=== PATIENT | female | born 1970 | race Caucasian/White ===

== ENCOUNTER 2019-08-30 09:57 | Inpatient (IN) ==
[2019-08-30 10:38] LABS: Bilirubin,Urine Negative (Negative); Blood,Urine Large (Negative); Clarity,Urine Cloudy (Clear); Color,Urine Red (Yellow); Glucose,Urine (UA) >=1000 mg/dL (Normal); Ketones,Urine Negative (Negative); Leukocyte Esterase,Urine Small (Negative); Nitrite,Urine Negative (Negative); Protein,Urine >=1000 mg/dL (Neg-Trace); Specific Gravity,Urine 1.028 (1.010-1.025); Urobilinogen,Urine Normal (Normal)
[2019-08-30 10:39] LABS: Bacteria,Urine Many per hpf (None-Few); Hyaline Casts,Urine Few per lpf (None-Few); RBC,Urine TNTC per hpf (0-3); Squamous Epithelial Cell,Urine Many per lpf (None-Few); WBC,Urine 15-30 per hpf (0-3)
[2019-08-30 11:03] LABS: Hematocrit 32.6 % (35.3-44.9); Hemoglobin 11.4 g/dL (11.5-15.4); Mean Corpuscular Hemoglobin 31.1 pg (28.0-33.3); Mean Corpuscular Volume 88.8 fL (83.0-100.0); Mean Platelet Volume 9.7 fL (9.4-12.4); Platelet Count 229 K/mcL (140-400); Red Blood Count 3.67 M/mcL (3.82-4.97); Red Cell Distribution Width 11.9 % (11.5-14.5); White Blood Count 7.8 K/mcL (4.3-11.1)
[2019-08-30 11:11] LABS: INR 0.8; Prothrombin Time 9.2 Seconds (9.4-12.1)
[2019-08-30 11:23] LABS: BUN/Creatinine Ratio 14 (6-26); Blood Urea Nitrogen 21 mg/dL (6-20); Calcium 8.1 mg/dL (8.6-10.3); Carbon Dioxide 20 mEq/L (23-29); Chloride 106 mEq/L (98-107); Glucose 253 mg/dL (70-105); Osmolality,Calculated 286 (280-300); Potassium 3.9 mEq/L (3.5-5.1); Sodium 132 mEq/L (136-145); eGFR For African Americans 45 (> 60); eGFR For Non-African Americans 38 (> 60)
[2019-08-30 11:25] LABS: Troponin I < 0.03 ng/mL (< 0.04)
[2019-08-30] MEDS ORDERED: cefTRIAXone 1,000 MG in 0.9 % Sodium Chloride Mini Bag 100 ML IVPB ONE (12:09)
[2019-08-30] MEDS ORDERED: Acetaminophen 325 MG TABLET PO PRN (12:51)
[2019-08-30] MEDS ORDERED: Ringers Solution, Lactated 1,000 ML IVC ONE (12:54)
[2019-08-30] MEDS ORDERED: Nicotine 2 MG GUM BC PRN (13:02)
[2019-08-30] MEDS ORDERED: Dextrose Gel 15 GM/37.5 ML TUBE PO PRN ×2 (13:04)
[2019-08-30] MEDS ORDERED: *HR* Dextrose 50 % in Water (Syg) 50 ML SYRINGE IVP PRN (13:04)
[2019-08-30] MEDS ORDERED: D5% in Water 1,000 ML IVC PRN (13:04)
[2019-08-30] MEDS ORDERED: Aspirin 81 MG TAB.CHEW PO STA (15:39)
[2019-08-30 15:40] LABS: Alanine Aminotransferase 18 Units/L (7-52); Albumin/Globulin Ratio 0.7 (1.1-2.2); Alkaline Phosphatase 87 Units/L (34-104); Aspartate Amino Transferase 18 Units/L (13-39); Bilirubin,Indirect 0.1 mg/dL (0.0-1.2); Bilirubin,Total 0.1 mg/dL (0.3-1.0); Globulin 2.7 g/dL (2.4-3.5); Total Protein 4.7 g/dL (6.4-8.9)
[2019-08-30] MEDS ORDERED: *HR* LORazepam 2 MG/ML VIAL IVP PRN (17:16)
[2019-08-30] MEDS: *HR* Heparin 5,000 UNIT/ML VIAL SQ SCH ×2 (17:46→22:12)
[2019-08-30] MEDS: Insulin LISPRO 300 UNITS/3 ML VIAL SQ SCH ×2 (17:46→22:14)
[2019-08-30] MEDS: Ringers Solution, Lactated 1,000 ML IVC SCH (17:47)
[2019-08-30] MEDS: Nicotine 21 MG PATCH.TD24 TD SCH (17:47)
[2019-08-30] MEDS ORDERED: Perflutren Lipid Microsphere 1.3 ML in 0.9 % Sodium Chloride 8.7 ML IVP ONE (17:52)
[2019-08-30] MEDS ORDERED: levETIRAcetam 1,000 MG in 0.9 % Sodium Chloride 100 ML IVPB ONE (18:00)
[2019-08-30] MEDS ORDERED: traMADol 50 MG TABLET PO ONE (20:29)
[2019-08-31 01:12] LABS: Hematocrit 25.5 % (35.3-44.9); Mean Corpuscular HGB Conc 34.9 g/dL (31.6-35.5); Mean Corpuscular Hemoglobin 30.6 pg (28.0-33.3); Mean Corpuscular Volume 87.6 fL (83.0-100.0); Mean Platelet Volume 10.4 fL (9.4-12.4); Platelet Count 227 K/mcL (140-400); Red Blood Count 2.91 M/mcL (3.82-4.97); White Blood Count 6.5 K/mcL (4.3-11.1)
[2019-08-31 01:13] LABS: Hemoglobin 8.9 g/dL (11.5-15.4)
[2019-08-31 01:29] LABS: Calcium 7.4 mg/dL (8.6-10.3); Magnesium 1.6 mg/dL (1.6-2.6); Potassium 3.4 mEq/L (3.5-5.1)
[2019-08-31 03:16] LABS: Estimated Average Glucose 226 mg/dl
[2019-08-31] MEDS: levETIRAcetam 250 MG TABLET PO SCH ×2 (06:20→16:48)
[2019-08-31] MEDS: *HR* Heparin 5,000 UNIT/ML VIAL SQ SCH ×3 (06:20→21:10)
[2019-08-31] MEDS ORDERED: Ringers Solution, Lactated 1,000 ML ONE (08:05)
[2019-08-31] MEDS: cefTRIAXone 1,000 MG in Water for inj. (sterile) 10 ML IVP SCH (08:14)
[2019-08-31] MEDS: Nicotine 21 MG PATCH.TD24 TD SCH (08:14)
[2019-08-31] MEDS: Insulin LISPRO 300 UNITS/3 ML VIAL SQ SCH ×4 (08:15→21:08)
[2019-08-31] MEDS: Ondansetron 4 MG/2 ML VIAL IVP PRN (08:15)
[2019-08-31] MEDS: Ringers Solution, Lactated 1,000 ML IVC SCH (08:16)
[2019-08-31] MEDS ORDERED: *HR* HYDROcodone/Acet 5/325 mg TABLET PO ONE (13:37)
[2019-08-31] MEDS: 0.9 % Sodium Chloride 1,000 ML IVC SCH (14:24)
[2019-09-01] MEDS: 0.9 % Sodium Chloride 1,000 ML IVC SCH (01:08)
[2019-09-01 01:27] LABS: Hematocrit 27.5 % (35.3-44.9); Hemoglobin 9.7 g/dL (11.5-15.4); Mean Corpuscular HGB Conc 35.3 g/dL (31.6-35.5); Mean Corpuscular Hemoglobin 31.1 pg (28.0-33.3); Mean Corpuscular Volume 88.1 fL (83.0-100.0); Mean Platelet Volume 10.2 fL (9.4-12.4); Platelet Count 222 K/mcL (140-400); Red Blood Count 3.12 M/mcL (3.82-4.97); Red Cell Distribution Width 12.1 % (11.5-14.5); White Blood Count 5.4 K/mcL (4.3-11.1)
[2019-09-01 01:47] LABS: Calcium 7.4 mg/dL (8.6-10.3); Magnesium 1.6 mg/dL (1.6-2.6); Phosphorous 4.3 mg/dL (2.7-4.5); Potassium 3.5 mEq/L (3.5-5.1)
[2019-09-01] MEDS: Ondansetron 4 MG/2 ML VIAL IVP PRN ×2 (05:01→20:27)
[2019-09-01] MEDS: *HR* Heparin 5,000 UNIT/ML VIAL SQ SCH ×3 (05:02→20:30)
[2019-09-01] MEDS: levETIRAcetam 250 MG TABLET PO SCH ×2 (05:03→17:13)
[2019-09-01] MEDS: Insulin LISPRO 300 UNITS/3 ML VIAL SQ SCH ×4 (09:32→21:06)
[2019-09-01] MEDS: cefTRIAXone 1,000 MG in Water for inj. (sterile) 10 ML IVP SCH (09:33)
[2019-09-01] MEDS: amLODIPine 5 MG TABLET PO SCH (09:34)
[2019-09-01] MEDS: Cholecalciferol (D-3) 1,000 UNIT (25MCG) TABLET PO SCH (09:34)
[2019-09-01] MEDS: Nicotine 21 MG PATCH.TD24 TD SCH (09:34)
[2019-09-01] MEDS ORDERED: *HR* Rivaroxaban 15 MG TABLET PO SCH (15:00)
[2019-09-01] MEDS: *HR* Enoxaparin 100 MG/ML SYRINGE SQ SCH (17:13)
[2019-09-01] MEDS ORDERED: traMADol 50 MG TABLET PO ONE (23:59)
[2019-09-02 06:17] LABS: Hematocrit 29.5 % (35.3-44.9); Hemoglobin 10.4 g/dL (11.5-15.4); Mean Corpuscular HGB Conc 35.3 g/dL (31.6-35.5); Mean Corpuscular Volume 88.1 fL (83.0-100.0); Mean Platelet Volume 9.8 fL (9.4-12.4); Platelet Count 199 K/mcL (140-400); Red Blood Count 3.35 M/mcL (3.82-4.97); Red Cell Distribution Width 12.3 % (11.5-14.5); White Blood Count 3.7 K/mcL (4.3-11.1)
[2019-09-02] MEDS: *HR* Enoxaparin 100 MG/ML SYRINGE SQ SCH ×2 (06:24→18:43)
[2019-09-02] MEDS: levETIRAcetam 250 MG TABLET PO SCH (06:25)
[2019-09-02 06:35] LABS: Calcium 7.5 mg/dL (8.6-10.3); Potassium 3.5 mEq/L (3.5-5.1)
[2019-09-02] MEDS: Ondansetron 4 MG/2 ML VIAL IVP PRN (07:32)
[2019-09-02] MEDS ORDERED: 0.9 % Sodium Chloride 1,000 ML IVC SCH ×2 (08:00→12:15)
[2019-09-02] MEDS: amLODIPine 5 MG TABLET PO SCH (09:27)
[2019-09-02] MEDS: Cholecalciferol (D-3) 1,000 UNIT (25MCG) TABLET PO SCH (09:27)
[2019-09-02] MEDS: Insulin LISPRO 300 UNITS/3 ML VIAL SQ SCH ×3 (09:28→17:25)
[2019-09-02] MEDS: Nicotine 21 MG PATCH.TD24 TD SCH (09:28)
[2019-09-02] MEDS: *HR* Promethazine 25 MG/ML VIAL IVP PRN ×2 (13:04→19:15)
[2019-09-02] MEDS ORDERED: *HR* HYDROmorphone (PF) 1 MG/ML SYRINGE IVP PRN (13:06)
[2019-09-02] MEDS ORDERED: Milk and Molasses Enema 200 ML RC ONE ×2 (14:09→16:15)
[2019-09-02 14:13] LABS: Albumin/Globulin Ratio 0.8 (1.1-2.2); Bilirubin,Indirect 0.1 mg/dL (0.0-1.0); Bilirubin,Total 0.1 mg/dL (0.3-1.0); Globulin 2.6 g/dL (2.4-3.5); Total Protein 4.6 g/dL (6.4-8.9)
[2019-09-02] MEDS ORDERED: Insulin LISPRO 300 UNITS/3 ML VIAL SQ SCH (18:00)
[2019-09-02] MEDS: Albumin 25% 25gram/100mL 25 GM/100 ML IV.SOLN IVPB SCH (18:36)
[2019-09-02 21:49] LABS: Bilirubin,Urine Negative (Negative); Blood,Urine Small (Negative); Clarity,Urine Cloudy (Clear); Color,Urine Yellow (Yellow); Glucose,Urine (UA) 250 mg/dL (Normal); Ketones,Urine Negative (Negative); Leukocyte Esterase,Urine Negative (Negative); Nitrite,Urine Negative (Negative); PH,Urine 7.5 pH Units (5.0-8.0); Protein,Urine >=1000 mg/dL (Neg-Trace); Specific Gravity,Urine 1.022 (1.010-1.025); Urobilinogen,Urine Normal (Normal)
[2019-09-02 21:54] LABS: Bacteria,Urine None Seen per hpf (None-Few); Hyaline Casts,Urine Few per lpf (None-Few); Squamous Epithelial Cell,Urine Many per lpf (None-Few)
[2019-09-02 21:55] LABS: RBC,Urine 0-3 per hpf (0-3)
[2019-09-03] MEDS: Insulin LISPRO 300 UNITS/3 ML VIAL SQ SCH ×4 (00:22→18:07)
[2019-09-03] MEDS: Albumin 25% 25gram/100mL 25 GM/100 ML IV.SOLN IVPB SCH ×2 (00:28→09:21)
[2019-09-03] MEDS ORDERED: 0.9 % Sodium Chloride 1,000 ML IVC SCH ×2 (03:15→13:15)
[2019-09-03 04:58] LABS: Basophils % 0.2 %; Hematocrit 23.3 % (35.3-44.9); Immature Granulocytes % 0.2 % (0-4); Lymphocytes # 0.9 K/mcL (0.6-4.6); Lymphocytes % 23.2 %; Mean Corpuscular HGB Conc 33.5 g/dL (31.6-35.5); Mean Corpuscular Hemoglobin 30.6 pg (28.0-33.3); Mean Corpuscular Volume 91.4 fL (83.0-100.0); Mean Platelet Volume 10.3 fL (9.4-12.4); Monocytes # 0.4 K/mcL (0.0-1.3); Monocytes % 9.9 %; Neutrophils # 2.7 K/mcL (1.6-8.9); Platelet Count 171 K/mcL (140-400); Red Blood Count 2.55 M/mcL (3.82-4.97); Red Cell Distribution Width 12.3 % (11.5-14.5); Segmented Neutrophils % 66.5 %; White Blood Count 4.1 K/mcL (4.3-11.1)
[2019-09-03 05:01] LABS: Hemoglobin 7.8 g/dL (11.5-15.4)
[2019-09-03 05:17] LABS: Alanine Aminotransferase 14 Units/L (7-52); Albumin 2.2 g/dL (3.5-5.7); Albumin/Globulin Ratio 1.3 (1.1-2.2); Alkaline Phosphatase 50 Units/L (34-104); Aspartate Amino Transferase 17 Units/L (13-39); BUN/Creatinine Ratio 13 (6-26); Bilirubin,Total 0.1 mg/dL (0.3-1.0); Blood Urea Nitrogen 15 mg/dL (6-20); Calcium 7.3 mg/dL (8.6-10.3); Carbon Dioxide 20 mEq/L (23-29); Chloride 112 mEq/L (98-107); Globulin 1.7 g/dL (2.4-3.5); Glucose 107 mg/dL (70-105); Osmolality,Calculated 285 (280-300); Potassium 3.2 mEq/L (3.5-5.1); Sodium 137 mEq/L (136-145); Total Protein 3.9 g/dL (6.4-8.9); Triglycerides 189 mg/dL (< 150); eGFR For African Americans > 60 (> 60); eGFR For Non-African Americans 51 (> 60)
[2019-09-03] MEDS: *HR* Enoxaparin 100 MG/ML SYRINGE SQ SCH (05:25)
[2019-09-03] MEDS ORDERED: Potassium Chloride 40 MEQ, Lidocaine 1% 2 ML in 0.9 % Sodium Chloride 500 ML IVPB ONE ×2 (07:28→11:00)
[2019-09-03] MEDS: Cholecalciferol (D-3) 1,000 UNIT (25MCG) TABLET PO SCH (09:01)
[2019-09-03] MEDS: Nicotine 21 MG PATCH.TD24 TD SCH (09:01)
[2019-09-03] MEDS: amLODIPine 5 MG TABLET PO SCH (09:01)
[2019-09-03] MEDS ORDERED: Ondansetron 4 MG/2 ML VIAL IVP PRN (13:05)
[2019-09-03] MEDS: *HR* Rivaroxaban 15 MG TABLET PO SCH (18:17)
[2019-09-03] MEDS ORDERED: Gadolinium Contrast Agent (WT Based) IV PRN (18:29)
[2019-09-03] MEDS ORDERED: Acetaminophen 325 MG TABLET PO SCH (21:00)
[2019-09-04] MEDS: Insulin LISPRO 300 UNITS/3 ML VIAL SQ SCH ×2 (03:25→11:34)
[2019-09-04 03:53] LABS: Hematocrit 22.8 % (35.3-44.9); Hemoglobin 7.8 g/dL (11.5-15.4); Mean Corpuscular HGB Conc 34.2 g/dL (31.6-35.5); Mean Corpuscular Hemoglobin 30.8 pg (28.0-33.3); Mean Corpuscular Volume 90.1 fL (83.0-100.0); Mean Platelet Volume 9.7 fL (9.4-12.4); Platelet Count 152 K/mcL (140-400); Red Blood Count 2.53 M/mcL (3.82-4.97); Red Cell Distribution Width 12.7 % (11.5-14.5); White Blood Count 2.5 K/mcL (4.3-11.1)
[2019-09-04 04:13] LABS: Potassium 3.4 mEq/L (3.5-5.1)
[2019-09-04] MEDS ORDERED: Potassium Chloride Elixir 20 MEQ/15 ML UDC PO SCH (08:15)
[2019-09-04] MEDS ORDERED: levETIRAcetam 250 MG TABLET PO SCH (09:00)
[2019-09-04] MEDS: *HR* Rivaroxaban 15 MG TABLET PO SCH (10:53)
[2019-09-04] MEDS: Cholecalciferol (D-3) 1,000 UNIT (25MCG) TABLET PO SCH (10:53)
[2019-09-04] MEDS: Nicotine 21 MG PATCH.TD24 TD SCH (10:54)
[2019-09-04] MEDS: amLODIPine 5 MG TABLET PO SCH (10:57)
[2019-09-04 12:19] VITALS: BP 156/92
== END 2019-09-04 13:53 | disposition home or self-care (01) | DRG 47 ==
LOC: EMEROOARM 09:57 → 3BNU 09:57 → SUATTDRO 13:24 → 3BNU 14:03 → 3ANU 09-02 15:21
PROVIDERS: ADMIT Internal Medicine; ATTEND Internal Medicine

== ENCOUNTER 2020-06-07 02:28 | Inpatient (IN) ==
[2020-06-07 03:45] LABS: Basophils % 0.3 %; Eosinophils # 0.1 K/mcL (0.0-0.6); Eosinophils % 1.7 %; Hemoglobin 7.2 g/dL (11.5-15.4); Immature Granulocytes % 0.4 % (0-4); Immature Platelets 0.9 % (1.1-6.1); Lymphocytes # 1.2 K/mcL (0.6-4.6); Lymphocytes % 15.9 %; Mean Corpuscular HGB Conc 32.7 g/dL (31.6-35.5); Mean Corpuscular Hemoglobin 29.5 pg (28.0-33.3); Mean Corpuscular Volume 90.2 fL (83.0-100.0); Monocytes # 0.5 K/mcL (0.0-1.3); Monocytes % 6.7 %; Neutrophils # 5.7 K/mcL (1.6-8.9); Red Blood Count 2.44 M/mcL (3.82-4.97); Red Cell Distribution Width 14.6 % (11.5-14.5); White Blood Count 7.6 K/mcL (4.3-11.1)
[2020-06-07] MEDS ORDERED: *HR* LORazepam 2 MG/ML VIAL IVP ONE (03:50)
[2020-06-07 03:52] LABS: Platelet Count 99 K/mcL (140-400)
[2020-06-07 04:01] LABS: Albumin 2.1 g/dL (3.5-5.7); Bilirubin,Total 0.2 mg/dL (0.3-1.0); Calcium 6.9 mg/dL (8.6-10.3); Globulin 2.2 g/dL (2.4-3.5); Potassium 4.4 mEq/L (3.5-5.1); Total Protein 4.3 g/dL (6.4-8.9); Troponin I 0.03 ng/mL (< 0.04)
[2020-06-07] MEDS ORDERED: 0.9 % Sodium Chloride 1,000 ML ONE (05:15)
[2020-06-07] MEDS ORDERED: Naloxone 0.4 MG/ML INJ IVP PRN (07:19)
[2020-06-07] MEDS ORDERED: Dextrose Gel 15 GM/37.5 ML TUBE PO PRN ×2 (07:24)
[2020-06-07] MEDS ORDERED: D5% in Water 1,000 ML IVC PRN (07:24)
[2020-06-07] MEDS ORDERED: *HR* Dextrose 50 % in Water (Vial) 50 ML VIAL IVP PRN (07:24)
[2020-06-07] MEDS ORDERED: 0.9 % Sodium Chloride 250 ML IVC SCH (07:30)
[2020-06-07] MEDS: amLODIPine 5 MG TABLET PO SCH ×2 (07:40→11:53)
[2020-06-07] MEDS: Metoprolol XL (24 HR) Succ 50 MG TAB.ER.24H PO SCH ×2 (07:41→11:53)
[2020-06-07] MEDS: Insulin LISPRO 300 UNITS/3 ML VIAL SQ SCH ×3 (07:41→17:13)
[2020-06-07] MEDS: Apixaban 5 MG TABLET PO SCH ×2 (07:49→20:16)
[2020-06-07] MEDS: Aspirin Enteric Coated 81 MG Tablet PO SCH (07:49)
[2020-06-07] MEDS: Topiramate 25 MG TABLET PO SCH ×2 (07:49→20:15)
[2020-06-07] MEDS: Insulin DETEMIR 100 UNIT/ML X5UNITS SQ SCH ×2 (07:49→20:18)
[2020-06-07] MEDS: levETIRAcetam 250 MG TABLET PO SCH ×2 (07:49→20:16)
[2020-06-07 07:51] LABS: INR 0.9; Prothrombin Time 9.8 Seconds (9.4-12.1)
[2020-06-07 07:54] LABS: Activated Partial Thrombo Time 32.4 Seconds (26.0-36.0)
[2020-06-07] MEDS: *HR* HYDROcodone/Acet 5/325 mg TABLET PO PRN (17:13)
[2020-06-07] MEDS: ALPRAZolam 0.25 MG TABLET PO PRN (17:14)
[2020-06-08 00:59] LABS: Basophils % 0.4 %; Eosinophils # 0.1 K/mcL (0.0-0.6); Eosinophils % 2.4 %; Hemoglobin 6.2 g/dL (11.5-15.4); Immature Granulocytes % 0.4 % (0-4); Lymphocytes # 1.6 K/mcL (0.6-4.6); Lymphocytes % 31.3 %; Mean Corpuscular HGB Conc 32.6 g/dL (31.6-35.5); Mean Corpuscular Hemoglobin 29.5 pg (28.0-33.3); Mean Corpuscular Volume 90.5 fL (83.0-100.0); Mean Platelet Volume 9.7 fL (9.4-12.4); Monocytes # 0.4 K/mcL (0.0-1.3); Monocytes % 8.2 %; Neutrophils # 2.9 K/mcL (1.6-8.9); Platelet Count 100 K/mcL (140-400); Red Cell Distribution Width 14.9 % (11.5-14.5); Segmented Neutrophils % 57.3 %
[2020-06-08 01:14] LABS: Magnesium 1.5 mg/dL (1.6-2.6); Phosphorous 5.6 mg/dL (2.7-4.5); Potassium 4.4 mEq/L (3.5-5.1)
[2020-06-08] MEDS: ALPRAZolam 0.25 MG TABLET PO PRN ×2 (01:17→15:43)
[2020-06-08] MEDS ORDERED: 0.9 % Sodium Chloride 250 ML IVC PRN (07:42)
[2020-06-08] MEDS ORDERED: *HR* Heparin 10,000 UNIT/10 ML VIAL IV PRN (07:42)
[2020-06-08] MEDS ORDERED: 0.9 % Sodium Chloride 1,000 ML PRIME SCH (07:45)
[2020-06-08] MEDS: Insulin LISPRO 300 UNITS/3 ML VIAL SQ SCH ×3 (08:00→15:42)
[2020-06-08] MEDS: levETIRAcetam 250 MG TABLET PO SCH ×2 (08:05→20:12)
[2020-06-08] MEDS: Apixaban 5 MG TABLET PO SCH ×2 (08:05→20:12)
[2020-06-08] MEDS: Metoprolol XL (24 HR) Succ 50 MG TAB.ER.24H PO SCH (08:05)
[2020-06-08] MEDS: Topiramate 25 MG TABLET PO SCH ×2 (08:05→20:12)
[2020-06-08] MEDS: Aspirin Enteric Coated 81 MG Tablet PO SCH (08:05)
[2020-06-08] MEDS: amLODIPine 5 MG TABLET PO SCH (08:06)
[2020-06-08] MEDS: Insulin DETEMIR 100 UNIT/ML X5UNITS SQ SCH ×2 (08:07→20:21)
[2020-06-08] MEDS: *HR* HYDROcodone/Acet 5/325 mg TABLET PO PRN (15:43)
[2020-06-08] MEDS: Iron Sucrose Complex 200 MG in 0.9 % Sodium Chloride 100 ML IVPB SCH (15:43)
[2020-06-08] MEDS: carvediloL 25 MG TABLET PO SCH (15:43)
[2020-06-08] MEDS: Calcium Acetate 667 MG CAPSULE PO SCH (15:43)
[2020-06-09] MEDS: ALPRAZolam 0.25 MG TABLET PO PRN ×2 (00:36→21:24)
[2020-06-09] MEDS: *HR* HYDROcodone/Acet 5/325 mg TABLET PO PRN ×2 (04:28→21:24)
[2020-06-09 04:51] LABS: Hematocrit 22.2 % (35.3-44.9); Hemoglobin 7.3 g/dL (11.5-15.4); Mean Corpuscular HGB Conc 32.9 g/dL (31.6-35.5); Mean Corpuscular Hemoglobin 30.2 pg (28.0-33.3); Mean Corpuscular Volume 91.7 fL (83.0-100.0); Mean Platelet Volume 9.7 fL (9.4-12.4); Platelet Count 119 K/mcL (140-400); Red Blood Count 2.42 M/mcL (3.82-4.97); Red Cell Distribution Width 14.5 % (11.5-14.5)
[2020-06-09 05:09] LABS: Calcium 6.7 mg/dL (8.6-10.3); Potassium 4.5 mEq/L (3.5-5.1)
[2020-06-09] MEDS: Insulin LISPRO 300 UNITS/3 ML VIAL SQ SCH ×3 (07:23→17:06)
[2020-06-09] MEDS ORDERED: *HR* Heparin 10,000 UNIT/10 ML VIAL IV PRN (07:51)
[2020-06-09] MEDS ORDERED: 0.9 % Sodium Chloride 250 ML IVC PRN (07:51)
[2020-06-09] MEDS ORDERED: 0.9 % Sodium Chloride 1,000 ML PRIME SCH (08:00)
[2020-06-09] MEDS: Aspirin Enteric Coated 81 MG Tablet PO SCH (08:17)
[2020-06-09] MEDS: Apixaban 5 MG TABLET PO SCH ×2 (08:17→20:45)
[2020-06-09] MEDS: carvediloL 25 MG TABLET PO SCH ×2 (08:17→17:05)
[2020-06-09] MEDS: Calcium Acetate 667 MG CAPSULE PO SCH ×3 (08:17→17:06)
[2020-06-09] MEDS: Topiramate 25 MG TABLET PO SCH ×2 (08:18→20:45)
[2020-06-09] MEDS: levETIRAcetam 250 MG TABLET PO SCH ×2 (08:18→20:45)
[2020-06-09] MEDS: Iron Sucrose Complex 200 MG in 0.9 % Sodium Chloride 100 ML IVPB SCH (08:19)
[2020-06-09] MEDS: amLODIPine 5 MG TABLET PO SCH (08:19)
[2020-06-09] MEDS: Insulin DETEMIR 100 UNIT/ML X5UNITS SQ SCH ×2 (08:32→20:57)
[2020-06-10 03:30] LABS: Hematocrit 22.1 % (35.3-44.9); Hemoglobin 7.5 g/dL (11.5-15.4); Mean Corpuscular HGB Conc 33.9 g/dL (31.6-35.5); Mean Corpuscular Hemoglobin 30.6 pg (28.0-33.3); Mean Corpuscular Volume 90.2 fL (83.0-100.0); Mean Platelet Volume 9.5 fL (9.4-12.4); Platelet Count 109 K/mcL (140-400); Red Blood Count 2.45 M/mcL (3.82-4.97); Red Cell Distribution Width 14.4 % (11.5-14.5); White Blood Count 5.4 K/mcL (4.3-11.1)
[2020-06-10] MEDS: Apixaban 5 MG TABLET PO SCH ×2 (07:58→20:36)
[2020-06-10] MEDS: Calcium Acetate 667 MG CAPSULE PO SCH ×3 (07:58→17:08)
[2020-06-10] MEDS: Aspirin Enteric Coated 81 MG Tablet PO SCH (07:58)
[2020-06-10] MEDS: Topiramate 25 MG TABLET PO SCH ×2 (07:58→20:36)
[2020-06-10] MEDS: levETIRAcetam 250 MG TABLET PO SCH ×2 (07:59→20:35)
[2020-06-10] MEDS: Insulin LISPRO 300 UNITS/3 ML VIAL SQ SCH ×3 (08:00→16:58)
[2020-06-10] MEDS: amLODIPine 5 MG TABLET PO SCH (08:08)
[2020-06-10] MEDS: Iron Sucrose Complex 200 MG in 0.9 % Sodium Chloride 100 ML IVPB SCH (09:30)
[2020-06-10] MEDS: Insulin DETEMIR 100 UNIT/ML X5UNITS SQ SCH ×2 (09:31→20:45)
[2020-06-10] MEDS: carvediloL 25 MG TABLET PO SCH ×2 (09:31→17:07)
[2020-06-10] MEDS: *HR* HYDROcodone/Acet 5/325 mg TABLET PO PRN ×2 (13:20→20:36)
[2020-06-10 15:49] LABS: VBG HCO3 28 mEq/L (21-27); VBG PCO2 45 mmHg (41-51); VBG PO2 144 mmHg (25-50)
[2020-06-10] MEDS: ALPRAZolam 0.25 MG TABLET PO PRN (18:44)
[2020-06-10] MEDS: Ipratropium/Albuterol Neb 3 ML IH PRN (21:06)
[2020-06-11 04:29] LABS: Hematocrit 21.1 % (35.3-44.9); Hemoglobin 6.8 g/dL (11.5-15.4); Mean Corpuscular HGB Conc 32.2 g/dL (31.6-35.5); Mean Platelet Volume 9.6 fL (9.4-12.4); Platelet Count 119 K/mcL (140-400); Red Blood Count 2.27 M/mcL (3.82-4.97); White Blood Count 5.1 K/mcL (4.3-11.1)
[2020-06-11 04:51] LABS: Calcium 7.5 mg/dL (8.6-10.3); Magnesium 1.5 mg/dL (1.6-2.6); Potassium 4.8 mEq/L (3.5-5.1)
[2020-06-11] MEDS ORDERED: *HR* Heparin 10,000 UNIT/10 ML VIAL IV PRN (07:39)
[2020-06-11] MEDS ORDERED: 0.9 % Sodium Chloride 250 ML IVC PRN (07:39)
[2020-06-11] MEDS ORDERED: Cyanocobalamin (B-12) 1,000 MCG/ML VIAL SQ ONE (07:51)
[2020-06-11] MEDS ORDERED: 0.9 % Sodium Chloride 250 ML IVC SCH (08:00)
[2020-06-11] MEDS: Apixaban 5 MG TABLET PO SCH ×2 (08:27→20:26)
[2020-06-11] MEDS: Aspirin Enteric Coated 81 MG Tablet PO SCH (08:27)
[2020-06-11] MEDS: Insulin DETEMIR 100 UNIT/ML X5UNITS SQ SCH ×2 (08:28→20:32)
[2020-06-11] MEDS: amLODIPine 5 MG TABLET PO SCH (08:28)
[2020-06-11] MEDS: Topiramate 25 MG TABLET PO SCH ×2 (08:28→20:26)
[2020-06-11] MEDS: carvediloL 25 MG TABLET PO SCH ×2 (08:28→17:25)
[2020-06-11] MEDS: Calcium Acetate 667 MG CAPSULE PO SCH ×3 (08:28→17:25)
[2020-06-11] MEDS: *HR* HYDROcodone/Acet 5/325 mg TABLET PO PRN ×2 (08:28→20:44)
[2020-06-11] MEDS: Insulin LISPRO 300 UNITS/3 ML VIAL SQ SCH ×3 (08:29→16:46)
[2020-06-11] MEDS: levETIRAcetam 250 MG TABLET PO SCH ×2 (08:29→20:26)
[2020-06-11] MEDS: Ipratropium/Albuterol Neb 3 ML IH PRN ×2 (12:12→18:50)
[2020-06-11] MEDS: ALPRAZolam 0.25 MG TABLET PO PRN (20:26)
[2020-06-11 23:12] LABS: Hematocrit 24.2 % (35.3-44.9); Hemoglobin 8.1 g/dL (11.5-15.4)
[2020-06-12] MEDS: *HR* HYDROcodone/Acet 5/325 mg TABLET PO PRN ×2 (01:49→17:34)
[2020-06-12 03:56] LABS: Hematocrit 23.8 % (35.3-44.9); Hemoglobin 7.8 g/dL (11.5-15.4); Mean Corpuscular HGB Conc 32.8 g/dL (31.6-35.5); Mean Corpuscular Hemoglobin 29.5 pg (28.0-33.3); Mean Corpuscular Volume 90.2 fL (83.0-100.0); Platelet Count 125 K/mcL (140-400); Red Blood Count 2.64 M/mcL (3.82-4.97); Red Cell Distribution Width 14.8 % (11.5-14.5); White Blood Count 5.3 K/mcL (4.3-11.1)
[2020-06-12 04:23] LABS: Calcium 7.5 mg/dL (8.6-10.3); Magnesium 1.7 mg/dL (1.6-2.6); Phosphorous 2.9 mg/dL (2.7-4.5); Potassium 4.1 mEq/L (3.5-5.1)
[2020-06-12] MEDS: Ipratropium/Albuterol Neb 3 ML IH PRN ×2 (06:51→20:13)
[2020-06-12 07:01] LABS: Hematocrit 24.8 % (35.3-44.9); Hemoglobin 8.2 g/dL (11.5-15.4)
[2020-06-12] MEDS: Topiramate 25 MG TABLET PO SCH ×2 (08:57→20:10)
[2020-06-12] MEDS: Apixaban 5 MG TABLET PO SCH ×2 (08:57→20:10)
[2020-06-12] MEDS: amLODIPine 5 MG TABLET PO SCH (08:57)
[2020-06-12] MEDS: Aspirin Enteric Coated 81 MG Tablet PO SCH (08:57)
[2020-06-12] MEDS: Calcium Acetate 667 MG CAPSULE PO SCH ×3 (08:57→17:31)
[2020-06-12] MEDS: Insulin DETEMIR 100 UNIT/ML X5UNITS SQ SCH ×2 (08:58→20:44)
[2020-06-12] MEDS: carvediloL 25 MG TABLET PO SCH ×2 (08:58→17:31)
[2020-06-12] MEDS: levETIRAcetam 250 MG TABLET PO SCH ×2 (08:58→20:11)
[2020-06-12] MEDS: Insulin LISPRO 300 UNITS/3 ML VIAL SQ SCH ×3 (08:58→16:25)
[2020-06-12 12:46] LABS: Hemoglobin 8.9 g/dL (11.5-15.4)
[2020-06-12 17:21] LABS: Hematocrit 25.6 % (35.3-44.9); Hemoglobin 8.2 g/dL (11.5-15.4)
[2020-06-12 20:28] LABS: Hemoglobin 7.9 g/dL (11.5-15.4)
[2020-06-12] MEDS: ALPRAZolam 0.25 MG TABLET PO PRN (20:44)
[2020-06-13 04:35] LABS: Hematocrit 23.7 % (35.3-44.9); Hemoglobin 7.8 g/dL (11.5-15.4); Mean Corpuscular HGB Conc 32.9 g/dL (31.6-35.5); Mean Corpuscular Hemoglobin 30.6 pg (28.0-33.3); Mean Corpuscular Volume 92.9 fL (83.0-100.0); Mean Platelet Volume 9.9 fL (9.4-12.4); Platelet Count 144 K/mcL (140-400); Red Blood Count 2.55 M/mcL (3.82-4.97); Red Cell Distribution Width 15.2 % (11.5-14.5); White Blood Count 5.2 K/mcL (4.3-11.1)
[2020-06-13 04:59] LABS: Calcium 7.7 mg/dL (8.6-10.3); Potassium 4.8 mEq/L (3.5-5.1)
[2020-06-13 05:00] LABS: Magnesium 1.8 mg/dL (1.6-2.6)
[2020-06-13] MEDS ORDERED: 0.9 % Sodium Chloride 250 ML IVC PRN (07:05)
[2020-06-13] MEDS: Insulin LISPRO 300 UNITS/3 ML VIAL SQ SCH ×3 (08:23→17:11)
[2020-06-13] MEDS: Topiramate 25 MG TABLET PO SCH ×2 (08:29→19:35)
[2020-06-13] MEDS: levETIRAcetam 250 MG TABLET PO SCH ×2 (08:29→19:36)
[2020-06-13] MEDS: Insulin DETEMIR 100 UNIT/ML X5UNITS SQ SCH ×2 (08:29→21:47)
[2020-06-13] MEDS: Apixaban 5 MG TABLET PO SCH ×2 (08:29→19:35)
[2020-06-13] MEDS: Calcium Acetate 667 MG CAPSULE PO SCH ×3 (08:29→17:11)
[2020-06-13] MEDS: Aspirin Enteric Coated 81 MG Tablet PO SCH (08:29)
[2020-06-13] MEDS: carvediloL 25 MG TABLET PO SCH ×2 (09:00→17:11)
[2020-06-13] MEDS: amLODIPine 5 MG TABLET PO SCH (09:00)
[2020-06-13] MEDS: *HR* HYDROcodone/Acet 5/325 mg TABLET PO PRN (11:46)
[2020-06-13] MEDS ORDERED: *HR* Metoprolol 5 MG/5 ML VIAL IVP ONE (22:01)
[2020-06-13] MEDS: ALPRAZolam 0.25 MG TABLET PO PRN (23:08)
[2020-06-14] MEDS: Ondansetron 4 MG/2 ML VIAL IVP PRN ×2 (00:14→21:02)
[2020-06-14 04:42] LABS: Hematocrit 25.7 % (35.3-44.9); Hemoglobin 8.3 g/dL (11.5-15.4); Mean Corpuscular HGB Conc 32.3 g/dL (31.6-35.5); Mean Corpuscular Hemoglobin 30.1 pg (28.0-33.3); Mean Corpuscular Volume 93.1 fL (83.0-100.0); Mean Platelet Volume 9.9 fL (9.4-12.4); Platelet Count 172 K/mcL (140-400); Red Blood Count 2.76 M/mcL (3.82-4.97); White Blood Count 7.1 K/mcL (4.3-11.1)
[2020-06-14 05:03] LABS: Calcium 7.6 mg/dL (8.6-10.3); Potassium 4.3 mEq/L (3.5-5.1)
[2020-06-14] MEDS: Insulin LISPRO 300 UNITS/3 ML VIAL SQ SCH ×3 (08:06→16:34)
[2020-06-14] MEDS: Aspirin Enteric Coated 81 MG Tablet PO SCH (08:12)
[2020-06-14] MEDS: Apixaban 5 MG TABLET PO SCH ×2 (08:12→21:03)
[2020-06-14] MEDS: Topiramate 25 MG TABLET PO SCH ×2 (08:13→21:03)
[2020-06-14] MEDS: carvediloL 25 MG TABLET PO SCH ×2 (08:13→16:57)
[2020-06-14] MEDS: Calcium Acetate 667 MG CAPSULE PO SCH ×3 (08:13→16:57)
[2020-06-14] MEDS: Insulin DETEMIR 100 UNIT/ML X5UNITS SQ SCH ×2 (08:13→21:03)
[2020-06-14] MEDS: levETIRAcetam 250 MG TABLET PO SCH ×2 (08:21→19:34)
[2020-06-14] MEDS: amLODIPine 5 MG TABLET PO SCH (08:21)
[2020-06-14] MEDS: Ipratropium/Albuterol Neb 3 ML IH PRN (18:48)
[2020-06-14] MEDS: ALPRAZolam 0.25 MG TABLET PO PRN (21:03)
[2020-06-14] MEDS ORDERED: *HR* Metoprolol 5 MG/5 ML VIAL IVP ONE (21:58)
[2020-06-14 22:36] LABS: ABG Base Excess 2 mEq/L (-2 to 3); ABG HCO3 27 mEq/L (21-27); ABG Oxygen Saturation 96 % (95-98); ABG PCO2 43 mmHg (35-45); ABG PH 7.41 pH Units (7.32-7.45); ABG PO2 79 mmHg (85-104); ABG TCO2 29 mEq/L (20-26)
[2020-06-15] MEDS: *HR* HYDROcodone/Acet 5/325 mg TABLET PO PRN ×2 (04:15→15:22)
[2020-06-15 04:41] LABS: Basophils % 0.4 %; Eosinophils # 0.1 K/mcL (0.0-0.6); Eosinophils % 1.8 %; Hematocrit 22.8 % (35.3-44.9); Hemoglobin 7.1 g/dL (11.5-15.4); Immature Granulocytes % 0.2 % (0-4); Lymphocytes # 1.6 K/mcL (0.6-4.6); Lymphocytes % 29.1 %; Mean Corpuscular HGB Conc 31.1 g/dL (31.6-35.5); Mean Corpuscular Hemoglobin 29.2 pg (28.0-33.3); Mean Corpuscular Volume 93.8 fL (83.0-100.0); Mean Platelet Volume 10.6 fL (9.4-12.4); Monocytes # 0.7 K/mcL (0.0-1.3); Monocytes % 11.7 %; Neutrophils # 3.2 K/mcL (1.6-8.9); Platelet Count 138 K/mcL (140-400); Red Blood Count 2.43 M/mcL (3.82-4.97); Segmented Neutrophils % 56.8 %; White Blood Count 5.6 K/mcL (4.3-11.1)
[2020-06-15 04:59] LABS: Calcium 7.8 mg/dL (8.6-10.3); Potassium 4.9 mEq/L (3.5-5.1)
[2020-06-15] MEDS: Insulin LISPRO 300 UNITS/3 ML VIAL SQ SCH ×2 (07:59→12:12)
[2020-06-15] MEDS: Calcium Acetate 667 MG CAPSULE PO SCH ×3 (08:16→17:32)
[2020-06-15] MEDS: Topiramate 25 MG TABLET PO SCH (08:16)
[2020-06-15] MEDS: Apixaban 5 MG TABLET PO SCH (08:16)
[2020-06-15] MEDS: carvediloL 25 MG TABLET PO SCH ×2 (08:16→17:32)
[2020-06-15] MEDS: amLODIPine 5 MG TABLET PO SCH (08:16)
[2020-06-15] MEDS: Aspirin Enteric Coated 81 MG Tablet PO SCH (08:16)
[2020-06-15] MEDS: levETIRAcetam 250 MG TABLET PO SCH (08:17)
[2020-06-15] MEDS: Insulin DETEMIR 100 UNIT/ML X5UNITS SQ SCH (08:28)
[2020-06-15] MEDS ORDERED: NIFEdipine XL (24 HR) 30 MG TAB.ER.24 PO SCH (09:00)
[2020-06-15 16:07] VITALS: BP 180/92
== END 2020-06-15 18:27 | disposition home health service (06) | DRG 425 ==
LOC: EMEROOARM 02:28 → 2NNU 02:28 → SUATTDRO 05:14 → 2NNU 05:58 → SUATTDRO 06-09 14:26 → 2ANU 06-09 20:41
PROVIDERS: ADMIT Family Medicine; ATTEND Pharmacist

== ENCOUNTER 2020-07-12 17:52 | Inpatient (IN) ==
[2020-07-12] MEDS ORDERED: Naloxone 0.4 MG/ML INJ IVP PRN (21:42)
[2020-07-12] MEDS ORDERED: *HR* LORazepam 2 MG/ML VIAL IVP ONE (22:25)
[2020-07-12] MEDS ORDERED: Furosemide 40 MG/4 ML VIAL IVP ONE (22:25)
[2020-07-12] MEDS: Ipratropium/Albuterol Neb 3 ML IH PRN (22:46)
[2020-07-12 23:16] LABS: Hemoglobin 9.5 g/dL (11.5-15.4); Immature Granulocytes % 0.1 % (0-4)
[2020-07-12 23:18] LABS: Basophils % 0.3 %; Eosinophils # 0.2 K/mcL (0.0-0.6); Eosinophils % 2.2 %; Hematocrit 30.3 % (35.3-44.9); Immature Platelets 2.4 % (1.1-6.1); Lymphocytes # 1.8 K/mcL (0.6-4.6); Mean Corpuscular HGB Conc 31.4 g/dL (31.6-35.5); Mean Corpuscular Hemoglobin 29.2 pg (28.0-33.3); Mean Corpuscular Volume 93.2 fL (83.0-100.0); Mean Platelet Volume 10.5 fL (9.4-12.4); Monocytes # 0.5 K/mcL (0.0-1.3); Monocytes % 8.1 %; Neutrophils # 4.2 K/mcL (1.6-8.9); Platelet Count 104 K/mcL (140-400); Red Blood Count 3.25 M/mcL (3.82-4.97); Red Cell Distribution Width 14.2 % (11.5-14.5); Segmented Neutrophils % 62.3 %; White Blood Count 6.7 K/mcL (4.3-11.1)
[2020-07-12 23:22] LABS: INR 1.1
[2020-07-12 23:25] LABS: Activated Partial Thrombo Time 38.6 Seconds (26.0-36.0)
[2020-07-12 23:33] LABS: Platelet Estimate Decreased (Normal)
[2020-07-12 23:36] LABS: Albumin/Globulin Ratio 1.4 (1.1-2.2); Bilirubin,Total 0.2 mg/dL (0.3-1.0); Calcium 8.3 mg/dL (8.6-10.3); Globulin 2.1 g/dL (2.4-3.5); Magnesium 1.8 mg/dL (1.6-2.6); Potassium 5.4 mEq/L (3.5-5.1); Total Protein 5.1 g/dL (6.4-8.9)
[2020-07-13] MEDS ORDERED: Perflutren Lipid Microsphere 1.3 ML in 0.9 % Sodium Chloride 8.7 ML IVP PRN (03:15)
[2020-07-13 07:11] LABS: Mean Corpuscular Hemoglobin 29.6 pg (28.0-33.3)
[2020-07-13 07:12] LABS: Hematocrit 26.2 % (35.3-44.9); Hemoglobin 8.4 g/dL (11.5-15.4); Immature Platelets 2.4 % (1.1-6.1); Mean Corpuscular HGB Conc 32.1 g/dL (31.6-35.5); Mean Corpuscular Volume 92.3 fL (83.0-100.0); Mean Platelet Volume 10.3 fL (9.4-12.4); Red Blood Count 2.84 M/mcL (3.82-4.97); Red Cell Distribution Width 14.1 % (11.5-14.5); White Blood Count 5.8 K/mcL (4.3-11.1)
[2020-07-13 07:42] LABS: Albumin 2.5 g/dL (3.5-5.7); Albumin/Globulin Ratio 1.1 (1.1-2.2); Bilirubin,Total 0.2 mg/dL (0.3-1.0); Calcium 8.4 mg/dL (8.6-10.3); Chol/HDL Ratio 5.7 (0-4.9); Globulin 2.3 g/dL (2.4-3.5); Potassium 5.3 mEq/L (3.5-5.1); Total Protein 4.8 g/dL (6.4-8.9); Troponin I 0.06 ng/mL (< 0.04)
[2020-07-13] MEDS: Ipratropium/Albuterol Neb 3 ML IH PRN ×2 (07:48→22:19)
[2020-07-13] MEDS ORDERED: 0.9 % Sodium Chloride 250 ML IVC PRN (08:08)
[2020-07-13] MEDS ORDERED: *HR* Heparin 10,000 UNIT/10 ML VIAL IV PRN ×2 (08:08)
[2020-07-13] MEDS ORDERED: 0.9 % Sodium Chloride 1,000 ML PRIME SCH (08:15)
[2020-07-13] MEDS: carvediloL 25 MG TABLET PO SCH ×2 (09:33→18:11)
[2020-07-13] MEDS: Apixaban 5 MG TABLET PO SCH ×2 (09:34→20:07)
[2020-07-13] MEDS: Aspirin Enteric Coated 81 MG Tablet PO SCH (09:34)
[2020-07-13] MEDS ORDERED: *HR* Dextrose 50 % in Water (Vial) 50 ML VIAL IVP PRN (17:11)
[2020-07-13] MEDS ORDERED: Dextrose Gel 15 GM/37.5 ML TUBE PO PRN ×2 (17:11)
[2020-07-13] MEDS ORDERED: D5% in Water 1,000 ML IVC PRN (17:11)
[2020-07-13] MEDS: Calcium Acetate 667 MG CAPSULE PO SCH (18:11)
[2020-07-13] MEDS: NIFEdipine XL (24 HR) 30 MG TAB.ER.24 PO SCH (18:11)
[2020-07-13] MEDS: levETIRAcetam 250 MG TABLET PO SCH (18:14)
[2020-07-13] MEDS: Topiramate 25 MG TABLET PO SCH (20:07)
[2020-07-13 20:44] LABS: Bacteria,Urine Few per hpf (None-Few); Bilirubin,Urine Negative (Negative); Blood,Urine Small (Negative); Clarity,Urine Clear (Clear); Color,Urine Light-Yellow (Yellow); Glucose,Urine (UA) 100 mg/dL (Normal); Ketones,Urine Negative (Negative); Leukocyte Esterase,Urine Negative (Negative); Mucus,Urine Few per lpf (None-Few); Nitrite,Urine Negative (Negative); Protein,Urine >=600 mg/dL (Neg-Trace); Specific Gravity,Urine 1.016 (1.010-1.025); Squamous Epithelial Cell,Urine Few per hpf (None-Few); Urobilinogen,Urine Normal (Normal)
[2020-07-13] MEDS ORDERED: Insulin LISPRO 300 UNITS/3 ML VIAL SQ SCH (21:00)
[2020-07-13] MEDS: Ondansetron 4 MG/2 ML VIAL IVP PRN (22:01)
[2020-07-13 22:27] LABS: Creatinine,Urine 34 mg/dL; Microalbumin,Urine > 1350 mg/L; Protein/Creatinine Ratio,Urine 35.56 mg/mg (0.00-0.20); Sodium, Urine 87.5 mEq/L
[2020-07-14] MEDS: levETIRAcetam 250 MG TABLET PO SCH ×2 (05:21→16:32)
[2020-07-14 05:43] LABS: Hematocrit 24.4 % (35.3-44.9); Hemoglobin 7.8 g/dL (11.5-15.4); Mean Corpuscular Hemoglobin 29.4 pg (28.0-33.3); Mean Corpuscular Volume 92.1 fL (83.0-100.0); Mean Platelet Volume 10.8 fL (9.4-12.4); Platelet Count 102 K/mcL (140-400); Red Blood Count 2.65 M/mcL (3.82-4.97); Red Cell Distribution Width 13.9 % (11.5-14.5)
[2020-07-14 06:00] LABS: Calcium 7.9 mg/dL (8.6-10.3); Potassium 4.8 mEq/L (3.5-5.1)
[2020-07-14 06:24] LABS: Magnesium 1.7 mg/dL (1.6-2.6)
[2020-07-14 06:27] LABS: Folate 3.1 ng/mL (3.0-16.0)
[2020-07-14 08:04] LABS: Estimated Average Glucose 108 mg/dl
[2020-07-14] MEDS: Ipratropium/Albuterol Neb 3 ML IH PRN ×2 (08:34→20:41)
[2020-07-14] MEDS: Insulin LISPRO 300 UNITS/3 ML VIAL SQ SCH ×2 (11:00→11:30)
[2020-07-14] MEDS: Aspirin Enteric Coated 81 MG Tablet PO SCH (11:01)
[2020-07-14] MEDS: Apixaban 5 MG TABLET PO SCH ×2 (11:01→20:19)
[2020-07-14] MEDS: carvediloL 25 MG TABLET PO SCH ×2 (11:01→16:30)
[2020-07-14] MEDS: NIFEdipine XL (24 HR) 30 MG TAB.ER.24 PO SCH (11:01)
[2020-07-14] MEDS: Topiramate 25 MG TABLET PO SCH ×2 (11:01→20:19)
[2020-07-14] MEDS: Calcium Acetate 667 MG CAPSULE PO SCH ×3 (11:05→16:30)
[2020-07-15] MEDS ORDERED: hydrOXYzine pamoate 25 MG CAPSULE PO ONE (01:19)
[2020-07-15 03:19] LABS: Hematocrit 25.7 % (35.3-44.9); Hemoglobin 8.3 g/dL (11.5-15.4); Mean Corpuscular HGB Conc 32.3 g/dL (31.6-35.5); Mean Corpuscular Hemoglobin 29.2 pg (28.0-33.3); Mean Corpuscular Volume 90.5 fL (83.0-100.0); Mean Platelet Volume 10.7 fL (9.4-12.4); Platelet Count 119 K/mcL (140-400); Red Blood Count 2.84 M/mcL (3.82-4.97)
[2020-07-15] MEDS: Ondansetron 4 MG/2 ML VIAL IVP PRN (03:20)
[2020-07-15 03:36] LABS: Calcium 8.1 mg/dL (8.6-10.3); Potassium 5.3 mEq/L (3.5-5.1)
[2020-07-15] MEDS ORDERED: *HR* LORazepam 0.5 MG TABLET PO PRN (04:21)
[2020-07-15] MEDS: levETIRAcetam 250 MG TABLET PO SCH (06:14)
[2020-07-15] MEDS ORDERED: 0.9 % Sodium Chloride 250 ML IVC PRN (08:59)
[2020-07-15] MEDS ORDERED: *HR* Heparin 10,000 UNIT/10 ML VIAL IV PRN ×2 (08:59)
[2020-07-15] MEDS: carvediloL 25 MG TABLET PO SCH ×2 (09:19→15:44)
[2020-07-15] MEDS: NIFEdipine XL (24 HR) 30 MG TAB.ER.24 PO SCH ×2 (09:19→15:44)
[2020-07-15] MEDS: Aspirin Enteric Coated 81 MG Tablet PO SCH (09:21)
[2020-07-15] MEDS: Topiramate 25 MG TABLET PO SCH (09:22)
[2020-07-15] MEDS: Apixaban 5 MG TABLET PO SCH (09:22)
[2020-07-15] MEDS: Calcium Acetate 667 MG CAPSULE PO SCH ×2 (09:22→15:44)
[2020-07-15 17:30] VITALS: BP 173/97
== END 2020-07-15 17:42 | disposition home health service (06) | DRG 425 ==
LOC: 2ANU → SUATTDRO 21:10
PROVIDERS: ADMIT Family Medicine; ATTEND Pharmacist

== ENCOUNTER 2020-07-20 01:53 | Inpatient (IN) ==
[2020-07-20] MEDS ORDERED: Naloxone 0.4 MG/ML INJ IVP PRN (04:43)
[2020-07-20 06:15] LABS: Basophils % 0.4 %; Eosinophils # 0.1 K/mcL (0.0-0.6); Eosinophils % 1.4 %; Hematocrit 26.3 % (35.3-44.9); Hemoglobin 8.4 g/dL (11.5-15.4); Immature Granulocytes % 0.2 % (0-4); Lymphocytes # 0.8 K/mcL (0.6-4.6); Lymphocytes % 16.6 %; Mean Corpuscular HGB Conc 31.9 g/dL (31.6-35.5); Mean Corpuscular Hemoglobin 29.4 pg (28.0-33.3); Mean Platelet Volume 9.2 fL (9.4-12.4); Monocytes # 0.4 K/mcL (0.0-1.3); Monocytes % 8.8 %; Neutrophils # 3.5 K/mcL (1.6-8.9); Platelet Count 102 K/mcL (140-400); Red Blood Count 2.86 M/mcL (3.82-4.97); Segmented Neutrophils % 72.6 %; White Blood Count 4.9 K/mcL (4.3-11.1)
[2020-07-20 06:47] LABS: Albumin 2.8 g/dL (3.5-5.7); Albumin/Globulin Ratio 1.3 (1.1-2.2); Bilirubin,Total 0.2 mg/dL (0.3-1.0); Calcium 8.4 mg/dL (8.6-10.3); Globulin 2.2 g/dL (2.4-3.5); Magnesium 1.8 mg/dL (1.6-2.6); Phosphorous 5.6 mg/dL (2.7-4.5); Potassium 5.3 mEq/L (3.5-5.1)
[2020-07-20 06:51] LABS: Troponin I 0.04 ng/mL (< 0.04)
[2020-07-20] MEDS ORDERED: Dextrose Gel 15 GM/37.5 ML TUBE PO PRN ×2 (07:01)
[2020-07-20] MEDS ORDERED: D5% in Water 1,000 ML IVC PRN (07:01)
[2020-07-20] MEDS ORDERED: *HR* Dextrose 50 % in Water (Vial) 50 ML VIAL IVP PRN (07:01)
[2020-07-20] MEDS ORDERED: Ipratropium/Albuterol Neb 3 ML IH PRN (07:09)
[2020-07-20] MEDS ORDERED: polyethylene glycoL 3350 17 GM POWD.PACK PO PRN (07:09)
[2020-07-20] MEDS: Insulin LISPRO 300 UNITS/3 ML VIAL SQ SCH ×3 (07:55→16:49)
[2020-07-20] MEDS: Apixaban 5 MG TABLET PO SCH ×2 (08:01→20:38)
[2020-07-20] MEDS: calcitrioL 0.25 MCG CAPSULE PO SCH (08:01)
[2020-07-20] MEDS: Aspirin Enteric Coated 81 MG Tablet PO SCH (08:02)
[2020-07-20] MEDS: levETIRAcetam 250 MG TABLET PO SCH ×2 (08:02→20:30)
[2020-07-20] MEDS: carvediloL 25 MG TABLET PO SCH ×2 (08:02→16:50)
[2020-07-20] MEDS ORDERED: 0.9 % Sodium Chloride 1,000 ML ONE (08:06)
[2020-07-20] MEDS ORDERED: *HR* Heparin 10,000 UNIT/10 ML VIAL IV PRN (09:16)
[2020-07-20] MEDS ORDERED: 0.9 % Sodium Chloride 250 ML IVC PRN (09:16)
[2020-07-20] MEDS ORDERED: 0.9 % Sodium Chloride 1,000 ML PRIME SCH (09:30)
[2020-07-20] MEDS ORDERED: Acetaminophen 325 MG TABLET PO PRN (14:11)
[2020-07-20] MEDS: NIFEdipine XL (24 HR) 30 MG TAB.ER.24 PO SCH (15:38)
[2020-07-20] MEDS ORDERED: Insulin LISPRO 300 UNITS/3 ML VIAL SQ SCH (21:00)
[2020-07-21 05:33] LABS: Hematocrit 22.8 % (35.3-44.9); Hemoglobin 7.4 g/dL (11.5-15.4); Mean Corpuscular HGB Conc 32.5 g/dL (31.6-35.5); Mean Corpuscular Hemoglobin 29.4 pg (28.0-33.3); Mean Corpuscular Volume 90.5 fL (83.0-100.0); Mean Platelet Volume 9.8 fL (9.4-12.4); Platelet Count 108 K/mcL (140-400); Red Blood Count 2.52 M/mcL (3.82-4.97); Red Cell Distribution Width 14.2 % (11.5-14.5); White Blood Count 4.4 K/mcL (4.3-11.1)
[2020-07-21 05:59] LABS: Magnesium 1.8 mg/dL (1.6-2.6); Phosphorous 4.6 mg/dL (2.7-4.5)
[2020-07-21 06:01] LABS: Potassium 4.7 mEq/L (3.5-5.1)
[2020-07-21] MEDS ORDERED: *HR* Promethazine 25 MG/ML VIAL IVP ONE (06:08)
[2020-07-21] MEDS: Insulin LISPRO 300 UNITS/3 ML VIAL SQ SCH ×3 (07:51→16:37)
[2020-07-21] MEDS ORDERED: 0.9 % Sodium Chloride 250 ML IVC PRN (07:56)
[2020-07-21] MEDS ORDERED: *HR* Heparin 10,000 UNIT/10 ML VIAL IV PRN (07:56)
[2020-07-21] MEDS: calcitrioL 0.25 MCG CAPSULE PO SCH (08:14)
[2020-07-21] MEDS: Aspirin Enteric Coated 81 MG Tablet PO SCH (08:14)
[2020-07-21] MEDS: Apixaban 5 MG TABLET PO SCH (08:14)
[2020-07-21] MEDS: levETIRAcetam 250 MG TABLET PO SCH ×2 (08:15→16:38)
[2020-07-21] MEDS: NIFEdipine XL (24 HR) 30 MG TAB.ER.24 PO SCH (08:16)
[2020-07-21] MEDS: carvediloL 25 MG TABLET PO SCH ×2 (08:16→16:43)
[2020-07-21 16:06] VITALS: BP 166/98
== END 2020-07-21 18:39 | disposition home health service (06) | DRG 194 ==
LOC: 2ANU → SUATTDRO 04:30
PROVIDERS: ADMIT Family Medicine; ATTEND Internal Medicine

== ENCOUNTER 2020-07-28 11:01 | Observation (INO) ==
[2020-07-28] MEDS ORDERED: Naloxone 0.4 MG/ML INJ IVP PRN (17:00)
[2020-07-28] MEDS: Acetaminophen 325 MG TABLET PO PRN (17:31)
[2020-07-28 17:44] LABS: Basophils % 0.4 %; Hemoglobin 7.8 g/dL (11.5-15.4)
[2020-07-28 17:46] LABS: Eosinophils # 0.1 K/mcL (0.0-0.6); Eosinophils % 1.1 %; Hematocrit 24.7 % (35.3-44.9); Immature Granulocytes % 0.4 % (0-4); Immature Platelets 1.7 % (1.1-6.1); Lymphocytes # 1.4 K/mcL (0.6-4.6); Lymphocytes % 25.7 %; Mean Corpuscular HGB Conc 31.6 g/dL (31.6-35.5); Mean Corpuscular Hemoglobin 29.4 pg (28.0-33.3); Mean Corpuscular Volume 93.2 fL (83.0-100.0); Mean Platelet Volume 10.2 fL (9.4-12.4); Monocytes # 0.3 K/mcL (0.0-1.3); Monocytes % 5.9 %; Neutrophils # 3.7 K/mcL (1.6-8.9); Platelet Count 112 K/mcL (140-400); Red Blood Count 2.65 M/mcL (3.82-4.97); Segmented Neutrophils % 66.5 %; White Blood Count 5.6 K/mcL (4.3-11.1)
[2020-07-28 18:06] LABS: Calcium 7.7 mg/dL (8.6-10.3); Potassium 4.6 mEq/L (3.5-5.1)
[2020-07-28] MEDS ORDERED: *HR* Dextrose 50 % in Water (Vial) 50 ML VIAL IVP PRN (18:48)
[2020-07-28] MEDS ORDERED: Dextrose Gel 15 GM/37.5 ML TUBE PO PRN ×2 (18:48)
[2020-07-28] MEDS ORDERED: D5% in Water 1,000 ML IVC PRN (18:48)
[2020-07-28] MEDS: Topiramate 25 MG TABLET PO SCH (21:41)
[2020-07-28] MEDS: Ipratropium/Albuterol Neb 3 ML IH PRN (22:52)
[2020-07-28] MEDS ORDERED: *HR* LORazepam 0.5 MG TABLET PO ONE (22:57)
[2020-07-28] MEDS: Insulin LISPRO 300 UNITS/3 ML VIAL SQ SCH (23:29)
[2020-07-29 00:49] LABS: Basophils % 0.4 %; Eosinophils # 0.1 K/mcL (0.0-0.6); Eosinophils % 1.3 %; Hemoglobin 7.6 g/dL (11.5-15.4); Immature Granulocytes % 0.3 % (0-4); Lymphocytes # 1.9 K/mcL (0.6-4.6); Lymphocytes % 27.6 %; Mean Corpuscular HGB Conc 31.7 g/dL (31.6-35.5); Mean Corpuscular Hemoglobin 29.2 pg (28.0-33.3); Mean Corpuscular Volume 92.3 fL (83.0-100.0); Mean Platelet Volume 10.3 fL (9.4-12.4); Monocytes # 0.4 K/mcL (0.0-1.3); Monocytes % 6.6 %; Neutrophils # 4.3 K/mcL (1.6-8.9); Platelet Count 126 K/mcL (140-400); Red Cell Distribution Width 13.9 % (11.5-14.5); Segmented Neutrophils % 63.8 %; White Blood Count 6.7 K/mcL (4.3-11.1)
[2020-07-29 01:04] LABS: Chol/HDL Ratio 3.4 (0-4.9)
[2020-07-29 01:05] LABS: Calcium 7.7 mg/dL (8.6-10.3); Magnesium 1.7 mg/dL (1.6-2.6); Phosphorous 6.9 mg/dL (2.7-4.5); Potassium 4.7 mEq/L (3.5-5.1)
[2020-07-29 01:06] LABS: Troponin I 0.03 ng/mL (< 0.04)
[2020-07-29] MEDS: Insulin LISPRO 300 UNITS/3 ML VIAL SQ SCH ×4 (05:59→23:34)
[2020-07-29] MEDS ORDERED: *HR* Heparin 5,000 UNIT/ML VIAL SQ SCH (06:00)
[2020-07-29] MEDS ORDERED: Regadenoson 0.4 MG/5 ML SYRINGE IVP ONE (07:10)
[2020-07-29] MEDS ORDERED: 0.9 % Sodium Chloride 250 ML IVC PRN (07:24)
[2020-07-29] MEDS ORDERED: 0.9 % Sodium Chloride 1,000 ML PRIME SCH (07:30)
[2020-07-29] MEDS: NIFEdipine 10 MG CAPSULE PO SCH (09:02)
[2020-07-29] MEDS: carvediloL 25 MG TABLET PO SCH ×2 (09:02→17:02)
[2020-07-29] MEDS: Nicotine 21 MG PATCH.TD24 TD SCH (09:02)
[2020-07-29] MEDS: calcitrioL 0.25 MCG CAPSULE PO SCH (09:03)
[2020-07-29] MEDS: Topiramate 25 MG TABLET PO SCH ×2 (09:03→21:00)
[2020-07-29] MEDS: Acetaminophen 325 MG TABLET PO PRN ×2 (09:03→15:39)
[2020-07-29] MEDS ORDERED: *HR* Heparin 10,000 UNIT/10 ML VIAL IV PRN (12:20)
[2020-07-29] MEDS ORDERED: Ondansetron ODT 4 MG TAB.RAPDIS PO PRN (12:55)
[2020-07-29] MEDS ORDERED: polyethylene glycoL 3350 17 GM POWD.PACK PO PRN (12:55)
[2020-07-29] MEDS ORDERED: Albuterol 2.5 MG/3 ML NEBULIZER IH PRN (12:55)
[2020-07-29] MEDS ORDERED: 0.9 % Sodium Chloride 250 ML ONE (13:54)
[2020-07-29] MEDS: Apixaban 5 MG TABLET PO SCH ×2 (14:03→21:00)
[2020-07-29] MEDS: levETIRAcetam 250 MG TABLET PO SCH ×2 (14:43→21:00)
[2020-07-29] MEDS ORDERED: SEVELAMER HCL 1600 MG PO SCH (17:00)
[2020-07-29] MEDS ORDERED: Furosemide 40 MG TABLET PO ONE (17:00)
[2020-07-29] MEDS ORDERED: Topiramate 25 MG TABLET PO SCH (21:00)
[2020-07-30 03:41] LABS: Basophils % 0.1 %; Eosinophils # 0.1 K/mcL (0.0-0.6); Eosinophils % 1.3 %; Hematocrit 25.2 % (35.3-44.9); Hemoglobin 8.3 g/dL (11.5-15.4); Immature Granulocytes % 0.4 % (0-4); Lymphocytes # 1.6 K/mcL (0.6-4.6); Lymphocytes % 22.8 %; Mean Corpuscular HGB Conc 32.9 g/dL (31.6-35.5); Mean Corpuscular Hemoglobin 28.7 pg (28.0-33.3); Mean Corpuscular Volume 87.2 fL (83.0-100.0); Mean Platelet Volume 10.5 fL (9.4-12.4); Monocytes # 0.6 K/mcL (0.0-1.3); Neutrophils # 4.8 K/mcL (1.6-8.9); Platelet Count 124 K/mcL (140-400); Red Blood Count 2.89 M/mcL (3.82-4.97); Red Cell Distribution Width 14.7 % (11.5-14.5); Segmented Neutrophils % 67.4 %; White Blood Count 7.2 K/mcL (4.3-11.1)
[2020-07-30] MEDS ORDERED: *HR* OxyCODONE Immed Rel 5 MG TABLET PO ONE (04:00)
[2020-07-30 04:08] LABS: Calcium 7.9 mg/dL (8.6-10.3); Potassium 4.1 mEq/L (3.5-5.1)
[2020-07-30] MEDS: Acetaminophen 325 MG TABLET PO PRN (04:52)
[2020-07-30] MEDS: Ipratropium/Albuterol Neb 3 ML IH PRN (05:05)
[2020-07-30] MEDS: Insulin LISPRO 300 UNITS/3 ML VIAL SQ SCH ×2 (05:56→12:06)
[2020-07-30] MEDS ORDERED: 0.9 % Sodium Chloride 250 ML IVC PRN (07:08)
[2020-07-30] MEDS ORDERED: *HR* GlipiZIDE XL (24 HR) 10 MG TABLET PO SCH (09:00)
[2020-07-30] MEDS ORDERED: CALCITRIOL 0.5 MCG PO SCH (09:00)
[2020-07-30] MEDS ORDERED: Aspirin Enteric Coated 81 MG Tablet PO SCH (09:00)
[2020-07-30] MEDS: NIFEdipine 10 MG CAPSULE PO SCH (10:04)
[2020-07-30] MEDS: Topiramate 25 MG TABLET PO SCH (10:04)
[2020-07-30] MEDS: calcitrioL 0.25 MCG CAPSULE PO SCH (10:04)
[2020-07-30] MEDS: Apixaban 5 MG TABLET PO SCH (10:05)
[2020-07-30] MEDS: carvediloL 25 MG TABLET PO SCH (10:06)
[2020-07-30] MEDS: levETIRAcetam 250 MG TABLET PO SCH (10:07)
[2020-07-30] MEDS: Nicotine 21 MG PATCH.TD24 TD SCH (10:07)
[2020-07-30] MEDS ORDERED: *HR* Heparin 10,000 UNIT/10 ML VIAL ONE (10:33)
[2020-07-30 11:04] VITALS: BP 170/97
== END 2020-07-30 13:47 | disposition home or self-care (01) ==
LOC: 2ANU
PROVIDERS: ADMIT Student in an Organized Health Care Education/Training Program; ATTEND Student in an Organized Health Care Education/Training Program

== ENCOUNTER 2020-08-05 02:45 | Observation (INO) ==
[2020-08-05] MEDS ORDERED: Acetaminophen 325 MG TABLET PO PRN (13:03)
[2020-08-05] MEDS ORDERED: Naloxone 0.4 MG/ML INJ IVP PRN ×2 (13:03→22:33)
[2020-08-05] MEDS ORDERED: Ondansetron 4 MG/2 ML VIAL IVP PRN (13:03)
[2020-08-05] MEDS ORDERED: *HR* Dextrose 50 % in Water (Vial) 50 ML VIAL IVP PRN (13:08)
[2020-08-05] MEDS ORDERED: D5% in Water 1,000 ML IVC PRN (13:08)
[2020-08-05] MEDS ORDERED: Dextrose Gel 15 GM/37.5 ML TUBE PO PRN ×2 (13:08)
[2020-08-05 15:06] LABS: Basophils % 0.2 %; Eosinophils # 0.1 K/mcL (0.0-0.6); Hematocrit 22.7 % (35.3-44.9); Hemoglobin 7.4 g/dL (11.5-15.4); Immature Granulocytes % 0.3 % (0-4); Lymphocytes # 1.1 K/mcL (0.6-4.6); Lymphocytes % 18.5 %; Mean Corpuscular HGB Conc 32.6 g/dL (31.6-35.5); Mean Platelet Volume 10.4 fL (9.4-12.4); Monocytes # 0.5 K/mcL (0.0-1.3); Monocytes % 7.6 %; Neutrophils # 4.5 K/mcL (1.6-8.9); Platelet Count 105 K/mcL (140-400); Red Blood Count 2.55 M/mcL (3.82-4.97); Red Cell Distribution Width 14.6 % (11.5-14.5); Segmented Neutrophils % 72.4 %; White Blood Count 6.2 K/mcL (4.3-11.1)
[2020-08-05 15:16] LABS: Prothrombin Time 10.9 Seconds (9.4-12.1)
[2020-08-05 15:23] LABS: Calcium 8.3 mg/dL (8.6-10.3); Phosphorous 7.7 mg/dL (2.7-4.5); Potassium 4.7 mEq/L (3.5-5.1)
[2020-08-05] MEDS ORDERED: *HR* Heparin 10,000 UNIT/10 ML VIAL IV PRN (16:12)
[2020-08-05] MEDS ORDERED: 0.9 % Sodium Chloride 250 ML IVC PRN (16:12)
[2020-08-05] MEDS ORDERED: 0.9 % Sodium Chloride 1,000 ML PRIME SCH (16:15)
[2020-08-05] MEDS ORDERED: 0.9 % Sodium Chloride 1,000 ML ONE (16:18)
[2020-08-05] MEDS: Insulin LISPRO 300 UNITS/3 ML VIAL SQ SCH (16:52)
[2020-08-05 17:36] LABS: Hepatitis B Surface Antibody < 3.10 mIU/mL
[2020-08-05 17:47] LABS: Hepatitis B Surface Antigen Nonreactive (Nonreactive)
[2020-08-05] MEDS ORDERED: Insulin LISPRO 300 UNITS/3 ML VIAL SQ SCH (21:00)
[2020-08-05] MEDS: levETIRAcetam 250 MG TABLET PO SCH (21:25)
[2020-08-05] MEDS: Apixaban 5 MG TABLET PO SCH (21:30)
[2020-08-05] MEDS: Topiramate 25 MG TABLET PO SCH (21:30)
[2020-08-05] MEDS: carvediloL 25 MG TABLET PO SCH (21:30)
[2020-08-06 01:40] LABS: Adenovirus F 40/41 PCR Not detected (Not detect); Astrovirus PCR Not detected (Not detect); C.difficile Toxin A/B Gene PCR Not detected (Not detect); Campylobacter by PCR Not detected (Not detect); Cryptosporidium by PCR Not detected (Not detect); Cyclospora cayetanensis PCR Not detected (Not detect); E. coli O157 by PCR Not detected (Not detect); Entamoeba histolytica PCR Not detected (Not detect); Enteroaggregative E.coli(EAEC) Not detected (Not detect); Enteropathogenic E.coli(EPEC) Not detected (Not detect); Enterotoxigenic E.coli (ETEC) Not detected (Not detect); Giardia lamblia PCR Not detected (Not detect); Norovirus GI/GII PCR Not detected (Not detect); Plesiomonas shigelloides PCR Not detected (Not detect); Rotavirus A PCR Not detected (Not detect); Salmonella PCR Not detected (Not detect); Sapovirus PCR Not detected (Not detect); Shig/EnteroinvasiveE coli EIEC Not detected (Not detect); Shigalike tox-prod E coli STEC Not detected (Not detect); Vibrio PCR Not detected (Not detect); Vibrio cholerae PCR Not detected (Not detect); Yersinia enterocolitica PCR Not detected (Not detect)
[2020-08-06 04:21] LABS: Hematocrit 22.7 % (35.3-44.9); Hemoglobin 7.3 g/dL (11.5-15.4); Mean Corpuscular HGB Conc 32.2 g/dL (31.6-35.5); Mean Corpuscular Hemoglobin 29.1 pg (28.0-33.3); Mean Corpuscular Volume 90.4 fL (83.0-100.0); Mean Platelet Volume 10.3 fL (9.4-12.4); Platelet Count 106 K/mcL (140-400); Red Blood Count 2.51 M/mcL (3.82-4.97); Red Cell Distribution Width 14.8 % (11.5-14.5); White Blood Count 6.2 K/mcL (4.3-11.1)
[2020-08-06 04:36] LABS: Magnesium 1.9 mg/dL (1.6-2.6); Phosphorous 4.7 mg/dL (2.7-4.5); Potassium 4.4 mEq/L (3.5-5.1)
[2020-08-06] MEDS: Insulin LISPRO 300 UNITS/3 ML VIAL SQ SCH ×2 (08:20→12:35)
[2020-08-06] MEDS ORDERED: NIFEdipine XL (24 HR) 30 MG TAB.ER.24 PO SCH (09:00)
[2020-08-06] MEDS: carvediloL 25 MG TABLET PO SCH (10:00)
[2020-08-06] MEDS: Topiramate 25 MG TABLET PO SCH (10:00)
[2020-08-06] MEDS: levETIRAcetam 250 MG TABLET PO SCH (10:00)
[2020-08-06] MEDS: Apixaban 5 MG TABLET PO SCH (10:00)
[2020-08-06 11:32] VITALS: BP 130/70
== END 2020-08-06 14:21 | disposition home or self-care (01) ==
LOC: 2ANU → SUATTDRO 12:08
PROVIDERS: ADMIT Pharmacist; ATTEND Pharmacist

== ENCOUNTER 2020-09-07 20:42 | Inpatient (IN) ==
[2020-09-08] MEDS ORDERED: Ondansetron 4 MG/2 ML VIAL IVP PRN (07:13)
[2020-09-08] MEDS ORDERED: Naloxone 0.4 MG/ML INJ IVP PRN (07:13)
[2020-09-08 08:12] LABS: Basophils % 0.3 %
[2020-09-08 08:14] LABS: Eosinophils # 0.1 K/mcL (0.0-0.6); Eosinophils % 1.2 %; Hematocrit 17.7 % (35.3-44.9); Immature Granulocytes % 0.5 % (0-4); Immature Platelets 2.1 % (1.1-6.1); Lymphocytes # 1.5 K/mcL (0.6-4.6); Lymphocytes % 23.6 %; Mean Corpuscular HGB Conc 32.8 g/dL (31.6-35.5); Mean Corpuscular Hemoglobin 28.7 pg (28.0-33.3); Mean Corpuscular Volume 87.6 fL (83.0-100.0); Mean Platelet Volume 10.5 fL (9.4-12.4); Monocytes % 8.4 %; Neutrophils # 4.3 K/mcL (1.6-8.9); Platelet Count 117 K/mcL (140-400); Red Blood Count 2.02 M/mcL (3.82-4.97); Red Cell Distribution Width 15.7 % (11.5-14.5); White Blood Count 6.5 K/mcL (4.3-11.1)
[2020-09-08 08:15] LABS: INR 1.1; Monocytes # 0.6 K/mcL (0.0-1.3); Prothrombin Time 12.2 Seconds (9.4-12.1)
[2020-09-08 08:19] LABS: Hemoglobin 5.8 g/dL (11.5-15.4)
[2020-09-08 08:30] LABS: Calcium 7.9 mg/dL (8.6-10.3); Potassium 4.7 mEq/L (3.5-5.1)
[2020-09-08] MEDS ORDERED: 0.9 % Sodium Chloride 250 ML IVC PRN (10:54)
[2020-09-08] MEDS ORDERED: 0.9 % Sodium Chloride 1,000 ML PRIME SCH (11:00)
[2020-09-08] MEDS ORDERED: 0.9 % Sodium Chloride 250 ML ONE (11:18)
[2020-09-08] MEDS ORDERED: polyethylene glycoL 3350 17 GM POWD.PACK PO PRN (15:01)
[2020-09-08] MEDS ORDERED: Albuterol 2.5 MG/3 ML NEBULIZER IH PRN (15:01)
[2020-09-08 16:23] LABS: Hepatitis B Surface Antibody < 3.10 mIU/mL
[2020-09-08 16:33] LABS: Hepatitis B Surface Antigen Nonreactive (Nonreactive)
[2020-09-08] MEDS ORDERED: *HR* Heparin 10,000 UNIT/10 ML VIAL ONE (16:39)
[2020-09-08] MEDS: amLODIPine 5 MG TABLET PO SCH (19:41)
[2020-09-08] MEDS: Topiramate 25 MG TABLET PO SCH (19:41)
[2020-09-08 20:26] LABS: Hematocrit 24.4 % (35.3-44.9); Hemoglobin 8.4 g/dL (11.5-15.4)
[2020-09-09 05:40] LABS: Hematocrit 23.5 % (35.3-44.9); Hemoglobin 7.7 g/dL (11.5-15.4); Mean Corpuscular HGB Conc 32.8 g/dL (31.6-35.5); Mean Corpuscular Hemoglobin 28.8 pg (28.0-33.3); Mean Platelet Volume 10.2 fL (9.4-12.4); Platelet Count 112 K/mcL (140-400); Red Blood Count 2.67 M/mcL (3.82-4.97); White Blood Count 4.8 K/mcL (4.3-11.1)
[2020-09-09 05:57] LABS: Calcium 7.5 mg/dL (8.6-10.3); Potassium 4.4 mEq/L (3.5-5.1)
[2020-09-09 05:59] LABS: % Iron Saturation 27 % (15-50); Iron 72 mcg/dL (50-170); Transferrin 194 mg/dL (203-362)
[2020-09-09 06:17] LABS: Ferritin 255 ng/mL (10-120)
[2020-09-09] MEDS ORDERED: 0.9 % Sodium Chloride 250 ML IVC PRN (07:17)
[2020-09-09] MEDS ORDERED: *HR* Heparin 10,000 UNIT/10 ML VIAL IV PRN (07:42)
[2020-09-09] MEDS ORDERED: Iron Sucrose Complex 400 MG in 0.9 % Sodium Chloride 250 ML IVPB ONE (08:03)
[2020-09-09] MEDS: amLODIPine 5 MG TABLET PO SCH (08:10)
[2020-09-09] MEDS: Bumetanide 1 MG TABLET PO SCH (08:11)
[2020-09-09] MEDS: calcitrioL 0.25 MCG CAPSULE PO SCH (08:12)
[2020-09-09] MEDS: Topiramate 25 MG TABLET PO SCH ×2 (08:12→21:05)
[2020-09-09] MEDS: Aspirin Enteric Coated 81 MG Tablet PO SCH (08:12)
[2020-09-09] MEDS ORDERED: amLODIPine 5 MG TABLET PO SCH (09:00)
[2020-09-09 12:27] LABS: Hematocrit 22.2 % (35.3-44.9); Hemoglobin 7.5 g/dL (11.5-15.4)
[2020-09-09] MEDS ORDERED: Darbepoetin 100 MCG/0.5 ML SYRINGE SQ SCH (14:15)
[2020-09-09 17:50] LABS: Hemoglobin 8.2 g/dL (11.5-15.4)
[2020-09-09 17:58] LABS: INR 0.9; Prothrombin Time 10.8 Seconds (9.4-12.1)
[2020-09-09] MEDS: Heparin 25,000UNIT/250ML 1/2NS 25,000 UNIT/250 ML IV.SOLN IVC SCH (18:27)
[2020-09-10] MEDS: Acetaminophen 325 MG TABLET PO PRN ×2 (00:54→16:38)
[2020-09-10 01:27] LABS: Basophils % 0.2 %; Eosinophils # 0.1 K/mcL (0.0-0.6); Eosinophils % 1.5 %; Hematocrit 24.7 % (35.3-44.9); Hemoglobin 8.2 g/dL (11.5-15.4); Immature Granulocytes % 0.5 % (0-4); Lymphocytes # 1.6 K/mcL (0.6-4.6); Lymphocytes % 27.7 %; Mean Corpuscular HGB Conc 33.2 g/dL (31.6-35.5); Mean Corpuscular Volume 87.3 fL (83.0-100.0); Mean Platelet Volume 10.5 fL (9.4-12.4); Monocytes # 0.6 K/mcL (0.0-1.3); Monocytes % 9.3 %; Neutrophils # 3.6 K/mcL (1.6-8.9); Platelet Count 143 K/mcL (140-400); Red Blood Count 2.83 M/mcL (3.82-4.97); Red Cell Distribution Width 14.6 % (11.5-14.5); Segmented Neutrophils % 60.8 %; White Blood Count 5.9 K/mcL (4.3-11.1)
[2020-09-10 01:47] LABS: Calcium 7.6 mg/dL (8.6-10.3); Potassium 3.8 mEq/L (3.5-5.1)
[2020-09-10] MEDS ORDERED: *HR* Heparin 5,000 UNIT/ML VIAL IVP PRN ×2 (03:46)
[2020-09-10] MEDS: amLODIPine 5 MG TABLET PO SCH (08:31)
[2020-09-10] MEDS: calcitrioL 0.25 MCG CAPSULE PO SCH (08:31)
[2020-09-10] MEDS: Aspirin Enteric Coated 81 MG Tablet PO SCH (08:32)
[2020-09-10] MEDS: Topiramate 25 MG TABLET PO SCH ×2 (08:32→20:03)
[2020-09-10] MEDS: Bumetanide 1 MG TABLET PO SCH (08:32)
[2020-09-10] MEDS ORDERED: Apixaban 5 MG TABLET PO SCH (09:00)
[2020-09-10] MEDS: Heparin 25,000UNIT/250ML 1/2NS 25,000 UNIT/250 ML IV.SOLN IVC SCH (19:27)
[2020-09-11 04:46] LABS: Hematocrit 22.1 % (35.3-44.9); Hemoglobin 7.4 g/dL (11.5-15.4); Mean Corpuscular HGB Conc 33.5 g/dL (31.6-35.5); Mean Corpuscular Volume 89.5 fL (83.0-100.0); Mean Platelet Volume 11.2 fL (9.4-12.4); Platelet Count 118 K/mcL (140-400); Red Blood Count 2.47 M/mcL (3.82-4.97); Red Cell Distribution Width 14.9 % (11.5-14.5); White Blood Count 4.5 K/mcL (4.3-11.1)
[2020-09-11 05:11] LABS: Calcium 7.9 mg/dL (8.6-10.3); Potassium 4.8 mEq/L (3.5-5.1)
[2020-09-11] MEDS: Ondansetron ODT 4 MG TAB.RAPDIS PO PRN (05:18)
[2020-09-11] MEDS ORDERED: 0.9 % Sodium Chloride 250 ML IVC PRN (06:35)
[2020-09-11] MEDS: Aspirin Enteric Coated 81 MG Tablet PO SCH (12:14)
[2020-09-11] MEDS: calcitrioL 0.25 MCG CAPSULE PO SCH (12:14)
[2020-09-11] MEDS: Topiramate 25 MG TABLET PO SCH ×2 (12:14→19:40)
[2020-09-11] MEDS: amLODIPine 5 MG TABLET PO SCH (12:14)
[2020-09-11] MEDS: Bumetanide 1 MG TABLET PO SCH (12:33)
[2020-09-11 14:57] LABS: Hematocrit 21.9 % (35.3-44.9); Hemoglobin 7.2 g/dL (11.5-15.4)
[2020-09-11] MEDS: Heparin 25,000UNIT/250ML 1/2NS 25,000 UNIT/250 ML IV.SOLN IVC SCH (19:15)
[2020-09-12] MEDS: Acetaminophen 325 MG TABLET PO PRN ×2 (04:26→22:51)
[2020-09-12] MEDS: Ondansetron ODT 4 MG TAB.RAPDIS PO PRN (04:26)
[2020-09-12] MEDS: Aspirin Enteric Coated 81 MG Tablet PO SCH (08:50)
[2020-09-12] MEDS: Apixaban 5 MG TABLET PO SCH ×2 (08:50→19:22)
[2020-09-12] MEDS: Topiramate 25 MG TABLET PO SCH ×2 (08:50→19:22)
[2020-09-12] MEDS: calcitrioL 0.25 MCG CAPSULE PO SCH (08:50)
[2020-09-12] MEDS: Bumetanide 1 MG TABLET PO SCH (08:51)
[2020-09-12] MEDS: amLODIPine 5 MG TABLET PO SCH (08:51)
[2020-09-12 08:53] LABS: Hematocrit 22.8 % (35.3-44.9); Hemoglobin 7.4 g/dL (11.5-15.4)
[2020-09-12] MEDS: Darbepoetin 100 MCG/0.5 ML SYRINGE SQ SCH ×2 (15:13→15:50)
[2020-09-13] MEDS: calcitrioL 0.25 MCG CAPSULE PO SCH (08:27)
[2020-09-13] MEDS: Aspirin Enteric Coated 81 MG Tablet PO SCH (08:27)
[2020-09-13] MEDS: amLODIPine 5 MG TABLET PO SCH (08:27)
[2020-09-13] MEDS: Apixaban 5 MG TABLET PO SCH (08:27)
[2020-09-13] MEDS: Topiramate 25 MG TABLET PO SCH (08:27)
[2020-09-13] MEDS: Bumetanide 1 MG TABLET PO SCH (08:27)
[2020-09-13] MEDS: Acetaminophen 325 MG TABLET PO PRN (11:22)
[2020-09-13 15:39] VITALS: BP 155/75
== END 2020-09-13 17:01 | disposition home or self-care (01) | DRG 517 ==
LOC: 2NNU → SUATTDRO 09-08 06:45 → 2ANU 09-10 18:16
PROVIDERS: ADMIT Internal Medicine; ATTEND Internal Medicine

== ENCOUNTER 2020-09-25 18:08 | Inpatient (IN) ==
[2020-09-25] MEDS ORDERED: Naloxone 0.4 MG/ML INJ IVP PRN (20:51)
[2020-09-25] MEDS ORDERED: Dextrose Gel 15 GM/37.5 ML TUBE PO PRN ×2 (20:53)
[2020-09-25] MEDS ORDERED: D5% in Water 1,000 ML IVC PRN (20:53)
[2020-09-25] MEDS ORDERED: *HR* Dextrose 50 % in Water (Vial) 50 ML VIAL IVP PRN (20:53)
[2020-09-25 22:37] LABS: Eosinophils % 2.2 %; Immature Granulocytes % 0.2 % (0-4); Red Cell Distribution Width 15.9 % (11.5-14.5)
[2020-09-25 22:38] LABS: Basophils % 0.2 %; Eosinophils # 0.1 K/mcL (0.0-0.6); Hematocrit 22.4 % (35.3-44.9); Hemoglobin 7.4 g/dL (11.5-15.4); Immature Platelets 0.7 % (1.1-6.1); Lymphocytes # 1.1 K/mcL (0.6-4.6); Lymphocytes % 27.4 %; Mean Corpuscular Volume 90.7 fL (83.0-100.0); Mean Platelet Volume 9.4 fL (9.4-12.4); Monocytes # 0.4 K/mcL (0.0-1.3); Monocytes % 9.7 %; Neutrophils # 2.5 K/mcL (1.6-8.9); Red Blood Count 2.47 M/mcL (3.82-4.97); Segmented Neutrophils % 60.3 %; White Blood Count 4.1 K/mcL (4.3-11.1)
[2020-09-25] MEDS: Insulin LISPRO 300 UNITS/3 ML VIAL SQ SCH (22:38)
[2020-09-25 22:54] LABS: BUN/Creatinine Ratio 10 (6-26); Blood Urea Nitrogen 91 mg/dL (6-20); Calcium 8.4 mg/dL (8.6-10.3); Carbon Dioxide 14 mEq/L (23-29); Chloride 109 mEq/L (98-107); Glucose 117 mg/dL (70-105); Osmolality,Calculated 309 (280-300); Sodium 135 mEq/L (136-145); eGFR For African Americans 6 (> 60); eGFR For Non-African Americans 5 (> 60)
[2020-09-25 22:55] LABS: Troponin I < 0.03 ng/mL (< 0.04)
[2020-09-25 23:01] LABS: Platelet Count 91 K/mcL (140-400)
[2020-09-25 23:02] LABS: Hypochromasia Present (Not Present); Platelet Estimate Decreased (Normal)
[2020-09-26] MEDS ORDERED: Calcium Gluconate 1gm/50mL 1 GM/50 ML BAG IVPB ONE (02:13)
[2020-09-26] MEDS ORDERED: Insulin Human Regular 10 UNIT in 0.9 % Sodium Chloride 10 ML IV ONE (02:15)
[2020-09-26] MEDS ORDERED: *HR* Dextrose 50 % in Water (Vial) 50 ML VIAL IVP ONE (02:15)
[2020-09-26] MEDS ORDERED: 0.9 % Sodium Chloride 1,000 ML PRIME SCH (07:00)
[2020-09-26] MEDS ORDERED: 0.9 % Sodium Chloride 250 ML IVC PRN (07:00)
[2020-09-26 07:06] LABS: Basophils % 0.4 %; Hemoglobin 6.9 g/dL (11.5-15.4); Mean Corpuscular Volume 92.3 fL (83.0-100.0)
[2020-09-26 07:07] LABS: Eosinophils # 0.1 K/mcL (0.0-0.6); Eosinophils % 2.3 %; Hematocrit 21.5 % (35.3-44.9); Immature Granulocytes % 0.6 % (0-4); Lymphocytes # 0.8 K/mcL (0.6-4.6); Lymphocytes % 17.3 %; Mean Corpuscular HGB Conc 32.1 g/dL (31.6-35.5); Mean Corpuscular Hemoglobin 29.6 pg (28.0-33.3); Mean Platelet Volume 9.7 fL (9.4-12.4); Monocytes # 0.5 K/mcL (0.0-1.3); Monocytes % 10.2 %; Neutrophils # 3.3 K/mcL (1.6-8.9); Red Blood Count 2.33 M/mcL (3.82-4.97); Segmented Neutrophils % 69.2 %; White Blood Count 4.8 K/mcL (4.3-11.1)
[2020-09-26 07:08] LABS: Platelet Count 78 K/mcL (140-400)
[2020-09-26 07:28] LABS: Alanine Aminotransferase 8 Units/L (7-52); Albumin 2.8 g/dL (3.5-5.7); Albumin/Globulin Ratio 1.4 (1.1-2.2); Alkaline Phosphatase 36 Units/L (34-104); Aspartate Amino Transferase 8 Units/L (13-39); BUN/Creatinine Ratio 9 (6-26); Bilirubin,Total 0.2 mg/dL (0.3-1.0); Blood Urea Nitrogen 89 mg/dL (6-20); Calcium 8.2 mg/dL (8.6-10.3); Carbon Dioxide 14 mEq/L (23-29); Chloride 110 mEq/L (98-107); Glucose 101 mg/dL (70-105); Osmolality,Calculated 309 (280-300); Phosphorous 9.1 mg/dL (2.7-4.5); Sodium 136 mEq/L (136-145); Total Protein 4.8 g/dL (6.4-8.9); eGFR For African Americans 5 (> 60); eGFR For Non-African Americans 4 (> 60)
[2020-09-26 07:29] LABS: Troponin I < 0.03 ng/mL (< 0.04)
[2020-09-26] MEDS: Insulin LISPRO 300 UNITS/3 ML VIAL SQ SCH ×4 (07:56→20:54)
[2020-09-26] MEDS ORDERED: 0.9 % Sodium Chloride 250 ML IVC SCH (08:00)
[2020-09-26] MEDS: Aspirin Enteric Coated 81 MG Tablet PO SCH (08:04)
[2020-09-26] MEDS ORDERED: *HR* Heparin 10,000 UNIT/10 ML VIAL IV PRN (10:57)
[2020-09-26] MEDS ORDERED: amLODIPine 5 MG TABLET PO SCH (13:30)
[2020-09-26] MEDS: NIFEdipine XL (24 HR) 60 MG TAB.ER.24 PO SCH (17:09)
[2020-09-26] MEDS: Topiramate 25 MG CAP.SPRINK PO SCH (20:52)
[2020-09-26 21:02] LABS: Hematocrit 23.2 % (35.3-44.9); Hemoglobin 8.1 g/dL (11.5-15.4)
[2020-09-26 21:27] LABS: Calcium 7.6 mg/dL (8.6-10.3); Potassium 4.5 mEq/L (3.5-5.1)
[2020-09-26] MEDS: Albuterol 2.5 MG/3 ML NEBULIZER IH PRN (22:19)
[2020-09-27] MEDS: Albuterol 2.5 MG/3 ML NEBULIZER IH PRN ×2 (06:38→16:03)
[2020-09-27] MEDS: Insulin LISPRO 300 UNITS/3 ML VIAL SQ SCH ×4 (07:30→21:22)
[2020-09-27] MEDS ORDERED: Acetaminophen 325 MG TABLET PO PRN (09:02)
[2020-09-27] MEDS: Aspirin Enteric Coated 81 MG Tablet PO SCH (09:58)
[2020-09-27] MEDS: NIFEdipine XL (24 HR) 60 MG TAB.ER.24 PO SCH (09:59)
[2020-09-27] MEDS: Topiramate 25 MG CAP.SPRINK PO SCH ×2 (10:00→21:35)
[2020-09-27 11:54] LABS: Basophils % 0.2 %; Immature Granulocytes % 0.2 % (0-4); Mean Corpuscular HGB Conc 33.3 g/dL (31.6-35.5); Mean Corpuscular Hemoglobin 29.6 pg (28.0-33.3)
[2020-09-27 11:55] LABS: Eosinophils # 0.1 K/mcL (0.0-0.6); Eosinophils % 1.6 %; Hematocrit 24.6 % (35.3-44.9); Hemoglobin 8.2 g/dL (11.5-15.4); Immature Platelets 1.9 % (1.1-6.1); Lymphocytes % 23.2 %; Mean Corpuscular Volume 88.8 fL (83.0-100.0); Mean Platelet Volume 9.4 fL (9.4-12.4); Monocytes # 0.4 K/mcL (0.0-1.3); Neutrophils # 2.8 K/mcL (1.6-8.9); Platelet Count 94 K/mcL (140-400); Red Blood Count 2.77 M/mcL (3.82-4.97); Red Cell Distribution Width 15.6 % (11.5-14.5); Segmented Neutrophils % 65.8 %; White Blood Count 4.3 K/mcL (4.3-11.1)
[2020-09-27 12:15] LABS: Calcium 7.8 mg/dL (8.6-10.3); Magnesium 1.8 mg/dL (1.6-2.6); Phosphorous 6.6 mg/dL (2.7-4.5); Potassium 4.7 mEq/L (3.5-5.1)
[2020-09-27] MEDS: NIFEdipine XL (24 HR) 30 MG TAB.ER.24 PO SCH (13:00)
[2020-09-27] MEDS: Apixaban 5 MG TABLET PO SCH (21:35)
[2020-09-28] MEDS ORDERED: *HR* Heparin 10,000 UNIT/10 ML VIAL IV PRN (06:53)
[2020-09-28] MEDS ORDERED: 0.9 % Sodium Chloride 250 ML IVC PRN (06:53)
[2020-09-28] MEDS ORDERED: 0.9 % Sodium Chloride 250 ML IVC SCH (07:30)
[2020-09-28 07:53] LABS: Hematocrit 21.9 % (35.3-44.9); Hemoglobin 7.1 g/dL (11.5-15.4)
[2020-09-28 08:12] LABS: Calcium 7.7 mg/dL (8.6-10.3); Magnesium 1.7 mg/dL (1.6-2.6); Phosphorous 6.9 mg/dL (2.7-4.5); Potassium 5.3 mEq/L (3.5-5.1)
[2020-09-28] MEDS: Insulin LISPRO 300 UNITS/3 ML VIAL SQ SCH ×4 (08:23→20:18)
[2020-09-28] MEDS: Aspirin Enteric Coated 81 MG Tablet PO SCH (09:47)
[2020-09-28] MEDS: Topiramate 25 MG CAP.SPRINK PO SCH ×2 (09:47→20:08)
[2020-09-28] MEDS: Apixaban 5 MG TABLET PO SCH ×2 (09:47→20:18)
[2020-09-28] MEDS: NIFEdipine XL (24 HR) 30 MG TAB.ER.24 PO SCH (09:55)
[2020-09-28] MEDS ORDERED: 0.9 % Sodium Chloride 250 ML ONE (14:20)
[2020-09-28 17:53] LABS: Hematocrit 27.5 % (35.3-44.9); Hemoglobin 9.3 g/dL (11.5-15.4)
[2020-09-28 23:30] VITALS: BP 180/96
== END 2020-09-28 23:55 | disposition home or self-care (01) | DRG 194 ==
LOC: 2ANU → SUATTDRO 19:52 → 2ANU 20:06
PROVIDERS: ADMIT Internal Medicine; ATTEND Internal Medicine

== ENCOUNTER 2020-10-07 02:27 | Inpatient (IN) ==
[2020-10-07] MEDS ORDERED: Naloxone 0.4 MG/ML INJ IVP PRN (04:33)
[2020-10-07] MEDS: Acetaminophen 325 MG TABLET PO PRN ×2 (05:13→17:08)
[2020-10-07] MEDS ORDERED: Dextrose Gel 15 GM/37.5 ML TUBE PO PRN ×2 (05:47)
[2020-10-07] MEDS ORDERED: D5% in Water 1,000 ML IVC PRN (05:47)
[2020-10-07] MEDS ORDERED: *HR* Dextrose 50 % in Water (Vial) 50 ML VIAL IVP PRN (05:47)
[2020-10-07] MEDS ORDERED: Vancomycin 1,500 MG/265 ML IV.SOLN IVPB ONE (07:00)
[2020-10-07] MEDS: Ondansetron ODT 4 MG TAB.RAPDIS SL PRN (07:34)
[2020-10-07] MEDS: Piperacillin/Tazobactam 3.375 GM in 0.9 % Sodium Chloride Mini Bag 100 ML IVPB SCH ×2 (07:34→20:44)
[2020-10-07] MEDS ORDERED: 0.9 % Sodium Chloride 250 ML IVC PRN (07:50)
[2020-10-07] MEDS ORDERED: *HR* Heparin 10,000 UNIT/10 ML VIAL IV PRN (07:50)
[2020-10-07] MEDS ORDERED: 0.9 % Sodium Chloride 1,000 ML PRIME SCH (08:00)
[2020-10-07 09:19] LABS: Basophils % 0.2 %; Mean Platelet Volume 10.5 fL (9.4-12.4)
[2020-10-07 09:21] LABS: Hematocrit 22.9 % (35.3-44.9); Hemoglobin 7.5 g/dL (11.5-15.4); Immature Granulocytes % 0.6 % (0-4); Immature Platelets 1.5 % (1.1-6.1); Lymphocytes # 0.5 K/mcL (0.6-4.6); Lymphocytes % 9.8 %; Mean Corpuscular HGB Conc 32.8 g/dL (31.6-35.5); Mean Corpuscular Hemoglobin 29.4 pg (28.0-33.3); Mean Corpuscular Volume 89.8 fL (83.0-100.0); Monocytes # 0.3 K/mcL (0.0-1.3); Monocytes % 4.7 %; Neutrophils # 4.5 K/mcL (1.6-8.9); Red Blood Count 2.55 M/mcL (3.82-4.97); Red Cell Distribution Width 14.9 % (11.5-14.5); Segmented Neutrophils % 84.7 %; White Blood Count 5.3 K/mcL (4.3-11.1)
[2020-10-07 09:27] LABS: Platelet Count 88 K/mcL (140-400)
[2020-10-07 09:29] LABS: INR 1.4; Prothrombin Time 15.7 Seconds (9.4-12.1)
[2020-10-07] MEDS: Insulin LISPRO 300 UNITS/3 ML VIAL SQ SCH ×4 (09:34→21:07)
[2020-10-07 09:36] LABS: BUN/Creatinine Ratio 11 (6-26); Blood Urea Nitrogen 94 mg/dL (6-20); Calcium 8.1 mg/dL (8.6-10.3); Carbon Dioxide 15 mEq/L (23-29); Chloride 104 mEq/L (98-107); Glucose 163 mg/dL (70-105); Magnesium 1.6 mg/dL (1.6-2.6); Osmolality,Calculated 303 (280-300); Phosphorous 6.7 mg/dL (2.7-4.5); Potassium 5.5 mEq/L (3.5-5.1); Sodium 130 mEq/L (136-145); eGFR For African Americans 6 (> 60); eGFR For Non-African Americans 5 (> 60)
[2020-10-07] MEDS ORDERED: *HR* HYDROcodone/Acet 5/325 mg TABLET PO ONE (10:15)
[2020-10-07 11:18] LABS: Procalcitonin 0.51 ng/mL (0.00-0.15)
[2020-10-07 12:12] LABS: Iron < 10 mcg/dL (50-170); Transferrin 135 mg/dL (203-362)
[2020-10-07 12:44] LABS: Folate 15.8 ng/mL (3.0-16.0); Vitamin B12 560 pg/mL (250-1100)
[2020-10-07] MEDS ORDERED: polyethylene glycoL 3350 17 GM POWD.PACK PO PRN (12:55)
[2020-10-07 13:23] LABS: Hepatitis B Surface Antibody < 3.10 mIU/mL
[2020-10-07 13:34] LABS: Hepatitis B Surface Antigen Nonreactive (Nonreactive)
[2020-10-07] MEDS: Topiramate 25 MG TABLET PO SCH ×2 (14:12→23:55)
[2020-10-07] MEDS: carvediloL 25 MG TABLET PO SCH (17:05)
[2020-10-07] MEDS: Apixaban 5 MG TABLET PO SCH (20:44)
[2020-10-07] MEDS ORDERED: Benzonatate 100 MG CAPSULE PO PRN (23:44)
[2020-10-08] MEDS: Acetaminophen 325 MG TABLET PO PRN ×2 (01:51→08:16)
[2020-10-08] MEDS: Ondansetron ODT 4 MG TAB.RAPDIS SL PRN ×3 (01:55→20:01)
[2020-10-08 02:56] LABS: Basophils % 0.2 %; Immature Granulocytes % 0.2 % (0-4); Mean Platelet Volume 10.5 fL (9.4-12.4); Monocytes # 0.2 K/mcL (0.0-1.3); Monocytes % 4.9 %; White Blood Count 4.3 K/mcL (4.3-11.1)
[2020-10-08 02:57] LABS: Eosinophils % 0.2 %; Hemoglobin 8.2 g/dL (11.5-15.4); Immature Platelets 1.8 % (1.1-6.1); Lymphocytes # 0.5 K/mcL (0.6-4.6); Lymphocytes % 10.7 %; Mean Corpuscular HGB Conc 32.8 g/dL (31.6-35.5); Mean Corpuscular Hemoglobin 29.5 pg (28.0-33.3); Mean Corpuscular Volume 89.9 fL (83.0-100.0); Neutrophils # 3.6 K/mcL (1.6-8.9); Nucleated Red Blood Cells 0.5 /100 WBC (0); Red Blood Count 2.78 M/mcL (3.82-4.97); Red Cell Distribution Width 14.9 % (11.5-14.5); Segmented Neutrophils % 83.8 %
[2020-10-08 02:58] LABS: Platelet Count 93 K/mcL (140-400)
[2020-10-08 03:13] LABS: Calcium 7.9 mg/dL (8.6-10.3); Potassium 4.6 mEq/L (3.5-5.1)
[2020-10-08] MEDS: NIFEdipine XL (24 HR) 30 MG TAB.ER.24 PO SCH ×2 (08:15→08:22)
[2020-10-08] MEDS: carvediloL 25 MG TABLET PO SCH ×2 (08:16→16:38)
[2020-10-08] MEDS: Apixaban 5 MG TABLET PO SCH (08:17)
[2020-10-08] MEDS: Insulin LISPRO 300 UNITS/3 ML VIAL SQ SCH ×4 (08:17→21:09)
[2020-10-08] MEDS: Piperacillin/Tazobactam 3.375 GM in 0.9 % Sodium Chloride Mini Bag 100 ML IVPB SCH ×2 (08:17→21:06)
[2020-10-08] MEDS: Topiramate 25 MG TABLET PO SCH ×2 (12:02→21:05)
[2020-10-08 20:35] LABS: Hematocrit 22.7 % (35.3-44.9); Hemoglobin 7.6 g/dL (11.5-15.4)
[2020-10-08] MEDS: Albuterol 2.5 MG/3 ML NEBULIZER IH PRN (20:55)
[2020-10-08] MEDS: Pantoprazole 40 MG VIAL IVP SCH (21:19)
[2020-10-09 01:02] LABS: Hematocrit 22.3 % (35.3-44.9); Hemoglobin 7.4 g/dL (11.5-15.4)
[2020-10-09 01:11] LABS: Calcium 7.5 mg/dL (8.6-10.3); Potassium 4.8 mEq/L (3.5-5.1)
[2020-10-09] MEDS: Albuterol 2.5 MG/3 ML NEBULIZER IH PRN ×2 (04:31→20:06)
[2020-10-09] MEDS: Ondansetron ODT 4 MG TAB.RAPDIS SL PRN ×2 (05:09→22:24)
[2020-10-09] MEDS: Pantoprazole 40 MG VIAL IVP SCH ×2 (05:10→16:25)
[2020-10-09] MEDS: Insulin LISPRO 300 UNITS/3 ML VIAL SQ SCH ×4 (07:12→20:14)
[2020-10-09] MEDS: Piperacillin/Tazobactam 3.375 GM in 0.9 % Sodium Chloride Mini Bag 100 ML IVPB SCH (07:17)
[2020-10-09] MEDS ORDERED: *HR* Heparin 10,000 UNIT/10 ML VIAL IV PRN ×2 (08:22)
[2020-10-09] MEDS ORDERED: 0.9 % Sodium Chloride 250 ML IVC PRN (08:22)
[2020-10-09] MEDS ORDERED: *HR* FentaNYL (PF) 100 MCG/2 ML VIAL ONE (11:07)
[2020-10-09] MEDS ORDERED: *HR* Midazolam HCl 5 MG/5 ML VIAL IVP ONE (11:07)
[2020-10-09] MEDS: NIFEdipine XL (24 HR) 30 MG TAB.ER.24 PO SCH (11:29)
[2020-10-09] MEDS: Topiramate 25 MG TABLET PO SCH ×2 (11:33→20:44)
[2020-10-09] MEDS: carvediloL 25 MG TABLET PO SCH ×2 (11:33→16:25)
[2020-10-09] MEDS: Acetaminophen 325 MG TABLET PO PRN (16:21)
[2020-10-09] MEDS ORDERED: Pantoprazole 40 MG VIAL IVP SCH (20:09)
[2020-10-09] MEDS ORDERED: carvediloL 25 MG TABLET PO ONE (21:00)
[2020-10-10] MEDS: Pantoprazole 40 MG VIAL IVP SCH ×2 (06:04→15:58)
[2020-10-10] MEDS ORDERED: levoFLOXacin 750 MG TABLET PO SCH (07:00)
[2020-10-10] MEDS ORDERED: levoFLOXacin 750 MG TABLET PO ONE (07:00)
[2020-10-10] MEDS ORDERED: 0.9 % Sodium Chloride 250 ML IVC PRN (08:36)
[2020-10-10] MEDS ORDERED: *HR* Heparin 10,000 UNIT/10 ML VIAL IV PRN (08:36)
[2020-10-10] MEDS: Insulin LISPRO 300 UNITS/3 ML VIAL SQ SCH ×4 (09:03→19:27)
[2020-10-10 10:51] LABS: Hemoglobin 8.1 g/dL (11.5-15.4)
[2020-10-10 10:53] LABS: Hematocrit 23.5 % (35.3-44.9); Immature Platelets 2.8 % (1.1-6.1); Mean Corpuscular HGB Conc 34.5 g/dL (31.6-35.5); Mean Corpuscular Hemoglobin 30.1 pg (28.0-33.3); Mean Corpuscular Volume 87.4 fL (83.0-100.0); Mean Platelet Volume 9.9 fL (9.4-12.4); Red Blood Count 2.69 M/mcL (3.82-4.97); Red Cell Distribution Width 14.3 % (11.5-14.5); White Blood Count 4.3 K/mcL (4.3-11.1)
[2020-10-10 11:10] LABS: Calcium 8.4 mg/dL (8.6-10.3); Potassium 3.7 mEq/L (3.5-5.1)
[2020-10-10] MEDS: Acetaminophen 325 MG TABLET PO PRN ×2 (13:22→22:30)
[2020-10-10] MEDS: NIFEdipine XL (24 HR) 30 MG TAB.ER.24 PO SCH (13:22)
[2020-10-10] MEDS: carvediloL 25 MG TABLET PO SCH ×2 (13:26→14:25)
[2020-10-10] MEDS: Topiramate 25 MG TABLET PO SCH ×3 (13:26→21:27)
[2020-10-10] MEDS ORDERED: levoFLOXacin 500 MG TABLET PO SCH (14:15)
[2020-10-10] MEDS: GuaiFENesin Liq 200 MG/10 ML UDC PO PRN (21:27)
[2020-10-10] MEDS: Albuterol 2.5 MG/3 ML NEBULIZER IH PRN (22:20)
[2020-10-10] MEDS: Ondansetron ODT 4 MG TAB.RAPDIS SL PRN (22:30)
[2020-10-11 04:00] VITALS: BP 178/94
[2020-10-11] MEDS: Albuterol 2.5 MG/3 ML NEBULIZER IH PRN (04:09)
[2020-10-11] MEDS: GuaiFENesin Liq 200 MG/10 ML UDC PO PRN (05:08)
[2020-10-11] MEDS: Pantoprazole 40 MG VIAL IVP SCH (05:37)
[2020-10-11] MEDS: Insulin LISPRO 300 UNITS/3 ML VIAL SQ SCH (07:11)
[2020-10-11 07:17] LABS: Hematocrit 23.5 % (35.3-44.9); Hemoglobin 7.9 g/dL (11.5-15.4); Mean Corpuscular HGB Conc 33.6 g/dL (31.6-35.5); Mean Corpuscular Hemoglobin 29.4 pg (28.0-33.3); Mean Corpuscular Volume 87.4 fL (83.0-100.0); Mean Platelet Volume 10.1 fL (9.4-12.4); Red Blood Count 2.69 M/mcL (3.82-4.97); White Blood Count 2.9 K/mcL (4.3-11.1)
[2020-10-11 07:18] LABS: Platelet Count 96 K/mcL (140-400)
[2020-10-11 07:37] LABS: Calcium 8.1 mg/dL (8.6-10.3); Potassium 4.3 mEq/L (3.5-5.1)
[2020-10-11] MEDS ORDERED: Apixaban 5 MG TABLET PO SCH (09:00)
[2020-10-11] MEDS: carvediloL 25 MG TABLET PO SCH (09:23)
[2020-10-11] MEDS: Topiramate 25 MG TABLET PO SCH (09:24)
[2020-10-11] MEDS: NIFEdipine XL (24 HR) 30 MG TAB.ER.24 PO SCH (09:24)
[2020-10-12] MEDS ORDERED: levoFLOXacin 500 MG TABLET PO SCH (07:00)
== END 2020-10-11 10:32 | disposition home or self-care (01) | DRG 139 ==
LOC: 2ANU → SUATTDRO 04:06
PROVIDERS: ADMIT Internal Medicine; ATTEND Internal Medicine

== ENCOUNTER 2020-11-10 05:59 | Inpatient (IN) ==
[2020-11-10 06:49] LABS: Basophils % 0.6 %; Eosinophils # 0.2 K/mcL (0.0-0.6); Eosinophils % 3.6 %; Hematocrit 21.3 % (35.3-44.9); Hemoglobin 7.1 g/dL (11.5-15.4); Immature Granulocytes % 0.2 % (0-4); Lymphocytes # 1.4 K/mcL (0.6-4.6); Lymphocytes % 26.6 %; Mean Corpuscular HGB Conc 33.3 g/dL (31.6-35.5); Mean Platelet Volume 8.8 fL (9.4-12.4); Monocytes # 0.5 K/mcL (0.0-1.3); Monocytes % 10.1 %; Neutrophils # 3.1 K/mcL (1.6-8.9); Platelet Count 107 K/mcL (140-400); Red Blood Count 2.29 M/mcL (3.82-4.97); Red Cell Distribution Width 14.8 % (11.5-14.5); Segmented Neutrophils % 58.9 %; White Blood Count 5.2 K/mcL (4.3-11.1)
[2020-11-10 06:56] LABS: Prothrombin Time 11.6 Seconds (9.4-12.1)
[2020-11-10 06:58] LABS: Activated Partial Thrombo Time 26.8 Seconds (26.0-36.0)
[2020-11-10 07:07] LABS: BUN/Creatinine Ratio 7 (6-26); Blood Urea Nitrogen 76 mg/dL (6-20); Calcium 8.6 mg/dL (8.6-10.3); Carbon Dioxide 14 mEq/L (23-29); Chloride 107 mEq/L (98-107); Glucose 104 mg/dL (70-105); Magnesium 2.2 mg/dL (1.6-2.6); Osmolality,Calculated 305 (280-300); Phosphorous 9.4 mg/dL (2.7-4.5); Potassium 5.5 mEq/L (3.5-5.1); Sodium 136 mEq/L (136-145); eGFR For African Americans 5 (> 60); eGFR For Non-African Americans 4 (> 60)
[2020-11-10 07:08] LABS: Troponin I < 0.03 ng/mL (< 0.04)
[2020-11-10] MEDS ORDERED: 0.9 % Sodium Chloride 250 ML IVC PRN (09:11)
[2020-11-10] MEDS ORDERED: *HR* Heparin 10,000 UNIT/10 ML VIAL IV PRN (09:11)
[2020-11-10] MEDS ORDERED: 0.9 % Sodium Chloride 1,000 ML PRIME SCH (09:15)
[2020-11-10] MEDS ORDERED: Naloxone 0.4 MG/ML INJ IVP PRN (09:33)
[2020-11-10] MEDS ORDERED: Ondansetron 4 MG/2 ML VIAL IVP PRN (09:33)
[2020-11-10 10:30] LABS: Procalcitonin 0.19 ng/mL (0.00-0.15)
[2020-11-10 10:50] LABS: Hepatitis B Surface Antibody < 3.10 mIU/mL
[2020-11-10 11:00] LABS: Hepatitis B Surface Antigen Nonreactive (Nonreactive)
[2020-11-10] MEDS ORDERED: D5% in Water 1,000 ML IVC PRN (12:57)
[2020-11-10] MEDS ORDERED: Dextrose Gel 15 GM/37.5 ML TUBE PO PRN ×2 (12:57)
[2020-11-10] MEDS ORDERED: *HR* Dextrose 50 % in Water (Vial) 50 ML VIAL IVP PRN (12:57)
[2020-11-10] MEDS: Doxycycline 100 MG CAPSULE PO SCH ×2 (13:47→19:42)
[2020-11-10] MEDS: Insulin LISPRO 300 UNITS/3 ML VIAL SUBQ SCH ×2 (16:05→19:40)
[2020-11-10] MEDS: Acetaminophen 325 MG TABLET PO PRN (18:03)
[2020-11-11 06:41] LABS: Mean Corpuscular HGB Conc 32.8 g/dL (31.6-35.5); Mean Corpuscular Hemoglobin 29.8 pg (28.0-33.3); Mean Corpuscular Volume 90.9 fL (83.0-100.0); Mean Platelet Volume 9.7 fL (9.4-12.4); Red Blood Count 1.98 M/mcL (3.82-4.97); Red Cell Distribution Width 14.9 % (11.5-14.5); White Blood Count 3.4 K/mcL (4.3-11.1)
[2020-11-11 06:45] LABS: Hemoglobin 5.9 g/dL (11.5-15.4)
[2020-11-11 07:03] LABS: Calcium 7.8 mg/dL (8.6-10.3); Magnesium 1.9 mg/dL (1.6-2.6); Potassium 5.1 mEq/L (3.5-5.1)
[2020-11-11] MEDS ORDERED: 0.9 % Sodium Chloride 250 ML IVC PRN (07:43)
[2020-11-11] MEDS ORDERED: *HR* Heparin 10,000 UNIT/10 ML VIAL IV PRN (07:43)
[2020-11-11] MEDS ORDERED: 0.9 % Sodium Chloride 1,000 ML PRIME SCH (07:45)
[2020-11-11] MEDS: Insulin LISPRO 300 UNITS/3 ML VIAL SUBQ SCH ×4 (08:09→20:11)
[2020-11-11] MEDS: Doxycycline 100 MG CAPSULE PO SCH ×2 (08:11→20:14)
[2020-11-11] MEDS: carvediloL 25 MG TABLET PO SCH ×2 (14:39→17:45)
[2020-11-11] MEDS: Topiramate 25 MG TABLET PO SCH ×2 (14:39→23:50)
[2020-11-11] MEDS: amLODIPine 5 MG TABLET PO SCH (14:39)
[2020-11-11] MEDS: Calcium Acetate 667 MG CAPSULE PO SCH ×2 (14:39→17:46)
[2020-11-12 01:55] LABS: Basophils % 0.5 %; Eosinophils # 0.1 K/mcL (0.0-0.6); Hematocrit 25.8 % (35.3-44.9); Hemoglobin 8.5 g/dL (11.5-15.4); Lymphocytes # 1.5 K/mcL (0.6-4.6); Lymphocytes % 36.3 %; Mean Corpuscular HGB Conc 32.9 g/dL (31.6-35.5); Mean Corpuscular Hemoglobin 29.6 pg (28.0-33.3); Mean Corpuscular Volume 89.9 fL (83.0-100.0); Mean Platelet Volume 9.7 fL (9.4-12.4); Monocytes # 0.6 K/mcL (0.0-1.3); Monocytes % 13.6 %; Neutrophils # 1.9 K/mcL (1.6-8.9); Platelet Count 102 K/mcL (140-400); Red Blood Count 2.87 M/mcL (3.82-4.97); Red Cell Distribution Width 14.9 % (11.5-14.5); Segmented Neutrophils % 46.6 %; White Blood Count 4.1 K/mcL (4.3-11.1)
[2020-11-12 02:15] LABS: Calcium 7.7 mg/dL (8.6-10.3); Potassium 4.7 mEq/L (3.5-5.1)
[2020-11-12] MEDS: Albuterol 2.5 MG/3 ML NEBULIZER IH PRN (02:40)
[2020-11-12] MEDS: Insulin LISPRO 300 UNITS/3 ML VIAL SUBQ SCH ×4 (08:34→19:50)
[2020-11-12] MEDS: Calcium Acetate 667 MG CAPSULE PO SCH ×3 (08:52→16:40)
[2020-11-12] MEDS: Topiramate 25 MG TABLET PO SCH ×2 (08:52→19:54)
[2020-11-12] MEDS: amLODIPine 5 MG TABLET PO SCH (08:52)
[2020-11-12] MEDS: carvediloL 25 MG TABLET PO SCH ×2 (08:53→16:40)
[2020-11-12] MEDS: Aspirin Enteric Coated 81 MG Tablet PO SCH (08:53)
[2020-11-12] MEDS: Doxycycline 100 MG CAPSULE PO SCH ×2 (08:53→19:54)
[2020-11-12] MEDS: Acetaminophen 325 MG TABLET PO PRN ×2 (16:40→22:42)
[2020-11-13] MEDS: Albuterol 2.5 MG/3 ML NEBULIZER IH PRN (00:27)
[2020-11-13] MEDS ORDERED: 0.9 % Sodium Chloride 250 ML IVC PRN (07:07)
[2020-11-13 10:38] LABS: Basophils % 0.2 %; Eosinophils # 0.2 K/mcL (0.0-0.6); Eosinophils % 3.5 %; Hematocrit 25.8 % (35.3-44.9); Hemoglobin 8.6 g/dL (11.5-15.4); Immature Granulocytes % 0.2 % (0-4); Lymphocytes # 1.3 K/mcL (0.6-4.6); Lymphocytes % 27.7 %; Mean Corpuscular HGB Conc 33.3 g/dL (31.6-35.5); Mean Corpuscular Hemoglobin 28.9 pg (28.0-33.3); Mean Corpuscular Volume 86.6 fL (83.0-100.0); Mean Platelet Volume 9.6 fL (9.4-12.4); Monocytes # 0.4 K/mcL (0.0-1.3); Monocytes % 8.9 %; Neutrophils # 2.7 K/mcL (1.6-8.9); Platelet Count 110 K/mcL (140-400); Red Blood Count 2.98 M/mcL (3.82-4.97); Red Cell Distribution Width 14.2 % (11.5-14.5); Segmented Neutrophils % 59.5 %; White Blood Count 4.6 K/mcL (4.3-11.1)
[2020-11-13 11:00] LABS: Calcium 8.1 mg/dL (8.6-10.3); Potassium 3.2 mEq/L (3.5-5.1)
[2020-11-13] MEDS: Insulin LISPRO 300 UNITS/3 ML VIAL SUBQ SCH ×4 (11:04→20:29)
[2020-11-13] MEDS: Calcium Acetate 667 MG CAPSULE PO SCH ×3 (11:10→18:03)
[2020-11-13] MEDS: amLODIPine 5 MG TABLET PO SCH (11:13)
[2020-11-13] MEDS: carvediloL 25 MG TABLET PO SCH ×2 (11:13→18:02)
[2020-11-13] MEDS: Aspirin Enteric Coated 81 MG Tablet PO SCH (11:25)
[2020-11-13] MEDS: Doxycycline 100 MG CAPSULE PO SCH ×2 (11:26→20:29)
[2020-11-13] MEDS: Topiramate 25 MG TABLET PO SCH ×2 (11:26→20:29)
[2020-11-14 05:26] LABS: Hematocrit 24.4 % (35.3-44.9); Hemoglobin 8.2 g/dL (11.5-15.4)
[2020-11-14 05:45] LABS: Calcium 8.3 mg/dL (8.6-10.3); Potassium 4.4 mEq/L (3.5-5.1)
[2020-11-14] MEDS: Calcium Acetate 667 MG CAPSULE PO SCH ×2 (08:06→11:15)
[2020-11-14] MEDS: amLODIPine 5 MG TABLET PO SCH (08:06)
[2020-11-14] MEDS: Doxycycline 100 MG CAPSULE PO SCH (08:07)
[2020-11-14] MEDS: Insulin LISPRO 300 UNITS/3 ML VIAL SUBQ SCH ×2 (08:07→11:06)
[2020-11-14] MEDS: carvediloL 25 MG TABLET PO SCH (08:07)
[2020-11-14] MEDS: Topiramate 25 MG TABLET PO SCH (08:07)
[2020-11-14] MEDS: Aspirin Enteric Coated 81 MG Tablet PO SCH (08:07)
[2020-11-14 11:07] VITALS: BP 156/74
[2020-11-14] MEDS: Acetaminophen 325 MG TABLET PO PRN (11:56)
== END 2020-11-14 13:30 | disposition home health service (06) ==
LOC: EMEROOARM 05:59 → 2ANU 05:59 → SUATTDRO 11-11 16:19
PROVIDERS: ADMIT Internal Medicine; ATTEND Family Medicine

== ENCOUNTER 2021-02-21 07:09 | Observation (INO) ==
[2021-02-21] MEDS ORDERED: Naloxone 0.4 MG/ML INJ IVP PRN (14:06)
[2021-02-21] MEDS ORDERED: Chloraseptic Spray 177 ML BOTTLE MM PRN (15:52)
[2021-02-21 16:11] LABS: Calcium 8.6 mg/dL (8.6-10.3); Potassium 6.6 mEq/L (3.5-5.1)
[2021-02-21] MEDS ORDERED: SODIUM ZIRCONIUM CYCLOSILICATE 5 GM POWD.PACK PO SCH (16:30)
[2021-02-21] MEDS ORDERED: Furosemide 40 MG/4 ML VIAL IVP ONE (16:48)
[2021-02-21] MEDS: Calcium Gluconate 1gm/50mL 1 GM/50 ML BAG IVPB SCH ×2 (16:55→17:49)
[2021-02-21] MEDS: Menthol 1 EACH LOZENGE PO PRN (16:55)
[2021-02-21] MEDS: Ipratropium/Albuterol Neb 3 ML IH PRN (19:58)
[2021-02-21] MEDS: Apixaban 5 MG TABLET PO SCH (21:13)
[2021-02-21] MEDS ORDERED: *HR* LORazepam 0.5 MG TABLET PO ONE (23:29)
[2021-02-21] MEDS ORDERED: Ondansetron ODT 4 MG TAB.RAPDIS SL ONE (23:31)
[2021-02-22] MEDS: Ipratropium/Albuterol Neb 3 ML IH PRN (00:04)
[2021-02-22 01:02] LABS: Basophils % 0.6 %; Eosinophils # 0.1 K/mcL (0.0-0.6); Eosinophils % 1.4 %; Hematocrit 28.8 % (35.3-44.9); Immature Granulocytes % 0.3 % (0-4); Lymphocytes % 15.8 %; Mean Corpuscular HGB Conc 31.3 g/dL (31.6-35.5); Mean Corpuscular Hemoglobin 31.3 pg (28.0-33.3); Monocytes # 0.5 K/mcL (0.0-1.3); Monocytes % 7.1 %; Neutrophils # 4.7 K/mcL (1.6-8.9); Platelet Count 118 K/mcL (140-400); Red Blood Count 2.88 M/mcL (3.82-4.97); Red Cell Distribution Width 13.6 % (11.5-14.5); Segmented Neutrophils % 74.8 %; White Blood Count 6.3 K/mcL (4.3-11.1)
[2021-02-22 01:09] LABS: INR 1.3; Prothrombin Time 15.2 Seconds (9.4-12.1)
[2021-02-22 01:19] LABS: Calcium 8.5 mg/dL (8.6-10.3)
[2021-02-22 01:21] LABS: Calcium 8.5 mg/dL (8.6-10.3); Potassium 6.1 mEq/L (3.5-5.1)
[2021-02-22] MEDS ORDERED: Albuterol 2.5 MG/3 ML NEBULIZER IH ONE (02:08)
[2021-02-22 02:09] LABS: Hepatitis B Surface Antibody < 3.10 mIU/mL
[2021-02-22 02:19] LABS: Hepatitis B Surface Antigen Nonreactive (Nonreactive)
[2021-02-22] MEDS: SODIUM ZIRCONIUM CYCLOSILICATE 5 GM POWD.PACK PO SCH (04:25)
[2021-02-22] MEDS ORDERED: *HR* Heparin 10,000 UNIT/10 ML VIAL IV PRN (07:38)
[2021-02-22] MEDS ORDERED: 0.9 % Sodium Chloride 250 ML IVC PRN (07:38)
[2021-02-22] MEDS ORDERED: 0.9 % Sodium Chloride 1,000 ML PRIME SCH (07:45)
[2021-02-22] MEDS: Aspirin Enteric Coated 81 MG Tablet PO SCH (08:41)
[2021-02-22] MEDS: Apixaban 5 MG TABLET PO SCH ×2 (08:41→19:58)
[2021-02-22] MEDS: Menthol 1 EACH LOZENGE PO PRN (08:41)
[2021-02-22] MEDS ORDERED: *HR* FentaNYL (PF) 100 MCG/2 ML VIAL IVP ONE (13:27)
[2021-02-22] MEDS ORDERED: Heparin 1,000 UNITS/500 mL 500 ML ONE (13:36)
[2021-02-22] MEDS ORDERED: Lidocaine/EPI 1:100k 1% 50 ML VIAL ONE (13:37)
[2021-02-22] MEDS ORDERED: 0.9 % Sodium Chloride 500 ML ONE (13:46)
[2021-02-22] MEDS ORDERED: *HR* Heparin 5,000 UNIT/ML VIAL ONE (13:53)
[2021-02-22] MEDS: Ondansetron ODT 4 MG TAB.RAPDIS SL PRN (14:57)
[2021-02-22 15:43] LABS: Calcium 8.4 mg/dL (8.6-10.3); Potassium 4.6 mEq/L (3.5-5.1)
[2021-02-22] MEDS: Calcium Acetate 667 MG CAPSULE PO SCH ×2 (17:04→18:06)
[2021-02-22] MEDS: Topiramate 25 MG TABLET PO SCH (18:06)
[2021-02-22] MEDS: carvediloL 25 MG TABLET PO SCH (18:06)
[2021-02-22] MEDS ORDERED: Acetaminophen 325 MG TABLET PO ONE (19:00)
[2021-02-23] MEDS: Topiramate 25 MG TABLET PO SCH (06:22)
[2021-02-23] MEDS ORDERED: *HR* Heparin 10,000 UNIT/10 ML VIAL IV PRN (07:23)
[2021-02-23] MEDS ORDERED: 0.9 % Sodium Chloride 250 ML IVC PRN (07:23)
[2021-02-23] MEDS ORDERED: 0.9 % Sodium Chloride 1,000 ML PRIME SCH (07:30)
[2021-02-23] MEDS ORDERED: Topiramate 25 MG TABLET PO SCH (09:00)
[2021-02-23] MEDS ORDERED: amLODIPine 5 MG TABLET PO SCH (09:00)
[2021-02-23] MEDS: Aspirin Enteric Coated 81 MG Tablet PO SCH (09:15)
[2021-02-23] MEDS: Apixaban 5 MG TABLET PO SCH (09:15)
[2021-02-23] MEDS: Calcium Acetate 667 MG CAPSULE PO SCH ×4 (09:15→16:00)
[2021-02-23] MEDS: carvediloL 25 MG TABLET PO SCH ×2 (09:28→15:59)
[2021-02-23] MEDS: SODIUM ZIRCONIUM CYCLOSILICATE 5 GM POWD.PACK PO SCH (09:28)
[2021-02-23 13:18] LABS: Basophils % 0.4 %; Eosinophils % 0.8 %; Hematocrit 28.8 % (35.3-44.9); Hemoglobin 9.3 g/dL (11.5-15.4); Immature Granulocytes % 0.2 % (0-4); Lymphocytes # 0.6 K/mcL (0.6-4.6); Lymphocytes % 12.4 %; Mean Corpuscular HGB Conc 32.3 g/dL (31.6-35.5); Mean Corpuscular Hemoglobin 31.4 pg (28.0-33.3); Mean Corpuscular Volume 97.3 fL (83.0-100.0); Monocytes # 0.4 K/mcL (0.0-1.3); Monocytes % 8.3 %; Neutrophils # 3.8 K/mcL (1.6-8.9); Platelet Count 141 K/mcL (140-400); Red Blood Count 2.96 M/mcL (3.82-4.97); Red Cell Distribution Width 13.3 % (11.5-14.5); Segmented Neutrophils % 77.9 %; White Blood Count 4.8 K/mcL (4.3-11.1)
[2021-02-23 13:20] VITALS: BP 180/101
[2021-02-23] MEDS: Ondansetron ODT 4 MG TAB.RAPDIS SL PRN (13:35)
[2021-02-23 13:43] LABS: Calcium 8.6 mg/dL (8.6-10.3); Magnesium 1.8 mg/dL (1.6-2.6); Phosphorous 1.9 mg/dL (2.7-4.5); Potassium 3.3 mEq/L (3.5-5.1)
[2021-02-23] MEDS ORDERED: Apixaban 2.5 MG TABLET PO SCH (21:00)
== END 2021-02-23 16:44 | disposition home or self-care (01) ==
LOC: 2ANU → SUATTDRO 12:42
PROVIDERS: ADMIT Internal Medicine; ATTEND Internal Medicine

== ENCOUNTER 2021-02-28 10:29 | Observation (INO) ==
[2021-02-28] MEDS ORDERED: *HR* HYDROcodone/Acet 5/325 mg TABLET PO PRN (13:18)
[2021-02-28] MEDS ORDERED: Ondansetron 4 MG/2 ML VIAL IVP PRN (13:18)
[2021-02-28] MEDS ORDERED: Naloxone 0.4 MG/ML INJ IVP PRN (13:18)
[2021-02-28] MEDS ORDERED: Ondansetron ODT 4 MG TAB.RAPDIS SL PRN (13:43)
[2021-02-28] MEDS ORDERED: 0.9 % Sodium Chloride 1,000 ML PRIME SCH (14:00)
[2021-02-28] MEDS ORDERED: 0.9 % Sodium Chloride 250 ML IVC PRN (14:00)
[2021-02-28 14:16] LABS: Mean Corpuscular Volume 100.3 fL (83.0-100.0); Red Cell Distribution Width 13.2 % (11.5-14.5)
[2021-02-28] MEDS: Topiramate 25 MG TABLET PO SCH (14:17)
[2021-02-28 14:18] LABS: Basophils % 0.3 %; Eosinophils # 0.1 K/mcL (0.0-0.6); Eosinophils % 1.4 %; Hematocrit 31.4 % (35.3-44.9); Hemoglobin 10.1 g/dL (11.5-15.4); Immature Granulocytes % 0.4 % (0-4); Immature Platelets 4.5 % (1.1-6.1); Lymphocytes # 1.1 K/mcL (0.6-4.6); Lymphocytes % 15.6 %; Mean Corpuscular HGB Conc 32.2 g/dL (31.6-35.5); Mean Corpuscular Hemoglobin 32.3 pg (28.0-33.3); Mean Platelet Volume 11.1 fL (9.4-12.4); Monocytes # 0.4 K/mcL (0.0-1.3); Monocytes % 5.5 %; Neutrophils # 5.5 K/mcL (1.6-8.9); Red Blood Count 3.13 M/mcL (3.82-4.97); Segmented Neutrophils % 76.8 %; White Blood Count 7.1 K/mcL (4.3-11.1)
[2021-02-28 14:25] LABS: Platelet Count 82 K/mcL (140-400)
[2021-02-28 14:38] LABS: Phosphorous 7.1 mg/dL (2.7-4.5)
[2021-02-28 14:40] LABS: Troponin I 0.03 ng/mL (< 0.04)
[2021-02-28 15:39] LABS: Calcium 8.8 mg/dL (8.6-10.3); Potassium 6.2 mEq/L (3.5-5.1)
[2021-02-28] MEDS: carvediloL 25 MG TABLET PO SCH ×2 (16:58→18:35)
[2021-02-28] MEDS: Apixaban 2.5 MG TABLET PO SCH (20:16)
[2021-03-01] MEDS: Topiramate 25 MG TABLET PO SCH (01:54)
[2021-03-01 02:59] LABS: Basophils % 0.3 %; Eosinophils # 0.1 K/mcL (0.0-0.6); Eosinophils % 2.1 %; Hematocrit 27.2 % (35.3-44.9); Hemoglobin 8.7 g/dL (11.5-15.4); Immature Granulocytes % 0.2 % (0-4); Lymphocytes # 1.3 K/mcL (0.6-4.6); Mean Corpuscular Hemoglobin 32.2 pg (28.0-33.3); Mean Corpuscular Volume 100.7 fL (83.0-100.0); Mean Platelet Volume 10.1 fL (9.4-12.4); Monocytes # 0.6 K/mcL (0.0-1.3); Monocytes % 9.6 %; Neutrophils # 3.8 K/mcL (1.6-8.9); Platelet Count 146 K/mcL (140-400); Red Cell Distribution Width 13.3 % (11.5-14.5); Segmented Neutrophils % 64.8 %; White Blood Count 5.8 K/mcL (4.3-11.1)
[2021-03-01 03:12] LABS: Calcium 8.6 mg/dL (8.6-10.3); Troponin I 0.03 ng/mL (< 0.04)
[2021-03-01] MEDS ORDERED: 0.9 % Sodium Chloride 250 ML IVC PRN (07:43)
[2021-03-01] MEDS ORDERED: *HR* Heparin 10,000 UNIT/10 ML VIAL IV PRN (07:43)
[2021-03-01] MEDS ORDERED: 0.9 % Sodium Chloride 1,000 ML PRIME SCH (07:45)
[2021-03-01] MEDS ORDERED: Amoxicillin/Clavulanate 500 MG TABLET PO SCH (08:00)
[2021-03-01] MEDS ORDERED: GuaiFENesin/Dextromethorphan TABLET PO PRN (08:04)
[2021-03-01] MEDS: carvediloL 25 MG TABLET PO SCH (08:13)
[2021-03-01] MEDS: Apixaban 2.5 MG TABLET PO SCH (08:13)
[2021-03-01] MEDS ORDERED: amLODIPine 5 MG TABLET PO SCH (09:00)
[2021-03-01] MEDS ORDERED: Topiramate 25 MG TABLET PO SCH (09:00)
[2021-03-01] MEDS ORDERED: Calcium Acetate 667 MG CAPSULE PO SCH (12:00)
[2021-03-01 13:32] VITALS: BP 158/88
== END 2021-03-01 15:45 | disposition home or self-care (01) ==
LOC: 2ANU → SUATTDRO 12:35 → 2ANU 03-01 10:56
PROVIDERS: ADMIT Internal Medicine; ATTEND Internal Medicine

== ENCOUNTER 2021-04-13 22:24 | Inpatient (IN) ==
[2021-04-14] MEDS ORDERED: Naloxone 0.4 MG/ML INJ IVP PRN (01:37)
[2021-04-14] MEDS ORDERED: Acetaminophen 325 MG TABLET PO PRN (01:37)
[2021-04-14] MEDS ORDERED: hydrOXYzine pamoate 25 MG CAPSULE PO ONE (02:46)
[2021-04-14] MEDS ORDERED: carvediloL 25 MG TABLET PO ONE (03:21)
[2021-04-14 08:28] LABS: Basophils % 0.4 %; Eosinophils # 0.1 K/mcL (0.0-0.6); Hemoglobin 9.8 g/dL (11.5-15.4); Immature Granulocytes % 0.2 % (0-4); Immature Platelets 0.9 % (1.1-6.1); Lymphocytes % 14.6 %; Mean Corpuscular HGB Conc 31.6 g/dL (31.6-35.5); Mean Corpuscular Hemoglobin 32.8 pg (28.0-33.3); Mean Corpuscular Volume 103.7 fL (83.0-100.0); Monocytes # 0.4 K/mcL (0.0-1.3); Neutrophils # 3.9 K/mcL (1.6-8.9); Red Blood Count 2.99 M/mcL (3.82-4.97); Red Cell Distribution Width 14.5 % (11.5-14.5); Segmented Neutrophils % 75.8 %; White Blood Count 5.1 K/mcL (4.3-11.1)
[2021-04-14 08:45] LABS: Albumin 3.5 g/dL (3.5-5.7); Calcium 8.4 mg/dL (8.6-10.3); Magnesium 2.3 mg/dL (1.6-2.6); Phosphorous 8.1 mg/dL (2.7-4.5); Potassium 5.7 mEq/L (3.5-5.1)
[2021-04-14 08:59] LABS: Lymphocytes # 0.7 K/mcL (0.6-4.6); Platelet Count 88 K/mcL (140-400)
[2021-04-14 09:07] LABS: Hepatitis B Surface Antibody < 3.10 mIU/mL
[2021-04-14 09:08] LABS: Platelet Estimate Decreased (Normal)
[2021-04-14 09:17] LABS: Hepatitis B Surface Antigen Nonreactive (Nonreactive)
[2021-04-14] MEDS: carvediloL 25 MG TABLET PO SCH ×2 (09:59→17:26)
[2021-04-14] MEDS ORDERED: 0.9 % Sodium Chloride 250 ML IVC PRN (10:19)
[2021-04-14] MEDS ORDERED: *HR* Heparin 10,000 UNIT/10 ML VIAL IV PRN (10:19)
[2021-04-14] MEDS ORDERED: 0.9 % Sodium Chloride 1,000 ML PRIME SCH (10:30)
[2021-04-14] MEDS: Topiramate 25 MG TABLET PO SCH ×2 (12:45→20:47)
[2021-04-14] MEDS: Aspirin Enteric Coated 81 MG Tablet PO SCH (12:45)
[2021-04-14] MEDS: amLODIPine 5 MG TABLET PO SCH ×2 (12:45→17:26)
[2021-04-14] MEDS: FLUoxetine 20 MG CAPSULE PO SCH (12:45)
[2021-04-14] MEDS: Calcium Acetate 667 MG CAPSULE PO SCH (17:26)
[2021-04-14] MEDS: Apixaban 2.5 MG TABLET PO SCH (20:47)
[2021-04-15 06:52] LABS: Basophils % 0.2 %; Eosinophils # 0.1 K/mcL (0.0-0.6); Eosinophils % 1.1 %; Hematocrit 33.3 % (35.3-44.9); Hemoglobin 10.8 g/dL (11.5-15.4); Immature Granulocytes % 0.2 % (0-4); Lymphocytes # 0.8 K/mcL (0.6-4.6); Lymphocytes % 18.8 %; Mean Corpuscular HGB Conc 32.4 g/dL (31.6-35.5); Mean Corpuscular Hemoglobin 33.3 pg (28.0-33.3); Mean Corpuscular Volume 102.8 fL (83.0-100.0); Mean Platelet Volume 9.4 fL (9.4-12.4); Monocytes # 0.4 K/mcL (0.0-1.3); Monocytes % 9.8 %; Neutrophils # 3.1 K/mcL (1.6-8.9); Platelet Count 108 K/mcL (140-400); Red Blood Count 3.24 M/mcL (3.82-4.97); Red Cell Distribution Width 14.2 % (11.5-14.5); Segmented Neutrophils % 69.9 %; White Blood Count 4.5 K/mcL (4.3-11.1)
[2021-04-15 07:24] LABS: Calcium 8.4 mg/dL (8.6-10.3); Magnesium 2.1 mg/dL (1.6-2.6); Phosphorous 5.2 mg/dL (2.7-4.5); Potassium 4.7 mEq/L (3.5-5.1)
[2021-04-15] MEDS: amLODIPine 5 MG TABLET PO SCH (08:58)
[2021-04-15] MEDS: Calcium Acetate 667 MG CAPSULE PO SCH ×3 (08:59→17:02)
[2021-04-15] MEDS: carvediloL 25 MG TABLET PO SCH ×2 (08:59→17:02)
[2021-04-15] MEDS: Aspirin Enteric Coated 81 MG Tablet PO SCH (08:59)
[2021-04-15] MEDS: FLUoxetine 20 MG CAPSULE PO SCH (08:59)
[2021-04-15] MEDS: Apixaban 2.5 MG TABLET PO SCH ×2 (08:59→20:39)
[2021-04-15] MEDS: Topiramate 25 MG TABLET PO SCH ×2 (08:59→20:39)
[2021-04-15] MEDS ORDERED: *HR* Heparin 10,000 UNIT/10 ML VIAL IV PRN (10:08)
[2021-04-15] MEDS ORDERED: 0.9 % Sodium Chloride 250 ML IVC PRN (10:08)
[2021-04-15] MEDS: Azithromycin 500 MG in 0.9 % Sodium Chloride 250 ML IVPB SCH (15:12)
[2021-04-15] MEDS: cefTRIAXone 1,000 MG in Water for inj. (sterile) 10 ML IVP SCH (15:24)
[2021-04-15] MEDS ORDERED: Albuterol 2.5 MG/3 ML NEBULIZER IH PRN (17:17)
[2021-04-16] MEDS: cefTRIAXone 1,000 MG in Water for inj. (sterile) 10 ML IVP SCH (08:25)
[2021-04-16] MEDS: Apixaban 2.5 MG TABLET PO SCH ×2 (08:26→20:47)
[2021-04-16] MEDS: Calcium Acetate 667 MG CAPSULE PO SCH ×3 (08:26→16:54)
[2021-04-16] MEDS: Topiramate 25 MG TABLET PO SCH ×2 (08:26→20:47)
[2021-04-16] MEDS: FLUoxetine 20 MG CAPSULE PO SCH (08:26)
[2021-04-16] MEDS: Aspirin Enteric Coated 81 MG Tablet PO SCH (08:26)
[2021-04-16] MEDS: amLODIPine 5 MG TABLET PO SCH (08:26)
[2021-04-16] MEDS: carvediloL 25 MG TABLET PO SCH ×3 (08:27→20:47)
[2021-04-16 08:30] LABS: Basophils % 0.1 %; Eosinophils # 0.1 K/mcL (0.0-0.6); Hematocrit 31.9 % (35.3-44.9); Hemoglobin 10.4 g/dL (11.5-15.4); Immature Granulocytes % 0.1 % (0-4); Lymphocytes # 1.2 K/mcL (0.6-4.6); Lymphocytes % 18.3 %; Mean Corpuscular HGB Conc 32.6 g/dL (31.6-35.5); Mean Corpuscular Hemoglobin 33.5 pg (28.0-33.3); Mean Corpuscular Volume 102.9 fL (83.0-100.0); Monocytes # 0.7 K/mcL (0.0-1.3); Monocytes % 10.2 %; Neutrophils # 4.7 K/mcL (1.6-8.9); Platelet Count 121 K/mcL (140-400); Red Cell Distribution Width 13.7 % (11.5-14.5); Segmented Neutrophils % 70.3 %; White Blood Count 6.7 K/mcL (4.3-11.1)
[2021-04-16 09:12] LABS: Calcium 8.6 mg/dL (8.6-10.3); Potassium 4.3 mEq/L (3.5-5.1)
[2021-04-16 11:47] LABS: Bilirubin,Urine Negative (Negative); Blood,Urine Negative (Negative); Clarity,Urine Clear (Clear); Color,Urine Light-Yellow (Yellow); Glucose,Urine (UA) 300 mg/dL (Normal); Ketones,Urine Negative (Negative); Leukocyte Esterase,Urine Negative (Negative); Nitrite,Urine Negative (Negative); Protein,Urine >=600 mg/dL (Neg-Trace); RBC,Urine 0-3 per hpf (0-3); Specific Gravity,Urine 1.016 (1.010-1.025); Squamous Epithelial Cell,Urine Few per hpf (None-Few); Urobilinogen,Urine Normal (Normal); WBC,Urine 0-3 per hpf (0-3)
[2021-04-16] MEDS: Azithromycin 500 MG in 0.9 % Sodium Chloride 250 ML IVPB SCH (11:54)
[2021-04-16] MEDS: Ondansetron 4 MG/2 ML VIAL IVP PRN ×2 (14:35→22:34)
[2021-04-17] MEDS ORDERED: 0.9 % Sodium Chloride 250 ML IVC PRN (08:18)
[2021-04-17] MEDS ORDERED: *HR* Heparin 10,000 UNIT/10 ML VIAL IV PRN (08:18)
[2021-04-17] MEDS: Calcium Acetate 667 MG CAPSULE PO SCH ×2 (09:08→12:20)
[2021-04-17] MEDS: Aspirin Enteric Coated 81 MG Tablet PO SCH (09:08)
[2021-04-17] MEDS: Apixaban 2.5 MG TABLET PO SCH (09:09)
[2021-04-17] MEDS: Topiramate 25 MG TABLET PO SCH (09:09)
[2021-04-17] MEDS: FLUoxetine 20 MG CAPSULE PO SCH (09:09)
[2021-04-17] MEDS: amLODIPine 5 MG TABLET PO SCH (09:09)
[2021-04-17] MEDS: carvediloL 25 MG TABLET PO SCH (09:09)
[2021-04-17] MEDS: cefTRIAXone 1,000 MG in Water for inj. (sterile) 10 ML IVP SCH (09:10)
[2021-04-17 11:52] LABS: Basophils % 0.3 %; Eosinophils # 0.1 K/mcL (0.0-0.6); Eosinophils % 1.2 %; Hematocrit 30.8 % (35.3-44.9); Hemoglobin 10.4 g/dL (11.5-15.4); Immature Granulocytes % 0.3 % (0-4); Lymphocytes # 0.9 K/mcL (0.6-4.6); Lymphocytes % 16.1 %; Mean Corpuscular HGB Conc 33.8 g/dL (31.6-35.5); Mean Corpuscular Hemoglobin 33.5 pg (28.0-33.3); Mean Corpuscular Volume 99.4 fL (83.0-100.0); Mean Platelet Volume 9.9 fL (9.4-12.4); Monocytes # 0.4 K/mcL (0.0-1.3); Monocytes % 6.7 %; Neutrophils # 4.4 K/mcL (1.6-8.9); Platelet Count 121 K/mcL (140-400); Red Cell Distribution Width 13.9 % (11.5-14.5); Segmented Neutrophils % 75.4 %; White Blood Count 5.8 K/mcL (4.3-11.1)
[2021-04-17 12:12] LABS: Calcium 8.3 mg/dL (8.6-10.3); Magnesium 1.9 mg/dL (1.6-2.6); Phosphorous 3.5 mg/dL (2.7-4.5); Potassium 4.3 mEq/L (3.5-5.1)
[2021-04-17] MEDS: Azithromycin 500 MG in 0.9 % Sodium Chloride 250 ML IVPB SCH (12:20)
[2021-04-17 15:55] VITALS: BP 136/76
[2021-04-18] MEDS ORDERED: Azithromycin 250 MG TABLET PO SCH (13:30)
== END 2021-04-17 17:05 | disposition home or self-care (01) | DRG 425 ==
LOC: 2ANU
PROVIDERS: ADMIT Internal Medicine; ATTEND Internal Medicine

== ENCOUNTER 2021-06-13 11:35 | Observation (INO) ==
[2021-06-13 13:02] LABS: Basophils % 0.1 %; Hematocrit 25.3 % (35.3-44.9); Hemoglobin 8.2 g/dL (11.5-15.4); Immature Granulocytes % 0.5 % (0-4); Lymphocytes # 0.4 K/mcL (0.6-4.6); Lymphocytes % 4.6 %; Mean Corpuscular HGB Conc 32.4 g/dL (31.6-35.5); Mean Corpuscular Hemoglobin 31.7 pg (28.0-33.3); Mean Corpuscular Volume 97.7 fL (83.0-100.0); Mean Platelet Volume 9.9 fL (9.4-12.4); Monocytes # 0.1 K/mcL (0.0-1.3); Monocytes % 1.4 %; Neutrophils # 7.3 K/mcL (1.6-8.9); Platelet Count 178 K/mcL (140-400); Red Blood Count 2.59 M/mcL (3.82-4.97); Red Cell Distribution Width 13.5 % (11.5-14.5); Segmented Neutrophils % 93.4 %; White Blood Count 7.8 K/mcL (4.3-11.1)
[2021-06-13 13:17] LABS: Blood Urea Nitrogen 96 mg/dL (6-20); Calcium 8.7 mg/dL (8.6-10.3); Carbon Dioxide 16 mEq/L (23-29); Chloride 95 mEq/L (98-107); Glucose 388 mg/dL (70-105); Osmolality,Calculated 316 (280-300); Potassium 6.2 mEq/L (3.5-5.1); Sodium 130 mEq/L (136-145); Troponin I < 0.03 ng/mL (< 0.04)
[2021-06-13 14:08] LABS: BUN/Creatinine Ratio 10 (6-26); eGFR For African Americans 5 (> 60); eGFR For Non-African Americans 4 (> 60)
[2021-06-13] MEDS ORDERED: Calcium Gluconate 1,000 MG/10 ML VIAL IVP ONE (14:30)
[2021-06-13] MEDS ORDERED: Insulin Human Regular 10 UNIT in 0.9 % Sodium Chloride 10 ML IV ONE (14:49)
[2021-06-13] MEDS: Calcium Gluconate 1gm/50mL 1 GM/50 ML BAG IVPB SCH ×2 (15:16→15:57)
[2021-06-13] MEDS ORDERED: Naloxone 0.4 MG/ML INJ IVP PRN (16:21)
[2021-06-13] MEDS ORDERED: Ondansetron 4 MG/2 ML VIAL IVP PRN (16:21)
[2021-06-13] MEDS ORDERED: Albuterol 2.5 MG/3 ML NEBULIZER IH PRN (16:27)
[2021-06-13] MEDS ORDERED: Furosemide 40 MG/4 ML VIAL IVP ONE (16:34)
[2021-06-13] MEDS ORDERED: D5% in Water 1,000 ML IVC PRN (16:48)
[2021-06-13] MEDS ORDERED: *HR* Dextrose 50 % in Water (Vial) 50 ML VIAL IVP PRN (16:48)
[2021-06-13] MEDS ORDERED: Dextrose Gel 15 GM/37.5 ML TUBE PO PRN ×2 (16:48)
[2021-06-13] MEDS ORDERED: Furosemide 80 MG in 0.9 % Sodium Chloride 50 ML IVPB ONE (17:23)
[2021-06-13] MEDS: Calcium Acetate 667 MG CAPSULE PO SCH ×2 (18:17→18:27)
[2021-06-13] MEDS: SODIUM ZIRCONIUM CYCLOSILICATE 5 GM POWD.PACK PO SCH (18:27)
[2021-06-13] MEDS: Topiramate 25 MG TABLET PO SCH (18:27)
[2021-06-13] MEDS: Apixaban 2.5 MG TABLET PO SCH (19:45)
[2021-06-13] MEDS: carvediloL 25 MG TABLET PO SCH (19:46)
[2021-06-13] MEDS: Insulin LISPRO 300 UNITS/3 ML VIAL SUBQ SCH (20:26)
[2021-06-13 21:27] LABS: Adenovirus Not Detected (Not Detect); Bordetella Pertussis Not Detected (Not Detect); Chlamydophila pneumoniae Not Detected (Not Detect); Coronavirus 229E Not Detected (Not Detect); Coronavirus HKU1 Not Detected (Not Detect); Coronavirus NL63 Not Detected (Not Detect); Coronavirus OC43 Not Detected (Not Detect); Human Metapneumovirus Not Detected (Not Detect); Human Rhinovirus/Enterovirus Not Detected (Not Detect); Influenza A Subtype 2009 H1 Not Detected (Not Detect); Influenza B Not Detected (Not Detect); Mycoplasma pneumoniae Not Detected (Not Detect); Parainfluenza Virus 1 Not Detected (Not Detect); Parainfluenza Virus 2 Not Detected (Not Detect); Parainfluenza Virus 3 Not Detected (Not Detect); Parainfluenza Virus 4 Not Detected (Not Detect); Respiratory Syncytial Virus Not Detected (Not Detect); SARS-CoV-2 Not Detected (Not Detect)
[2021-06-14 01:18] LABS: Hepatitis B Surface Antibody < 3.10 mIU/mL
[2021-06-14 01:29] LABS: Hepatitis B Surface Antigen Nonreactive (Nonreactive)
[2021-06-14] MEDS: Topiramate 25 MG TABLET PO SCH ×2 (05:01→17:21)
[2021-06-14] MEDS ORDERED: *HR* Heparin 10,000 UNIT/10 ML VIAL IV PRN (07:24)
[2021-06-14] MEDS ORDERED: 0.9 % Sodium Chloride 250 ML IVC PRN (07:24)
[2021-06-14] MEDS ORDERED: 0.9 % Sodium Chloride 1,000 ML PRIME SCH (07:30)
[2021-06-14] MEDS: Insulin LISPRO 300 UNITS/3 ML VIAL SUBQ SCH ×4 (09:59→20:56)
[2021-06-14] MEDS: amLODIPine 5 MG TABLET PO SCH ×2 (10:00→13:01)
[2021-06-14] MEDS: carvediloL 25 MG TABLET PO SCH ×2 (10:00→17:16)
[2021-06-14] MEDS: Calcium Acetate 667 MG CAPSULE PO SCH ×4 (10:04→17:16)
[2021-06-14] MEDS: Apixaban 2.5 MG TABLET PO SCH (13:01)
[2021-06-14] MEDS: SODIUM ZIRCONIUM CYCLOSILICATE 5 GM POWD.PACK PO SCH (13:01)
[2021-06-14] MEDS: predniSONE 20 MG TABLET PO SCH (13:01)
[2021-06-14] MEDS: Aspirin Enteric Coated 81 MG Tablet PO SCH (13:01)
[2021-06-14 13:42] LABS: Basophils % 0.2 %; Eosinophils # 0.1 K/mcL (0.0-0.6); Hematocrit 26.2 % (35.3-44.9); Hemoglobin 8.8 g/dL (11.5-15.4); Immature Granulocytes % 0.6 % (0-4); Lymphocytes % 20.2 %; Mean Corpuscular HGB Conc 33.6 g/dL (31.6-35.5); Mean Corpuscular Hemoglobin 31.7 pg (28.0-33.3); Mean Corpuscular Volume 94.2 fL (83.0-100.0); Mean Platelet Volume 9.5 fL (9.4-12.4); Monocytes # 0.4 K/mcL (0.0-1.3); Monocytes % 6.9 %; Neutrophils # 3.6 K/mcL (1.6-8.9); Platelet Count 204 K/mcL (140-400); Red Blood Count 2.78 M/mcL (3.82-4.97); Red Cell Distribution Width 13.5 % (11.5-14.5); Segmented Neutrophils % 70.1 %; White Blood Count 5.1 K/mcL (4.3-11.1)
[2021-06-14 14:16] LABS: Albumin 3.7 g/dL (3.5-5.7); Albumin/Globulin Ratio 1.4 (1.1-2.2); Bilirubin,Total 0.5 mg/dL (0.3-1.0); Calcium 8.6 mg/dL (8.6-10.3); Globulin 2.6 g/dL (2.4-3.5); Potassium 3.4 mEq/L (3.5-5.1); Total Protein 6.3 g/dL (6.4-8.9)
[2021-06-14] MEDS: Apixaban 5 MG TABLET PO SCH (20:57)
[2021-06-15] MEDS: Topiramate 25 MG TABLET PO SCH (05:24)
[2021-06-15] MEDS ORDERED: 0.9 % Sodium Chloride 250 ML IVC PRN (07:32)
[2021-06-15] MEDS ORDERED: *HR* Heparin 10,000 UNIT/10 ML VIAL IV PRN (07:32)
[2021-06-15 07:37] VITALS: PULSE 90; O2SAT 97
[2021-06-15] MEDS ORDERED: 0.9 % Sodium Chloride 1,000 ML PRIME SCH (07:45)
[2021-06-15] MEDS: Insulin LISPRO 300 UNITS/3 ML VIAL SUBQ SCH ×2 (07:47→12:50)
[2021-06-15] MEDS: Aspirin Enteric Coated 81 MG Tablet PO SCH (07:57)
[2021-06-15] MEDS: amLODIPine 5 MG TABLET PO SCH (07:57)
[2021-06-15] MEDS: predniSONE 20 MG TABLET PO SCH (07:57)
[2021-06-15] MEDS: Apixaban 5 MG TABLET PO SCH (07:57)
[2021-06-15] MEDS: Calcium Acetate 667 MG CAPSULE PO SCH ×2 (07:57→12:50)
[2021-06-15] MEDS: carvediloL 25 MG TABLET PO SCH (07:57)
[2021-06-15] MEDS ORDERED: Topiramate 25 MG TABLET PO SCH (09:00)
[2021-06-15 13:30] VITALS: BP 158/79; TEMP 98.7
[2021-06-16] MEDS ORDERED: Multivit/Ca/Min/Fe/FA 1 TAB TABLET PO SCH (09:00)
== END 2021-06-15 14:30 | disposition home or self-care (01) ==
LOC: EMEROOARM 11:35 → 2ANU 11:35
PROVIDERS: ADMIT Internal Medicine; ATTEND Internal Medicine

== ENCOUNTER 2021-06-30 05:16 | Observation (INO) ==
[2021-06-30] MEDS ORDERED: Acetaminophen 325 MG TABLET PO PRN (09:40)
[2021-06-30] MEDS ORDERED: Ondansetron 4 MG/2 ML VIAL IVP PRN (09:40)
[2021-06-30] MEDS ORDERED: Naloxone 0.4 MG/ML INJ IVP PRN (09:40)
[2021-06-30] MEDS ORDERED: Dextrose Gel 15 GM/37.5 ML TUBE PO PRN ×2 (09:47)
[2021-06-30] MEDS ORDERED: *HR* Dextrose 50 % in Water (Vial) 50 ML VIAL IVP PRN (09:47)
[2021-06-30] MEDS ORDERED: D5% in Water 1,000 ML IVC PRN (09:47)
[2021-06-30] MEDS: Ipratropium/Albuterol Neb 3 ML IH PRN (11:04)
[2021-06-30 11:16] LABS: Basophils % 0.4 %; Eosinophils # 0.1 K/mcL (0.0-0.6); Eosinophils % 1.2 %; Hematocrit 22.5 % (35.3-44.9); Hemoglobin 6.9 g/dL (11.5-15.4); Immature Granulocytes % 0.4 % (0-4); Lymphocytes # 0.6 K/mcL (0.6-4.6); Lymphocytes % 12.2 %; Mean Corpuscular HGB Conc 30.7 g/dL (31.6-35.5); Mean Corpuscular Hemoglobin 31.2 pg (28.0-33.3); Monocytes # 0.3 K/mcL (0.0-1.3); Monocytes % 6.2 %; Neutrophils # 3.9 K/mcL (1.6-8.9); Platelet Count 123 K/mcL (140-400); Red Blood Count 2.21 M/mcL (3.82-4.97); Red Cell Distribution Width 14.6 % (11.5-14.5); Segmented Neutrophils % 79.6 %; White Blood Count 4.8 K/mcL (4.3-11.1)
[2021-06-30 11:24] LABS: INR 1.1; Prothrombin Time 12.8 Seconds (9.4-12.1)
[2021-06-30 11:46] LABS: Mean Corpuscular Volume 101.8 fL (83.0-100.0)
[2021-06-30] MEDS: Insulin LISPRO 300 UNITS/3 ML VIAL SUBQ SCH ×2 (11:49→17:22)
[2021-06-30 12:08] LABS: Calcium 8.5 mg/dL (8.6-10.3); Magnesium 2.1 mg/dL (1.6-2.6); Phosphorous 5.4 mg/dL (2.7-4.5); Potassium 5.5 mEq/L (3.5-5.1)
[2021-06-30] MEDS ORDERED: *HR* Heparin 10,000 UNIT/10 ML VIAL IV PRN (14:11)
[2021-06-30] MEDS ORDERED: 0.9 % Sodium Chloride 250 ML IVC PRN (14:11)
[2021-06-30] MEDS ORDERED: 0.9 % Sodium Chloride 1,000 ML PRIME SCH (14:15)
[2021-06-30] MEDS ORDERED: 0.9 % Sodium Chloride 250 ML IVC SCH (17:00)
[2021-06-30] MEDS: Piperacillin/Tazobactam 3.375 GM in 0.9 % Sodium Chloride Mini Bag 100 ML IVPB SCH (18:08)
[2021-06-30] MEDS: Insulin DETEMIR 100 UNIT/ML X5UNITS SUBQ SCH (20:21)
[2021-06-30] MEDS ORDERED: Insulin LISPRO 300 UNITS/3 ML VIAL SUBQ SCH (21:00)
[2021-07-01 04:33] LABS: Basophils % 0.2 %; Eosinophils # 0.1 K/mcL (0.0-0.6); Eosinophils % 1.7 %; Hematocrit 24.9 % (35.3-44.9); Hemoglobin 8.3 g/dL (11.5-15.4); Immature Granulocytes % 0.5 % (0-4); Lymphocytes # 1.1 K/mcL (0.6-4.6); Mean Corpuscular HGB Conc 33.3 g/dL (31.6-35.5); Mean Corpuscular Hemoglobin 32.2 pg (28.0-33.3); Mean Corpuscular Volume 96.5 fL (83.0-100.0); Mean Platelet Volume 9.8 fL (9.4-12.4); Monocytes # 0.5 K/mcL (0.0-1.3); Monocytes % 7.8 %; Neutrophils # 4.1 K/mcL (1.6-8.9); Platelet Count 156 K/mcL (140-400); Red Blood Count 2.58 M/mcL (3.82-4.97); Red Cell Distribution Width 14.7 % (11.5-14.5); Segmented Neutrophils % 70.8 %; White Blood Count 5.7 K/mcL (4.3-11.1)
[2021-07-01 04:36] LABS: Estimated Average Glucose 174 mg/dl; Hemoglobin A1C 7.7 %
[2021-07-01 04:53] LABS: Calcium 8.3 mg/dL (8.6-10.3); Magnesium 1.9 mg/dL (1.6-2.6); Phosphorous 4.5 mg/dL (2.7-4.5); Potassium 4.5 mEq/L (3.5-5.1)
[2021-07-01] MEDS: Piperacillin/Tazobactam 3.375 GM in 0.9 % Sodium Chloride Mini Bag 100 ML IVPB SCH (05:23)
[2021-07-01] MEDS: Insulin LISPRO 300 UNITS/3 ML VIAL SUBQ SCH ×3 (08:02→17:23)
[2021-07-01] MEDS: Insulin DETEMIR 100 UNIT/ML X5UNITS SUBQ SCH ×2 (08:02→20:56)
[2021-07-01] MEDS: Nicotine 7 MG PATCH.TD24 TD SCH (08:08)
[2021-07-01] MEDS ORDERED: 0.9 % Sodium Chloride 250 ML IVC PRN (09:40)
[2021-07-01] MEDS ORDERED: *HR* Heparin 10,000 UNIT/10 ML VIAL IV PRN (10:00)
[2021-07-01] MEDS ORDERED: Ondansetron ODT 4 MG TAB.RAPDIS PO PRN (10:45)
[2021-07-01] MEDS ORDERED: Calcium Acetate 667 MG CAPSULE PO PRN (10:45)
[2021-07-01] MEDS: carvediloL 25 MG TABLET PO SCH ×3 (13:35→20:59)
[2021-07-01] MEDS: amLODIPine 5 MG TABLET PO SCH (13:35)
[2021-07-01] MEDS: Calcium Acetate 667 MG CAPSULE PO SCH ×2 (13:35→17:21)
[2021-07-01] MEDS: Topiramate 25 MG TABLET PO SCH ×2 (13:35→20:59)
[2021-07-01] MEDS: Apixaban 5 MG TABLET PO SCH (20:59)
[2021-07-01] MEDS: Ipratropium/Albuterol Neb 3 ML IH PRN (21:22)
[2021-07-02] MEDS: Ipratropium/Albuterol Neb 3 ML IH PRN (01:28)
[2021-07-02] MEDS ORDERED: Multivit/Ca/Min/Fe/FA 1 TAB TABLET PO SCH (09:00)
[2021-07-02] MEDS ORDERED: Lactulose Oral Soln 20 GM/30 ML UDC PO SCH (09:00)
[2021-07-02] MEDS ORDERED: Aspirin Enteric Coated 81 MG Tablet PO SCH (09:00)
[2021-07-02] MEDS: amLODIPine 5 MG TABLET PO SCH (09:14)
[2021-07-02] MEDS: carvediloL 25 MG TABLET PO SCH (09:14)
[2021-07-02] MEDS: Topiramate 25 MG TABLET PO SCH (09:14)
[2021-07-02] MEDS: Apixaban 5 MG TABLET PO SCH (09:14)
[2021-07-02] MEDS: Nicotine 7 MG PATCH.TD24 TD SCH (09:15)
[2021-07-02] MEDS: Insulin DETEMIR 100 UNIT/ML X5UNITS SUBQ SCH (09:15)
[2021-07-02] MEDS: Insulin LISPRO 300 UNITS/3 ML VIAL SUBQ SCH ×2 (09:15→11:39)
[2021-07-02] MEDS: Calcium Acetate 667 MG CAPSULE PO SCH ×2 (09:15→11:54)
[2021-07-02 10:17] VITALS: PULSE 87; O2SAT 96
[2021-07-02] MEDS ORDERED: 0.9 % Sodium Chloride 250 ML IVC PRN (11:34)
[2021-07-02] MEDS ORDERED: *HR* Heparin 10,000 UNIT/10 ML VIAL IV PRN (11:34)
[2021-07-02 14:55] VITALS: BP 111/74; TEMP 98
== END 2021-07-02 16:55 | disposition home or self-care (01) ==
LOC: 2ANU → 1ANU → SUATTDRO 09:06
PROVIDERS: ADMIT Pharmacist; ATTEND Internal Medicine

== ENCOUNTER 2021-07-06 01:24 | Inpatient (IN) ==
[2021-07-06] MEDS ORDERED: Acetaminophen 325 MG TABLET PO PRN (07:22)
[2021-07-06] MEDS ORDERED: Naloxone 0.4 MG/ML INJ IVP PRN (07:22)
[2021-07-06] MEDS ORDERED: Ondansetron ODT 4 MG TAB.RAPDIS SL PRN (07:22)
[2021-07-06] MEDS ORDERED: *HR* Dextrose 50 % in Water (Vial) 50 ML VIAL IVP PRN (07:26)
[2021-07-06] MEDS ORDERED: Dextrose Gel 15 GM/37.5 ML TUBE PO PRN ×2 (07:26)
[2021-07-06] MEDS ORDERED: D5% in Water 1,000 ML IVC PRN (07:26)
[2021-07-06] MEDS ORDERED: 0.9 % Sodium Chloride 250 ML IVC PRN (07:57)
[2021-07-06] MEDS ORDERED: *HR* Heparin 10,000 UNIT/10 ML VIAL IV PRN (07:57)
[2021-07-06] MEDS ORDERED: 0.9 % Sodium Chloride 1,000 ML PRIME SCH (08:00)
[2021-07-06] MEDS: Insulin LISPRO 300 UNITS/3 ML VIAL SUBQ SCH ×4 (08:37→22:18)
[2021-07-06 11:25] LABS: Calcium 8.6 mg/dL (8.6-10.3); Potassium 5.2 mEq/L (3.5-5.1)
[2021-07-06] MEDS: amLODIPine 5 MG TABLET PO SCH (13:54)
[2021-07-06] MEDS: carvediloL 25 MG TABLET PO SCH ×2 (13:54→22:18)
[2021-07-06] MEDS ORDERED: Calcium Acetate 667 MG CAPSULE PO PRN (16:45)
[2021-07-06] MEDS: Calcium Acetate 667 MG CAPSULE PO SCH (18:07)
[2021-07-06] MEDS: Apixaban 5 MG TABLET PO SCH (22:17)
[2021-07-06] MEDS: Topiramate 25 MG TABLET PO SCH (22:18)
[2021-07-07 06:32] LABS: Hematocrit 23.2 % (35.3-44.9); Hemoglobin 7.4 g/dL (11.5-15.4); Mean Corpuscular HGB Conc 31.9 g/dL (31.6-35.5); Mean Corpuscular Hemoglobin 31.5 pg (28.0-33.3); Mean Corpuscular Volume 98.7 fL (83.0-100.0); Mean Platelet Volume 9.9 fL (9.4-12.4); Platelet Count 189 K/mcL (140-400); Red Blood Count 2.35 M/mcL (3.82-4.97); Red Cell Distribution Width 14.6 % (11.5-14.5); White Blood Count 4.4 K/mcL (4.3-11.1)
[2021-07-07 06:35] LABS: Basophils % 0.5 %; Eosinophils # 0.1 K/mcL (0.0-0.6); Eosinophils % 2.1 %; Hematocrit 22.4 % (35.3-44.9); Hemoglobin 7.5 g/dL (11.5-15.4); Immature Granulocytes % 0.5 % (0-4); Lymphocytes # 1.1 K/mcL (0.6-4.6); Lymphocytes % 25.5 %; Mean Corpuscular HGB Conc 33.5 g/dL (31.6-35.5); Mean Corpuscular Hemoglobin 32.9 pg (28.0-33.3); Mean Corpuscular Volume 98.2 fL (83.0-100.0); Mean Platelet Volume 9.8 fL (9.4-12.4); Monocytes # 0.4 K/mcL (0.0-1.3); Monocytes % 9.9 %; Neutrophils # 2.7 K/mcL (1.6-8.9); Platelet Count 179 K/mcL (140-400); Red Blood Count 2.28 M/mcL (3.82-4.97); Red Cell Distribution Width 14.6 % (11.5-14.5); Segmented Neutrophils % 61.5 %; White Blood Count 4.4 K/mcL (4.3-11.1)
[2021-07-07 06:48] LABS: INR 1.1; Prothrombin Time 12.6 Seconds (9.4-12.1)
[2021-07-07 06:54] LABS: Calcium 8.3 mg/dL (8.6-10.3); Potassium 5.6 mEq/L (3.5-5.1)
[2021-07-07] MEDS: Insulin LISPRO 300 UNITS/3 ML VIAL SUBQ SCH ×4 (07:19→21:08)
[2021-07-07] MEDS: Topiramate 25 MG TABLET PO SCH ×2 (07:19→20:28)
[2021-07-07] MEDS: Lactulose Oral Soln 20 GM/30 ML UDC PO SCH (07:19)
[2021-07-07] MEDS: Apixaban 5 MG TABLET PO SCH ×2 (07:19→20:28)
[2021-07-07] MEDS: amLODIPine 5 MG TABLET PO SCH (07:19)
[2021-07-07] MEDS: carvediloL 25 MG TABLET PO SCH ×2 (07:19→20:28)
[2021-07-07] MEDS: Calcium Acetate 667 MG CAPSULE PO SCH ×4 (07:19→17:05)
[2021-07-07] MEDS: Aspirin Enteric Coated 81 MG Tablet PO SCH (07:19)
[2021-07-07] MEDS ORDERED: *HR* Heparin 10,000 UNIT/10 ML VIAL IV PRN (07:50)
[2021-07-07] MEDS ORDERED: 0.9 % Sodium Chloride 250 ML IVC PRN (07:50)
[2021-07-07] MEDS ORDERED: *HR* FentaNYL (PF) 100 MCG/2 ML VIAL ONE (10:08)
[2021-07-07] MEDS ORDERED: *HR* Midazolam HCl 2 MG/2 ML VIAL ONE (10:08)
[2021-07-07] MEDS ORDERED: *HR* Propofol 200 MG/20 ML VIAL IVP ONE (10:08)
[2021-07-07] MEDS ORDERED: Ondansetron 4 MG/2 ML VIAL ONE (10:10)
[2021-07-07] MEDS ORDERED: Lidocaine -MPF 2% 5 ML VIAL ONE (10:10)
[2021-07-07] MEDS ORDERED: *HR* Succinylcholine 200 MG/10 ML VIAL IVP ONE (10:11)
[2021-07-07] MEDS ORDERED: Lidocaine HCL 4 ML Topical Solution (Laryng-O-Jet Kit Sterile Pak) TP ONE (10:13)
[2021-07-07] MEDS ORDERED: Ondansetron 4 MG/2 ML VIAL IVP PRN (10:39)
[2021-07-07] MEDS ORDERED: Albuterol 2.5 MG/3 ML NEBULIZER IH PRN (10:39)
[2021-07-07 14:48] LABS: Appearance of Body Fluid Clear (Clear); Volume of Body Fluid 14 mL
[2021-07-08] MEDS ORDERED: *HR* Heparin 10,000 UNIT/10 ML VIAL IV PRN (08:02)
[2021-07-08] MEDS ORDERED: 0.9 % Sodium Chloride 250 ML IVC PRN (08:02)
[2021-07-08] MEDS: Insulin LISPRO 300 UNITS/3 ML VIAL SUBQ SCH ×4 (08:10→19:41)
[2021-07-08] MEDS: amLODIPine 5 MG TABLET PO SCH (08:10)
[2021-07-08] MEDS: Topiramate 25 MG TABLET PO SCH ×2 (08:10→19:41)
[2021-07-08] MEDS: Lactulose Oral Soln 20 GM/30 ML UDC PO SCH (08:10)
[2021-07-08] MEDS: carvediloL 25 MG TABLET PO SCH (08:10)
[2021-07-08] MEDS: Apixaban 5 MG TABLET PO SCH ×2 (08:10→19:41)
[2021-07-08] MEDS: Aspirin Enteric Coated 81 MG Tablet PO SCH (08:10)
[2021-07-08] MEDS: Calcium Acetate 667 MG CAPSULE PO SCH ×3 (08:10→16:24)
[2021-07-08 12:53] LABS: Hematocrit 22.9 % (35.3-44.9); Hemoglobin 7.6 g/dL (11.5-15.4); Mean Corpuscular HGB Conc 33.2 g/dL (31.6-35.5); Mean Corpuscular Hemoglobin 32.5 pg (28.0-33.3); Mean Corpuscular Volume 97.9 fL (83.0-100.0); Mean Platelet Volume 9.9 fL (9.4-12.4); Platelet Count 192 K/mcL (140-400); Red Blood Count 2.34 M/mcL (3.82-4.97); Red Cell Distribution Width 14.2 % (11.5-14.5); White Blood Count 4.4 K/mcL (4.3-11.1)
[2021-07-08 13:23] LABS: Potassium 4.4 mEq/L (3.5-5.1)
[2021-07-08] MEDS ORDERED: carvediloL 25 MG TABLET PO SCH (17:00)
[2021-07-08 18:53] VITALS: BP 122/66; PULSE 84; TEMP 98.2; O2SAT 96
== END 2021-07-08 20:30 | disposition home health service (06) | DRG 145 ==
LOC: CDU → 2ANU 07-07 03:03 → SUATTDRO 07-07 12:27
PROVIDERS: ADMIT Family Medicine; ATTEND Family Medicine

== ENCOUNTER 2021-09-17 11:54 | Inpatient (IN) ==
[2021-09-17] MEDS ORDERED: Naloxone 0.4 MG/ML INJ IVP PRN (16:16)
[2021-09-17] MEDS ORDERED: D5% in Water 1,000 ML IVC PRN (16:20)
[2021-09-17] MEDS ORDERED: *HR* Dextrose 50 % in Water (Syg) 50 ML SYRINGE IVP PRN (16:20)
[2021-09-17] MEDS ORDERED: Dextrose Gel 15 GM/37.5 ML TUBE PO PRN ×2 (16:20)
[2021-09-17] MEDS: Acetaminophen 325 MG TABLET PO PRN (16:49)
[2021-09-17] MEDS: Insulin LISPRO 300 UNITS/3 ML VIAL SUBQ SCH ×2 (16:54→23:32)
[2021-09-17] MEDS ORDERED: *HR* Heparin 10,000 UNIT/10 ML VIAL IV PRN (17:40)
[2021-09-17] MEDS ORDERED: 0.9 % Sodium Chloride 250 ML IVC PRN (17:40)
[2021-09-17] MEDS ORDERED: 0.9 % Sodium Chloride 1,000 ML PRIME SCH (17:45)
[2021-09-17 17:49] LABS: Basophils % 0.4 %; Eosinophils % 0.3 %; Hemoglobin 8.2 g/dL (11.5-15.4); Immature Granulocytes % 0.3 % (0-4); Lymphocytes # 0.6 K/mcL (0.6-4.6); Lymphocytes % 7.9 %; Mean Corpuscular HGB Conc 31.5 g/dL (31.6-35.5); Mean Corpuscular Hemoglobin 33.3 pg (28.0-33.3); Mean Corpuscular Volume 105.7 fL (83.0-100.0); Monocytes # 0.2 K/mcL (0.0-1.3); Monocytes % 3.2 %; Neutrophils # 6.6 K/mcL (1.6-8.9); Platelet Count 108 K/mcL (140-400); Red Blood Count 2.46 M/mcL (3.82-4.97); Red Cell Distribution Width 14.3 % (11.5-14.5); Segmented Neutrophils % 87.9 %; White Blood Count 7.5 K/mcL (4.3-11.1)
[2021-09-17 17:57] LABS: Prothrombin Time 11.3 Seconds (9.4-12.1)
[2021-09-17 18:07] LABS: Calcium 9.6 mg/dL (8.6-10.3); Potassium 5.7 mEq/L (3.5-5.1)
[2021-09-17 18:09] LABS: Magnesium 2.4 mg/dL (1.6-2.6); Phosphorous 6.9 mg/dL (2.7-4.5)
[2021-09-17 18:10] LABS: Troponin I < 0.03 ng/mL (< 0.04)
[2021-09-17] MEDS ORDERED: Calcium Acetate 667 MG CAPSULE PO PRN (18:11)
[2021-09-17] MEDS ORDERED: Topiramate 25 MG TABLET PO SCH (18:15)
[2021-09-17 18:24] LABS: Hepatitis B Surface Antibody < 3.10 mIU/mL
[2021-09-17 18:35] LABS: Hepatitis B Surface Antigen Nonreactive (Nonreactive)
[2021-09-17] MEDS: amLODIPine 5 MG TABLET PO SCH (18:52)
[2021-09-17] MEDS: carvediloL 25 MG TABLET PO SCH (22:53)
[2021-09-17] MEDS: Apixaban 5 MG TABLET PO SCH (22:53)
[2021-09-18 08:30] LABS: Basophils % 0.4 %; Eosinophils % 0.9 %; Hematocrit 23.2 % (35.3-44.9); Hemoglobin 7.4 g/dL (11.5-15.4); Immature Granulocytes % 0.2 % (0-4); Lymphocytes # 0.6 K/mcL (0.6-4.6); Lymphocytes % 12.6 %; Mean Corpuscular HGB Conc 31.9 g/dL (31.6-35.5); Mean Corpuscular Hemoglobin 33.6 pg (28.0-33.3); Mean Corpuscular Volume 105.5 fL (83.0-100.0); Monocytes # 0.3 K/mcL (0.0-1.3); Neutrophils # 3.7 K/mcL (1.6-8.9); Platelet Count 113 K/mcL (140-400); Red Cell Distribution Width 14.3 % (11.5-14.5); Segmented Neutrophils % 78.9 %; White Blood Count 4.7 K/mcL (4.3-11.1)
[2021-09-18 09:14] LABS: Folate 20.8 ng/mL (3.0-16.0)
[2021-09-18] MEDS: Insulin LISPRO 300 UNITS/3 ML VIAL SUBQ SCH ×4 (09:23→20:58)
[2021-09-18] MEDS: Apixaban 5 MG TABLET PO SCH ×2 (09:27→21:13)
[2021-09-18] MEDS: amLODIPine 5 MG TABLET PO SCH (09:27)
[2021-09-18] MEDS: Renal Vitamin 1 CAP CAPSULE PO SCH (09:27)
[2021-09-18] MEDS: Aspirin Enteric Coated 81 MG Tablet PO SCH (09:27)
[2021-09-18] MEDS: carvediloL 25 MG TABLET PO SCH ×2 (09:27→21:13)
[2021-09-18] MEDS: Calcium Acetate 667 MG CAPSULE PO SCH ×3 (09:27→16:49)
[2021-09-18] MEDS: Topiramate 25 MG TABLET PO SCH ×2 (09:27→21:13)
[2021-09-18 09:34] LABS: Albumin 3.5 g/dL (3.5-5.7); Albumin/Globulin Ratio 1.6 (1.1-2.2); Bilirubin,Direct 0.1 mg/dL (0.0-0.2); Bilirubin,Indirect 0.4 mg/dL (0.0-1.0); Bilirubin,Total 0.5 mg/dL (0.3-1.0); Calcium 8.5 mg/dL (8.6-10.3); Globulin 2.2 g/dL (2.4-3.5); Phosphorous 5.2 mg/dL (2.7-4.5); Potassium 4.1 mEq/L (3.5-5.1); Total Protein 5.7 g/dL (6.4-8.9)
[2021-09-18 10:56] LABS: Estimated Average Glucose 105 mg/dl; Hemoglobin A1C 5.3 %
[2021-09-18] MEDS: Acetaminophen 325 MG TABLET PO PRN (21:13)
[2021-09-18] MEDS ORDERED: Levalbuterol Neb 1.25 MG/3 ML IH ONE (22:08)
[2021-09-19 06:06] LABS: Hemoglobin 6.7 g/dL (11.5-15.4); Red Cell Distribution Width 13.8 % (11.5-14.5)
[2021-09-19 06:08] LABS: Basophils % 0.2 %; Eosinophils # 0.1 K/mcL (0.0-0.6); Eosinophils % 1.1 %; Hematocrit 21.5 % (35.3-44.9); Immature Granulocytes % 0.4 % (0-4); Immature Platelets 2.8 % (1.1-6.1); Lymphocytes % 20.3 %; Mean Corpuscular HGB Conc 31.2 g/dL (31.6-35.5); Mean Corpuscular Hemoglobin 33.5 pg (28.0-33.3); Mean Corpuscular Volume 107.5 fL (83.0-100.0); Mean Platelet Volume 10.3 fL (9.4-12.4); Monocytes # 0.4 K/mcL (0.0-1.3); Monocytes % 8.3 %; Neutrophils # 3.3 K/mcL (1.6-8.9); Platelet Count 101 K/mcL (140-400); Segmented Neutrophils % 69.7 %; White Blood Count 4.7 K/mcL (4.3-11.1)
[2021-09-19 06:25] LABS: Magnesium 2.1 mg/dL (1.6-2.6); Potassium 4.8 mEq/L (3.5-5.1)
[2021-09-19] MEDS: Insulin LISPRO 300 UNITS/3 ML VIAL SUBQ SCH ×4 (07:45→21:32)
[2021-09-19] MEDS ORDERED: 0.9 % Sodium Chloride 250 ML IVC SCH (07:45)
[2021-09-19] MEDS: Renal Vitamin 1 CAP CAPSULE PO SCH (08:36)
[2021-09-19] MEDS: carvediloL 25 MG TABLET PO SCH ×2 (08:37→20:29)
[2021-09-19] MEDS: Aspirin Enteric Coated 81 MG Tablet PO SCH (08:37)
[2021-09-19] MEDS: amLODIPine 5 MG TABLET PO SCH (08:37)
[2021-09-19] MEDS: Calcium Acetate 667 MG CAPSULE PO SCH ×3 (08:37→16:29)
[2021-09-19] MEDS: Topiramate 25 MG TABLET PO SCH ×2 (08:37→20:28)
[2021-09-19] MEDS: Apixaban 5 MG TABLET PO SCH ×2 (08:37→20:29)
[2021-09-19] MEDS: Ondansetron 4 MG/2 ML VIAL IVP PRN ×2 (13:01→22:30)
[2021-09-19] MEDS: Ipratropium/Albuterol Neb 3 ML IH PRN (15:17)
[2021-09-19 20:27] LABS: Bacteria,Urine Few per hpf (None-Few); Bilirubin,Urine Negative (Negative); Blood,Urine Negative (Negative); Clarity,Urine Clear (Clear); Color,Urine Light-Yellow (Yellow); Glucose,Urine (UA) 300 mg/dL (Normal); Ketones,Urine Negative (Negative); Leukocyte Esterase,Urine Negative (Negative); Mucus,Urine Few per lpf (None-Few); Nitrite,Urine Negative (Negative); Protein,Urine >=600 mg/dL (Neg-Trace); RBC,Urine 0-3 per hpf (0-3); Specific Gravity,Urine 1.013 (1.010-1.025); Squamous Epithelial Cell,Urine Few per hpf (None-Few); Urobilinogen,Urine Normal (Normal); WBC,Urine 0-3 per hpf (0-3)
[2021-09-19 21:01] LABS: Hematocrit 25.2 % (35.3-44.9); Hemoglobin 8.2 g/dL (11.5-15.4)
[2021-09-20] MEDS: Ondansetron 4 MG/2 ML VIAL IVP PRN (05:42)
[2021-09-20 07:22] LABS: Calcium 8.7 mg/dL (8.6-10.3); Magnesium 2.2 mg/dL (1.6-2.6); Phosphorous 7.9 mg/dL (2.7-4.5); Potassium 6.5 mEq/L (3.5-5.1)
[2021-09-20] MEDS ORDERED: *HR* Dextrose 50 % in Water (Syg) 50 ML SYRINGE IVP ONE (07:26)
[2021-09-20] MEDS ORDERED: Insulin Human Regular 10 UNIT in 0.9 % Sodium Chloride 10 ML IV ONE (07:26)
[2021-09-20] MEDS ORDERED: *HR* Promethazine 25 MG/ML VIAL IM ONE (08:17)
[2021-09-20] MEDS: Topiramate 25 MG TABLET PO SCH ×2 (08:21→20:34)
[2021-09-20] MEDS: Renal Vitamin 1 CAP CAPSULE PO SCH (08:21)
[2021-09-20] MEDS: amLODIPine 5 MG TABLET PO SCH (08:21)
[2021-09-20] MEDS: Calcium Acetate 667 MG CAPSULE PO SCH ×3 (08:21→17:36)
[2021-09-20] MEDS: Aspirin Enteric Coated 81 MG Tablet PO SCH (08:21)
[2021-09-20] MEDS: carvediloL 25 MG TABLET PO SCH ×2 (08:21→20:34)
[2021-09-20] MEDS: Insulin LISPRO 300 UNITS/3 ML VIAL SUBQ SCH ×4 (08:22→20:35)
[2021-09-20] MEDS: Calcium Gluconate 1gm/50mL 1 GM/50 ML BAG IVPB SCH ×2 (08:22→09:20)
[2021-09-20] MEDS: Apixaban 5 MG TABLET PO SCH (08:24)
[2021-09-20] MEDS ORDERED: 0.9 % Sodium Chloride 250 ML IVC PRN (09:34)
[2021-09-20] MEDS ORDERED: *HR* Heparin 10,000 UNIT/10 ML VIAL IV PRN (09:34)
[2021-09-20 17:17] LABS: Eosinophils % 0.7 %; Immature Granulocytes % 0.4 % (0-4)
[2021-09-20 17:19] LABS: Basophils % 0.6 %; Hematocrit 24.3 % (35.3-44.9); Hemoglobin 7.9 g/dL (11.5-15.4); Immature Platelets 4.3 % (1.1-6.1); Lymphocytes # 0.8 K/mcL (0.6-4.6); Mean Corpuscular HGB Conc 32.5 g/dL (31.6-35.5); Mean Corpuscular Hemoglobin 32.2 pg (28.0-33.3); Mean Corpuscular Volume 99.2 fL (83.0-100.0); Mean Platelet Volume 10.4 fL (9.4-12.4); Monocytes # 0.3 K/mcL (0.0-1.3); Monocytes % 6.3 %; Neutrophils # 4.2 K/mcL (1.6-8.9); Platelet Count 118 K/mcL (140-400); Red Blood Count 2.45 M/mcL (3.82-4.97); Red Cell Distribution Width 16.2 % (11.5-14.5); White Blood Count 5.4 K/mcL (4.3-11.1)
[2021-09-21] MEDS: Insulin LISPRO 300 UNITS/3 ML VIAL SUBQ SCH ×4 (07:40→20:43)
[2021-09-21] MEDS: amLODIPine 5 MG TABLET PO SCH (09:35)
[2021-09-21] MEDS: carvediloL 25 MG TABLET PO SCH ×2 (09:36→21:24)
[2021-09-21] MEDS: Aspirin Enteric Coated 81 MG Tablet PO SCH (09:36)
[2021-09-21] MEDS: Calcium Acetate 667 MG CAPSULE PO SCH ×3 (09:36→16:32)
[2021-09-21] MEDS: Topiramate 25 MG TABLET PO SCH ×2 (09:36→21:25)
[2021-09-21] MEDS: Renal Vitamin 1 CAP CAPSULE PO SCH (09:36)
[2021-09-21 10:39] LABS: Eosinophils % 0.5 %; Immature Granulocytes % 0.4 % (0-4)
[2021-09-21 10:41] LABS: Basophils % 0.2 %; Hematocrit 26.1 % (35.3-44.9); Hemoglobin 8.2 g/dL (11.5-15.4); Immature Platelets 5.4 % (1.1-6.1); Lymphocytes # 0.6 K/mcL (0.6-4.6); Lymphocytes % 11.7 %; Mean Corpuscular HGB Conc 31.4 g/dL (31.6-35.5); Mean Platelet Volume 10.9 fL (9.4-12.4); Monocytes # 0.4 K/mcL (0.0-1.3); Monocytes % 7.6 %; Neutrophils # 4.4 K/mcL (1.6-8.9); Platelet Count 96 K/mcL (140-400); Red Blood Count 2.56 M/mcL (3.82-4.97); Red Cell Distribution Width 15.9 % (11.5-14.5); Segmented Neutrophils % 79.6 %; White Blood Count 5.5 K/mcL (4.3-11.1)
[2021-09-21 11:30] LABS: Calcium 8.8 mg/dL (8.6-10.3); Magnesium 1.9 mg/dL (1.6-2.6); Potassium 4.7 mEq/L (3.5-5.1)
[2021-09-21] MEDS ORDERED: *HR* Heparin 10,000 UNIT/10 ML VIAL IV PRN (11:31)
[2021-09-21] MEDS ORDERED: 0.9 % Sodium Chloride 250 ML IVC PRN (11:31)
[2021-09-21] MEDS: Acetaminophen 325 MG TABLET PO PRN (11:58)
[2021-09-21] MEDS: Ipratropium/Albuterol Neb 3 ML IH PRN (20:19)
[2021-09-22] MEDS: Ipratropium/Albuterol Neb 3 ML IH PRN (00:17)
[2021-09-22] MEDS: Fluticasone Propionate Nasal 50 MCG/SPRAY BOTTLE NS SCH ×2 (00:17→09:24)
[2021-09-22] MEDS: Acetaminophen 325 MG TABLET PO PRN (05:53)
[2021-09-22] MEDS: Insulin LISPRO 300 UNITS/3 ML VIAL SUBQ SCH ×4 (09:22→19:27)
[2021-09-22] MEDS: Calcium Acetate 667 MG CAPSULE PO SCH ×3 (09:24→17:26)
[2021-09-22] MEDS: Renal Vitamin 1 CAP CAPSULE PO SCH (09:27)
[2021-09-22] MEDS: Aspirin Enteric Coated 81 MG Tablet PO SCH (09:28)
[2021-09-22] MEDS: Topiramate 25 MG TABLET PO SCH ×2 (09:28→19:27)
[2021-09-22] MEDS: amLODIPine 5 MG TABLET PO SCH (09:28)
[2021-09-22] MEDS: carvediloL 25 MG TABLET PO SCH ×2 (09:28→19:27)
[2021-09-22 09:51] LABS: Eosinophils % 0.6 %; Hemoglobin 7.7 g/dL (11.5-15.4); Immature Granulocytes % 0.4 % (0-4); Red Cell Distribution Width 15.5 % (11.5-14.5)
[2021-09-22 09:53] LABS: Basophils % 0.2 %; Hematocrit 24.4 % (35.3-44.9); Immature Platelets 5.7 % (1.1-6.1); Lymphocytes # 0.6 K/mcL (0.6-4.6); Lymphocytes % 11.7 %; Mean Corpuscular HGB Conc 31.6 g/dL (31.6-35.5); Mean Corpuscular Hemoglobin 32.4 pg (28.0-33.3); Mean Corpuscular Volume 102.5 fL (83.0-100.0); Monocytes # 0.5 K/mcL (0.0-1.3); Monocytes % 8.4 %; Neutrophils # 4.3 K/mcL (1.6-8.9); Red Blood Count 2.38 M/mcL (3.82-4.97); Segmented Neutrophils % 78.7 %; White Blood Count 5.5 K/mcL (4.3-11.1)
[2021-09-22 09:57] LABS: Platelet Count 90 K/mcL (140-400)
[2021-09-22] MEDS: Ondansetron 4 MG/2 ML VIAL IVP PRN (10:05)
[2021-09-22 10:10] LABS: Calcium 8.5 mg/dL (8.6-10.3); Magnesium 1.9 mg/dL (1.6-2.6); Phosphorous 5.1 mg/dL (2.7-4.5); Potassium 4.6 mEq/L (3.5-5.1)
[2021-09-22] MEDS ORDERED: Prochlorperazine 10 MG/2 ML VIAL IVP PRN (11:34)
[2021-09-22] MEDS ORDERED: Ondansetron 4 MG/2 ML VIAL ONE (14:53)
[2021-09-22] MEDS ORDERED: *HR* Propofol 200 MG/20 ML VIAL IVP ONE (14:53)
[2021-09-22] MEDS ORDERED: Lidocaine -MPF 2% 2 ML VIAL ONE (14:53)
[2021-09-22] MEDS ORDERED: *HR* Midazolam HCl 2 MG/2 ML VIAL ONE (14:53)
[2021-09-22] MEDS ORDERED: *HR* FentaNYL (PF) 100 MCG/2 ML VIAL ONE (14:53)
[2021-09-22] MEDS ORDERED: *HR* Rocuronium Bromide 50 MG/5 ML VIAL ONE (15:43)
[2021-09-22] MEDS ORDERED: Lidocaine HCL 4 ML Topical Solution (Laryng-O-Jet Kit Sterile Pak) TP ONE (15:43)
[2021-09-22] MEDS ORDERED: *HR* FentaNYL (PF) 100 MCG/2 ML VIAL IVP PRN (15:49)
[2021-09-22] MEDS ORDERED: Naloxone 0.4 MG/ML INJ IVP PRN (15:49)
[2021-09-22] MEDS ORDERED: Albuterol 2.5 MG/3 ML NEBULIZER IH PRN (15:49)
[2021-09-22] MEDS ORDERED: Ondansetron 4 MG/2 ML VIAL IVP PRN (15:49)
[2021-09-22] MEDS ORDERED: Nitroglycerin 0.4 MG TAB.SUBL SL PRN (15:49)
[2021-09-22] MEDS ORDERED: EPHEDrine 50 MG/ML VIAL ONE (16:10)
[2021-09-23] MEDS: Insulin LISPRO 300 UNITS/3 ML VIAL SUBQ SCH ×4 (07:25→20:58)
[2021-09-23] MEDS: amLODIPine 5 MG TABLET PO SCH (07:38)
[2021-09-23] MEDS: Calcium Acetate 667 MG CAPSULE PO SCH ×3 (07:38→16:19)
[2021-09-23] MEDS: Renal Vitamin 1 CAP CAPSULE PO SCH (07:38)
[2021-09-23] MEDS: Fluticasone Propionate Nasal 50 MCG/SPRAY BOTTLE NS SCH (07:39)
[2021-09-23] MEDS: carvediloL 25 MG TABLET PO SCH ×2 (07:39→16:19)
[2021-09-23] MEDS: Aspirin Enteric Coated 81 MG Tablet PO SCH (07:39)
[2021-09-23] MEDS: Topiramate 25 MG TABLET PO SCH ×2 (07:39→20:58)
[2021-09-23] MEDS ORDERED: *HR* Heparin 10,000 UNIT/10 ML VIAL IV PRN (08:23)
[2021-09-23] MEDS ORDERED: 0.9 % Sodium Chloride 250 ML IVC PRN (08:23)
[2021-09-23 11:56] LABS: Basophils % 0.1 %; Hematocrit 23.8 % (35.3-44.9); Hemoglobin 7.8 g/dL (11.5-15.4); Immature Granulocytes % 0.6 % (0-4); Immature Platelets 7.2 % (1.1-6.1); Lymphocytes # 0.5 K/mcL (0.6-4.6); Lymphocytes % 6.4 %; Mean Corpuscular HGB Conc 32.8 g/dL (31.6-35.5); Mean Corpuscular Hemoglobin 32.9 pg (28.0-33.3); Mean Corpuscular Volume 100.4 fL (83.0-100.0); Monocytes # 0.6 K/mcL (0.0-1.3); Monocytes % 6.9 %; Neutrophils # 6.8 K/mcL (1.6-8.9); Platelet Count 104 K/mcL (140-400); Red Blood Count 2.37 M/mcL (3.82-4.97); Red Cell Distribution Width 15.1 % (11.5-14.5)
[2021-09-23] MEDS ORDERED: hydrOXYzine pamoate 25 MG CAPSULE PO PRN (20:40)
[2021-09-23] MEDS: Ipratropium/Albuterol Neb 3 ML IH PRN (22:38)
[2021-09-23] MEDS: Ondansetron 4 MG/2 ML VIAL IVP PRN (23:04)
[2021-09-24] MEDS ORDERED: *HR* Promethazine 25 MG/ML VIAL IM ONE (01:46)
[2021-09-24] MEDS: Ipratropium/Albuterol Neb 3 ML IH PRN (03:52)
[2021-09-24] MEDS: Insulin LISPRO 300 UNITS/3 ML VIAL SUBQ SCH ×2 (07:53→09:17)
[2021-09-24] MEDS: Renal Vitamin 1 CAP CAPSULE PO SCH (09:09)
[2021-09-24] MEDS: Topiramate 25 MG TABLET PO SCH (09:09)
[2021-09-24] MEDS: amLODIPine 5 MG TABLET PO SCH (09:09)
[2021-09-24] MEDS: carvediloL 25 MG TABLET PO SCH (09:09)
[2021-09-24] MEDS: Fluticasone Propionate Nasal 50 MCG/SPRAY BOTTLE NS SCH (09:09)
[2021-09-24] MEDS: Calcium Acetate 667 MG CAPSULE PO SCH ×2 (09:09→11:41)
[2021-09-24] MEDS: Apixaban 5 MG TABLET PO SCH (09:09)
[2021-09-24] MEDS: Aspirin Enteric Coated 81 MG Tablet PO SCH (09:09)
[2021-09-24 09:20] LABS: Basophils % 0.5 %; Eosinophils # 0.1 K/mcL (0.0-0.6); Eosinophils % 0.9 %; Hematocrit 26.6 % (35.3-44.9); Hemoglobin 8.4 g/dL (11.5-15.4); Immature Granulocytes % 0.7 % (0-4); Lymphocytes # 1.1 K/mcL (0.6-4.6); Lymphocytes % 14.2 %; Mean Corpuscular HGB Conc 31.6 g/dL (31.6-35.5); Mean Corpuscular Hemoglobin 33.5 pg (28.0-33.3); Mean Platelet Volume 11.1 fL (9.4-12.4); Monocytes # 0.6 K/mcL (0.0-1.3); Monocytes % 7.7 %; Neutrophils # 5.8 K/mcL (1.6-8.9); Platelet Count 133 K/mcL (140-400); Red Blood Count 2.51 M/mcL (3.82-4.97); Red Cell Distribution Width 15.7 % (11.5-14.5); White Blood Count 7.7 K/mcL (4.3-11.1)
[2021-09-24 09:39] LABS: Calcium 8.6 mg/dL (8.6-10.3); Potassium 4.3 mEq/L (3.5-5.1)
[2021-09-24 11:02] VITALS: BP 131/70; PULSE 85; TEMP 98.1; O2SAT 99
== END 2021-09-24 14:16 | disposition home or self-care (01) | DRG 952 ==
LOC: 2ANU → SUATTDRO 15:49
PROVIDERS: ADMIT Pharmacist; ATTEND Internal Medicine

== ENCOUNTER 2021-10-08 08:33 | Observation (INO) ==
[2021-10-08] MEDS ORDERED: Calcium Acetate 667 MG CAPSULE PO PRN (11:22)
[2021-10-08] MEDS ORDERED: Albuterol 2.5 MG/3 ML NEBULIZER IH PRN (11:22)
[2021-10-08] MEDS ORDERED: *HR* Heparin 10,000 UNIT/10 ML VIAL IV PRN (11:49)
[2021-10-08] MEDS ORDERED: 0.9 % Sodium Chloride 250 ML IVC PRN (11:49)
[2021-10-08] MEDS ORDERED: 0.9 % Sodium Chloride 1,000 ML PRIME SCH (12:00)
[2021-10-08] MEDS ORDERED: Melatonin 3 MG TABLET PO PRN (12:46)
[2021-10-08] MEDS ORDERED: Acetaminophen 325 MG TABLET PO PRN (12:46)
[2021-10-08] MEDS ORDERED: Ondansetron 4 MG/2 ML VIAL IVP PRN (12:46)
[2021-10-08] MEDS: Topiramate 25 MG TABLET PO SCH ×2 (12:47→20:23)
[2021-10-08] MEDS: Calcium Acetate 667 MG CAPSULE PO SCH ×2 (12:47→18:14)
[2021-10-08 17:21] LABS: Hematocrit 24.6 % (35.3-44.9); Hemoglobin 8.2 g/dL (11.5-15.4); Mean Corpuscular HGB Conc 33.3 g/dL (31.6-35.5); Mean Corpuscular Hemoglobin 33.5 pg (28.0-33.3); Mean Corpuscular Volume 100.4 fL (83.0-100.0); Mean Platelet Volume 9.7 fL (9.4-12.4); Platelet Count 138 K/mcL (140-400); Red Blood Count 2.45 M/mcL (3.82-4.97); Red Cell Distribution Width 14.4 % (11.5-14.5); White Blood Count 5.9 K/mcL (4.3-11.1)
[2021-10-08 17:51] LABS: Potassium 3.2 mEq/L (3.5-5.1)
[2021-10-08] MEDS: carvediloL 25 MG TABLET PO SCH (18:14)
[2021-10-08] MEDS: Apixaban 5 MG TABLET PO SCH (20:23)
[2021-10-09 06:21] LABS: Calcium 8.4 mg/dL (8.6-10.3); Potassium 4.4 mEq/L (3.5-5.1)
[2021-10-09] MEDS: Apixaban 5 MG TABLET PO SCH (08:21)
[2021-10-09] MEDS: Calcium Acetate 667 MG CAPSULE PO SCH ×2 (08:21→12:40)
[2021-10-09] MEDS: Topiramate 25 MG TABLET PO SCH (08:21)
[2021-10-09] MEDS: carvediloL 25 MG TABLET PO SCH (08:21)
[2021-10-09] MEDS ORDERED: 0.9 % Sodium Chloride 250 ML IVC PRN (08:29)
[2021-10-09] MEDS ORDERED: *HR* Heparin 10,000 UNIT/10 ML VIAL IV PRN (08:40)
[2021-10-09] MEDS ORDERED: 0.9 % Sodium Chloride 1,000 ML PRIME SCH (08:45)
[2021-10-09] MEDS ORDERED: amLODIPine 5 MG TABLET PO SCH (09:00)
[2021-10-09] MEDS ORDERED: Multivit/Ca/Min/Fe/FA 1 TAB TABLET PO SCH (09:00)
[2021-10-09] MEDS ORDERED: Aspirin Enteric Coated 81 MG Tablet PO SCH (09:00)
[2021-10-09 10:12] VITALS: PULSE 82; O2SAT 96
[2021-10-09 13:46] VITALS: BP 188/78; TEMP 97.9
== END 2021-10-09 16:11 | disposition home or self-care (01) ==
LOC: 2ANU → SUATTDRO 10:50
PROVIDERS: ADMIT Internal Medicine; ATTEND Internal Medicine

== ENCOUNTER 2021-11-20 16:45 | Inpatient (IN) ==
[2021-11-20] MEDS ORDERED: Acetaminophen 325 MG TABLET PO PRN (19:29)
[2021-11-20] MEDS ORDERED: Naloxone 0.4 MG/ML INJ IVP PRN (19:29)
[2021-11-20] MEDS ORDERED: Melatonin 3 MG TABLET PO PRN (19:29)
[2021-11-20 20:34] LABS: Basophils % 0.3 %; Eosinophils # 0.1 K/mcL (0.0-0.6); Eosinophils % 1.3 %; Hematocrit 17.9 % (35.3-44.9); Immature Granulocytes % 0.8 % (0-4); Lymphocytes # 0.7 K/mcL (0.6-4.6); Lymphocytes % 8.4 %; Mean Corpuscular HGB Conc 31.8 g/dL (31.6-35.5); Mean Corpuscular Hemoglobin 32.9 pg (28.0-33.3); Mean Corpuscular Volume 103.5 fL (83.0-100.0); Mean Platelet Volume 10.7 fL (9.4-12.4); Monocytes # 0.6 K/mcL (0.0-1.3); Monocytes % 7.6 %; Nucleated Red Blood Cells 0.4 /100 WBC (0); Red Blood Count 1.73 M/mcL (3.82-4.97); Red Cell Distribution Width 13.9 % (11.5-14.5); Segmented Neutrophils % 81.6 %; White Blood Count 7.8 K/mcL (4.3-11.1)
[2021-11-20 20:38] LABS: Hemoglobin 5.7 g/dL (11.5-15.4)
[2021-11-20 20:39] LABS: Neutrophils # 6.4 K/mcL (1.6-8.9); Platelet Count 90 K/mcL (140-400)
[2021-11-20 21:00] LABS: Alanine Aminotransferase 27 Units/L (7-52); Albumin 3.4 g/dL (3.5-5.7); Albumin/Globulin Ratio 1.3 (1.1-2.2); Alkaline Phosphatase 62 Units/L (34-104); Aspartate Amino Transferase 15 Units/L (13-39); Bilirubin,Total 0.4 mg/dL (0.3-1.0); Blood Urea Nitrogen > 130 mg/dL (6-20); Calcium 8.3 mg/dL (8.6-10.3); Carbon Dioxide 16 mEq/L (23-29); Chloride 93 mEq/L (98-107); Globulin 2.6 g/dL (2.4-3.5); Glucose 96 mg/dL (70-105); Magnesium 2.4 mg/dL (1.6-2.6); Potassium 6.4 mEq/L (3.5-5.1); Sodium 129 mEq/L (136-145); eGFR For African Americans 3 (> 60); eGFR For Non-African Americans 3 (> 60)
[2021-11-20] MEDS ORDERED: 0.9 % Sodium Chloride 250 ML ONE (21:38)
[2021-11-21] MEDS: *HR* OxyCODONE Immed Rel 5 MG TABLET PO PRN ×2 (01:19→09:10)
[2021-11-21] MEDS: Ondansetron ODT 4 MG TAB.RAPDIS SL PRN (01:39)
[2021-11-21 02:10] LABS: Hematocrit 20.7 % (35.3-44.9); Hemoglobin 6.5 g/dL (11.5-15.4)
[2021-11-21] MEDS ORDERED: 0.9 % Sodium Chloride 250 ML ONE (03:04)
[2021-11-21] MEDS: hydrOXYzine pamoate 25 MG CAPSULE PO PRN ×2 (08:07→15:46)
[2021-11-21] MEDS: amLODIPine 5 MG TABLET PO SCH (09:10)
[2021-11-21] MEDS ORDERED: 0.9 % Sodium Chloride 250 ML IVC PRN (11:27)
[2021-11-21] MEDS ORDERED: 0.9 % Sodium Chloride 1,000 ML PRIME SCH (11:30)
[2021-11-21 12:57] LABS: Hepatitis B Surface Antibody < 3.10 mIU/mL
[2021-11-21 13:08] LABS: Hepatitis B Surface Antigen Nonreactive (Nonreactive)
[2021-11-21 16:36] LABS: Hematocrit 23.4 % (35.3-44.9)
[2021-11-22] MEDS ORDERED: Ipratropium/Albuterol Neb 3 ML IH PRN (05:44)
[2021-11-22] MEDS: *HR* HYDROcodone/Acet 5/325 mg TABLET PO PRN ×2 (06:00→17:17)
[2021-11-22 07:54] LABS: Basophils % 0.2 %; Eosinophils # 0.1 K/mcL (0.0-0.6); Eosinophils % 0.8 %; Hematocrit 20.8 % (35.3-44.9); Hemoglobin 6.8 g/dL (11.5-15.4); Immature Granulocytes % 0.5 % (0-4); Lymphocytes # 0.5 K/mcL (0.6-4.6); Lymphocytes % 7.7 %; Mean Corpuscular HGB Conc 32.7 g/dL (31.6-35.5); Mean Corpuscular Hemoglobin 30.6 pg (28.0-33.3); Mean Platelet Volume 10.6 fL (9.4-12.4); Monocytes # 0.5 K/mcL (0.0-1.3); Monocytes % 8.4 %; Platelet Count 104 K/mcL (140-400); Red Blood Count 2.22 M/mcL (3.82-4.97); Red Cell Distribution Width 21.4 % (11.5-14.5); Segmented Neutrophils % 82.4 %; White Blood Count 6.1 K/mcL (4.3-11.1)
[2021-11-22 07:58] LABS: Mean Corpuscular Volume 93.7 fL (83.0-100.0)
[2021-11-22 08:03] LABS: Calcium 8.2 mg/dL (8.6-10.3); Potassium 4.4 mEq/L (3.5-5.1)
[2021-11-22] MEDS ORDERED: Perflutren Lipid Microsphere 1.3 ML in 0.9 % Sodium Chloride 8.7 ML IVP PRN (08:12)
[2021-11-22] MEDS: amLODIPine 5 MG TABLET PO SCH (09:58)
[2021-11-22] MEDS ORDERED: 0.9 % Sodium Chloride 250 ML ONE (12:07)
[2021-11-22 16:51] LABS: Hemoglobin 7.8 g/dL (11.5-15.4)
[2021-11-22] MEDS: hydrOXYzine pamoate 25 MG CAPSULE PO PRN (20:29)
[2021-11-23] MEDS: *HR* HYDROcodone/Acet 5/325 mg TABLET PO PRN (00:01)
[2021-11-23 05:41] LABS: Basophils % 0.4 %; Eosinophils # 0.2 K/mcL (0.0-0.6); Hemoglobin 7.5 g/dL (11.5-15.4); Immature Granulocytes % 0.6 % (0-4); Lymphocytes # 0.8 K/mcL (0.6-4.6); Lymphocytes % 16.6 %; Mean Corpuscular HGB Conc 32.6 g/dL (31.6-35.5); Mean Corpuscular Hemoglobin 31.1 pg (28.0-33.3); Mean Corpuscular Volume 95.4 fL (83.0-100.0); Mean Platelet Volume 10.4 fL (9.4-12.4); Monocytes # 0.6 K/mcL (0.0-1.3); Monocytes % 12.7 %; Neutrophils # 3.3 K/mcL (1.6-8.9); Platelet Count 107 K/mcL (140-400); Red Blood Count 2.41 M/mcL (3.82-4.97); Segmented Neutrophils % 66.7 %
[2021-11-23] MEDS ORDERED: 0.9 % Sodium Chloride 250 ML IVC PRN (07:45)
[2021-11-23] MEDS: Ondansetron ODT 4 MG TAB.RAPDIS SL PRN (07:48)
[2021-11-23] MEDS: amLODIPine 5 MG TABLET PO SCH (07:54)
[2021-11-23] MEDS ORDERED: *HR* Promethazine 25 MG/ML VIAL IM PRN (10:08)
[2021-11-23 12:58] LABS: Potassium 4.2 mEq/L (3.5-5.1)
[2021-11-23] MEDS ORDERED: SODIUM CHLORIDE/NAHCO3/KCL/PEG 4,000 ML SOLN.RECON PO ONE (17:00)
[2021-11-23] MEDS ORDERED: Calcium Acetate 667 MG CAPSULE PO PRN (17:56)
[2021-11-23] MEDS: hydrOXYzine pamoate 25 MG CAPSULE PO PRN (22:17)
[2021-11-23] MEDS: carvediloL 25 MG TABLET PO SCH (22:17)
[2021-11-23] MEDS: Topiramate 25 MG TABLET PO SCH (22:18)
[2021-11-24] MEDS: Acetaminophen IV 1,000 MG/100 ML BAG IVPB SCH ×3 (00:15→12:46)
[2021-11-24] MEDS: Topiramate 25 MG TABLET PO SCH ×2 (08:01→17:44)
[2021-11-24] MEDS: hydrOXYzine pamoate 25 MG CAPSULE PO PRN (08:01)
[2021-11-24] MEDS: carvediloL 25 MG TABLET PO SCH ×2 (08:02→17:44)
[2021-11-24] MEDS: Ondansetron ODT 4 MG TAB.RAPDIS SL PRN (08:02)
[2021-11-24] MEDS: amLODIPine 5 MG TABLET PO SCH (08:03)
[2021-11-24] MEDS: *HR* HYDROcodone/Acet 5/325 mg TABLET PO PRN ×2 (08:03→17:49)
[2021-11-24] MEDS ORDERED: Acetaminophen 325 MG TABLET PO PRN (13:10)
[2021-11-24 14:28] LABS: Basophils % 0.2 %; Eosinophils # 0.1 K/mcL (0.0-0.6); Eosinophils % 1.4 %; Hematocrit 22.7 % (35.3-44.9); Immature Granulocytes % 0.4 % (0-4); Lymphocytes # 0.6 K/mcL (0.6-4.6); Lymphocytes % 10.8 %; Mean Corpuscular HGB Conc 30.8 g/dL (31.6-35.5); Mean Corpuscular Hemoglobin 30.2 pg (28.0-33.3); Mean Corpuscular Volume 97.8 fL (83.0-100.0); Mean Platelet Volume 10.3 fL (9.4-12.4); Monocytes # 0.4 K/mcL (0.0-1.3); Neutrophils # 4.5 K/mcL (1.6-8.9); Platelet Count 108 K/mcL (140-400); Red Blood Count 2.32 M/mcL (3.82-4.97); Red Cell Distribution Width 19.2 % (11.5-14.5); Segmented Neutrophils % 80.2 %; White Blood Count 5.6 K/mcL (4.3-11.1)
[2021-11-24 14:52] LABS: Calcium 8.2 mg/dL (8.6-10.3); Magnesium 1.8 mg/dL (1.6-2.6); Phosphorous 5.9 mg/dL (2.7-4.5); Potassium 5.6 mEq/L (3.5-5.1)
[2021-11-24] MEDS: Calcium Acetate 667 MG CAPSULE PO SCH (17:44)
[2021-11-24] MEDS: Pantoprazole 40 MG VIAL IVP SCH (17:44)
[2021-11-24 18:37] LABS: Hematocrit 24.6 % (35.3-44.9); Hemoglobin 7.7 g/dL (11.5-15.4); Mean Corpuscular HGB Conc 31.3 g/dL (31.6-35.5); Mean Corpuscular Hemoglobin 30.7 pg (28.0-33.3); Mean Platelet Volume 10.4 fL (9.4-12.4); Platelet Count 137 K/mcL (140-400); Red Blood Count 2.51 M/mcL (3.82-4.97); Red Cell Distribution Width 19.1 % (11.5-14.5); White Blood Count 5.3 K/mcL (4.3-11.1)
[2021-11-25] MEDS: Topiramate 25 MG TABLET PO SCH ×2 (06:04→18:08)
[2021-11-25] MEDS: Pantoprazole 40 MG VIAL IVP SCH ×2 (06:04→18:08)
[2021-11-25] MEDS: hydrOXYzine pamoate 25 MG CAPSULE PO PRN (06:04)
[2021-11-25] MEDS ORDERED: 0.9 % Sodium Chloride 250 ML IVC PRN (07:44)
[2021-11-25] MEDS: carvediloL 25 MG TABLET PO SCH ×2 (09:34→18:08)
[2021-11-25] MEDS: amLODIPine 5 MG TABLET PO SCH (09:34)
[2021-11-25] MEDS: Calcium Acetate 667 MG CAPSULE PO SCH ×3 (09:34→18:08)
[2021-11-25 15:03] VITALS: BP 168/85; PULSE 85; TEMP 98.4; O2SAT 90
[2021-11-25] MEDS: Ondansetron ODT 4 MG TAB.RAPDIS SL PRN (19:46)
== END 2021-11-25 20:15 | disposition home or self-care (01) | DRG 253 ==
LOC: 2ANU → SUATTDRO 18:32
PROVIDERS: ADMIT Internal Medicine; ATTEND Internal Medicine

== ENCOUNTER 2021-12-07 14:16 | Inpatient (IN) ==
[2021-12-07] MEDS ORDERED: Melatonin 3 MG TABLET PO PRN (19:53)
[2021-12-07] MEDS ORDERED: Naloxone 0.4 MG/ML INJ IVP PRN (19:53)
[2021-12-07] MEDS ORDERED: Calcium Acetate 667 MG CAPSULE PO PRN (19:56)
[2021-12-07] MEDS ORDERED: SODIUM ZIRCONIUM CYCLOSILICATE 5 GM POWD.PACK PO ONE (20:16)
[2021-12-07] MEDS: Topiramate 25 MG TABLET PO SCH (21:52)
[2021-12-07] MEDS: carvediloL 25 MG TABLET PO SCH (21:52)
[2021-12-07 22:50] LABS: Influenza A PCR Negative (Negative); Influenza B PCR Negative (Negative); Resp. Syncytial Virus PCR Negative (Negative)
[2021-12-07 22:51] LABS: SARS-CoV-2 by PCR (In House) Negative (Negative)
[2021-12-08] MEDS ORDERED: hydrOXYzine pamoate 25 MG CAPSULE PO ONE (00:45)
[2021-12-08] MEDS ORDERED: Acetaminophen 325 MG TABLET PO ONE (00:45)
[2021-12-08] MEDS: *HR* Heparin 5,000 UNIT/ML VIAL SQ SCH ×2 (06:56→17:24)
[2021-12-08] MEDS: Renal Vitamin 1 CAP CAPSULE PO SCH (08:59)
[2021-12-08] MEDS: Topiramate 25 MG TABLET PO SCH ×2 (08:59→19:54)
[2021-12-08] MEDS: Calcium Acetate 667 MG CAPSULE PO SCH ×3 (08:59→17:23)
[2021-12-08] MEDS ORDERED: 0.9 % Sodium Chloride 250 ML IVC PRN (09:33)
[2021-12-08] MEDS ORDERED: 0.9 % Sodium Chloride 1,000 ML PRIME SCH (09:45)
[2021-12-08] MEDS ORDERED: *HR* HYDROmorphone (PF) 1 MG/ML SYRINGE IVP PRN (09:48)
[2021-12-08 11:35] LABS: Hematocrit 21.4 % (35.3-44.9); Hemoglobin 6.8 g/dL (11.5-15.4); Mean Corpuscular HGB Conc 31.8 g/dL (31.6-35.5); Mean Corpuscular Hemoglobin 31.5 pg (28.0-33.3); Mean Corpuscular Volume 99.1 fL (83.0-100.0); Mean Platelet Volume 10.3 fL (9.4-12.4); Platelet Count 109 K/mcL (140-400); Red Blood Count 2.16 M/mcL (3.82-4.97); Red Cell Distribution Width 17.8 % (11.5-14.5); White Blood Count 4.3 K/mcL (4.3-11.1)
[2021-12-08 11:44] LABS: INR 1.2; Prothrombin Time 13.4 Seconds (9.4-12.1)
[2021-12-08 11:55] LABS: Albumin 3.4 g/dL (3.5-5.7); Albumin/Globulin Ratio 1.4 (1.1-2.2); Bilirubin,Direct 0.1 mg/dL (0.0-0.2); Bilirubin,Indirect 0.2 mg/dL (0.0-1.0); Bilirubin,Total 0.3 mg/dL (0.3-1.0); Globulin 2.5 g/dL (2.4-3.5); Total Protein 5.9 g/dL (6.4-8.9)
[2021-12-08 11:56] LABS: Albumin 3.4 g/dL (3.5-5.7); Albumin/Globulin Ratio 1.5 (1.1-2.2); Bilirubin,Total 0.3 mg/dL (0.3-1.0); Globulin 2.3 g/dL (2.4-3.5); Magnesium 2.1 mg/dL (1.6-2.6); Phosphorous 7.5 mg/dL (2.7-4.5); Total Protein 5.7 g/dL (6.4-8.9)
[2021-12-08] MEDS: carvediloL 25 MG TABLET PO SCH ×2 (12:15→17:23)
[2021-12-08] MEDS: amLODIPine 5 MG TABLET PO SCH (14:28)
[2021-12-08] MEDS: Simethicone 80 MG TAB.CHEW PO PRN (14:28)
[2021-12-09] MEDS: Albuterol 2.5 MG/3 ML NEBULIZER IH PRN (03:58)
[2021-12-09] MEDS: *HR* Heparin 5,000 UNIT/ML VIAL SQ SCH ×2 (06:29→16:14)
[2021-12-09 08:26] LABS: Hematocrit 21.6 % (35.3-44.9); Hemoglobin 6.6 g/dL (11.5-15.4); Mean Corpuscular HGB Conc 30.6 g/dL (31.6-35.5); Mean Corpuscular Hemoglobin 31.3 pg (28.0-33.3); Mean Corpuscular Volume 102.4 fL (83.0-100.0); Mean Platelet Volume 10.6 fL (9.4-12.4); Platelet Count 102 K/mcL (140-400); Red Blood Count 2.11 M/mcL (3.82-4.97); Red Cell Distribution Width 17.6 % (11.5-14.5); White Blood Count 3.5 K/mcL (4.3-11.1)
[2021-12-09 08:35] LABS: INR 1.2; Prothrombin Time 12.9 Seconds (9.4-12.1)
[2021-12-09 08:45] LABS: Albumin 3.3 g/dL (3.5-5.7); Albumin/Globulin Ratio 1.2 (1.1-2.2); Bilirubin,Indirect 0.3 mg/dL (0.0-1.0); Bilirubin,Total 0.3 mg/dL (0.3-1.0); Calcium 8.2 mg/dL (8.6-10.3); Globulin 2.7 g/dL (2.4-3.5)
[2021-12-09] MEDS: amLODIPine 5 MG TABLET PO SCH ×2 (09:00→17:34)
[2021-12-09] MEDS ORDERED: 0.9 % Sodium Chloride 250 ML IVC PRN (09:21)
[2021-12-09] MEDS: carvediloL 25 MG TABLET PO SCH ×2 (09:30→17:34)
[2021-12-09] MEDS: Calcium Acetate 667 MG CAPSULE PO SCH ×3 (09:34→16:13)
[2021-12-09] MEDS: Renal Vitamin 1 CAP CAPSULE PO SCH (09:34)
[2021-12-09] MEDS: Simethicone 80 MG TAB.CHEW PO PRN (09:35)
[2021-12-09] MEDS: Topiramate 25 MG TABLET PO SCH ×2 (09:35→21:44)
[2021-12-09] MEDS ORDERED: Isovue-370 500 ML BOTTLE IVP ONE (10:58)
[2021-12-09] MEDS: Ondansetron 4 MG/2 ML VIAL IVP PRN (12:12)
[2021-12-09] MEDS ORDERED: Doxycycline 100 MG in 0.9 % Sodium Chloride Mini Bag 100 ML IVPB SCH (18:00)
[2021-12-09] MEDS: Doxycycline 100 MG in 0.9 % Sodium Chloride Mini Bag 100 ML IVPB SCH (21:46)
[2021-12-10] MEDS: Doxycycline 100 MG in 0.9 % Sodium Chloride Mini Bag 100 ML IVPB SCH ×2 (05:24→17:28)
[2021-12-10] MEDS: *HR* Heparin 5,000 UNIT/ML VIAL SQ SCH ×2 (05:24→17:35)
[2021-12-10] MEDS: Ondansetron 4 MG/2 ML VIAL IVP PRN (05:25)
[2021-12-10] MEDS: amLODIPine 5 MG TABLET PO SCH (09:23)
[2021-12-10] MEDS: Calcium Acetate 667 MG CAPSULE PO SCH ×3 (09:24→17:27)
[2021-12-10] MEDS: Topiramate 25 MG TABLET PO SCH ×2 (09:24→20:28)
[2021-12-10] MEDS: carvediloL 25 MG TABLET PO SCH ×2 (09:24→17:27)
[2021-12-10] MEDS: Renal Vitamin 1 CAP CAPSULE PO SCH (09:24)
[2021-12-10 10:24] LABS: Hematocrit 24.1 % (35.3-44.9); Hemoglobin 7.6 g/dL (11.5-15.4); Mean Corpuscular HGB Conc 31.5 g/dL (31.6-35.5); Mean Corpuscular Hemoglobin 31.1 pg (28.0-33.3); Mean Corpuscular Volume 98.8 fL (83.0-100.0); Mean Platelet Volume 10.5 fL (9.4-12.4); Platelet Count 109 K/mcL (140-400); Red Blood Count 2.44 M/mcL (3.82-4.97); Red Cell Distribution Width 18.5 % (11.5-14.5)
[2021-12-10 10:43] LABS: Calcium 8.7 mg/dL (8.6-10.3); Potassium 4.9 mEq/L (3.5-5.1)
[2021-12-10] MEDS: Simethicone 80 MG TAB.CHEW PO PRN ×2 (12:08→20:50)
[2021-12-10] MEDS: Albuterol 2.5 MG/3 ML NEBULIZER IH PRN (20:46)
[2021-12-10] MEDS ORDERED: Acetaminophen 325 MG TABLET PO ONE (21:27)
[2021-12-11] MEDS: Ondansetron 4 MG/2 ML VIAL IVP PRN ×2 (00:47→09:05)
[2021-12-11] MEDS: *HR* Heparin 5,000 UNIT/ML VIAL SQ SCH ×2 (05:58→17:24)
[2021-12-11] MEDS: Doxycycline 100 MG in 0.9 % Sodium Chloride Mini Bag 100 ML IVPB SCH (06:01)
[2021-12-11] MEDS: Topiramate 25 MG TABLET PO SCH (07:51)
[2021-12-11] MEDS: Renal Vitamin 1 CAP CAPSULE PO SCH (07:51)
[2021-12-11] MEDS: Calcium Acetate 667 MG CAPSULE PO SCH ×3 (07:51→15:46)
[2021-12-11] MEDS: amLODIPine 5 MG TABLET PO SCH (07:52)
[2021-12-11] MEDS: carvediloL 25 MG TABLET PO SCH ×2 (07:52→15:47)
[2021-12-11] MEDS ORDERED: 0.9 % Sodium Chloride 250 ML IVC PRN (08:25)
[2021-12-11] MEDS ORDERED: Acetaminophen 325 MG TABLET PO ONE (09:13)
[2021-12-11 12:03] LABS: Hematocrit 21.9 % (35.3-44.9); Hemoglobin 7.1 g/dL (11.5-15.4); Immature Platelets 4.4 % (1.1-6.1); Mean Corpuscular HGB Conc 32.4 g/dL (31.6-35.5); Mean Corpuscular Hemoglobin 31.6 pg (28.0-33.3); Mean Corpuscular Volume 97.3 fL (83.0-100.0); Red Blood Count 2.25 M/mcL (3.82-4.97); Red Cell Distribution Width 17.6 % (11.5-14.5); White Blood Count 3.7 K/mcL (4.3-11.1)
[2021-12-11 12:20] LABS: Calcium 8.6 mg/dL (8.6-10.3); Potassium 4.8 mEq/L (3.5-5.1)
[2021-12-11 12:21] LABS: % Iron Saturation 20 % (15-50); Iron 54 mcg/dL (50-170); Transferrin 196 mg/dL (203-362)
[2021-12-11 16:40] VITALS: BP 128/73; PULSE 88; TEMP 98.2; O2SAT 96
[2021-12-11] MEDS ORDERED: Doxycycline 100 MG CAPSULE PO SCH (18:00)
[2021-12-11] MEDS: Simethicone 80 MG TAB.CHEW PO PRN (18:35)
== END 2021-12-11 20:54 | disposition home or self-care (01) | DRG 194 ==
LOC: 2ANU → SUATTDRO 18:54
PROVIDERS: ADMIT Internal Medicine; ATTEND Student in an Organized Health Care Education/Training Program

== ENCOUNTER 2021-12-13 12:40 | Inpatient (IN) ==
[2021-12-13 14:19] LABS: Basophils % 0.3 %; Eosinophils # 0.1 K/mcL (0.0-0.6); Eosinophils % 1.5 %; Hematocrit 25.2 % (35.3-44.9); Hemoglobin 8.1 g/dL (11.5-15.4); Immature Granulocytes % 0.3 % (0-4); Lymphocytes # 0.5 K/mcL (0.6-4.6); Lymphocytes % 8.6 %; Mean Corpuscular HGB Conc 32.1 g/dL (31.6-35.5); Mean Corpuscular Volume 96.6 fL (83.0-100.0); Mean Platelet Volume 9.9 fL (9.4-12.4); Monocytes # 0.4 K/mcL (0.0-1.3); Monocytes % 5.9 %; Neutrophils # 5.1 K/mcL (1.6-8.9); Platelet Count 123 K/mcL (140-400); Red Blood Count 2.61 M/mcL (3.82-4.97); Red Cell Distribution Width 16.8 % (11.5-14.5); Segmented Neutrophils % 83.4 %
[2021-12-13 14:22] LABS: White Blood Count 6.1 K/mcL (4.3-11.1)
[2021-12-13 14:41] LABS: Calcium 9.4 mg/dL (8.6-10.3); Potassium 5.6 mEq/L (3.5-5.1); Troponin I 0.03 ng/mL (< 0.04)
[2021-12-13 19:27] LABS: Influenza A PCR Negative (Negative); Influenza B PCR Negative (Negative); Resp. Syncytial Virus PCR Negative (Negative)
[2021-12-13 19:28] LABS: SARS-CoV-2 by PCR (In House) Negative (Negative)
[2021-12-13] MEDS ORDERED: Furosemide 40 MG/4 ML VIAL IVP ONE (20:27)
[2021-12-13] MEDS ORDERED: Morphine Sulfate 2 MG/ML SYRINGE IVP ONE (21:16)
[2021-12-13] MEDS ORDERED: Ondansetron 4 MG/2 ML VIAL IVP ONE (21:16)
[2021-12-14] MEDS ORDERED: Naloxone 0.4 MG/ML INJ IVP PRN (02:23)
[2021-12-14] MEDS ORDERED: Calcium Acetate 667 MG CAPSULE PO PRN (02:28)
[2021-12-14] MEDS ORDERED: Topiramate 25 MG TABLET PO SCH (02:30)
[2021-12-14] MEDS: Azithromycin 500 MG in 0.9 % Sodium Chloride 250 ML IVPB SCH (03:25)
[2021-12-14] MEDS: SODIUM ZIRCONIUM CYCLOSILICATE 5 GM POWD.PACK PO SCH ×2 (03:26→08:27)
[2021-12-14] MEDS ORDERED: hydrOXYzine pamoate 25 MG CAPSULE PO PRN (03:57)
[2021-12-14] MEDS ORDERED: Isovue-370 500 ML BOTTLE IVP ONE ×2 (04:04→13:13)
[2021-12-14] MEDS ORDERED: cefTRIAXone 1,000 MG in 0.9 % Sodium Chloride Mini Bag 100 ML IVPB SCH (05:00)
[2021-12-14] MEDS ORDERED: *HR* Heparin 5,000 UNIT/ML VIAL SQ SCH (06:00)
[2021-12-14] MEDS ORDERED: Doxycycline 100 MG CAPSULE PO SCH (06:00)
[2021-12-14 06:16] LABS: Hematocrit 22.3 % (35.3-44.9); Mean Corpuscular HGB Conc 31.4 g/dL (31.6-35.5); Mean Corpuscular Hemoglobin 31.8 pg (28.0-33.3); Mean Corpuscular Volume 101.4 fL (83.0-100.0); Mean Platelet Volume 10.8 fL (9.4-12.4); Platelet Count 115 K/mcL (140-400); White Blood Count 4.9 K/mcL (4.3-11.1)
[2021-12-14 06:52] LABS: Calcium 8.6 mg/dL (8.6-10.3); Magnesium 1.9 mg/dL (1.6-2.6); Phosphorous 6.3 mg/dL (2.7-4.5); Potassium 5.8 mEq/L (3.5-5.1)
[2021-12-14] MEDS: amLODIPine 5 MG TABLET PO SCH ×3 (08:29→14:13)
[2021-12-14] MEDS: carvediloL 25 MG TABLET PO SCH ×4 (08:29→17:35)
[2021-12-14] MEDS: Vitamin B Complex/Vit C/Vit E 1 EACH TABLET PO SCH (08:29)
[2021-12-14] MEDS: Calcium Acetate 667 MG CAPSULE PO SCH ×3 (08:29→15:57)
[2021-12-14] MEDS: Aspirin Enteric Coated 81 MG Tablet PO SCH (08:29)
[2021-12-14] MEDS ORDERED: 0.9 % Sodium Chloride 250 ML IVC PRN (09:06)
[2021-12-14] MEDS ORDERED: 0.9 % Sodium Chloride 1,000 ML PRIME SCH (09:15)
[2021-12-14] MEDS ORDERED: Dextrose Gel 15 GM/37.5 ML TUBE PO PRN ×2 (10:55)
[2021-12-14] MEDS ORDERED: *HR* Dextrose 50 % in Water (Syg) 50 ML SYRINGE IVP PRN (10:55)
[2021-12-14] MEDS ORDERED: D5% in Water 1,000 ML IVC PRN (10:55)
[2021-12-14] MEDS: Insulin LISPRO 300 UNITS/3 ML VIAL SUBQ SCH ×3 (11:05→21:37)
[2021-12-14] MEDS ORDERED: *HR* Heparin 5,000 UNIT/ML VIAL IVP PRN (11:08)
[2021-12-14] MEDS ORDERED: *HR* Heparin 5,000 UNIT/ML VIAL IVP ONE (11:08)
[2021-12-14] MEDS ORDERED: Heparin 25,000UNIT/250ML 1/2NS 25,000 UNIT/250 ML IV.SOLN IVC SCH (11:15)
[2021-12-14 11:17] LABS: Hematocrit 20.9 % (35.3-44.9); Hemoglobin 6.8 g/dL (11.5-15.4)
[2021-12-14 11:45] LABS: Heparin anti-factor XA UFH < 0.04 IU/mL (0.30-0.70); INR 1.1; Prothrombin Time 12.1 Seconds (9.4-12.1)
[2021-12-14 11:48] LABS: Activated Partial Thrombo Time 32.5 Seconds (26.0-36.0)
[2021-12-14] MEDS ORDERED: 0.9 % Sodium Chloride 250 ML IVC SCH (12:45)
[2021-12-14] MEDS ORDERED: *HR* Metoprolol 5 MG/5 ML VIAL IVP ONE (14:10)
[2021-12-14] MEDS ORDERED: Water for inj. (sterile) 10 ML ONE (15:57)
[2021-12-14] MEDS: Cefepime HCl 1,000 MG in 0.9 % Sodium Chloride Mini Bag 100 ML IVPB SCH (15:58)
[2021-12-14] MEDS ORDERED: SODIUM CHLORIDE/NAHCO3/KCL/PEG 4,000 ML SOLN.RECON PO ONE (17:00)
[2021-12-14] MEDS: Topiramate 25 MG TABLET PO SCH (17:35)
[2021-12-14 20:02] LABS: Hematocrit 23.6 % (35.3-44.9); Hemoglobin 7.5 g/dL (11.5-15.4)
[2021-12-15] MEDS: Heparin 25,000UNIT/250ML 1/2NS 25,000 UNIT/250 ML IV.SOLN IVC SCH (01:16)
[2021-12-15] MEDS: Azithromycin 500 MG in 0.9 % Sodium Chloride 250 ML IVPB SCH (03:54)
[2021-12-15 08:38] LABS: Hemoglobin 7.6 g/dL (11.5-15.4)
[2021-12-15 08:40] LABS: Hematocrit 23.5 % (35.3-44.9); Immature Platelets 3.1 % (1.1-6.1); Mean Corpuscular HGB Conc 32.3 g/dL (31.6-35.5); Mean Corpuscular Hemoglobin 31.1 pg (28.0-33.3); Mean Corpuscular Volume 96.3 fL (83.0-100.0); Mean Platelet Volume 10.5 fL (9.4-12.4); Red Blood Count 2.44 M/mcL (3.82-4.97); Red Cell Distribution Width 16.2 % (11.5-14.5); White Blood Count 3.4 K/mcL (4.3-11.1)
[2021-12-15 08:46] LABS: INR 1.1; Prothrombin Time 12.5 Seconds (9.4-12.1)
[2021-12-15 08:49] LABS: Activated Partial Thrombo Time 42.9 Seconds (26.0-36.0)
[2021-12-15] MEDS: carvediloL 25 MG TABLET PO SCH ×2 (09:10→16:55)
[2021-12-15] MEDS: Aspirin Enteric Coated 81 MG Tablet PO SCH (12:07)
[2021-12-15] MEDS: Vitamin B Complex/Vit C/Vit E 1 EACH TABLET PO SCH (12:07)
[2021-12-15] MEDS: SODIUM ZIRCONIUM CYCLOSILICATE 5 GM POWD.PACK PO SCH (12:07)
[2021-12-15] MEDS: Calcium Acetate 667 MG CAPSULE PO SCH ×3 (12:08→16:55)
[2021-12-15] MEDS: amLODIPine 5 MG TABLET PO SCH (12:14)
[2021-12-15] MEDS: Topiramate 25 MG TABLET PO SCH ×2 (12:16→16:55)
[2021-12-15] MEDS: Insulin LISPRO 300 UNITS/3 ML VIAL SUBQ SCH ×3 (12:16→20:42)
[2021-12-15 14:43] LABS: Calcium 8.6 mg/dL (8.6-10.3); Potassium 4.1 mEq/L (3.5-5.1)
[2021-12-15] MEDS: Cefepime HCl 1,000 MG in 0.9 % Sodium Chloride Mini Bag 100 ML IVPB SCH (17:53)
[2021-12-15] MEDS: *HR* Heparin 5,000 UNIT/ML VIAL IVP PRN (19:17)
[2021-12-15] MEDS ORDERED: hydrOXYzine pamoate 25 MG CAPSULE PO ONE (22:30)
[2021-12-16] MEDS: Heparin 25,000UNIT/250ML 1/2NS 25,000 UNIT/250 ML IV.SOLN IVC SCH ×2 (03:03→04:23)
[2021-12-16 03:33] LABS: Potassium 4.7 mEq/L (3.5-5.1)
[2021-12-16] MEDS: Azithromycin 500 MG in 0.9 % Sodium Chloride 250 ML IVPB SCH (04:24)
[2021-12-16] MEDS: Topiramate 25 MG TABLET PO SCH ×2 (04:26→17:58)
[2021-12-16 05:28] LABS: Hematocrit 25.5 % (35.3-44.9); Mean Corpuscular HGB Conc 31.4 g/dL (31.6-35.5); Mean Corpuscular Hemoglobin 31.3 pg (28.0-33.3); Mean Corpuscular Volume 99.6 fL (83.0-100.0); Platelet Count 101 K/mcL (140-400); Red Blood Count 2.56 M/mcL (3.82-4.97); Red Cell Distribution Width 15.9 % (11.5-14.5); White Blood Count 3.9 K/mcL (4.3-11.1)
[2021-12-16] MEDS: *HR* Heparin 5,000 UNIT/ML VIAL IVP PRN (06:08)
[2021-12-16] MEDS: Insulin LISPRO 300 UNITS/3 ML VIAL SUBQ SCH ×4 (08:11→19:40)
[2021-12-16] MEDS ORDERED: 0.9 % Sodium Chloride 250 ML IVC PRN (08:44)
[2021-12-16] MEDS ORDERED: 0.9 % Sodium Chloride 1,000 ML PRIME SCH (08:45)
[2021-12-16] MEDS: Calcium Acetate 667 MG CAPSULE PO SCH ×3 (08:50→17:58)
[2021-12-16] MEDS: carvediloL 25 MG TABLET PO SCH ×2 (09:13→17:58)
[2021-12-16] MEDS: Aspirin Enteric Coated 81 MG Tablet PO SCH (14:32)
[2021-12-16] MEDS: Vitamin B Complex/Vit C/Vit E 1 EACH TABLET PO SCH (14:33)
[2021-12-16] MEDS: amLODIPine 5 MG TABLET PO SCH (14:33)
[2021-12-16] MEDS: SODIUM ZIRCONIUM CYCLOSILICATE 5 GM POWD.PACK PO SCH (14:34)
[2021-12-16] MEDS: Cefepime HCl 1,000 MG in 0.9 % Sodium Chloride Mini Bag 100 ML IVPB SCH (17:47)
[2021-12-17] MEDS: Melatonin 3 MG TABLET PO PRN ×2 (00:01→22:11)
[2021-12-17] MEDS ORDERED: *HR* HYDROcodone/Acet 5/325 mg TABLET PO ONE (00:11)
[2021-12-17] MEDS: Azithromycin 500 MG in 0.9 % Sodium Chloride 250 ML IVPB SCH (04:23)
[2021-12-17] MEDS: *HR* HYDROmorphone (PF) 1 MG/ML SYRINGE IVP ONE (05:11)
[2021-12-17] MEDS: Topiramate 25 MG TABLET PO SCH ×2 (05:12→16:21)
[2021-12-17] MEDS: Insulin LISPRO 300 UNITS/3 ML VIAL SUBQ SCH ×3 (07:56→16:06)
[2021-12-17] MEDS: SODIUM ZIRCONIUM CYCLOSILICATE 5 GM POWD.PACK PO SCH (07:56)
[2021-12-17] MEDS ORDERED: Metoclopramide 10 MG/2 ML VIAL IVP PRN (07:59)
[2021-12-17] MEDS: Aspirin Enteric Coated 81 MG Tablet PO SCH (08:44)
[2021-12-17] MEDS: amLODIPine 5 MG TABLET PO SCH (08:44)
[2021-12-17] MEDS: Calcium Acetate 667 MG CAPSULE PO SCH ×3 (08:44→16:21)
[2021-12-17] MEDS: carvediloL 25 MG TABLET PO SCH ×2 (08:45→16:21)
[2021-12-17] MEDS: Vitamin B Complex/Vit C/Vit E 1 EACH TABLET PO SCH (08:45)
[2021-12-17] MEDS ORDERED: Isovue-370 500 ML BOTTLE IVP ONE (10:22)
[2021-12-17] MEDS ORDERED: Isovue-370 500 ML BOTTLE PO ONE (13:44)
[2021-12-17] MEDS: Cefepime HCl 1,000 MG in 0.9 % Sodium Chloride Mini Bag 100 ML IVPB SCH (16:21)
[2021-12-18] MEDS: Insulin LISPRO 300 UNITS/3 ML VIAL SUBQ SCH ×4 (01:35→17:25)
[2021-12-18] MEDS ORDERED: *HR* HYDROmorphone 2 MG TABLET PO ONE (02:03)
[2021-12-18] MEDS: Topiramate 25 MG TABLET PO SCH ×2 (05:30→16:05)
[2021-12-18] MEDS ORDERED: 0.9 % Sodium Chloride 250 ML IVC PRN (09:06)
[2021-12-18] MEDS: Calcium Acetate 667 MG CAPSULE PO SCH ×3 (09:32→17:24)
[2021-12-18] MEDS: carvediloL 25 MG TABLET PO SCH ×2 (09:32→16:02)
[2021-12-18] MEDS: Aspirin Enteric Coated 81 MG Tablet PO SCH (09:32)
[2021-12-18] MEDS: SODIUM ZIRCONIUM CYCLOSILICATE 5 GM POWD.PACK PO SCH (09:33)
[2021-12-18] MEDS: Vitamin B Complex/Vit C/Vit E 1 EACH TABLET PO SCH (09:33)
[2021-12-18] MEDS: Azithromycin 250 MG TABLET PO SCH (09:33)
[2021-12-18] MEDS: amLODIPine 5 MG TABLET PO SCH (09:33)
[2021-12-18] MEDS ORDERED: *HR* HYDROmorphone (PF) 1 MG/ML SYRINGE IVP ONE ×2 (11:32→21:55)
[2021-12-18] MEDS: Cefepime HCl 1,000 MG in 0.9 % Sodium Chloride Mini Bag 100 ML IVPB SCH (16:02)
[2021-12-18] MEDS: Melatonin 3 MG TABLET PO PRN (22:00)
[2021-12-19] MEDS: *HR* HYDROmorphone (PF) 1 MG/ML SYRINGE IVP ONE (00:29)
[2021-12-19] MEDS: Insulin LISPRO 300 UNITS/3 ML VIAL SUBQ SCH ×4 (05:18→15:15)
[2021-12-19] MEDS: carvediloL 25 MG TABLET PO SCH ×2 (07:59→17:12)
[2021-12-19] MEDS: Calcium Acetate 667 MG CAPSULE PO SCH ×3 (07:59→17:12)
[2021-12-19] MEDS: Azithromycin 250 MG TABLET PO SCH (08:00)
[2021-12-19] MEDS: Aspirin Enteric Coated 81 MG Tablet PO SCH (08:00)
[2021-12-19] MEDS: Vitamin B Complex/Vit C/Vit E 1 EACH TABLET PO SCH (08:00)
[2021-12-19] MEDS: amLODIPine 5 MG TABLET PO SCH (08:00)
[2021-12-19] MEDS: SODIUM ZIRCONIUM CYCLOSILICATE 5 GM POWD.PACK PO SCH (08:01)
[2021-12-19] MEDS: Topiramate 25 MG TABLET PO SCH ×2 (08:04→17:14)
[2021-12-19 10:38] VITALS: BP 146/82; PULSE 76; TEMP 98; O2SAT 98
[2021-12-19] MEDS: Cefepime HCl 1,000 MG in 0.9 % Sodium Chloride Mini Bag 100 ML IVPB SCH (15:15)
== END 2021-12-19 18:22 | disposition home or self-care (01) | DRG 194 ==
LOC: EMEROOARM 12:40 → 2ANU 12:40 → SUATTDRO 12-14 01:37 → 2ANU 12-14 02:35
PROVIDERS: ADMIT Internal Medicine; ATTEND Internal Medicine

== ENCOUNTER 2022-02-08 09:09 | Inpatient (IN) ==
[2022-02-08] MEDS ORDERED: Ondansetron 4 MG/2 ML VIAL IVP ONE ×2 (09:17→11:03)
[2022-02-08] MEDS ORDERED: 0.9 % Sodium Chloride 500 ML IVC ONE (09:17)
[2022-02-08 10:12] LABS: Basophils % 0.2 %; Hemoglobin 8.8 g/dL (11.5-15.4); Red Cell Distribution Width 19.4 % (11.5-14.5)
[2022-02-08 10:13] LABS: Eosinophils % 0.3 %; Hematocrit 27.5 % (35.3-44.9); Immature Granulocytes % 0.7 % (0-4); Lymphocytes # 0.6 K/mcL (0.6-4.6); Lymphocytes % 10.5 %; Mean Platelet Volume 11.2 fL (9.4-12.4); Monocytes # 0.4 K/mcL (0.0-1.3); Neutrophils # 4.9 K/mcL (1.6-8.9); Platelet Count 83 K/mcL (140-400); Red Blood Count 2.75 M/mcL (3.82-4.97); Segmented Neutrophils % 82.3 %
[2022-02-08] MEDS ORDERED: Insulin Human Regular 10 UNIT in 0.9 % Sodium Chloride 10 ML IV ONE (10:41)
[2022-02-08 10:42] LABS: Albumin 3.5 g/dL (3.5-5.7); Albumin/Globulin Ratio 1.5 (1.1-2.2); Bilirubin,Direct 0.8 mg/dL (0.0-0.2); Bilirubin,Indirect 0.9 mg/dL (0.0-1.0); Bilirubin,Total 1.7 mg/dL (0.3-1.0); Calcium 8.9 mg/dL (8.6-10.3); Globulin 2.3 g/dL (2.4-3.5); Potassium 8.1 mEq/L (3.5-5.1); Total Protein 5.8 g/dL (6.4-8.9); Troponin I 0.04 ng/mL (< 0.04)
[2022-02-08] MEDS ORDERED: SODIUM ZIRCONIUM CYCLOSILICATE 5 GM POWD.PACK PO STA (10:47)
[2022-02-08] MEDS ORDERED: *HR* Dextrose 50 % in Water (Syg) 50 ML SYRINGE IVP ONE (10:52)
[2022-02-08 10:57] LABS: INR 1.3; Prothrombin Time 14.2 Seconds (9.4-12.1)
[2022-02-08] MEDS ORDERED: *HR* Promethazine 25 MG/ML VIAL IM ONE (10:59)
[2022-02-08] MEDS ORDERED: 0.9 % Sodium Chloride 250 ML IVC PRN (11:11)
[2022-02-08] MEDS ORDERED: 0.9 % Sodium Chloride 1,000 ML PRIME SCH (11:15)
[2022-02-08] MEDS ORDERED: Morphine Sulfate 2 MG/ML SYRINGE IVP ONE (11:43)
[2022-02-08] MEDS ORDERED: Naloxone 0.4 MG/ML INJ IVP PRN (12:04)
[2022-02-08] MEDS ORDERED: Ondansetron 4 MG/2 ML VIAL IVP PRN (12:04)
[2022-02-08] MEDS ORDERED: Calcium Acetate 667 MG CAPSULE PO PRN (12:07)
[2022-02-08] MEDS: *HR* LORazepam 2 MG/ML VIAL IVP PRN ×2 (12:57→22:48)
[2022-02-08] MEDS ORDERED: Azithromycin 500 MG in 0.9 % Sodium Chloride 250 ML IVPB SCH ×2 (13:00→18:00)
[2022-02-08] MEDS ORDERED: cefTRIAXone 1,000 MG in 0.9 % Sodium Chloride 10 ML IVP SCH ×2 (13:00→18:00)
[2022-02-08] MEDS: Calcium Acetate 667 MG CAPSULE PO SCH (17:23)
[2022-02-08] MEDS: Topiramate 25 MG TABLET PO SCH (17:23)
[2022-02-08] MEDS: carvediloL 25 MG TABLET PO SCH (17:23)
[2022-02-09 00:22] LABS: Immature Granulocytes % 0.3 % (0-4); Mean Corpuscular Hemoglobin 31.7 pg (28.0-33.3); Red Blood Count 2.52 M/mcL (3.82-4.97); Red Cell Distribution Width 19.4 % (11.5-14.5)
[2022-02-09 00:23] LABS: Basophils % 0.6 %; Eosinophils % 0.6 %; Hematocrit 25.4 % (35.3-44.9); Lymphocytes # 0.6 K/mcL (0.6-4.6); Lymphocytes % 17.6 %; Mean Corpuscular HGB Conc 31.5 g/dL (31.6-35.5); Mean Corpuscular Volume 100.8 fL (83.0-100.0); Mean Platelet Volume 11.1 fL (9.4-12.4); Monocytes # 0.4 K/mcL (0.0-1.3); Monocytes % 10.6 %; Neutrophils # 2.3 K/mcL (1.6-8.9); Segmented Neutrophils % 70.3 %; White Blood Count 3.3 K/mcL (4.3-11.1)
[2022-02-09 00:24] LABS: Platelet Count 77 K/mcL (140-400)
[2022-02-09 00:40] LABS: Calcium 8.5 mg/dL (8.6-10.3); Magnesium 1.7 mg/dL (1.6-2.6); Phosphorous 3.9 mg/dL (2.7-4.5); Potassium 4.2 mEq/L (3.5-5.1)
[2022-02-09] MEDS: Topiramate 25 MG TABLET PO SCH (05:20)
[2022-02-09] MEDS ORDERED: 0.9 % Sodium Chloride 250 ML IVC PRN (07:31)
[2022-02-09] MEDS: carvediloL 25 MG TABLET PO SCH (07:46)
[2022-02-09] MEDS: Calcium Acetate 667 MG CAPSULE PO SCH ×2 (08:11→12:14)
[2022-02-09] MEDS ORDERED: Ethyl Chloride Spray Bottle (104 SPRAY/BOTTLE) TP PRN (08:41)
[2022-02-09] MEDS ORDERED: NON-FORMULARY MEDICATION 1 EACH EACH (Amlodipine Besylate 10 MG Tablet) PO SCH (09:00)
[2022-02-09] MEDS ORDERED: hydrOXYzine pamoate 25 MG CAPSULE PO PRN (09:31)
[2022-02-09 11:03] VITALS: PULSE 94
[2022-02-09 14:41] VITALS: O2SAT 97
[2022-02-09 14:55] VITALS: BP 143/84
[2022-02-09] MEDS ORDERED: cefTRIAXone 1,000 MG in 0.9 % Sodium Chloride 10 ML IVP SCH (17:00)
[2022-02-09 20:59] VITALS: TEMP 97.7
== END 2022-02-09 15:27 | disposition home or self-care (01) | DRG 425 ==
LOC: EMEROOARM 09:09 → 2ANU 11:18 → SUATTDRO 11:18 → 2ANU 12:31
PROVIDERS: ADMIT Student in an Organized Health Care Education/Training Program; ATTEND Internal Medicine

== ENCOUNTER 2022-02-17 15:34 | Observation (INO) ==
[2022-02-17] MEDS ORDERED: Naloxone 0.4 MG/ML INJ IVP PRN (19:15)
[2022-02-17] MEDS ORDERED: Melatonin 3 MG TABLET PO PRN (19:15)
[2022-02-17] MEDS: Topiramate 25 MG TABLET PO SCH (20:32)
[2022-02-17] MEDS: carvediloL 25 MG TABLET PO SCH (20:34)
[2022-02-17] MEDS ORDERED: HydrOXYzine 100 MG/2 ML VIAL IM ONE (22:19)
[2022-02-17] MEDS ORDERED: Ondansetron 4 MG/2 ML VIAL IVP ONE (23:42)
[2022-02-17] MEDS: Pantoprazole 40 MG VIAL IVP SCH (23:53)
[2022-02-18 02:34] LABS: Mean Corpuscular Volume 97.1 fL (83.0-100.0); Red Blood Count 2.06 M/mcL (3.82-4.97)
[2022-02-18 02:35] LABS: Hemoglobin 6.3 g/dL (11.5-15.4); Immature Platelets 3.5 % (1.1-6.1); Mean Corpuscular HGB Conc 31.5 g/dL (31.6-35.5); Mean Corpuscular Hemoglobin 30.6 pg (28.0-33.3); Mean Platelet Volume 11.5 fL (9.4-12.4); Red Cell Distribution Width 18.7 % (11.5-14.5); White Blood Count 2.7 K/mcL (4.3-11.1)
[2022-02-18 02:53] LABS: Calcium 8.5 mg/dL (8.6-10.3); Magnesium 1.9 mg/dL (1.6-2.6); Phosphorous 5.2 mg/dL (2.7-4.5); Potassium 5.1 mEq/L (3.5-5.1)
[2022-02-18] MEDS ORDERED: 0.9 % Sodium Chloride 250 ML IVC PRN (08:35)
[2022-02-18] MEDS ORDERED: 0.9 % Sodium Chloride 1,000 ML PRIME SCH (08:45)
[2022-02-18] MEDS: Topiramate 25 MG TABLET PO SCH ×2 (09:13→19:25)
[2022-02-18] MEDS: Pantoprazole 40 MG VIAL IVP SCH ×2 (12:50→22:58)
[2022-02-18] MEDS: amLODIPine 5 MG TABLET PO SCH (12:50)
[2022-02-18] MEDS: carvediloL 25 MG TABLET PO SCH ×2 (12:50→17:05)
[2022-02-18] MEDS ORDERED: Calcium Acetate 667 MG CAPSULE PO PRN (16:57)
[2022-02-18] MEDS: Calcium Acetate 667 MG CAPSULE PO SCH (17:06)
[2022-02-18] MEDS ORDERED: Ipratropium/Albuterol Neb 3 ML IH PRN (17:12)
[2022-02-18] MEDS ORDERED: Pantoprazole 40 MG VIAL IVP SCH (20:31)
[2022-02-19] MEDS: Benzocaine 20% 12 APPL GEL..GRAM. TP PRN ×2 (00:08→09:56)
[2022-02-19 07:27] LABS: Basophils % 0.4 %; Hemoglobin 7.6 g/dL (11.5-15.4); Mean Platelet Volume 10.6 fL (9.4-12.4)
[2022-02-19 07:29] LABS: Eosinophils % 0.8 %; Hematocrit 22.9 % (35.3-44.9); Immature Platelets 2.8 % (1.1-6.1); Lymphocytes # 0.7 K/mcL (0.6-4.6); Lymphocytes % 27.2 %; Mean Corpuscular HGB Conc 33.2 g/dL (31.6-35.5); Mean Corpuscular Hemoglobin 31.5 pg (28.0-33.3); Monocytes # 0.3 K/mcL (0.0-1.3); Monocytes % 10.3 %; Neutrophils # 1.6 K/mcL (1.6-8.9); Red Blood Count 2.41 M/mcL (3.82-4.97); Red Cell Distribution Width 18.2 % (11.5-14.5); Segmented Neutrophils % 61.3 %; White Blood Count 2.6 K/mcL (4.3-11.1)
[2022-02-19 07:32] LABS: Platelet Count 78 K/mcL (140-400)
[2022-02-19 07:49] LABS: Albumin 3.2 g/dL (3.5-5.7); Albumin/Globulin Ratio 1.3 (1.1-2.2); Bilirubin,Direct 0.1 mg/dL (0.0-0.2); Bilirubin,Indirect 0.5 mg/dL (0.0-1.0); Bilirubin,Total 0.6 mg/dL (0.3-1.0); Globulin 2.4 g/dL (2.4-3.5); Total Protein 5.6 g/dL (6.4-8.9)
[2022-02-19 07:52] LABS: Phosphorous 5.2 mg/dL (2.7-4.5)
[2022-02-19 07:59] LABS: Thyroid Stimulating Hormone 10.391 mcIU/mL (0.340-5.600)
[2022-02-19 08:09] LABS: Folate 11.2 ng/mL (3.0-16.0)
[2022-02-19] MEDS ORDERED: Levothyroxine Sodium 100 MCG VIAL IVP ONE (09:00)
[2022-02-19] MEDS: Chlorhexidine Rinse 15 ML MOUTHWASH MM SCH ×2 (09:43→20:49)
[2022-02-19] MEDS: carvediloL 25 MG TABLET PO SCH ×2 (09:44→16:05)
[2022-02-19] MEDS: Topiramate 25 MG TABLET PO SCH ×2 (09:45→20:49)
[2022-02-19] MEDS: Calcium Acetate 667 MG CAPSULE PO SCH ×3 (09:45→16:06)
[2022-02-19] MEDS: amLODIPine 5 MG TABLET PO SCH (09:46)
[2022-02-19] MEDS: Vitamin B Complex/Vit C/Vit E 1 EACH TABLET PO SCH (09:47)
[2022-02-19] MEDS: Aspirin Enteric Coated 81 MG Tablet PO SCH (09:48)
[2022-02-19] MEDS: *HR* HYDROcodone/Acet 5/325 mg TABLET PO PRN ×3 (09:56→22:50)
[2022-02-19] MEDS: Pantoprazole 40 MG VIAL IVP SCH ×2 (12:07→22:50)
[2022-02-19] MEDS ORDERED: Ondansetron 4 MG/2 ML VIAL IVP PRN (12:14)
[2022-02-19] MEDS: Amoxicillin/Clavulanate 500 MG TABLET PO SCH (16:05)
[2022-02-20] MEDS: Levothyroxine 25 MCG TABLET PO SCH (06:18)
[2022-02-20] MEDS: Calcium Acetate 667 MG CAPSULE PO SCH ×3 (08:54→16:57)
[2022-02-20] MEDS: *HR* HYDROcodone/Acet 5/325 mg TABLET PO PRN (08:54)
[2022-02-20] MEDS: amLODIPine 5 MG TABLET PO SCH (08:54)
[2022-02-20] MEDS: Vitamin B Complex/Vit C/Vit E 1 EACH TABLET PO SCH (08:54)
[2022-02-20] MEDS: Aspirin Enteric Coated 81 MG Tablet PO SCH (08:54)
[2022-02-20] MEDS: Topiramate 25 MG TABLET PO SCH ×2 (08:55→19:37)
[2022-02-20] MEDS: Chlorhexidine Rinse 15 ML MOUTHWASH MM SCH ×2 (08:55→19:37)
[2022-02-20] MEDS: Amoxicillin/Clavulanate 500 MG TABLET PO SCH ×2 (08:55→16:57)
[2022-02-20] MEDS: carvediloL 25 MG TABLET PO SCH ×2 (08:55→16:57)
[2022-02-20] MEDS ORDERED: HydrOXYzine 100 MG/2 ML VIAL IM ONE (09:05)
[2022-02-20 09:20] LABS: Lymphocytes % 20.3 %
[2022-02-20 09:22] LABS: Basophils % 0.7 %; Eosinophils % 0.7 %; Hematocrit 24.7 % (35.3-44.9); Immature Granulocytes % 0.4 % (0-4); Lymphocytes # 0.6 K/mcL (0.6-4.6); Mean Corpuscular HGB Conc 32.4 g/dL (31.6-35.5); Mean Corpuscular Volume 95.7 fL (83.0-100.0); Mean Platelet Volume 10.5 fL (9.4-12.4); Monocytes # 0.3 K/mcL (0.0-1.3); Monocytes % 10.3 %; Neutrophils # 1.8 K/mcL (1.6-8.9); Red Blood Count 2.58 M/mcL (3.82-4.97); Red Cell Distribution Width 18.3 % (11.5-14.5); Segmented Neutrophils % 67.6 %; White Blood Count 2.7 K/mcL (4.3-11.1)
[2022-02-20 09:24] LABS: Platelet Count 72 K/mcL (140-400)
[2022-02-20 09:40] LABS: Calcium 8.9 mg/dL (8.6-10.3); Phosphorous 6.3 mg/dL (2.7-4.5); Potassium 5.2 mEq/L (3.5-5.1)
[2022-02-20] MEDS: Ondansetron 4 MG/2 ML VIAL IVP SCH ×2 (12:12→16:57)
[2022-02-20] MEDS: Pantoprazole 40 MG VIAL IVP SCH (12:12)
[2022-02-20] MEDS ORDERED: *HR* LORazepam 2 MG/ML VIAL IVP ONE (20:30)
[2022-02-21] MEDS: Ondansetron 4 MG/2 ML VIAL IVP SCH ×2 (00:01→05:02)
[2022-02-21] MEDS: Pantoprazole 40 MG VIAL IVP SCH (00:02)
[2022-02-21] MEDS: Levothyroxine 25 MCG TABLET PO SCH (05:02)
[2022-02-21] MEDS: Calcium Acetate 667 MG CAPSULE PO SCH ×3 (08:59→16:58)
[2022-02-21] MEDS ORDERED: 0.9 % Sodium Chloride 250 ML IVC PRN (09:28)
[2022-02-21] MEDS ORDERED: Ethyl Chloride Spray Bottle (104 SPRAY/BOTTLE) TP PRN (09:28)
[2022-02-21] MEDS: Artificial Tears SOLN 15 ML BOTTLE BOTH EYES SCH ×4 (09:39→22:35)
[2022-02-21] MEDS: carvediloL 25 MG TABLET PO SCH ×2 (09:40→17:07)
[2022-02-21] MEDS: amLODIPine 5 MG TABLET PO SCH (09:41)
[2022-02-21] MEDS: Chlorhexidine Rinse 15 ML MOUTHWASH MM SCH ×2 (09:42→22:35)
[2022-02-21] MEDS: Amoxicillin/Clavulanate 500 MG TABLET PO SCH ×2 (09:42→16:36)
[2022-02-21] MEDS: Topiramate 25 MG TABLET PO SCH ×2 (09:42→22:34)
[2022-02-21] MEDS: Vitamin B Complex/Vit C/Vit E 1 EACH TABLET PO SCH (09:42)
[2022-02-21] MEDS: Aspirin Enteric Coated 81 MG Tablet PO SCH (09:42)
[2022-02-21] MEDS ORDERED: *HR* Propofol 200 MG/20 ML VIAL IVP ONE (11:49)
[2022-02-21] MEDS ORDERED: Simethicone 40 MG/0.6 ML MLS IR ONE (11:51)
[2022-02-21] MEDS ORDERED: Lidocaine -MPF 2% 2 ML VIAL ONE (12:07)
[2022-02-21] MEDS: *HR* HYDROcodone/Acet 5/325 mg TABLET PO PRN ×2 (12:55→22:34)
[2022-02-21] MEDS: Sucralfate 1 GM TABLET PO SCH ×2 (16:36→22:34)
[2022-02-21 19:18] LABS: Basophils % 0.3 %; Mean Platelet Volume 10.4 fL (9.4-12.4)
[2022-02-21 19:20] LABS: Eosinophils % 0.8 %; Hematocrit 23.4 % (35.3-44.9); Hemoglobin 7.9 g/dL (11.5-15.4); Immature Granulocytes % 0.5 % (0-4); Immature Platelets 2.7 % (1.1-6.1); Lymphocytes # 0.6 K/mcL (0.6-4.6); Lymphocytes % 15.9 %; Mean Corpuscular HGB Conc 33.8 g/dL (31.6-35.5); Mean Corpuscular Hemoglobin 31.9 pg (28.0-33.3); Mean Corpuscular Volume 94.4 fL (83.0-100.0); Monocytes # 0.3 K/mcL (0.0-1.3); Monocytes % 7.1 %; Neutrophils # 2.8 K/mcL (1.6-8.9); Red Blood Count 2.48 M/mcL (3.82-4.97); Red Cell Distribution Width 18.2 % (11.5-14.5); Segmented Neutrophils % 75.4 %; White Blood Count 3.7 K/mcL (4.3-11.1)
[2022-02-21 19:33] LABS: Calcium 8.7 mg/dL (8.6-10.3); Potassium 4.6 mEq/L (3.5-5.1)
[2022-02-21 20:32] LABS: Platelet Count 94 K/mcL (140-400)
[2022-02-22] MEDS ORDERED: Prochlorperazine 10 MG/2 ML VIAL IVP PRN (00:24)
[2022-02-22] MEDS: Levothyroxine 25 MCG TABLET PO SCH (06:44)
[2022-02-22 06:58] VITALS: BP 165/95; PULSE 82; TEMP 98.6; O2SAT 90
[2022-02-22] MEDS: amLODIPine 5 MG TABLET PO SCH (08:25)
[2022-02-22] MEDS: Calcium Acetate 667 MG CAPSULE PO SCH ×2 (08:25→11:38)
[2022-02-22] MEDS: Artificial Tears SOLN 15 ML BOTTLE BOTH EYES SCH (08:25)
[2022-02-22] MEDS: Vitamin B Complex/Vit C/Vit E 1 EACH TABLET PO SCH (08:26)
[2022-02-22] MEDS: Chlorhexidine Rinse 15 ML MOUTHWASH MM SCH (08:26)
[2022-02-22] MEDS: Amoxicillin/Clavulanate 500 MG TABLET PO SCH (08:26)
[2022-02-22] MEDS: Topiramate 25 MG TABLET PO SCH (08:26)
[2022-02-22] MEDS: carvediloL 25 MG TABLET PO SCH (08:26)
[2022-02-22] MEDS: Sucralfate 1 GM TABLET PO SCH ×2 (08:26→11:38)
[2022-02-22] MEDS: Aspirin Enteric Coated 81 MG Tablet PO SCH (08:26)
[2022-02-22] MEDS: *HR* HYDROcodone/Acet 5/325 mg TABLET PO PRN (08:28)
== END 2022-02-22 12:00 | disposition home or self-care (01) ==
LOC: 2ANU → SUATTDRO 18:54
PROVIDERS: ADMIT Internal Medicine; ATTEND Pharmacist
PROC: ENDOEBX (2022-02-21 13:00)

== ENCOUNTER 2022-03-23 22:31 | Observation (INO) ==
[2022-03-24 00:57] LABS: Basophils % 0.6 %; Eosinophils % 1.2 %; Immature Granulocytes % 0.6 % (0-4); Mean Corpuscular Volume 97.6 fL (83.0-100.0)
[2022-03-24 00:58] LABS: Eosinophils # 0.1 K/mcL (0.0-0.6); Hematocrit 24.3 % (35.3-44.9); Hemoglobin 7.7 g/dL (11.5-15.4); Immature Platelets 2.3 % (1.1-6.1); Lymphocytes # 0.7 K/mcL (0.6-4.6); Lymphocytes % 14.2 %; Mean Corpuscular HGB Conc 31.7 g/dL (31.6-35.5); Mean Corpuscular Hemoglobin 30.9 pg (28.0-33.3); Mean Platelet Volume 10.4 fL (9.4-12.4); Monocytes # 0.5 K/mcL (0.0-1.3); Monocytes % 9.5 %; Red Blood Count 2.49 M/mcL (3.82-4.97); Red Cell Distribution Width 16.1 % (11.5-14.5); Segmented Neutrophils % 73.9 %; White Blood Count 4.9 K/mcL (4.3-11.1)
[2022-03-24 01:19] LABS: Albumin 3.5 g/dL (3.5-5.7); Albumin/Globulin Ratio 1.5 (1.1-2.2); Bilirubin,Indirect 0.5 mg/dL (0.0-1.0); Bilirubin,Total 0.5 mg/dL (0.3-1.0); Calcium 8.7 mg/dL (8.6-10.3); Globulin 2.3 g/dL (2.4-3.5); Potassium 5.5 mEq/L (3.5-5.1); Total Protein 5.8 g/dL (6.4-8.9); Troponin I 0.07 ng/mL (< 0.04)
[2022-03-24 01:27] LABS: INR 1.3; Prothrombin Time 14.4 Seconds (9.4-12.1)
[2022-03-24] MEDS ORDERED: Albuterol 2.5 MG/3 ML NEBULIZER IH ONE (01:27)
[2022-03-24 01:30] LABS: Activated Partial Thrombo Time 33.8 Seconds (26.0-36.0)
[2022-03-24 01:45] LABS: Neutrophils # 3.6 K/mcL (1.6-8.9); Platelet Count 85 K/mcL (140-400)
[2022-03-24 01:48] LABS: Influenza A PCR Negative (Negative); Influenza B PCR Negative (Negative); Resp. Syncytial Virus PCR Negative (Negative); SARS-CoV-2 by PCR (In House) Negative (Negative)
[2022-03-24] MEDS ORDERED: *HR* HYDROcodone/Acet 5/325 mg TABLET PO PRN (03:53)
[2022-03-24] MEDS ORDERED: Ondansetron 4 MG/2 ML VIAL IVP PRN (03:53)
[2022-03-24] MEDS ORDERED: Melatonin 3 MG TABLET PO PRN (03:53)
[2022-03-24] MEDS ORDERED: Naloxone 0.4 MG/ML INJ IVP PRN (03:53)
[2022-03-24 04:57] LABS: Hematocrit 23.4 % (35.3-44.9); Hemoglobin 7.6 g/dL (11.5-15.4); Immature Granulocytes % 0.5 % (0-4); Mean Corpuscular HGB Conc 32.5 g/dL (31.6-35.5)
[2022-03-24 04:59] LABS: Basophils % 0.5 %; Eosinophils # 0.1 K/mcL (0.0-0.6); Eosinophils % 1.5 %; Immature Platelets 2.6 % (1.1-6.1); Lymphocytes # 0.7 K/mcL (0.6-4.6); Lymphocytes % 17.5 %; Mean Corpuscular Hemoglobin 31.7 pg (28.0-33.3); Mean Corpuscular Volume 97.5 fL (83.0-100.0); Mean Platelet Volume 10.5 fL (9.4-12.4); Monocytes # 0.4 K/mcL (0.0-1.3); Monocytes % 9.1 %; Neutrophils # 2.9 K/mcL (1.6-8.9); Red Cell Distribution Width 15.9 % (11.5-14.5); Segmented Neutrophils % 70.9 %; White Blood Count 4.1 K/mcL (4.3-11.1)
[2022-03-24 05:04] LABS: Platelet Count 84 K/mcL (140-400)
[2022-03-24 05:18] LABS: Albumin 3.4 g/dL (3.5-5.7); Albumin/Globulin Ratio 1.5 (1.1-2.2); Bilirubin,Total 0.5 mg/dL (0.3-1.0); Calcium 8.9 mg/dL (8.6-10.3); Globulin 2.3 g/dL (2.4-3.5); Magnesium 1.8 mg/dL (1.6-2.6); Phosphorous 10.7 mg/dL (2.7-4.5); Potassium 5.4 mEq/L (3.5-5.1); Total Protein 5.7 g/dL (6.4-8.9)
[2022-03-24 05:21] LABS: INR 1.3; Prothrombin Time 14.4 Seconds (9.4-12.1)
[2022-03-24 05:24] LABS: Activated Partial Thrombo Time 33.6 Seconds (26.0-36.0)
[2022-03-24] MEDS ORDERED: D5% in Water 1,000 ML IVC PRN (08:00)
[2022-03-24] MEDS ORDERED: *HR* Dextrose 50 % in Water (Syg) 50 ML SYRINGE IVP PRN (08:00)
[2022-03-24] MEDS ORDERED: Dextrose 4 GM Chewable Tablets PO PRN ×2 (08:00)
[2022-03-24] MEDS ORDERED: Chlorhexidine Rinse 15 ML MOUTHWASH MM SCH (09:00)
[2022-03-24] MEDS ORDERED: 0.9 % Sodium Chloride 250 ML IVC PRN (09:01)
[2022-03-24] MEDS ORDERED: *HR* Heparin 10,000 UNIT/10 ML VIAL IV PRN (09:01)
[2022-03-24] MEDS: Levothyroxine 25 MCG TABLET PO SCH (09:03)
[2022-03-24] MEDS: carvediloL 25 MG TABLET PO SCH ×2 (09:03→17:54)
[2022-03-24] MEDS: Nicotine 14 MG PATCH.TD24 TD SCH (09:03)
[2022-03-24] MEDS: Topiramate 25 MG TABLET PO SCH ×3 (09:03→21:01)
[2022-03-24] MEDS: Aspirin 81 MG TAB.CHEW PO SCH (09:03)
[2022-03-24] MEDS ORDERED: 0.9 % Sodium Chloride 1,000 ML PRIME SCH (09:15)
[2022-03-24 10:00] LABS: Hepatitis B Surface Antibody < 3.10 mIU/mL
[2022-03-24 10:05] LABS: Troponin I 0.07 ng/mL (< 0.04)
[2022-03-24 10:11] LABS: Hepatitis B Surface Antigen Nonreactive (Nonreactive)
[2022-03-24 11:01] LABS: Vitamin B12 696 pg/mL (250-1100)
[2022-03-24] MEDS: Acetaminophen 325 MG TABLET PO PRN (11:22)
[2022-03-24] MEDS ORDERED: *HR* Heparin 5,000 UNIT/ML VIAL SQ SCH (14:00)
[2022-03-24] MEDS ORDERED: Gabapentin 100 MG CAPSULE PO ONE (16:00)
[2022-03-24] MEDS: Calcium Acetate 667 MG CAPSULE PO SCH (17:54)
[2022-03-24] MEDS: *HR* Heparin 5,000 UNIT/ML VIAL SQ SCH ×2 (20:57→21:01)
[2022-03-24] MEDS ORDERED: Apixaban 5 MG TABLET PO SCH (21:00)
[2022-03-25] MEDS: *HR* Heparin 5,000 UNIT/ML VIAL SQ SCH ×3 (05:27→21:06)
[2022-03-25] MEDS: Levothyroxine 25 MCG TABLET PO SCH (05:28)
[2022-03-25] MEDS: Acetaminophen 325 MG TABLET PO PRN ×2 (05:28→19:44)
[2022-03-25 06:01] LABS: Basophils % 0.4 %; Red Cell Distribution Width 16.2 % (11.5-14.5)
[2022-03-25 06:03] LABS: Eosinophils % 1.6 %; Immature Granulocytes % 0.8 % (0-4); Immature Platelets 2.1 % (1.1-6.1); Lymphocytes # 0.6 K/mcL (0.6-4.6); Lymphocytes % 22.7 %; Mean Corpuscular HGB Conc 31.8 g/dL (31.6-35.5); Mean Corpuscular Volume 100.5 fL (83.0-100.0); Mean Platelet Volume 10.6 fL (9.4-12.4); Monocytes # 0.3 K/mcL (0.0-1.3); Monocytes % 9.8 %; Neutrophils # 1.7 K/mcL (1.6-8.9); Red Blood Count 2.19 M/mcL (3.82-4.97); Segmented Neutrophils % 64.7 %; White Blood Count 2.6 K/mcL (4.3-11.1)
[2022-03-25 06:10] LABS: Platelet Count 73 K/mcL (140-400); Potassium 4.3 mEq/L (3.5-5.1)
[2022-03-25] MEDS: Calcium Acetate 667 MG CAPSULE PO SCH ×3 (07:49→15:18)
[2022-03-25] MEDS: Nicotine 14 MG PATCH.TD24 TD SCH (07:49)
[2022-03-25] MEDS: Aspirin 81 MG TAB.CHEW PO SCH (07:50)
[2022-03-25] MEDS: carvediloL 25 MG TABLET PO SCH ×2 (07:50→15:21)
[2022-03-25] MEDS: Topiramate 25 MG TABLET PO SCH ×2 (07:50→21:06)
[2022-03-25] MEDS ORDERED: 0.9 % Sodium Chloride 250 ML IVC PRN (08:19)
[2022-03-25] MEDS ORDERED: *HR* Heparin 10,000 UNIT/10 ML VIAL IV PRN (08:19)
[2022-03-25] MEDS ORDERED: amLODIPine 5 MG TABLET PO SCH (13:20)
[2022-03-25] MEDS ORDERED: Gabapentin 100 MG CAPSULE PO SCH (16:00)
[2022-03-25 16:32] LABS: Hemoglobin 7.2 g/dL (11.5-15.4)
[2022-03-25 16:34] LABS: Hematocrit 21.8 % (35.3-44.9)
[2022-03-25 19:53] VITALS: BP 190/99; PULSE 86; TEMP 99; O2SAT 97
[2022-03-25] MEDS ORDERED: hydrALAZINE 25 MG TABLET PO SCH (21:00)
[2022-03-26] MEDS ORDERED: amLODIPine 5 MG TABLET PO SCH (09:00)
== END 2022-03-25 21:58 | disposition home or self-care (01) ==
LOC: 2NENU 22:31 → EMEROOARM 22:31 → SUATTDRO 03-24 02:08 → 2NENU 03-24 03:05
PROVIDERS: ADMIT Internal Medicine; ATTEND Internal Medicine

== ENCOUNTER 2022-03-28 21:42 | Inpatient (IN) ==
[2022-03-29 00:50] LABS: Basophils % 0.4 %; Eosinophils # 0.1 K/mcL (0.0-0.6); Eosinophils % 1.1 %; Hemoglobin 7.7 g/dL (11.5-15.4); Immature Granulocytes % 0.4 % (0-4); Lymphocytes # 0.9 K/mcL (0.6-4.6); Lymphocytes % 17.1 %; Mean Corpuscular HGB Conc 30.8 g/dL (31.6-35.5); Mean Corpuscular Hemoglobin 31.2 pg (28.0-33.3); Mean Corpuscular Volume 101.2 fL (83.0-100.0); Mean Platelet Volume 10.4 fL (9.4-12.4); Monocytes # 0.5 K/mcL (0.0-1.3); Monocytes % 8.6 %; Nucleated Red Blood Cells 0.6 /100 WBC (0); Platelet Count 104 K/mcL (140-400); Red Blood Count 2.47 M/mcL (3.82-4.97); Red Cell Distribution Width 17.2 % (11.5-14.5); Segmented Neutrophils % 72.4 %
[2022-03-29 00:57] LABS: Neutrophils # 3.8 K/mcL (1.6-8.9); White Blood Count 5.3 K/mcL (4.3-11.1)
[2022-03-29 01:01] LABS: INR 1.3; Prothrombin Time 14.5 Seconds (9.4-12.1)
[2022-03-29 01:03] LABS: Activated Partial Thrombo Time 31.5 Seconds (26.0-36.0)
[2022-03-29 01:14] LABS: Calcium 8.9 mg/dL (8.6-10.3); Potassium 5.6 mEq/L (3.5-5.1); Troponin I 0.03 ng/mL (< 0.04)
[2022-03-29] MEDS ORDERED: *HR* HYDROcodone/Acet 5/325 mg TABLET PO PRN (01:54)
[2022-03-29] MEDS ORDERED: Acetaminophen 325 MG TABLET PO PRN (01:54)
[2022-03-29] MEDS ORDERED: Ondansetron ODT 4 MG TAB.RAPDIS SL PRN (01:54)
[2022-03-29] MEDS ORDERED: Melatonin 3 MG TABLET PO PRN (01:54)
[2022-03-29] MEDS ORDERED: Naloxone 0.4 MG/ML INJ IVP PRN (01:54)
[2022-03-29] MEDS ORDERED: D5% in Water 1,000 ML IVC PRN (01:57)
[2022-03-29] MEDS ORDERED: Dextrose 4 GM Chewable Tablets PO PRN ×2 (01:57)
[2022-03-29] MEDS ORDERED: *HR* Dextrose 50 % in Water (Syg) 50 ML SYRINGE IVP PRN (01:57)
[2022-03-29] MEDS: SODIUM ZIRCONIUM CYCLOSILICATE 5 GM POWD.PACK PO SCH ×3 (04:11→15:52)
[2022-03-29 05:07] LABS: Basophils % 0.5 %; Eosinophils # 0.1 K/mcL (0.0-0.6); Eosinophils % 1.4 %; Hematocrit 25.2 % (35.3-44.9); Immature Granulocytes % 0.5 % (0-4); Immature Platelets 3.2 % (1.1-6.1); Lymphocytes # 0.8 K/mcL (0.6-4.6); Lymphocytes % 17.5 %; Mean Corpuscular HGB Conc 31.7 g/dL (31.6-35.5); Mean Corpuscular Hemoglobin 32.1 pg (28.0-33.3); Mean Corpuscular Volume 101.2 fL (83.0-100.0); Mean Platelet Volume 10.9 fL (9.4-12.4); Monocytes # 0.4 K/mcL (0.0-1.3); Neutrophils # 3.2 K/mcL (1.6-8.9); Nucleated Red Blood Cells 0.9 /100 WBC (0); Platelet Count 83 K/mcL (140-400); Red Blood Count 2.49 M/mcL (3.82-4.97); Red Cell Distribution Width 17.3 % (11.5-14.5); Segmented Neutrophils % 72.1 %; White Blood Count 4.4 K/mcL (4.3-11.1)
[2022-03-29 05:23] LABS: Albumin 3.6 g/dL (3.5-5.7); Albumin/Globulin Ratio 1.4 (1.1-2.2); Bilirubin,Total 0.5 mg/dL (0.3-1.0); Calcium 8.9 mg/dL (8.6-10.3); Globulin 2.5 g/dL (2.4-3.5); Magnesium 1.9 mg/dL (1.6-2.6); Phosphorous 6.3 mg/dL (2.7-4.5); Potassium 5.3 mEq/L (3.5-5.1); Total Protein 6.1 g/dL (6.4-8.9)
[2022-03-29] MEDS: *HR* OxyCODONE Immed Rel 5 MG TABLET PO PRN ×2 (06:18→21:06)
[2022-03-29] MEDS: Levothyroxine 25 MCG TABLET PO SCH (06:19)
[2022-03-29] MEDS: Insulin LISPRO 300 UNITS/3 ML VIAL SUBQ SCH ×3 (07:28→16:35)
[2022-03-29] MEDS ORDERED: Ethyl Chloride Spray Bottle (104 SPRAY/BOTTLE) TP PRN (08:47)
[2022-03-29] MEDS ORDERED: 0.9 % Sodium Chloride 250 ML IVC PRN (08:47)
[2022-03-29] MEDS ORDERED: hydrALAZINE 25 MG TABLET PO SCH ×2 (09:00→16:15)
[2022-03-29] MEDS ORDERED: 0.9 % Sodium Chloride 1,000 ML PRIME SCH (09:00)
[2022-03-29] MEDS: amLODIPine 5 MG TABLET PO SCH (10:17)
[2022-03-29] MEDS: carvediloL 25 MG TABLET PO SCH ×2 (10:17→16:30)
[2022-03-29] MEDS: Aspirin Enteric Coated 81 MG Tablet PO SCH (10:21)
[2022-03-29] MEDS: hydrOXYzine pamoate 25 MG CAPSULE PO PRN ×2 (10:36→21:07)
[2022-03-29] MEDS: hydrALAZINE 25 MG TABLET PO SCH ×2 (16:30→21:07)
[2022-03-29] MEDS ORDERED: Insulin LISPRO 300 UNITS/3 ML VIAL SUBQ SCH (21:00)
[2022-03-30] MEDS ORDERED: Benzocaine 20% 12 APPL GEL..GRAM. TP PRN (00:26)
[2022-03-30 01:18] LABS: Mean Corpuscular Volume 102.4 fL (83.0-100.0); Mean Platelet Volume 10.5 fL (9.4-12.4)
[2022-03-30 01:20] LABS: Hematocrit 21.3 % (35.3-44.9); Hemoglobin 6.6 g/dL (11.5-15.4); Immature Platelets 2.1 % (1.1-6.1); Mean Corpuscular Hemoglobin 31.7 pg (28.0-33.3); Red Blood Count 2.08 M/mcL (3.82-4.97); Red Cell Distribution Width 17.4 % (11.5-14.5); White Blood Count 3.2 K/mcL (4.3-11.1)
[2022-03-30 01:36] LABS: Potassium 3.9 mEq/L (3.5-5.1)
[2022-03-30] MEDS: *HR* OxyCODONE Immed Rel 5 MG TABLET PO PRN (06:29)
[2022-03-30] MEDS: hydrOXYzine pamoate 25 MG CAPSULE PO PRN (06:29)
[2022-03-30] MEDS: Levothyroxine 25 MCG TABLET PO SCH (06:29)
[2022-03-30 08:22] LABS: Hemoglobin 7.8 g/dL (11.5-15.4)
[2022-03-30] MEDS ORDERED: *HR* Heparin 10,000 UNIT/10 ML VIAL IV PRN (08:46)
[2022-03-30] MEDS ORDERED: 0.9 % Sodium Chloride 250 ML IVC PRN (08:46)
[2022-03-30] MEDS: Insulin LISPRO 300 UNITS/3 ML VIAL SUBQ SCH ×3 (09:00→17:18)
[2022-03-30] MEDS ORDERED: Gabapentin 100 MG CAPSULE PO SCH (09:00)
[2022-03-30] MEDS: amLODIPine 5 MG TABLET PO SCH (09:03)
[2022-03-30] MEDS: carvediloL 25 MG TABLET PO SCH ×2 (09:03→18:12)
[2022-03-30] MEDS: hydrALAZINE 25 MG TABLET PO SCH (09:04)
[2022-03-30] MEDS: Aspirin Enteric Coated 81 MG Tablet PO SCH (09:04)
[2022-03-30 10:52] VITALS: PULSE 79; O2SAT 97
[2022-03-30 18:17] VITALS: BP 197/79; TEMP 98.4
[2022-03-30] MEDS ORDERED: Insulin DETEMIR 100 UNIT/ML X5UNITS SUBQ SCH (21:00)
== END 2022-03-30 19:20 | disposition home or self-care (01) | DRG 425 ==
LOC: EMEROOARM 21:42 → 2ANU 21:42 → SUATTDRO 03-29 01:57 → 2ANU 03-29 03:00 → SUATTDRO 03-29 14:16
PROVIDERS: ADMIT Internal Medicine; ATTEND Family Medicine

== ENCOUNTER 2022-04-08 03:21 | Inpatient (IN) ==
[2022-04-08] MEDS ORDERED: *HR* LORazepam 2 MG/ML VIAL IVP ONE (03:59)
[2022-04-08] MEDS ORDERED: Ondansetron 4 MG/2 ML VIAL IVP ONE (03:59)
[2022-04-08 04:56] LABS: Basophils % 0.4 %; Eosinophils % 0.4 %; Hemoglobin 8.6 g/dL (11.5-15.4); Immature Granulocytes % 0.5 % (0-4); Lymphocytes # 0.6 K/mcL (0.6-4.6); Lymphocytes % 10.5 %; Mean Corpuscular HGB Conc 30.7 g/dL (31.6-35.5); Mean Corpuscular Hemoglobin 32.3 pg (28.0-33.3); Mean Corpuscular Volume 105.3 fL (83.0-100.0); Mean Platelet Volume 10.5 fL (9.4-12.4); Monocytes # 0.4 K/mcL (0.0-1.3); Monocytes % 7.6 %; Neutrophils # 4.5 K/mcL (1.6-8.9); Nucleated Red Blood Cells 2.2 /100 WBC (0); Platelet Count 144 K/mcL (140-400); Red Blood Count 2.66 M/mcL (3.82-4.97); Red Cell Distribution Width 19.9 % (11.5-14.5); Segmented Neutrophils % 80.6 %; White Blood Count 5.5 K/mcL (4.3-11.1)
[2022-04-08 05:35] LABS: Albumin 3.7 g/dL (3.5-5.7); Albumin/Globulin Ratio 1.2 (1.1-2.2); Bilirubin,Total 1.1 mg/dL (0.3-1.0); Calcium 9.2 mg/dL (8.6-10.3); Globulin 3.2 g/dL (2.4-3.5); Potassium 7.2 mEq/L (3.5-5.1); Total Protein 6.9 g/dL (6.4-8.9); Troponin I 0.07 ng/mL (< 0.04)
[2022-04-08] MEDS ORDERED: Albuterol Neb 7.5 MG, Sodium Chloride for inhalation 12 ML IH ONE (05:38)
[2022-04-08] MEDS ORDERED: *HR* Dextrose 50 % in Water (Vial) 50 ML VIAL IVP ONE (05:39)
[2022-04-08] MEDS ORDERED: Insulin Human Regular 4 UNIT in 0.9 % Sodium Chloride 10 ML IV ONE (05:39)
[2022-04-08] MEDS ORDERED: 0.9 % Sodium Chloride 250 ML IVC PRN (05:42)
[2022-04-08] MEDS ORDERED: 0.9 % Sodium Chloride 2,000 ML PRIME SCH (05:45)
[2022-04-08] MEDS ORDERED: amLODIPine 5 MG TABLET PO STA (06:30)
[2022-04-08] MEDS ORDERED: carvediloL 25 MG TABLET PO STA (06:30)
[2022-04-08] MEDS ORDERED: Naloxone 0.4 MG/ML INJ IVP PRN (07:12)
[2022-04-08] MEDS ORDERED: hydrOXYzine pamoate 25 MG CAPSULE PO PRN (07:14)
[2022-04-08] MEDS ORDERED: Albuterol 2.5 MG/3 ML NEBULIZER IH PRN (07:14)
[2022-04-08] MEDS ORDERED: D5% in Water 1,000 ML IVC PRN (07:16)
[2022-04-08] MEDS ORDERED: Dextrose Gel 15 GM/37.5 ML TUBE PO PRN ×2 (07:16)
[2022-04-08] MEDS ORDERED: *HR* Dextrose 50 % in Water (Syg) 50 ML SYRINGE IVP PRN (07:16)
[2022-04-08] MEDS ORDERED: *HR* Heparin 10,000 UNIT/10 ML VIAL IV PRN (07:55)
[2022-04-08] MEDS ORDERED: amLODIPine 5 MG TABLET PO SCH (09:00)
[2022-04-08] MEDS: Insulin LISPRO 300 UNITS/3 ML VIAL SUBQ SCH ×3 (10:31→16:18)
[2022-04-08] MEDS: hydrALAZINE 25 MG TABLET PO SCH ×2 (10:31→20:32)
[2022-04-08] MEDS: Topiramate 25 MG TABLET PO SCH ×2 (12:20→20:32)
[2022-04-08] MEDS: Levothyroxine 25 MCG TABLET PO SCH (12:25)
[2022-04-08] MEDS ORDERED: Calcium Acetate 667 MG CAPSULE PO PRN (14:54)
[2022-04-08] MEDS: Calcium Acetate 667 MG CAPSULE PO SCH (15:45)
[2022-04-08] MEDS: Aspirin Enteric Coated 81 MG Tablet PO SCH (15:45)
[2022-04-08] MEDS: Gabapentin 100 MG CAPSULE PO SCH (15:47)
[2022-04-08] MEDS: carvediloL 25 MG TABLET PO SCH (15:49)
[2022-04-08] MEDS: *HR* OxyCODONE Immed Rel 5 MG TABLET PO PRN (20:36)
[2022-04-09 02:43] LABS: Basophils % 0.3 %; Hematocrit 22.5 % (35.3-44.9); Hemoglobin 7.1 g/dL (11.5-15.4); Immature Granulocytes % 0.3 % (0-4); Lymphocytes # 0.5 K/mcL (0.6-4.6); Lymphocytes % 17.9 %; Mean Corpuscular HGB Conc 31.6 g/dL (31.6-35.5); Mean Corpuscular Hemoglobin 33.3 pg (28.0-33.3); Mean Corpuscular Volume 105.6 fL (83.0-100.0); Mean Platelet Volume 10.6 fL (9.4-12.4); Monocytes # 0.3 K/mcL (0.0-1.3); Monocytes % 11.4 %; Nucleated Red Blood Cells 2.4 /100 WBC (0); Platelet Count 109 K/mcL (140-400); Red Blood Count 2.13 M/mcL (3.82-4.97); Red Cell Distribution Width 20.4 % (11.5-14.5); Segmented Neutrophils % 69.1 %; White Blood Count 2.9 K/mcL (4.3-11.1)
[2022-04-09 03:02] LABS: Calcium 7.9 mg/dL (8.6-10.3); Magnesium 1.8 mg/dL (1.6-2.6); Phosphorous 4.8 mg/dL (2.7-4.5); Potassium 4.2 mEq/L (3.5-5.1)
[2022-04-09 03:10] LABS: % Iron Saturation 43 % (15-50); Iron 104 mcg/dL (50-170); Transferrin 172 mg/dL (203-362)
[2022-04-09 03:20] LABS: Ferritin 402 ng/mL (10-120)
[2022-04-09] MEDS: Levothyroxine 25 MCG TABLET PO SCH (05:00)
[2022-04-09] MEDS: *HR* OxyCODONE Immed Rel 5 MG TABLET PO PRN ×2 (05:01→14:53)
[2022-04-09] MEDS ORDERED: 0.9 % Sodium Chloride 250 ML IVC PRN (06:49)
[2022-04-09] MEDS: Calcium Acetate 667 MG CAPSULE PO SCH ×3 (07:40→16:58)
[2022-04-09] MEDS: carvediloL 25 MG TABLET PO SCH ×2 (07:40→16:58)
[2022-04-09] MEDS: Insulin LISPRO 300 UNITS/3 ML VIAL SUBQ SCH ×3 (07:44→17:10)
[2022-04-09] MEDS: Aspirin Enteric Coated 81 MG Tablet PO SCH (08:13)
[2022-04-09] MEDS: hydrOXYzine pamoate 25 MG CAPSULE PO PRN ×2 (08:13→14:53)
[2022-04-09] MEDS: Topiramate 25 MG TABLET PO SCH ×2 (08:13→21:00)
[2022-04-09] MEDS: amLODIPine 5 MG TABLET PO SCH (08:20)
[2022-04-09] MEDS: hydrALAZINE 25 MG TABLET PO SCH ×2 (08:20→21:01)
[2022-04-09] MEDS ORDERED: *HR* LORazepam 2 MG/ML VIAL IVP ONE (10:00)
[2022-04-09] MEDS ORDERED: methylPREDNISolone 125 MG/2 ML VIAL IVP ONE (18:15)
[2022-04-09] MEDS: Insulin DETEMIR 100 UNIT/ML X5UNITS SUBQ SCH (21:04)
[2022-04-10 02:40] LABS: Hematocrit 25.1 % (35.3-44.9); Hemoglobin 7.5 g/dL (11.5-15.4); Immature Granulocytes % 0.5 % (0-4); Lymphocytes # 0.2 K/mcL (0.6-4.6); Lymphocytes % 8.6 %; Mean Corpuscular HGB Conc 29.9 g/dL (31.6-35.5); Mean Corpuscular Hemoglobin 32.6 pg (28.0-33.3); Mean Corpuscular Volume 109.1 fL (83.0-100.0); Mean Platelet Volume 10.4 fL (9.4-12.4); Monocytes % 1.4 %; Platelet Count 100 K/mcL (140-400); Red Cell Distribution Width 20.6 % (11.5-14.5); Segmented Neutrophils % 89.5 %; White Blood Count 2.2 K/mcL (4.3-11.1)
[2022-04-10 03:00] LABS: Calcium 8.6 mg/dL (8.6-10.3); Magnesium 1.8 mg/dL (1.6-2.6); Potassium 5.2 mEq/L (3.5-5.1)
[2022-04-10] MEDS: Levothyroxine 25 MCG TABLET PO SCH (05:35)
[2022-04-10] MEDS: hydrOXYzine pamoate 25 MG CAPSULE PO PRN ×2 (05:48→20:57)
[2022-04-10] MEDS: Insulin LISPRO 300 UNITS/3 ML VIAL SUBQ SCH ×3 (07:55→16:40)
[2022-04-10] MEDS: Topiramate 25 MG TABLET PO SCH ×2 (07:59→20:59)
[2022-04-10] MEDS: hydrALAZINE 25 MG TABLET PO SCH (07:59)
[2022-04-10] MEDS: Calcium Acetate 667 MG CAPSULE PO SCH ×3 (07:59→16:39)
[2022-04-10] MEDS: amLODIPine 5 MG TABLET PO SCH (07:59)
[2022-04-10] MEDS: Aspirin Enteric Coated 81 MG Tablet PO SCH (07:59)
[2022-04-10] MEDS: carvediloL 25 MG TABLET PO SCH ×2 (08:00→16:40)
[2022-04-10] MEDS: *HR* OxyCODONE Immed Rel 5 MG TABLET PO PRN ×2 (08:46→21:01)
[2022-04-10] MEDS: Benzocaine 20% 12 APPL GEL..GRAM. TP PRN (08:47)
[2022-04-10] MEDS: *HR* LORazepam 2 MG/ML VIAL IVP PRN ×2 (12:00→22:21)
[2022-04-10] MEDS ORDERED: methylPREDNISolone 125 MG/2 ML VIAL IVP ONE (18:04)
[2022-04-10] MEDS: Insulin DETEMIR 100 UNIT/ML X5UNITS SUBQ SCH ×3 (20:56→22:15)
[2022-04-10] MEDS ORDERED: hydrALAZINE 25 MG TABLET PO SCH (21:00)
[2022-04-10] MEDS ORDERED: Dextrose Gel 15 GM/37.5 ML TUBE PO PRN ×2 (21:08)
[2022-04-10] MEDS ORDERED: D5% in Water 1,000 ML IVC PRN (21:08)
[2022-04-10] MEDS ORDERED: *HR* Dextrose 50 % in Water (Syg) 50 ML SYRINGE IVP PRN (21:08)
[2022-04-10] MEDS ORDERED: Insulin LISPRO 300 UNITS/3 ML VIAL SUBQ SCH (21:15)
[2022-04-11] MEDS: *HR* OxyCODONE Immed Rel 5 MG TABLET PO PRN (05:55)
[2022-04-11] MEDS: Levothyroxine 25 MCG TABLET PO SCH (05:56)
[2022-04-11] MEDS: Insulin LISPRO 300 UNITS/3 ML VIAL SUBQ SCH ×6 (07:39→19:19)
[2022-04-11] MEDS ORDERED: *HR* Heparin 10,000 UNIT/10 ML VIAL IV PRN ×2 (09:29)
[2022-04-11] MEDS ORDERED: 0.9 % Sodium Chloride 250 ML IVC PRN (09:29)
[2022-04-11 11:53] LABS: Basophils % 0.4 %; Eosinophils # 0.1 K/mcL (0.0-0.6); Eosinophils % 1.1 %; Hematocrit 24.4 % (35.3-44.9); Hemoglobin 7.4 g/dL (11.5-15.4); Immature Granulocytes % 0.6 % (0-4); Lymphocytes # 0.7 K/mcL (0.6-4.6); Mean Corpuscular HGB Conc 30.3 g/dL (31.6-35.5); Mean Corpuscular Hemoglobin 32.7 pg (28.0-33.3); Mean Platelet Volume 10.5 fL (9.4-12.4); Monocytes # 0.4 K/mcL (0.0-1.3); Monocytes % 7.6 %; Neutrophils # 4.1 K/mcL (1.6-8.9); Platelet Count 114 K/mcL (140-400); Red Blood Count 2.26 M/mcL (3.82-4.97); Red Cell Distribution Width 20.6 % (11.5-14.5); Segmented Neutrophils % 77.3 %; White Blood Count 5.3 K/mcL (4.3-11.1)
[2022-04-11 11:57] LABS: Albumin 3.5 g/dL (3.5-5.7); Albumin/Globulin Ratio 1.2 (1.1-2.2); Bilirubin,Total 0.5 mg/dL (0.3-1.0); Calcium 8.8 mg/dL (8.6-10.3); Globulin 2.9 g/dL (2.4-3.5); Potassium 4.3 mEq/L (3.5-5.1); Total Protein 6.4 g/dL (6.4-8.9)
[2022-04-11] MEDS: hydrOXYzine pamoate 25 MG CAPSULE PO PRN ×2 (12:06→20:00)
[2022-04-11] MEDS: carvediloL 25 MG TABLET PO SCH ×2 (12:52→19:18)
[2022-04-11] MEDS: amLODIPine 5 MG TABLET PO SCH (12:53)
[2022-04-11] MEDS: hydrALAZINE 25 MG TABLET PO SCH ×3 (12:53→20:01)
[2022-04-11] MEDS: Aspirin Enteric Coated 81 MG Tablet PO SCH (15:20)
[2022-04-11] MEDS: Calcium Acetate 667 MG CAPSULE PO SCH ×2 (15:20→18:23)
[2022-04-11] MEDS: Gabapentin 100 MG CAPSULE PO SCH (15:20)
[2022-04-11] MEDS: Topiramate 25 MG TABLET PO SCH ×2 (15:23→20:00)
[2022-04-11] MEDS: Insulin DETEMIR 100 UNIT/ML X5UNITS SUBQ SCH (20:02)
[2022-04-11] MEDS: *HR* LORazepam 2 MG/ML VIAL IVP PRN (22:50)
[2022-04-12] MEDS: Levothyroxine 25 MCG TABLET PO SCH (06:03)
[2022-04-12] MEDS: hydrOXYzine pamoate 25 MG CAPSULE PO PRN ×2 (06:03→21:20)
[2022-04-12] MEDS: amLODIPine 5 MG TABLET PO SCH (07:50)
[2022-04-12] MEDS: Topiramate 25 MG TABLET PO SCH ×2 (07:50→21:21)
[2022-04-12] MEDS: Insulin LISPRO 300 UNITS/3 ML VIAL SUBQ SCH ×6 (07:51→15:13)
[2022-04-12] MEDS: carvediloL 25 MG TABLET PO SCH ×2 (07:51→17:46)
[2022-04-12] MEDS: hydrALAZINE 25 MG TABLET PO SCH ×3 (07:51→21:20)
[2022-04-12] MEDS: Aspirin Enteric Coated 81 MG Tablet PO SCH (07:51)
[2022-04-12] MEDS: Calcium Acetate 667 MG CAPSULE PO SCH ×3 (07:51→17:48)
[2022-04-12] MEDS: *HR* LORazepam 2 MG/ML VIAL IVP PRN ×2 (15:08→21:21)
[2022-04-12] MEDS: *HR* OxyCODONE Immed Rel 5 MG TABLET PO PRN ×2 (15:09→21:20)
[2022-04-12] MEDS: *HR* Heparin 5,000 UNIT/ML VIAL SQ SCH ×2 (15:10→19:27)
[2022-04-12] MEDS: Insulin DETEMIR 100 UNIT/ML X5UNITS SUBQ SCH (21:35)
[2022-04-13] MEDS: *HR* Heparin 5,000 UNIT/ML VIAL SQ SCH ×3 (05:45→20:03)
[2022-04-13] MEDS: hydrOXYzine pamoate 25 MG CAPSULE PO PRN ×2 (06:28→16:01)
[2022-04-13] MEDS: Levothyroxine 25 MCG TABLET PO SCH (06:28)
[2022-04-13 07:13] LABS: Basophils % 0.2 %; Immature Granulocytes % 0.4 % (0-4)
[2022-04-13 07:15] LABS: Eosinophils # 0.1 K/mcL (0.0-0.6); Hematocrit 26.5 % (35.3-44.9); Immature Platelets 2.5 % (1.1-6.1); Lymphocytes # 0.7 K/mcL (0.6-4.6); Lymphocytes % 15.3 %; Mean Corpuscular HGB Conc 30.2 g/dL (31.6-35.5); Mean Corpuscular Hemoglobin 32.5 pg (28.0-33.3); Mean Corpuscular Volume 107.7 fL (83.0-100.0); Mean Platelet Volume 10.1 fL (9.4-12.4); Monocytes # 0.5 K/mcL (0.0-1.3); Neutrophils # 3.3 K/mcL (1.6-8.9); Red Blood Count 2.46 M/mcL (3.82-4.97); Red Cell Distribution Width 19.7 % (11.5-14.5); Segmented Neutrophils % 72.1 %; White Blood Count 4.6 K/mcL (4.3-11.1)
[2022-04-13] MEDS: Insulin LISPRO 300 UNITS/3 ML VIAL SUBQ SCH ×6 (07:29→17:33)
[2022-04-13 07:36] LABS: Platelet Count 95 K/mcL (140-400)
[2022-04-13 07:37] LABS: Calcium 9.1 mg/dL (8.6-10.3); Magnesium 1.8 mg/dL (1.6-2.6); Phosphorous 5.1 mg/dL (2.7-4.5); Potassium 5.7 mEq/L (3.5-5.1)
[2022-04-13] MEDS: amLODIPine 5 MG TABLET PO SCH (07:55)
[2022-04-13] MEDS: hydrALAZINE 25 MG TABLET PO SCH ×3 (07:55→20:03)
[2022-04-13] MEDS: carvediloL 25 MG TABLET PO SCH ×2 (07:55→16:05)
[2022-04-13] MEDS: Topiramate 25 MG TABLET PO SCH ×2 (07:55→20:03)
[2022-04-13] MEDS: Gabapentin 100 MG CAPSULE PO SCH (07:55)
[2022-04-13] MEDS: Aspirin Enteric Coated 81 MG Tablet PO SCH (07:55)
[2022-04-13] MEDS ORDERED: *HR* Heparin 10,000 UNIT/10 ML VIAL IV PRN ×2 (08:37)
[2022-04-13] MEDS ORDERED: 0.9 % Sodium Chloride 250 ML IVC PRN (08:37)
[2022-04-13] MEDS: *HR* OxyCODONE Immed Rel 5 MG TABLET PO PRN (09:01)
[2022-04-13] MEDS: Ondansetron 4 MG/2 ML VIAL IVP PRN (09:01)
[2022-04-13] MEDS: Calcium Acetate 667 MG CAPSULE PO SCH ×3 (09:02→16:02)
[2022-04-13] MEDS: *HR* LORazepam 2 MG/ML VIAL IVP PRN (13:52)
[2022-04-13] MEDS: Insulin DETEMIR 100 UNIT/ML X5UNITS SUBQ SCH (20:03)
[2022-04-14] MEDS: Acetaminophen 325 MG TABLET PO PRN (02:30)
[2022-04-14] MEDS: *HR* Heparin 5,000 UNIT/ML VIAL SQ SCH ×3 (05:01→20:43)
[2022-04-14] MEDS: Levothyroxine 25 MCG TABLET PO SCH (05:01)
[2022-04-14] MEDS: *HR* OxyCODONE Immed Rel 5 MG TABLET PO PRN ×2 (09:10→20:42)
[2022-04-14] MEDS: Calcium Acetate 667 MG CAPSULE PO SCH ×3 (09:11→17:06)
[2022-04-14] MEDS: Aspirin Enteric Coated 81 MG Tablet PO SCH (09:11)
[2022-04-14] MEDS: carvediloL 25 MG TABLET PO SCH ×2 (09:11→17:06)
[2022-04-14] MEDS: Topiramate 25 MG TABLET PO SCH ×2 (09:11→20:42)
[2022-04-14] MEDS: amLODIPine 5 MG TABLET PO SCH (09:11)
[2022-04-14] MEDS: hydrALAZINE 25 MG TABLET PO SCH ×3 (09:11→20:42)
[2022-04-14] MEDS: Insulin LISPRO 300 UNITS/3 ML VIAL SUBQ SCH ×6 (09:12→17:10)
[2022-04-14] MEDS: hydrOXYzine pamoate 25 MG CAPSULE PO PRN (17:06)
[2022-04-14] MEDS: Insulin DETEMIR 100 UNIT/ML X5UNITS SUBQ SCH (20:43)
[2022-04-15] MEDS: *HR* LORazepam 2 MG/ML VIAL IVP PRN ×2 (00:26→09:23)
[2022-04-15] MEDS: hydrOXYzine pamoate 25 MG CAPSULE PO PRN ×3 (00:26→20:08)
[2022-04-15 05:39] LABS: Basophils % 0.2 %; Eosinophils % 1.4 %; Hemoglobin 7.8 g/dL (11.5-15.4); Immature Granulocytes % 0.5 % (0-4); Mean Corpuscular Volume 106.8 fL (83.0-100.0)
[2022-04-15 05:42] LABS: Eosinophils # 0.1 K/mcL (0.0-0.6); Hematocrit 25.3 % (35.3-44.9); Lymphocytes # 0.6 K/mcL (0.6-4.6); Lymphocytes % 12.9 %; Mean Corpuscular HGB Conc 30.8 g/dL (31.6-35.5); Mean Corpuscular Hemoglobin 32.9 pg (28.0-33.3); Mean Platelet Volume 10.8 fL (9.4-12.4); Monocytes # 0.5 K/mcL (0.0-1.3); Monocytes % 12.5 %; Neutrophils # 3.1 K/mcL (1.6-8.9); Red Blood Count 2.37 M/mcL (3.82-4.97); Red Cell Distribution Width 18.6 % (11.5-14.5); Segmented Neutrophils % 72.5 %; White Blood Count 4.3 K/mcL (4.3-11.1)
[2022-04-15 05:49] LABS: Platelet Count 88 K/mcL (140-400)
[2022-04-15 05:59] LABS: Calcium 9.1 mg/dL (8.6-10.3); Potassium 5.8 mEq/L (3.5-5.1)
[2022-04-15] MEDS: *HR* Heparin 5,000 UNIT/ML VIAL SQ SCH (06:57)
[2022-04-15] MEDS: Levothyroxine 25 MCG TABLET PO SCH (06:58)
[2022-04-15] MEDS: Insulin LISPRO 300 UNITS/3 ML VIAL SUBQ SCH ×6 (08:01→17:55)
[2022-04-15] MEDS ORDERED: 0.9 % Sodium Chloride 250 ML IVC PRN (08:39)
[2022-04-15] MEDS ORDERED: *HR* Heparin 10,000 UNIT/10 ML VIAL IV PRN ×2 (08:39)
[2022-04-15] MEDS: Calcium Acetate 667 MG CAPSULE PO SCH ×3 (09:12→18:25)
[2022-04-15] MEDS: amLODIPine 5 MG TABLET PO SCH (09:13)
[2022-04-15] MEDS: Topiramate 25 MG TABLET PO SCH ×2 (09:13→20:05)
[2022-04-15] MEDS: carvediloL 25 MG TABLET PO SCH ×2 (09:13→18:25)
[2022-04-15] MEDS: hydrALAZINE 25 MG TABLET PO SCH ×3 (09:13→20:04)
[2022-04-15] MEDS: Gabapentin 100 MG CAPSULE PO SCH (09:13)
[2022-04-15] MEDS: *HR* OxyCODONE Immed Rel 5 MG TABLET PO PRN ×2 (09:13→20:05)
[2022-04-15] MEDS: Aspirin Enteric Coated 81 MG Tablet PO SCH (09:13)
[2022-04-15] MEDS: Ondansetron 4 MG/2 ML VIAL IVP PRN (09:24)
[2022-04-15] MEDS: Insulin DETEMIR 100 UNIT/ML X5UNITS SUBQ SCH (20:15)
[2022-04-16 02:00] LABS: Basophils % 0.3 %; Hemoglobin 7.4 g/dL (11.5-15.4); Immature Granulocytes % 0.3 % (0-4); Mean Platelet Volume 11.2 fL (9.4-12.4); White Blood Count 2.9 K/mcL (4.3-11.1)
[2022-04-16 02:03] LABS: Eosinophils % 1.4 %; Hematocrit 24.3 % (35.3-44.9); Immature Platelets 3.6 % (1.1-6.1); Lymphocytes % 15.3 %; Mean Corpuscular HGB Conc 30.5 g/dL (31.6-35.5); Mean Corpuscular Hemoglobin 32.5 pg (28.0-33.3); Mean Corpuscular Volume 106.6 fL (83.0-100.0); Monocytes # 0.4 K/mcL (0.0-1.3); Red Blood Count 2.28 M/mcL (3.82-4.97); Red Cell Distribution Width 18.5 % (11.5-14.5); Segmented Neutrophils % 67.7 %
[2022-04-16] MEDS: *HR* LORazepam 2 MG/ML VIAL IVP PRN ×2 (02:03→17:03)
[2022-04-16 02:05] LABS: Lymphocytes # 0.4 K/mcL (0.6-4.6); Platelet Count 77 K/mcL (140-400)
[2022-04-16] MEDS: hydrOXYzine pamoate 25 MG CAPSULE PO PRN (06:13)
[2022-04-16] MEDS: Levothyroxine 25 MCG TABLET PO SCH (06:17)
[2022-04-16] MEDS: Topiramate 25 MG TABLET PO SCH ×2 (10:11→21:06)
[2022-04-16] MEDS: carvediloL 25 MG TABLET PO SCH ×2 (10:11→18:23)
[2022-04-16] MEDS: hydrALAZINE 25 MG TABLET PO SCH ×3 (10:11→21:05)
[2022-04-16] MEDS: Aspirin Enteric Coated 81 MG Tablet PO SCH (10:11)
[2022-04-16] MEDS: amLODIPine 5 MG TABLET PO SCH (10:11)
[2022-04-16] MEDS: Calcium Acetate 667 MG CAPSULE PO SCH ×3 (10:13→18:23)
[2022-04-16] MEDS: Insulin LISPRO 300 UNITS/3 ML VIAL SUBQ SCH ×6 (10:14→18:23)
[2022-04-16] MEDS: Benzocaine 20% 12 APPL GEL..GRAM. TP PRN (20:40)
[2022-04-16] MEDS: Insulin DETEMIR 100 UNIT/ML X5UNITS SUBQ SCH (20:53)
[2022-04-16] MEDS: *HR* OxyCODONE Immed Rel 5 MG TABLET PO PRN (21:05)
[2022-04-17] MEDS: *HR* LORazepam 2 MG/ML VIAL IVP PRN ×3 (02:07→21:07)
[2022-04-17] MEDS: hydrOXYzine pamoate 25 MG CAPSULE PO PRN ×3 (02:15→22:34)
[2022-04-17 04:44] LABS: Eosinophils % 1.1 %; Hematocrit 25.3 % (35.3-44.9)
[2022-04-17 04:46] LABS: Basophils % 0.5 %; Hemoglobin 7.5 g/dL (11.5-15.4); Immature Granulocytes % 0.5 % (0-4); Immature Platelets 3.5 % (1.1-6.1); Lymphocytes # 0.6 K/mcL (0.6-4.6); Lymphocytes % 15.3 %; Mean Corpuscular HGB Conc 29.6 g/dL (31.6-35.5); Mean Corpuscular Hemoglobin 31.1 pg (28.0-33.3); Mean Platelet Volume 11.2 fL (9.4-12.4); Monocytes # 0.6 K/mcL (0.0-1.3); Monocytes % 16.9 %; Neutrophils # 2.4 K/mcL (1.6-8.9); Platelet Count 99 K/mcL (140-400); Red Blood Count 2.41 M/mcL (3.82-4.97); Red Cell Distribution Width 18.2 % (11.5-14.5); Segmented Neutrophils % 65.7 %; White Blood Count 3.7 K/mcL (4.3-11.1)
[2022-04-17 05:03] LABS: Calcium 8.9 mg/dL (8.6-10.3); Magnesium 1.9 mg/dL (1.6-2.6); Phosphorous 6.2 mg/dL (2.7-4.5); Potassium 5.4 mEq/L (3.5-5.1)
[2022-04-17] MEDS: Levothyroxine 25 MCG TABLET PO SCH (05:52)
[2022-04-17] MEDS: Benzocaine 20% 12 APPL GEL..GRAM. TP PRN (06:42)
[2022-04-17] MEDS: Calcium Acetate 667 MG CAPSULE PO SCH ×3 (08:36→17:36)
[2022-04-17] MEDS: Topiramate 25 MG TABLET PO SCH ×2 (08:36→21:07)
[2022-04-17] MEDS: amLODIPine 5 MG TABLET PO SCH (08:36)
[2022-04-17] MEDS: carvediloL 25 MG TABLET PO SCH ×2 (08:36→17:36)
[2022-04-17] MEDS: Aspirin Enteric Coated 81 MG Tablet PO SCH (08:37)
[2022-04-17] MEDS: hydrALAZINE 25 MG TABLET PO SCH ×3 (08:37→21:07)
[2022-04-17] MEDS: Insulin LISPRO 300 UNITS/3 ML VIAL SUBQ SCH ×6 (08:38→17:25)
[2022-04-17 10:59] LABS: Potassium 4.9 mEq/L (3.5-5.1)
[2022-04-17] MEDS: Insulin DETEMIR 100 UNIT/ML X5UNITS SUBQ SCH (21:07)
[2022-04-17] MEDS: *HR* OxyCODONE Immed Rel 5 MG TABLET PO PRN (22:33)
[2022-04-18] MEDS: *HR* LORazepam 2 MG/ML VIAL IVP PRN ×3 (03:44→18:03)
[2022-04-18] MEDS: Levothyroxine 25 MCG TABLET PO SCH (06:52)
[2022-04-18 08:15] LABS: Mean Corpuscular Hemoglobin 31.9 pg (28.0-33.3)
[2022-04-18 08:16] LABS: Magnesium 2.1 mg/dL (1.6-2.6)
[2022-04-18 08:17] LABS: Hematocrit 24.4 % (35.3-44.9); Hemoglobin 7.6 g/dL (11.5-15.4); Immature Platelets 4.5 % (1.1-6.1); Mean Corpuscular HGB Conc 31.1 g/dL (31.6-35.5); Mean Corpuscular Volume 102.5 fL (83.0-100.0); Red Blood Count 2.38 M/mcL (3.82-4.97); Red Cell Distribution Width 18.2 % (11.5-14.5)
[2022-04-18] MEDS ORDERED: 0.9 % Sodium Chloride 250 ML IVC PRN (08:33)
[2022-04-18] MEDS ORDERED: *HR* Heparin 10,000 UNIT/10 ML VIAL IV PRN (08:33)
[2022-04-18] MEDS: Insulin LISPRO 300 UNITS/3 ML VIAL SUBQ SCH ×6 (08:42→17:51)
[2022-04-18] MEDS: *HR* OxyCODONE Immed Rel 5 MG TABLET PO PRN ×2 (08:50→18:03)
[2022-04-18] MEDS: Topiramate 25 MG TABLET PO SCH ×2 (08:50→21:47)
[2022-04-18] MEDS: Aspirin Enteric Coated 81 MG Tablet PO SCH (08:50)
[2022-04-18] MEDS: Calcium Acetate 667 MG CAPSULE PO SCH ×3 (08:50→17:50)
[2022-04-18] MEDS: hydrOXYzine pamoate 25 MG CAPSULE PO PRN ×2 (08:51→18:03)
[2022-04-18] MEDS: SODIUM ZIRCONIUM CYCLOSILICATE 5 GM POWD.PACK PO SCH (08:52)
[2022-04-18] MEDS: Gabapentin 100 MG CAPSULE PO SCH (08:55)
[2022-04-18] MEDS: hydrALAZINE 25 MG TABLET PO SCH ×3 (11:45→21:44)
[2022-04-18] MEDS: carvediloL 25 MG TABLET PO SCH ×2 (11:45→17:50)
[2022-04-18] MEDS: NIFEdipine XL (24 HR) 60 MG TAB.ER.24 PO SCH (15:10)
[2022-04-18] MEDS: Artificial Tears SOLN 15 ML BOTTLE BOTH EYES SCH (21:46)
[2022-04-18] MEDS: Insulin DETEMIR 100 UNIT/ML X5UNITS SUBQ SCH (21:47)
[2022-04-19] MEDS: *HR* OxyCODONE Immed Rel 5 MG TABLET PO PRN ×3 (00:26→17:19)
[2022-04-19] MEDS: hydrOXYzine pamoate 25 MG CAPSULE PO PRN ×2 (02:09→21:26)
[2022-04-19] MEDS: *HR* LORazepam 2 MG/ML VIAL IVP PRN ×3 (02:11→21:25)
[2022-04-19 02:58] LABS: Basophils % 0.5 %; Eosinophils % 0.5 %; Hematocrit 25.6 % (35.3-44.9); Hemoglobin 7.7 g/dL (11.5-15.4); Immature Granulocytes % 0.5 % (0-4); Lymphocytes # 0.4 K/mcL (0.6-4.6); Lymphocytes % 11.9 %; Mean Corpuscular HGB Conc 30.1 g/dL (31.6-35.5); Mean Corpuscular Hemoglobin 31.6 pg (28.0-33.3); Mean Corpuscular Volume 104.9 fL (83.0-100.0); Monocytes # 0.5 K/mcL (0.0-1.3); Monocytes % 12.7 %; Neutrophils # 2.7 K/mcL (1.6-8.9); Platelet Count 107 K/mcL (140-400); Red Blood Count 2.44 M/mcL (3.82-4.97); Segmented Neutrophils % 73.9 %; White Blood Count 3.7 K/mcL (4.3-11.1)
[2022-04-19 03:10] LABS: Calcium 9.3 mg/dL (8.6-10.3); Phosphorous 5.1 mg/dL (2.7-4.5); Potassium 4.8 mEq/L (3.5-5.1)
[2022-04-19] MEDS: Levothyroxine 25 MCG TABLET PO SCH (06:55)
[2022-04-19] MEDS: NIFEdipine XL (24 HR) 60 MG TAB.ER.24 PO SCH (07:21)
[2022-04-19] MEDS: hydrALAZINE 25 MG TABLET PO SCH ×3 (07:21→21:14)
[2022-04-19] MEDS: Aspirin Enteric Coated 81 MG Tablet PO SCH (07:22)
[2022-04-19] MEDS: Calcium Acetate 667 MG CAPSULE PO SCH ×3 (07:22→17:19)
[2022-04-19] MEDS: carvediloL 25 MG TABLET PO SCH ×2 (07:22→17:19)
[2022-04-19] MEDS: Artificial Tears SOLN 15 ML BOTTLE BOTH EYES SCH ×4 (07:23→21:15)
[2022-04-19] MEDS: SODIUM ZIRCONIUM CYCLOSILICATE 5 GM POWD.PACK PO SCH (07:23)
[2022-04-19] MEDS: Insulin LISPRO 300 UNITS/3 ML VIAL SUBQ SCH ×6 (07:24→17:14)
[2022-04-19] MEDS: Topiramate 25 MG TABLET PO SCH ×2 (07:28→21:14)
[2022-04-19] MEDS ORDERED: Ringers Solution, Lactated 1,000 ML ONE (15:22)
[2022-04-19] MEDS: Insulin DETEMIR 100 UNIT/ML X5UNITS SUBQ SCH (21:14)
[2022-04-20] MEDS: *HR* OxyCODONE Immed Rel 5 MG TABLET PO PRN ×3 (00:54→23:59)
[2022-04-20] MEDS ORDERED: *HR* HYDROmorphone (PF) 1 MG/ML SYRINGE IVP ONE (02:29)
[2022-04-20 06:15] LABS: Basophils % 0.2 %; Eosinophils % 0.6 %; Hematocrit 25.7 % (35.3-44.9); Hemoglobin 7.8 g/dL (11.5-15.4); Immature Granulocytes % 0.4 % (0-4); Lymphocytes # 0.6 K/mcL (0.6-4.6); Mean Corpuscular HGB Conc 30.4 g/dL (31.6-35.5); Mean Corpuscular Hemoglobin 32.2 pg (28.0-33.3); Mean Corpuscular Volume 106.2 fL (83.0-100.0); Mean Platelet Volume 11.2 fL (9.4-12.4); Monocytes # 0.5 K/mcL (0.0-1.3); Monocytes % 9.8 %; Neutrophils # 3.9 K/mcL (1.6-8.9); Platelet Count 113 K/mcL (140-400); Red Blood Count 2.42 M/mcL (3.82-4.97); Red Cell Distribution Width 18.2 % (11.5-14.5)
[2022-04-20] MEDS: Levothyroxine 25 MCG TABLET PO SCH (06:39)
[2022-04-20 06:41] LABS: Calcium 9.2 mg/dL (8.6-10.3); Magnesium 2.1 mg/dL (1.6-2.6); Phosphorous 5.7 mg/dL (2.7-4.5); Potassium 5.3 mEq/L (3.5-5.1)
[2022-04-20] MEDS: Artificial Tears SOLN 15 ML BOTTLE BOTH EYES SCH ×3 (07:52→17:42)
[2022-04-20] MEDS: Insulin LISPRO 300 UNITS/3 ML VIAL SUBQ SCH ×6 (07:54→17:42)
[2022-04-20] MEDS: Aspirin Enteric Coated 81 MG Tablet PO SCH (07:57)
[2022-04-20] MEDS: Topiramate 25 MG TABLET PO SCH ×2 (07:57→23:59)
[2022-04-20] MEDS: Calcium Acetate 667 MG CAPSULE PO SCH ×3 (07:57→17:42)
[2022-04-20] MEDS: Gabapentin 100 MG CAPSULE PO SCH (08:01)
[2022-04-20] MEDS: carvediloL 25 MG TABLET PO SCH ×2 (08:14→17:34)
[2022-04-20] MEDS: hydrALAZINE 25 MG TABLET PO SCH ×3 (08:15→23:59)
[2022-04-20] MEDS: NIFEdipine XL (24 HR) 60 MG TAB.ER.24 PO SCH (08:15)
[2022-04-20] MEDS: SODIUM ZIRCONIUM CYCLOSILICATE 5 GM POWD.PACK PO SCH (08:15)
[2022-04-20] MEDS: Lacri-Lube 3.5 GM TUBE BOTH EYES SCH (10:43)
[2022-04-20] MEDS: Nitroglycerin 0.4 MG TAB.SUBL SL SCH ×2 (11:01→11:53)
[2022-04-20] MEDS ORDERED: 0.9 % Sodium Chloride 250 ML IVC PRN (12:39)
[2022-04-20] MEDS ORDERED: *HR* Heparin 10,000 UNIT/10 ML VIAL IV PRN (12:39)
[2022-04-20] MEDS: Cefdinir 300 MG CAPSULE PO SCH ×2 (13:52→23:59)
[2022-04-20] MEDS: Ondansetron 4 MG/2 ML VIAL IVP PRN (17:41)
[2022-04-20] MEDS: *HR* LORazepam 2 MG/ML VIAL IVP PRN (23:37)
[2022-04-21] MEDS: Insulin DETEMIR 100 UNIT/ML X5UNITS SUBQ SCH ×2 (00:01→22:22)
[2022-04-21] MEDS: Artificial Tears SOLN 15 ML BOTTLE BOTH EYES SCH ×5 (00:01→20:33)
[2022-04-21] MEDS: Acetaminophen 325 MG TABLET PO PRN ×2 (03:33→20:32)
[2022-04-21 03:40] LABS: Basophils % 0.2 %; Eosinophils % 0.2 %; Hematocrit 24.2 % (35.3-44.9); Hemoglobin 7.5 g/dL (11.5-15.4); Immature Granulocytes % 0.3 % (0-4); Lymphocytes # 0.3 K/mcL (0.6-4.6); Lymphocytes % 4.9 %; Mean Corpuscular Hemoglobin 32.1 pg (28.0-33.3); Mean Corpuscular Volume 103.4 fL (83.0-100.0); Mean Platelet Volume 10.7 fL (9.4-12.4); Monocytes # 0.1 K/mcL (0.0-1.3); Monocytes % 1.6 %; Neutrophils # 5.3 K/mcL (1.6-8.9); Platelet Count 108 K/mcL (140-400); Red Blood Count 2.34 M/mcL (3.82-4.97); Segmented Neutrophils % 92.8 %; White Blood Count 5.7 K/mcL (4.3-11.1)
[2022-04-21 03:58] LABS: Calcium 8.8 mg/dL (8.6-10.3); Magnesium 1.9 mg/dL (1.6-2.6); Phosphorous 3.8 mg/dL (2.7-4.5); Potassium 4.7 mEq/L (3.5-5.1)
[2022-04-21] MEDS: *HR* LORazepam 2 MG/ML VIAL IVP PRN ×2 (05:58→20:35)
[2022-04-21] MEDS: *HR* OxyCODONE Immed Rel 5 MG TABLET PO PRN ×3 (06:10→22:17)
[2022-04-21] MEDS: Levothyroxine 25 MCG TABLET PO SCH (06:10)
[2022-04-21] MEDS: Cefdinir 300 MG CAPSULE PO SCH (08:24)
[2022-04-21] MEDS: hydrALAZINE 25 MG TABLET PO SCH ×4 (08:24→20:31)
[2022-04-21] MEDS: Calcium Acetate 667 MG CAPSULE PO SCH ×3 (08:24→17:05)
[2022-04-21] MEDS: carvediloL 25 MG TABLET PO SCH ×2 (08:25→17:05)
[2022-04-21] MEDS: Topiramate 25 MG TABLET PO SCH ×2 (08:25→20:32)
[2022-04-21] MEDS: hydrOXYzine pamoate 25 MG CAPSULE PO PRN ×2 (08:25→17:05)
[2022-04-21] MEDS: NIFEdipine XL (24 HR) 60 MG TAB.ER.24 PO SCH (08:25)
[2022-04-21] MEDS: Insulin LISPRO 300 UNITS/3 ML VIAL SUBQ SCH ×6 (08:26→17:07)
[2022-04-21] MEDS: Lacri-Lube 3.5 GM TUBE BOTH EYES SCH ×3 (08:29→20:32)
[2022-04-21] MEDS ORDERED: 0.9 % Sodium Chloride 250 ML IVC PRN (08:41)
[2022-04-21] MEDS ORDERED: *HR* Heparin 10,000 UNIT/10 ML VIAL IV PRN (08:41)
[2022-04-21] MEDS: Sennosides 8.6 MG TABLET PO SCH ×2 (13:05→20:32)
[2022-04-21] MEDS: polyethylene glycoL 3350 17 GM POWD.PACK PO SCH (13:16)
[2022-04-21] MEDS: Benzocaine 20% 12 APPL GEL..GRAM. TP PRN (14:48)
[2022-04-21 15:45] LABS: Hepatitis B Surface Antibody 3.75 mIU/mL
[2022-04-21 15:54] LABS: Hepatitis B Surface Antigen Nonreactive (Nonreactive)
[2022-04-21] MEDS: Ondansetron 4 MG/2 ML VIAL IVP PRN (19:36)
[2022-04-22 03:14] LABS: Basophils % 0.3 %; Eosinophils % 0.6 %; Hematocrit 23.8 % (35.3-44.9); Hemoglobin 7.2 g/dL (11.5-15.4); Immature Granulocytes % 0.8 % (0-4); Lymphocytes # 0.8 K/mcL (0.6-4.6); Lymphocytes % 13.2 %; Mean Corpuscular HGB Conc 30.3 g/dL (31.6-35.5); Mean Corpuscular Volume 105.8 fL (83.0-100.0); Mean Platelet Volume 10.8 fL (9.4-12.4); Monocytes # 0.5 K/mcL (0.0-1.3); Monocytes % 8.5 %; Neutrophils # 4.9 K/mcL (1.6-8.9); Platelet Count 119 K/mcL (140-400); Red Blood Count 2.25 M/mcL (3.82-4.97); Red Cell Distribution Width 17.8 % (11.5-14.5); Segmented Neutrophils % 76.6 %; White Blood Count 6.3 K/mcL (4.3-11.1)
[2022-04-22 03:35] LABS: Calcium 8.8 mg/dL (8.6-10.3); Phosphorous 4.3 mg/dL (2.7-4.5); Potassium 5.2 mEq/L (3.5-5.1)
[2022-04-22] MEDS: *HR* LORazepam 2 MG/ML VIAL IVP PRN ×2 (03:52→15:19)
[2022-04-22] MEDS: Acetaminophen 325 MG TABLET PO PRN (03:56)
[2022-04-22] MEDS: hydrOXYzine pamoate 25 MG CAPSULE PO PRN (03:56)
[2022-04-22] MEDS: *HR* OxyCODONE Immed Rel 5 MG TABLET PO PRN ×2 (05:33→15:19)
[2022-04-22] MEDS: Levothyroxine 25 MCG TABLET PO SCH (05:33)
[2022-04-22] MEDS: Insulin LISPRO 300 UNITS/3 ML VIAL SUBQ SCH ×6 (07:27→17:04)
[2022-04-22] MEDS: Calcium Acetate 667 MG CAPSULE PO SCH ×3 (09:44→17:01)
[2022-04-22] MEDS: polyethylene glycoL 3350 17 GM POWD.PACK PO SCH ×2 (09:44→12:14)
[2022-04-22] MEDS: Gabapentin 100 MG CAPSULE PO SCH (09:44)
[2022-04-22] MEDS: hydrALAZINE 25 MG TABLET PO SCH ×3 (09:44→22:04)
[2022-04-22] MEDS: Artificial Tears SOLN 15 ML BOTTLE BOTH EYES SCH ×4 (09:44→22:04)
[2022-04-22] MEDS: carvediloL 25 MG TABLET PO SCH ×2 (09:44→17:01)
[2022-04-22] MEDS: Sennosides 8.6 MG TABLET PO SCH ×3 (09:45→22:04)
[2022-04-22] MEDS: NIFEdipine XL (24 HR) 60 MG TAB.ER.24 PO SCH (09:45)
[2022-04-22] MEDS: Topiramate 25 MG TABLET PO SCH ×2 (09:45→22:05)
[2022-04-22] MEDS ORDERED: *HR* Heparin 10,000 UNIT/10 ML VIAL IV PRN (10:06)
[2022-04-22] MEDS ORDERED: 0.9 % Sodium Chloride 250 ML IVC PRN (10:06)
[2022-04-22] MEDS: Doxycycline 100 MG CAPSULE PO SCH ×2 (13:45→22:05)
[2022-04-22] MEDS: Lacri-Lube 3.5 GM TUBE BOTH EYES SCH ×2 (13:46→22:04)
[2022-04-22] MEDS ORDERED: Cefdinir 300 MG CAPSULE PO SCH (16:00)
[2022-04-22] MEDS: Insulin DETEMIR 100 UNIT/ML X5UNITS SUBQ SCH (22:04)
[2022-04-23] MEDS: Levothyroxine 25 MCG TABLET PO SCH (05:57)
[2022-04-23 08:57] LABS: Basophils % 0.4 %; Eosinophils # 0.1 K/mcL (0.0-0.6); Eosinophils % 1.2 %; Hematocrit 26.1 % (35.3-44.9); Hemoglobin 7.9 g/dL (11.5-15.4); Immature Granulocytes % 0.4 % (0-4); Lymphocytes # 0.8 K/mcL (0.6-4.6); Lymphocytes % 15.9 %; Mean Corpuscular HGB Conc 30.3 g/dL (31.6-35.5); Mean Corpuscular Hemoglobin 31.7 pg (28.0-33.3); Mean Corpuscular Volume 104.8 fL (83.0-100.0); Mean Platelet Volume 10.5 fL (9.4-12.4); Monocytes # 0.5 K/mcL (0.0-1.3); Monocytes % 9.3 %; Neutrophils # 3.7 K/mcL (1.6-8.9); Platelet Count 133 K/mcL (140-400); Red Blood Count 2.49 M/mcL (3.82-4.97); Segmented Neutrophils % 72.8 %; White Blood Count 5.1 K/mcL (4.3-11.1)
[2022-04-23] MEDS: Insulin LISPRO 300 UNITS/3 ML VIAL SUBQ SCH ×6 (09:06→16:23)
[2022-04-23] MEDS: polyethylene glycoL 3350 17 GM POWD.PACK PO SCH (09:07)
[2022-04-23 09:17] LABS: Calcium 9.3 mg/dL (8.6-10.3); Phosphorous 4.2 mg/dL (2.7-4.5); Potassium 5.4 mEq/L (3.5-5.1)
[2022-04-23] MEDS: *HR* OxyCODONE Immed Rel 5 MG TABLET PO PRN ×3 (09:18→22:34)
[2022-04-23] MEDS: Ondansetron 4 MG/2 ML VIAL IVP PRN (09:18)
[2022-04-23] MEDS: NIFEdipine XL (24 HR) 60 MG TAB.ER.24 PO SCH (09:19)
[2022-04-23] MEDS: Calcium Acetate 667 MG CAPSULE PO SCH ×3 (09:19→16:23)
[2022-04-23] MEDS: Sennosides 8.6 MG TABLET PO SCH ×2 (09:19→21:46)
[2022-04-23] MEDS: hydrALAZINE 25 MG TABLET PO SCH ×3 (09:19→21:46)
[2022-04-23] MEDS: hydrOXYzine pamoate 25 MG CAPSULE PO PRN ×2 (09:19→21:46)
[2022-04-23] MEDS: Topiramate 25 MG TABLET PO SCH ×2 (09:19→21:46)
[2022-04-23] MEDS: Doxycycline 100 MG CAPSULE PO SCH ×2 (09:19→21:46)
[2022-04-23] MEDS: carvediloL 25 MG TABLET PO SCH ×2 (09:19→16:23)
[2022-04-23] MEDS: Artificial Tears SOLN 15 ML BOTTLE BOTH EYES SCH ×4 (09:20→21:48)
[2022-04-23] MEDS: Aspirin Enteric Coated 81 MG Tablet PO SCH (09:21)
[2022-04-23] MEDS: Lacri-Lube 3.5 GM TUBE BOTH EYES SCH ×2 (09:21→22:44)
[2022-04-23] MEDS: *HR* LORazepam 2 MG/ML VIAL IVP PRN ×2 (12:30→22:33)
[2022-04-23] MEDS: Insulin DETEMIR 100 UNIT/ML X5UNITS SUBQ SCH (21:48)
[2022-04-24] MEDS: Ondansetron 4 MG/2 ML VIAL IVP PRN (02:59)
[2022-04-24 05:33] LABS: Basophils % 0.5 %; Eosinophils # 0.1 K/mcL (0.0-0.6); Eosinophils % 1.2 %; Hematocrit 25.8 % (35.3-44.9); Hemoglobin 7.9 g/dL (11.5-15.4); Immature Granulocytes % 0.5 % (0-4); Lymphocytes # 0.7 K/mcL (0.6-4.6); Mean Corpuscular HGB Conc 30.6 g/dL (31.6-35.5); Mean Corpuscular Volume 104.5 fL (83.0-100.0); Mean Platelet Volume 10.4 fL (9.4-12.4); Monocytes # 0.6 K/mcL (0.0-1.3); Monocytes % 9.9 %; Neutrophils # 4.3 K/mcL (1.6-8.9); Platelet Count 126 K/mcL (140-400); Red Blood Count 2.47 M/mcL (3.82-4.97); Red Cell Distribution Width 17.8 % (11.5-14.5); Segmented Neutrophils % 75.9 %; White Blood Count 5.7 K/mcL (4.3-11.1)
[2022-04-24] MEDS: Levothyroxine 25 MCG TABLET PO SCH (05:47)
[2022-04-24 05:55] LABS: Calcium 9.2 mg/dL (8.6-10.3); Magnesium 1.9 mg/dL (1.6-2.6); Phosphorous 4.8 mg/dL (2.7-4.5); Potassium 5.7 mEq/L (3.5-5.1)
[2022-04-24] MEDS: hydrOXYzine pamoate 25 MG CAPSULE PO PRN ×2 (07:02→23:11)
[2022-04-24] MEDS: *HR* OxyCODONE Immed Rel 5 MG TABLET PO PRN (07:02)
[2022-04-24] MEDS: *HR* LORazepam 2 MG/ML VIAL IVP PRN (07:03)
[2022-04-24] MEDS: Doxycycline 100 MG CAPSULE PO SCH ×2 (10:59→21:23)
[2022-04-24] MEDS: NIFEdipine XL (24 HR) 60 MG TAB.ER.24 PO SCH (10:59)
[2022-04-24] MEDS: hydrALAZINE 25 MG TABLET PO SCH ×3 (10:59→21:22)
[2022-04-24] MEDS: Topiramate 25 MG TABLET PO SCH ×2 (11:00→21:23)
[2022-04-24] MEDS: Aspirin Enteric Coated 81 MG Tablet PO SCH (11:00)
[2022-04-24] MEDS: carvediloL 25 MG TABLET PO SCH ×2 (11:00→16:25)
[2022-04-24] MEDS: Calcium Acetate 667 MG CAPSULE PO SCH ×3 (11:00→16:26)
[2022-04-24] MEDS: Lacri-Lube 3.5 GM TUBE BOTH EYES SCH ×2 (11:01→21:22)
[2022-04-24] MEDS: Artificial Tears SOLN 15 ML BOTTLE BOTH EYES SCH ×4 (11:01→21:22)
[2022-04-24] MEDS: Insulin LISPRO 300 UNITS/3 ML VIAL SUBQ SCH ×6 (11:01→16:26)
[2022-04-24] MEDS: Sennosides 8.6 MG TABLET PO SCH ×2 (11:02→21:23)
[2022-04-24] MEDS: polyethylene glycoL 3350 17 GM POWD.PACK PO SCH (11:02)
[2022-04-24] MEDS: SODIUM ZIRCONIUM CYCLOSILICATE 5 GM POWD.PACK PO SCH (16:11)
[2022-04-24] MEDS: Insulin DETEMIR 100 UNIT/ML X5UNITS SUBQ SCH (21:23)
[2022-04-25] MEDS: *HR* LORazepam 2 MG/ML VIAL IVP PRN ×2 (01:32→10:02)
[2022-04-25] MEDS: *HR* OxyCODONE Immed Rel 5 MG TABLET PO PRN (01:33)
[2022-04-25 05:45] LABS: Basophils % 0.4 %; Eosinophils # 0.1 K/mcL (0.0-0.6); Eosinophils % 1.3 %; Hematocrit 25.1 % (35.3-44.9); Hemoglobin 7.7 g/dL (11.5-15.4); Immature Granulocytes % 0.4 % (0-4); Lymphocytes # 0.7 K/mcL (0.6-4.6); Lymphocytes % 13.9 %; Mean Corpuscular HGB Conc 30.7 g/dL (31.6-35.5); Mean Corpuscular Hemoglobin 31.7 pg (28.0-33.3); Mean Corpuscular Volume 103.3 fL (83.0-100.0); Mean Platelet Volume 10.2 fL (9.4-12.4); Monocytes # 0.4 K/mcL (0.0-1.3); Monocytes % 9.2 %; Neutrophils # 3.5 K/mcL (1.6-8.9); Platelet Count 113 K/mcL (140-400); Red Blood Count 2.43 M/mcL (3.82-4.97); Red Cell Distribution Width 17.7 % (11.5-14.5); Segmented Neutrophils % 74.8 %; White Blood Count 4.7 K/mcL (4.3-11.1)
[2022-04-25 06:04] LABS: Phosphorous 5.5 mg/dL (2.7-4.5); Potassium 6.2 mEq/L (3.5-5.1)
[2022-04-25] MEDS: Levothyroxine 25 MCG TABLET PO SCH (06:09)
[2022-04-25] MEDS ORDERED: 0.9 % Sodium Chloride 250 ML IVC PRN (07:13)
[2022-04-25] MEDS: Calcium Acetate 667 MG CAPSULE PO SCH ×3 (07:29→17:19)
[2022-04-25] MEDS: Insulin LISPRO 300 UNITS/3 ML VIAL SUBQ SCH ×6 (07:29→17:19)
[2022-04-25] MEDS: Sennosides 8.6 MG TABLET PO SCH (07:30)
[2022-04-25] MEDS: hydrALAZINE 25 MG TABLET PO SCH ×2 (09:54→15:50)
[2022-04-25] MEDS: Artificial Tears SOLN 15 ML BOTTLE BOTH EYES SCH ×3 (09:54→17:19)
[2022-04-25] MEDS: carvediloL 25 MG TABLET PO SCH ×2 (09:54→17:19)
[2022-04-25] MEDS: Aspirin Enteric Coated 81 MG Tablet PO SCH (09:54)
[2022-04-25] MEDS: SODIUM ZIRCONIUM CYCLOSILICATE 5 GM POWD.PACK PO SCH (09:54)
[2022-04-25] MEDS: Lacri-Lube 3.5 GM TUBE BOTH EYES SCH (09:54)
[2022-04-25] MEDS: polyethylene glycoL 3350 17 GM POWD.PACK PO SCH (09:54)
[2022-04-25] MEDS: NIFEdipine XL (24 HR) 60 MG TAB.ER.24 PO SCH (09:55)
[2022-04-25] MEDS: hydrOXYzine pamoate 25 MG CAPSULE PO PRN (10:01)
[2022-04-25] MEDS: Gabapentin 100 MG CAPSULE PO SCH (10:01)
[2022-04-25] MEDS: Topiramate 25 MG TABLET PO SCH (10:01)
[2022-04-25] MEDS: Ondansetron 4 MG/2 ML VIAL IVP PRN (10:02)
[2022-04-25] MEDS: Doxycycline 100 MG CAPSULE PO SCH (10:04)
[2022-04-25] MEDS ORDERED: *HR* Midazolam HCl 2 MG/2 ML VIAL IVP ONE (15:23)
[2022-04-25] MEDS ORDERED: *HR* FentaNYL (PF) 100 MCG/2 ML VIAL IVP ONE (15:23)
[2022-04-25] MEDS ORDERED: Heparin 1,000 UNITS/500 mL 500 ML ONE (15:36)
[2022-04-25] MEDS ORDERED: *HR* Heparin 5,000 UNIT/ML VIAL ONE (15:52)
[2022-04-26] MEDS: *HR* OxyCODONE Immed Rel 5 MG TABLET PO PRN ×3 (04:32→18:28)
[2022-04-26] MEDS: hydrOXYzine pamoate 25 MG CAPSULE PO PRN ×2 (04:42→09:11)
[2022-04-26] MEDS: Artificial Tears SOLN 15 ML BOTTLE BOTH EYES SCH ×5 (05:25→22:37)
[2022-04-26] MEDS: hydrALAZINE 25 MG TABLET PO SCH ×4 (05:25→22:31)
[2022-04-26] MEDS: Lacri-Lube 3.5 GM TUBE BOTH EYES SCH ×3 (05:25→22:37)
[2022-04-26] MEDS: Sennosides 8.6 MG TABLET PO SCH ×3 (05:26→22:31)
[2022-04-26] MEDS: Topiramate 25 MG TABLET PO SCH ×3 (05:26→22:33)
[2022-04-26] MEDS: Insulin DETEMIR 100 UNIT/ML X5UNITS SUBQ SCH ×2 (05:26→22:32)
[2022-04-26] MEDS: Doxycycline 100 MG CAPSULE PO SCH ×3 (05:26→22:31)
[2022-04-26] MEDS: Calcium Acetate 667 MG CAPSULE PO SCH ×3 (07:49→17:00)
[2022-04-26] MEDS: carvediloL 25 MG TABLET PO SCH ×2 (07:49→17:00)
[2022-04-26] MEDS: Levothyroxine 25 MCG TABLET PO SCH (07:50)
[2022-04-26] MEDS: Insulin LISPRO 300 UNITS/3 ML VIAL SUBQ SCH ×6 (07:59→17:00)
[2022-04-26] MEDS: NIFEdipine XL (24 HR) 60 MG TAB.ER.24 PO SCH (08:21)
[2022-04-26] MEDS: Aspirin Enteric Coated 81 MG Tablet PO SCH (08:21)
[2022-04-26] MEDS: polyethylene glycoL 3350 17 GM POWD.PACK PO SCH (08:24)
[2022-04-26] MEDS: SODIUM ZIRCONIUM CYCLOSILICATE 5 GM POWD.PACK PO SCH (08:54)
[2022-04-26] MEDS: *HR* LORazepam 2 MG/ML VIAL IVP PRN ×2 (10:55→18:28)
[2022-04-26 13:23] LABS: Potassium 4.6 mEq/L (3.5-5.1)
[2022-04-27] MEDS: Levothyroxine 25 MCG TABLET PO SCH (06:27)
[2022-04-27] MEDS ORDERED: 0.9 % Sodium Chloride 250 ML IVC PRN (07:25)
[2022-04-27 08:13] VITALS: PULSE 84; O2SAT 95
[2022-04-27] MEDS: carvediloL 25 MG TABLET PO SCH (09:09)
[2022-04-27] MEDS: Insulin LISPRO 300 UNITS/3 ML VIAL SUBQ SCH ×4 (09:09→12:24)
[2022-04-27] MEDS: hydrALAZINE 25 MG TABLET PO SCH (09:10)
[2022-04-27] MEDS: polyethylene glycoL 3350 17 GM POWD.PACK PO SCH (09:10)
[2022-04-27] MEDS: Calcium Acetate 667 MG CAPSULE PO SCH ×2 (09:10→13:00)
[2022-04-27] MEDS: SODIUM ZIRCONIUM CYCLOSILICATE 5 GM POWD.PACK PO SCH (09:10)
[2022-04-27] MEDS: NIFEdipine XL (24 HR) 60 MG TAB.ER.24 PO SCH (09:10)
[2022-04-27] MEDS: Artificial Tears SOLN 15 ML BOTTLE BOTH EYES SCH ×2 (09:16→13:00)
[2022-04-27] MEDS: Aspirin Enteric Coated 81 MG Tablet PO SCH (09:16)
[2022-04-27] MEDS: Lacri-Lube 3.5 GM TUBE BOTH EYES SCH (09:16)
[2022-04-27] MEDS: Topiramate 25 MG TABLET PO SCH (09:17)
[2022-04-27] MEDS: Sennosides 8.6 MG TABLET PO SCH (09:17)
[2022-04-27] MEDS: Doxycycline 100 MG CAPSULE PO SCH (09:17)
[2022-04-27] MEDS: hydrOXYzine pamoate 25 MG CAPSULE PO PRN (09:18)
[2022-04-27] MEDS: *HR* OxyCODONE Immed Rel 5 MG TABLET PO PRN (09:18)
[2022-04-27] MEDS: Gabapentin 100 MG CAPSULE PO SCH (09:19)
[2022-04-27] MEDS: *HR* LORazepam 2 MG/ML VIAL IVP PRN (09:51)
[2022-04-27 13:56] VITALS: BP 215/97; TEMP 98.1
== END 2022-04-27 14:07 | disposition home health service (06) | DRG 425 ==
LOC: 2ANU 03:21 → EMEROOARM 03:21 → SUATTDRO 06:47 → 2ANU 09:31 → SUATTDRO 04-15 15:29 → 2ANU 04-15 16:56
PROVIDERS: ADMIT Student in an Organized Health Care Education/Training Program; ATTEND Family Medicine
PROC: IRPERMA (2022-04-25 13:00)

== ENCOUNTER 2022-04-30 09:40 | Inpatient (IN) ==
[2022-04-30] MEDS ORDERED: Ondansetron 4 MG/2 ML VIAL IVP ONE (10:01)
[2022-04-30] MEDS ORDERED: hydrOXYzine pamoate 25 MG CAPSULE PO STA (10:19)
[2022-04-30 10:26] LABS: Basophils % 0.5 %; Eosinophils % 0.7 %; Hematocrit 26.6 % (35.3-44.9); Hemoglobin 8.3 g/dL (11.5-15.4); Immature Granulocytes % 0.7 % (0-4); Immature Platelets 3.6 % (1.1-6.1); Lymphocytes # 0.7 K/mcL (0.6-4.6); Lymphocytes % 14.8 %; Mean Corpuscular HGB Conc 31.2 g/dL (31.6-35.5); Mean Corpuscular Hemoglobin 31.7 pg (28.0-33.3); Mean Corpuscular Volume 101.5 fL (83.0-100.0); Mean Platelet Volume 10.4 fL (9.4-12.4); Monocytes # 0.5 K/mcL (0.0-1.3); Monocytes % 11.4 %; Neutrophils # 3.2 K/mcL (1.6-8.9); Nucleated Red Blood Cells 0.5 /100 WBC (0); Platelet Count 100 K/mcL (140-400); Red Blood Count 2.62 M/mcL (3.82-4.97); Red Cell Distribution Width 16.3 % (11.5-14.5); Segmented Neutrophils % 71.9 %; White Blood Count 4.4 K/mcL (4.3-11.1)
[2022-04-30 11:01] LABS: Influenza A PCR Negative (Negative); Influenza B PCR Negative (Negative); Resp. Syncytial Virus PCR Negative (Negative)
[2022-04-30 11:03] LABS: SARS-CoV-2 by PCR (In House) Negative (Negative)
[2022-04-30 11:15] LABS: Albumin 3.7 g/dL (3.5-5.7); Albumin/Globulin Ratio 1.2 (1.1-2.2); Bilirubin,Direct 0.3 mg/dL (0.0-0.2); Bilirubin,Indirect 0.6 mg/dL (0.0-1.0); Bilirubin,Total 0.9 mg/dL (0.3-1.0); Calcium 9.1 mg/dL (8.6-10.3); Potassium 4.1 mEq/L (3.5-5.1); Total Protein 6.7 g/dL (6.4-8.9); Troponin I 0.04 ng/mL (< 0.04)
[2022-04-30] MEDS ORDERED: Acetaminophen 325 MG TABLET PO PRN (13:18)
[2022-04-30] MEDS ORDERED: Dextrose Gel 15 GM/37.5 ML TUBE PO PRN ×2 (13:18)
[2022-04-30] MEDS ORDERED: *HR* Dextrose 50 % in Water (Syg) 50 ML SYRINGE IVP PRN (13:18)
[2022-04-30] MEDS ORDERED: Naloxone 0.4 MG/ML INJ IVP PRN (13:18)
[2022-04-30] MEDS ORDERED: D5% in Water 1,000 ML IVC PRN (13:18)
[2022-04-30] MEDS ORDERED: 0.9 % Sodium Chloride 250 ML IVC PRN (13:29)
[2022-04-30] MEDS: *HR* Heparin 5,000 UNIT/ML VIAL SQ SCH ×2 (18:07→20:20)
[2022-04-30] MEDS: Insulin LISPRO 300 UNITS/3 ML VIAL SUBQ SCH ×2 (18:07→19:59)
[2022-04-30] MEDS ORDERED: hydrOXYzine pamoate 25 MG CAPSULE PO ONE (20:10)
[2022-04-30] MEDS: Ondansetron 4 MG/2 ML VIAL IVP PRN (20:11)
[2022-05-01 02:33] LABS: Hemoglobin 7.4 g/dL (11.5-15.4); Mean Corpuscular Volume 102.1 fL (83.0-100.0); Red Cell Distribution Width 16.3 % (11.5-14.5)
[2022-05-01 02:35] LABS: Hematocrit 24.1 % (35.3-44.9); Immature Platelets 3.2 % (1.1-6.1); Mean Corpuscular HGB Conc 30.7 g/dL (31.6-35.5); Mean Corpuscular Hemoglobin 31.4 pg (28.0-33.3); Mean Platelet Volume 10.7 fL (9.4-12.4); Red Blood Count 2.36 M/mcL (3.82-4.97); White Blood Count 3.7 K/mcL (4.3-11.1)
[2022-05-01 02:54] LABS: Calcium 8.6 mg/dL (8.6-10.3); Magnesium 1.9 mg/dL (1.6-2.6); Phosphorous 4.3 mg/dL (2.7-4.5); Potassium 4.5 mEq/L (3.5-5.1)
[2022-05-01] MEDS: Insulin LISPRO 300 UNITS/3 ML VIAL SUBQ SCH ×4 (07:54→21:15)
[2022-05-01] MEDS: Artificial Tears SOLN 15 ML BOTTLE BOTH EYES PRN (09:14)
[2022-05-01] MEDS: hydrOXYzine pamoate 25 MG CAPSULE PO PRN ×3 (09:14→21:21)
[2022-05-01] MEDS ORDERED: Albuterol 2.5 MG/3 ML NEBULIZER IH PRN (10:52)
[2022-05-01] MEDS ORDERED: Calcium Acetate 667 MG CAPSULE PO PRN (10:52)
[2022-05-01] MEDS ORDERED: Calcium Acetate 667 MG CAPSULE PO SCH (12:00)
[2022-05-01] MEDS: Calcium Acetate 667 MG CAPSULE PO SCH ×2 (12:07→17:24)
[2022-05-01] MEDS: polyethylene glycoL 3350 17 GM POWD.PACK PO SCH (12:07)
[2022-05-01] MEDS: Topiramate 25 MG TABLET PO SCH ×2 (12:08→21:20)
[2022-05-01] MEDS: carvediloL 25 MG TABLET PO SCH ×2 (12:08→21:20)
[2022-05-01] MEDS: Aspirin Enteric Coated 81 MG Tablet PO SCH (12:08)
[2022-05-01] MEDS: NIFEdipine XL (24 HR) 60 MG TAB.ER.24 PO SCH (12:08)
[2022-05-01] MEDS: hydrALAZINE 25 MG TABLET PO SCH ×2 (15:07→21:20)
[2022-05-01] MEDS: Ondansetron 4 MG/2 ML VIAL IVP PRN (15:09)
[2022-05-01] MEDS: *HR* Heparin 5,000 UNIT/ML VIAL SQ SCH (17:24)
[2022-05-01] MEDS ORDERED: NON-FORMULARY MEDICATION 1 EACH EACH (Insulin Glargine,Hum.Rec.Anlog [Lantus Solostar] 100 SQ SCH (21:00)
[2022-05-01] MEDS ORDERED: *HR* LORazepam 2 MG/ML VIAL IVP ONE (21:05)
[2022-05-01] MEDS: Doxycycline 100 MG CAPSULE PO SCH (21:20)
[2022-05-01] MEDS: Insulin DETEMIR 100 UNIT/ML X5UNITS SUBQ SCH (21:21)
[2022-05-02 03:26] LABS: Hematocrit 24.3 % (35.3-44.9); Hemoglobin 7.6 g/dL (11.5-15.4); Mean Corpuscular HGB Conc 31.3 g/dL (31.6-35.5); Mean Corpuscular Hemoglobin 31.9 pg (28.0-33.3); Mean Corpuscular Volume 102.1 fL (83.0-100.0); Mean Platelet Volume 10.8 fL (9.4-12.4); Platelet Count 105 K/mcL (140-400); Red Blood Count 2.38 M/mcL (3.82-4.97); Red Cell Distribution Width 16.5 % (11.5-14.5); White Blood Count 4.6 K/mcL (4.3-11.1)
[2022-05-02 03:45] LABS: Calcium 8.9 mg/dL (8.6-10.3); Potassium 4.7 mEq/L (3.5-5.1)
[2022-05-02] MEDS: *HR* Heparin 5,000 UNIT/ML VIAL SQ SCH ×2 (06:38→17:58)
[2022-05-02] MEDS ORDERED: 0.9 % Sodium Chloride 250 ML IVC PRN (09:07)
[2022-05-02] MEDS ORDERED: 0.9 % Sodium Chloride 2,000 ML PRIME SCH (09:15)
[2022-05-02] MEDS: NIFEdipine XL (24 HR) 60 MG TAB.ER.24 PO SCH (09:49)
[2022-05-02] MEDS: Levothyroxine 25 MCG TABLET PO SCH (09:49)
[2022-05-02] MEDS: Aspirin Enteric Coated 81 MG Tablet PO SCH (09:49)
[2022-05-02] MEDS: Insulin LISPRO 300 UNITS/3 ML VIAL SUBQ SCH ×4 (09:50→22:58)
[2022-05-02] MEDS: Calcium Acetate 667 MG CAPSULE PO SCH ×3 (09:50→17:21)
[2022-05-02] MEDS: hydrALAZINE 25 MG TABLET PO SCH ×3 (09:50→22:38)
[2022-05-02] MEDS: Doxycycline 100 MG CAPSULE PO SCH ×2 (09:50→22:38)
[2022-05-02] MEDS: polyethylene glycoL 3350 17 GM POWD.PACK PO SCH (09:50)
[2022-05-02] MEDS: carvediloL 25 MG TABLET PO SCH ×2 (09:50→22:38)
[2022-05-02] MEDS: DiphenhydraMINE CREAM 28.4 GM TUBE TP PRN (09:51)
[2022-05-02] MEDS ORDERED: *HR* OxyCODONE Immed Rel 5 MG TABLET PO ONE (10:01)
[2022-05-02] MEDS ORDERED: *HR* Heparin 10,000 UNIT/10 ML VIAL IV PRN (13:16)
[2022-05-02] MEDS: Gabapentin 100 MG CAPSULE PO SCH (14:57)
[2022-05-02] MEDS: Topiramate 25 MG TABLET PO SCH ×2 (14:57→22:38)
[2022-05-02] MEDS: Ondansetron 4 MG/2 ML VIAL IVP PRN (22:37)
[2022-05-02] MEDS: hydrOXYzine pamoate 25 MG CAPSULE PO PRN (22:38)
[2022-05-02] MEDS: Insulin DETEMIR 100 UNIT/ML X5UNITS SUBQ SCH (22:58)
[2022-05-03] MEDS: *HR* Heparin 5,000 UNIT/ML VIAL SQ SCH ×2 (04:58→17:01)
[2022-05-03] MEDS: Insulin LISPRO 300 UNITS/3 ML VIAL SUBQ SCH ×4 (08:13→22:01)
[2022-05-03] MEDS: NIFEdipine XL (24 HR) 60 MG TAB.ER.24 PO SCH (09:13)
[2022-05-03] MEDS: Aspirin Enteric Coated 81 MG Tablet PO SCH (09:13)
[2022-05-03] MEDS: polyethylene glycoL 3350 17 GM POWD.PACK PO SCH (09:18)
[2022-05-03] MEDS: Calcium Acetate 667 MG CAPSULE PO SCH ×3 (09:30→17:00)
[2022-05-03] MEDS: hydrALAZINE 25 MG TABLET PO SCH ×3 (09:31→22:01)
[2022-05-03] MEDS: carvediloL 25 MG TABLET PO SCH ×2 (09:31→22:01)
[2022-05-03] MEDS: Levothyroxine 25 MCG TABLET PO SCH (09:31)
[2022-05-03] MEDS: Doxycycline 100 MG CAPSULE PO SCH (09:31)
[2022-05-03] MEDS: hydrOXYzine pamoate 25 MG CAPSULE PO PRN ×2 (09:31→18:28)
[2022-05-03] MEDS ORDERED: Acetaminophen 325 MG TABLET PO PRN (10:19)
[2022-05-03] MEDS: Topiramate 25 MG TABLET PO SCH ×2 (11:44→23:18)
[2022-05-03] MEDS: *HR* OxyCODONE Immed Rel 5 MG TABLET PO PRN (12:44)
[2022-05-03] MEDS: Artificial Tears SOLN 15 ML BOTTLE BOTH EYES PRN (15:53)
[2022-05-03] MEDS: DiphenhydraMINE CREAM 28.4 GM TUBE TP PRN (15:53)
[2022-05-03] MEDS ORDERED: *HR* LORazepam 1 MG TABLET PO ONE (18:42)
[2022-05-03] MEDS: Insulin DETEMIR 100 UNIT/ML X5UNITS SUBQ SCH (22:01)
[2022-05-04] MEDS ORDERED: Melatonin 3 MG TABLET PO PRN (00:03)
[2022-05-04] MEDS: hydrOXYzine pamoate 25 MG CAPSULE PO PRN ×3 (01:47→22:28)
[2022-05-04] MEDS: Levothyroxine 25 MCG TABLET PO SCH (05:12)
[2022-05-04] MEDS: *HR* OxyCODONE Immed Rel 5 MG TABLET PO PRN ×3 (05:17→22:28)
[2022-05-04] MEDS: *HR* Heparin 5,000 UNIT/ML VIAL SQ SCH ×2 (05:39→18:40)
[2022-05-04] MEDS ORDERED: 0.9 % Sodium Chloride 250 ML IVC PRN (07:31)
[2022-05-04] MEDS ORDERED: *HR* Heparin 10,000 UNIT/10 ML VIAL IV PRN (07:31)
[2022-05-04] MEDS: Insulin LISPRO 300 UNITS/3 ML VIAL SUBQ SCH ×4 (10:18→22:30)
[2022-05-04] MEDS: Aspirin Enteric Coated 81 MG Tablet PO SCH (10:19)
[2022-05-04] MEDS: Calcium Acetate 667 MG CAPSULE PO SCH ×3 (10:19→18:40)
[2022-05-04] MEDS: polyethylene glycoL 3350 17 GM POWD.PACK PO SCH (10:20)
[2022-05-04] MEDS: carvediloL 25 MG TABLET PO SCH ×3 (10:20→22:29)
[2022-05-04] MEDS: NIFEdipine XL (24 HR) 60 MG TAB.ER.24 PO SCH (10:20)
[2022-05-04] MEDS: hydrALAZINE 25 MG TABLET PO SCH ×4 (10:20→22:29)
[2022-05-04] MEDS: Topiramate 25 MG TABLET PO SCH ×2 (11:05→22:28)
[2022-05-04] MEDS: Gabapentin 100 MG CAPSULE PO SCH (11:05)
[2022-05-04 12:56] LABS: Hematocrit 25.2 % (35.3-44.9); Hemoglobin 7.7 g/dL (11.5-15.4); Mean Corpuscular HGB Conc 30.6 g/dL (31.6-35.5); Mean Corpuscular Hemoglobin 31.3 pg (28.0-33.3); Mean Corpuscular Volume 102.4 fL (83.0-100.0); Mean Platelet Volume 10.5 fL (9.4-12.4); Platelet Count 126 K/mcL (140-400); Red Blood Count 2.46 M/mcL (3.82-4.97); Red Cell Distribution Width 17.2 % (11.5-14.5); White Blood Count 5.5 K/mcL (4.3-11.1)
[2022-05-04 13:33] LABS: Calcium 9.4 mg/dL (8.6-10.3); Potassium 3.9 mEq/L (3.5-5.1)
[2022-05-04 13:40] LABS: Calcium 9.3 mg/dL (8.6-10.3); Magnesium 1.7 mg/dL (1.6-2.6); Potassium 3.8 mEq/L (3.5-5.1)
[2022-05-04] MEDS: Ondansetron 4 MG/2 ML VIAL IVP PRN (15:45)
[2022-05-04] MEDS: Insulin DETEMIR 100 UNIT/ML X5UNITS SUBQ SCH (22:31)
[2022-05-05] MEDS ORDERED: *HR* LORazepam 0.5 MG TABLET PO ONE (00:21)
[2022-05-05] MEDS ORDERED: Benzocaine 20% 12 APPL GEL..GRAM. TP PRN (01:41)
[2022-05-05] MEDS: *HR* Heparin 5,000 UNIT/ML VIAL SQ SCH ×2 (05:53→18:29)
[2022-05-05] MEDS: *HR* OxyCODONE Immed Rel 5 MG TABLET PO PRN ×3 (05:54→19:30)
[2022-05-05] MEDS: hydrOXYzine pamoate 25 MG CAPSULE PO PRN ×2 (05:54→18:24)
[2022-05-05] MEDS: Levothyroxine 25 MCG TABLET PO SCH (05:54)
[2022-05-05] MEDS: Ondansetron 4 MG/2 ML VIAL IVP PRN ×2 (06:01→18:24)
[2022-05-05] MEDS: Insulin LISPRO 300 UNITS/3 ML VIAL SUBQ SCH ×4 (08:10→20:36)
[2022-05-05] MEDS: hydrALAZINE 25 MG TABLET PO SCH ×3 (10:42→20:36)
[2022-05-05] MEDS: Aspirin Enteric Coated 81 MG Tablet PO SCH (10:42)
[2022-05-05] MEDS: polyethylene glycoL 3350 17 GM POWD.PACK PO SCH (10:42)
[2022-05-05] MEDS: Calcium Acetate 667 MG CAPSULE PO SCH ×3 (10:42→17:35)
[2022-05-05] MEDS: carvediloL 25 MG TABLET PO SCH ×2 (10:42→20:36)
[2022-05-05] MEDS: NIFEdipine XL (24 HR) 60 MG TAB.ER.24 PO SCH (10:42)
[2022-05-05] MEDS: Loratadine 10 MG TABLET PO SCH (12:15)
[2022-05-05] MEDS: Topiramate 25 MG TABLET PO SCH (12:15)
[2022-05-05] MEDS ORDERED: *HR* Promethazine 25 MG/ML VIAL IM ONE (19:15)
[2022-05-05] MEDS: Insulin DETEMIR 100 UNIT/ML X5UNITS SUBQ SCH (20:36)
[2022-05-05] MEDS ORDERED: Prochlorperazine 10 MG/2 ML VIAL IVP PRN (22:43)
[2022-05-06] MEDS: Topiramate 25 MG TABLET PO SCH ×2 (00:51→11:37)
[2022-05-06] MEDS: *HR* OxyCODONE Immed Rel 5 MG TABLET PO PRN ×3 (03:11→22:16)
[2022-05-06] MEDS: hydrOXYzine pamoate 25 MG CAPSULE PO PRN ×3 (03:11→15:25)
[2022-05-06] MEDS: *HR* Heparin 5,000 UNIT/ML VIAL SQ SCH ×2 (06:45→16:53)
[2022-05-06] MEDS: Levothyroxine 25 MCG TABLET PO SCH (06:45)
[2022-05-06] MEDS ORDERED: 0.9 % Sodium Chloride 250 ML IVC PRN (07:40)
[2022-05-06] MEDS ORDERED: *HR* Heparin 10,000 UNIT/10 ML VIAL IV PRN (07:40)
[2022-05-06] MEDS: Aspirin Enteric Coated 81 MG Tablet PO SCH (08:34)
[2022-05-06] MEDS: Loratadine 10 MG TABLET PO SCH (08:34)
[2022-05-06] MEDS: Insulin LISPRO 300 UNITS/3 ML VIAL SUBQ SCH ×4 (08:34→21:57)
[2022-05-06] MEDS: polyethylene glycoL 3350 17 GM POWD.PACK PO SCH (08:35)
[2022-05-06] MEDS: NIFEdipine XL (24 HR) 60 MG TAB.ER.24 PO SCH ×2 (08:35→08:42)
[2022-05-06] MEDS: carvediloL 25 MG TABLET PO SCH ×2 (08:42→22:16)
[2022-05-06] MEDS: hydrALAZINE 25 MG TABLET PO SCH ×3 (08:42→22:17)
[2022-05-06] MEDS: Ondansetron 4 MG/2 ML VIAL IVP PRN (08:43)
[2022-05-06] MEDS: Calcium Acetate 667 MG CAPSULE PO SCH ×3 (08:54→16:16)
[2022-05-06] MEDS: Gabapentin 100 MG CAPSULE PO SCH (11:37)
[2022-05-06 11:53] LABS: Calcium 9.5 mg/dL (8.6-10.3); Phosphorous 3.7 mg/dL (2.7-4.5); Potassium 4.5 mEq/L (3.5-5.1)
[2022-05-06] MEDS: Insulin DETEMIR 100 UNIT/ML X5UNITS SUBQ SCH (22:05)
[2022-05-07] MEDS: Topiramate 25 MG TABLET PO SCH ×3 (01:08→23:19)
[2022-05-07] MEDS: hydrOXYzine pamoate 25 MG CAPSULE PO PRN ×5 (02:53→23:56)
[2022-05-07] MEDS: *HR* Heparin 5,000 UNIT/ML VIAL SQ SCH ×2 (03:08→17:08)
[2022-05-07] MEDS: *HR* OxyCODONE Immed Rel 5 MG TABLET PO PRN ×4 (04:17→23:18)
[2022-05-07] MEDS: Artificial Tears SOLN 15 ML BOTTLE BOTH EYES PRN (04:58)
[2022-05-07] MEDS: DiphenhydraMINE CREAM 28.4 GM TUBE TP PRN ×3 (04:58→20:33)
[2022-05-07] MEDS: Levothyroxine 25 MCG TABLET PO SCH (05:07)
[2022-05-07 07:59] LABS: Hematocrit 22.6 % (35.3-44.9); Hemoglobin 6.8 g/dL (11.5-15.4); Mean Corpuscular HGB Conc 30.1 g/dL (31.6-35.5); Mean Corpuscular Hemoglobin 31.2 pg (28.0-33.3); Mean Corpuscular Volume 103.7 fL (83.0-100.0); Mean Platelet Volume 10.7 fL (9.4-12.4); Red Blood Count 2.18 M/mcL (3.82-4.97); Red Cell Distribution Width 17.2 % (11.5-14.5); White Blood Count 3.4 K/mcL (4.3-11.1)
[2022-05-07 08:00] LABS: Platelet Count 83 K/mcL (140-400)
[2022-05-07 08:17] LABS: Calcium 8.9 mg/dL (8.6-10.3); Potassium 4.6 mEq/L (3.5-5.1)
[2022-05-07] MEDS ORDERED: *HR* LORazepam 0.5 MG TABLET PO ONE (08:43)
[2022-05-07] MEDS: Insulin LISPRO 300 UNITS/3 ML VIAL SUBQ SCH ×4 (08:45→20:03)
[2022-05-07] MEDS: Calcium Acetate 667 MG CAPSULE PO SCH ×3 (08:52→17:07)
[2022-05-07] MEDS: hydrALAZINE 25 MG TABLET PO SCH ×3 (08:53→19:56)
[2022-05-07] MEDS: Aspirin Enteric Coated 81 MG Tablet PO SCH (08:53)
[2022-05-07] MEDS: Sennosides/Docusate Sodium TABLET PO SCH (08:53)
[2022-05-07] MEDS: carvediloL 25 MG TABLET PO SCH ×2 (08:53→19:57)
[2022-05-07] MEDS: Loratadine 10 MG TABLET PO SCH (08:53)
[2022-05-07] MEDS: NIFEdipine XL (24 HR) 60 MG TAB.ER.24 PO SCH (08:53)
[2022-05-07 13:20] LABS: Hematocrit 25.1 % (35.3-44.9); Hemoglobin 7.7 g/dL (11.5-15.4)
[2022-05-07] MEDS: *HR* LORazepam 0.5 MG TABLET PO PRN (18:43)
[2022-05-07] MEDS: Insulin DETEMIR 100 UNIT/ML X5UNITS SUBQ SCH (20:03)
[2022-05-08] MEDS: DiphenhydraMINE CREAM 28.4 GM TUBE TP PRN (00:23)
[2022-05-08] MEDS: Levothyroxine 25 MCG TABLET PO SCH (05:57)
[2022-05-08] MEDS: *HR* Heparin 5,000 UNIT/ML VIAL SQ SCH ×2 (05:57→17:15)
[2022-05-08] MEDS: Insulin LISPRO 300 UNITS/3 ML VIAL SUBQ SCH ×4 (07:15→20:07)
[2022-05-08] MEDS: Calcium Acetate 667 MG CAPSULE PO SCH ×3 (08:46→17:15)
[2022-05-08] MEDS: hydrOXYzine pamoate 25 MG CAPSULE PO PRN ×2 (08:47→17:14)
[2022-05-08] MEDS: *HR* OxyCODONE Immed Rel 5 MG TABLET PO PRN ×2 (08:47→17:14)
[2022-05-08] MEDS: Aspirin Enteric Coated 81 MG Tablet PO SCH (08:47)
[2022-05-08] MEDS: Loratadine 10 MG TABLET PO SCH (08:47)
[2022-05-08] MEDS: hydrALAZINE 25 MG TABLET PO SCH ×3 (08:47→20:04)
[2022-05-08] MEDS: Sennosides/Docusate Sodium TABLET PO SCH (08:48)
[2022-05-08] MEDS: *HR* LORazepam 0.5 MG TABLET PO PRN ×2 (08:48→17:14)
[2022-05-08] MEDS: carvediloL 25 MG TABLET PO SCH ×2 (08:48→20:04)
[2022-05-08] MEDS: NIFEdipine XL (24 HR) 60 MG TAB.ER.24 PO SCH (08:48)
[2022-05-08] MEDS: Artificial Tears SOLN 15 ML BOTTLE BOTH EYES PRN (08:50)
[2022-05-08 09:42] LABS: Hematocrit 23.8 % (35.3-44.9); Hemoglobin 7.2 g/dL (11.5-15.4); Mean Corpuscular HGB Conc 30.3 g/dL (31.6-35.5); Mean Corpuscular Hemoglobin 31.3 pg (28.0-33.3); Mean Corpuscular Volume 103.5 fL (83.0-100.0); Mean Platelet Volume 10.7 fL (9.4-12.4); Red Cell Distribution Width 17.3 % (11.5-14.5); White Blood Count 3.5 K/mcL (4.3-11.1)
[2022-05-08 09:44] LABS: Platelet Count 81 K/mcL (140-400)
[2022-05-08 09:46] LABS: Potassium 5.6 mEq/L (3.5-5.1)
[2022-05-08] MEDS ORDERED: SODIUM ZIRCONIUM CYCLOSILICATE 5 GM POWD.PACK PO ONE (10:30)
[2022-05-08] MEDS: Topiramate 25 MG TABLET PO SCH ×2 (12:37→23:24)
[2022-05-08] MEDS: Ondansetron 4 MG/2 ML VIAL IVP PRN (20:02)
[2022-05-08] MEDS: Insulin DETEMIR 100 UNIT/ML X5UNITS SUBQ SCH (20:07)
[2022-05-08] MEDS ORDERED: Prochlorperazine 10 MG/2 ML VIAL IVP ONE (23:36)
[2022-05-09] MEDS: *HR* Heparin 5,000 UNIT/ML VIAL SQ SCH (05:51)
[2022-05-09] MEDS: Levothyroxine 25 MCG TABLET PO SCH (06:47)
[2022-05-09 07:50] VITALS: PULSE 79; O2SAT 94
[2022-05-09] MEDS: Insulin LISPRO 300 UNITS/3 ML VIAL SUBQ SCH ×2 (07:58→12:17)
[2022-05-09] MEDS: hydrALAZINE 25 MG TABLET PO SCH ×2 (07:59→14:51)
[2022-05-09] MEDS: carvediloL 25 MG TABLET PO SCH (07:59)
[2022-05-09] MEDS: Sennosides/Docusate Sodium TABLET PO SCH (08:02)
[2022-05-09] MEDS: Calcium Acetate 667 MG CAPSULE PO SCH ×2 (08:02→12:20)
[2022-05-09] MEDS: Aspirin Enteric Coated 81 MG Tablet PO SCH (08:02)
[2022-05-09] MEDS: Loratadine 10 MG TABLET PO SCH (08:02)
[2022-05-09] MEDS ORDERED: *HR* Heparin 10,000 UNIT/10 ML VIAL IV PRN (08:31)
[2022-05-09] MEDS ORDERED: 0.9 % Sodium Chloride 250 ML IVC PRN (08:31)
[2022-05-09] MEDS: hydrOXYzine pamoate 25 MG CAPSULE PO PRN ×2 (09:01→14:50)
[2022-05-09] MEDS: *HR* LORazepam 0.5 MG TABLET PO PRN (09:01)
[2022-05-09] MEDS: *HR* OxyCODONE Immed Rel 5 MG TABLET PO PRN ×2 (09:02→14:50)
[2022-05-09 11:02] LABS: Hematocrit 24.3 % (35.3-44.9); Hemoglobin 7.6 g/dL (11.5-15.4); Mean Corpuscular HGB Conc 31.3 g/dL (31.6-35.5); Mean Corpuscular Hemoglobin 31.9 pg (28.0-33.3); Mean Corpuscular Volume 102.1 fL (83.0-100.0); Mean Platelet Volume 10.9 fL (9.4-12.4); Platelet Count 82 K/mcL (140-400); Red Blood Count 2.38 M/mcL (3.82-4.97); Red Cell Distribution Width 17.4 % (11.5-14.5); White Blood Count 2.3 K/mcL (4.3-11.1)
[2022-05-09 11:28] LABS: Calcium 9.2 mg/dL (8.6-10.3); Potassium 4.9 mEq/L (3.5-5.1)
[2022-05-09] MEDS: Gabapentin 100 MG CAPSULE PO SCH (12:20)
[2022-05-09] MEDS: Topiramate 25 MG TABLET PO SCH (12:20)
[2022-05-09] MEDS: NIFEdipine XL (24 HR) 60 MG TAB.ER.24 PO SCH (12:20)
[2022-05-09 15:03] VITALS: BP 196/74; TEMP 98.1
== END 2022-05-09 15:41 | disposition home or self-care (01) | DRG 194 ==
LOC: EMEROOARM 09:40 → 3BNU 09:40 → SUATTDRO 13:21 → 3BNU 13:47 → 2ANU 05-01 15:32 → SUATTDRO 05-04 15:53
PROVIDERS: ADMIT Student in an Organized Health Care Education/Training Program; ATTEND Internal Medicine

== ENCOUNTER 2022-05-15 23:12 | Inpatient (IN) ==
[2022-05-15] MEDS ORDERED: methylPREDNISolone 125 MG/2 ML VIAL IVP ONE (23:25)
[2022-05-15] MEDS ORDERED: Ipratropium/Albuterol Neb 3 ML IH ONE (23:25)
[2022-05-15 23:56] LABS: Mean Corpuscular HGB Conc 31.8 g/dL (31.6-35.5); Mean Corpuscular Hemoglobin 31.4 pg (28.0-33.3); Mean Corpuscular Volume 98.8 fL (83.0-100.0)
[2022-05-15 23:56] LABS: VBG HCO3 28 mEq/L (21-27); VBG PCO2 41 mmHg (41-51); VBG PH 7.44 pH Units (7.32-7.42); VBG PO2 85 mmHg (25-50)
[2022-05-15 23:58] LABS: Eosinophils % 0.6 %; Hematocrit 23.9 % (35.3-44.9); Hemoglobin 7.6 g/dL (11.5-15.4); Immature Granulocytes % 0.6 % (0-4); Immature Platelets 5.1 % (1.1-6.1); Lymphocytes # 0.5 K/mcL (0.6-4.6); Lymphocytes % 25.6 %; Mean Platelet Volume 10.9 fL (9.4-12.4); Monocytes # 0.2 K/mcL (0.0-1.3); Monocytes % 9.4 %; Neutrophils # 1.2 K/mcL (1.6-8.9); Red Blood Count 2.42 M/mcL (3.82-4.97); Segmented Neutrophils % 63.8 %; White Blood Count 1.8 K/mcL (4.3-11.1)
[2022-05-16 00:03] LABS: Platelet Count 61 K/mcL (140-400)
[2022-05-16 00:15] LABS: Alanine Aminotransferase 10 Units/L (7-52); Albumin 3.4 g/dL (3.5-5.7); Albumin/Globulin Ratio 1.1 (1.1-2.2); Alkaline Phosphatase 141 Units/L (34-104); Aspartate Amino Transferase 15 Units/L (13-39); BUN/Creatinine Ratio 8 (6-26); Bilirubin,Direct 0.2 mg/dL (0.0-0.2); Bilirubin,Indirect 0.3 mg/dL (0.0-1.0); Bilirubin,Total 0.5 mg/dL (0.3-1.0); Blood Urea Nitrogen 48 mg/dL (6-20); Calcium 8.3 mg/dL (8.6-10.3); Carbon Dioxide 27 mEq/L (23-29); Chloride 95 mEq/L (98-107); Globulin 3.2 g/dL (2.4-3.5); Glucose 149 mg/dL (70-105); Osmolality,Calculated 293 (280-300); Potassium 4.6 mEq/L (3.5-5.1); Sodium 134 mEq/L (136-145); Total Protein 6.6 g/dL (6.4-8.9); Troponin I < 0.03 ng/mL (< 0.04); eGFR For African Americans 9 (> 60); eGFR For Non-African Americans 7 (> 60)
[2022-05-16 00:26] LABS: Influenza A PCR Negative (Negative); Influenza B PCR Negative (Negative); Resp. Syncytial Virus PCR Negative (Negative)
[2022-05-16 00:38] LABS: SARS-CoV-2 by PCR (In House) Positive (Negative)
[2022-05-16 00:42] LABS: Platelet Estimate Decreased (Normal)
[2022-05-16] MEDS ORDERED: Acetaminophen 325 MG TABLET PO PRN (02:13)
[2022-05-16] MEDS ORDERED: Naloxone 0.4 MG/ML INJ IVP PRN (02:13)
[2022-05-16] MEDS ORDERED: Melatonin 3 MG TABLET PO PRN (02:13)
[2022-05-16] MEDS ORDERED: Calcium Acetate 667 MG CAPSULE PO PRN (03:31)
[2022-05-16] MEDS: NIFEdipine XL (24 HR) 60 MG TAB.ER.24 PO SCH ×2 (04:03→10:20)
[2022-05-16] MEDS: hydrALAZINE 25 MG TABLET PO SCH ×4 (04:03→20:00)
[2022-05-16] MEDS: carvediloL 25 MG TABLET PO SCH ×2 (04:04→15:38)
[2022-05-16] MEDS: *HR* Heparin 5,000 UNIT/ML VIAL SQ SCH ×4 (04:04→20:03)
[2022-05-16] MEDS: Ipratropium 1 PUFF INHALER IH SCH ×6 (04:18→22:58)
[2022-05-16 04:26] LABS: Red Cell Distribution Width 15.9 % (11.5-14.5)
[2022-05-16 04:28] LABS: Hematocrit 24.1 % (35.3-44.9); Hemoglobin 7.5 g/dL (11.5-15.4); Immature Platelets 4.3 % (1.1-6.1); Mean Corpuscular HGB Conc 31.1 g/dL (31.6-35.5); Mean Corpuscular Hemoglobin 30.7 pg (28.0-33.3); Mean Corpuscular Volume 98.8 fL (83.0-100.0); Red Blood Count 2.44 M/mcL (3.82-4.97); White Blood Count 1.5 K/mcL (4.3-11.1)
[2022-05-16 04:53] LABS: C-Reactive Protein 14 mg/L (Less than 10); Lactate Dehydrogenase 202 Units/L (140-271)
[2022-05-16 04:54] LABS: Magnesium 1.9 mg/dL (1.6-2.6); Phosphorous 5.1 mg/dL (2.7-4.5)
[2022-05-16] MEDS: Levothyroxine 25 MCG TABLET PO SCH (05:33)
[2022-05-16] MEDS: Dexamethasone Sodium Phos/PF 10 MG/ML VIAL IVP SCH (05:33)
[2022-05-16] MEDS ORDERED: 0.9 % Sodium Chloride 250 ML IVC PRN (07:34)
[2022-05-16] MEDS ORDERED: 0.9 % Sodium Chloride 2,000 ML PRIME SCH (07:45)
[2022-05-16] MEDS ORDERED: Darbepoetin 100 MCG/0.5 ML SYRINGE SQ ONE (09:00)
[2022-05-16] MEDS: Topiramate 25 MG TABLET PO SCH ×2 (10:20→20:00)
[2022-05-16] MEDS: Calcium Acetate 667 MG CAPSULE PO SCH ×4 (10:20→15:53)
[2022-05-16] MEDS: Aspirin Enteric Coated 81 MG Tablet PO SCH (10:20)
[2022-05-16] MEDS: Gabapentin 100 MG CAPSULE PO SCH (10:26)
[2022-05-16] MEDS: *HR* LORazepam 0.5 MG TABLET PO PRN ×2 (12:38→19:59)
[2022-05-16] MEDS: *HR* OxyCODONE Immed Rel 5 MG TABLET PO PRN ×2 (12:38→20:00)
[2022-05-16] MEDS ORDERED: *HR* Heparin 10,000 UNIT/10 ML VIAL IV PRN (15:26)
[2022-05-16] MEDS: Artificial Tears SOLN 15 ML BOTTLE BOTH EYES SCH (21:00)
[2022-05-17] MEDS: *HR* OxyCODONE Immed Rel 5 MG TABLET PO PRN ×2 (03:37→09:50)
[2022-05-17] MEDS: Benzonatate 100 MG CAPSULE PO PRN ×2 (03:37→16:01)
[2022-05-17] MEDS: Ipratropium 1 PUFF INHALER IH SCH ×6 (03:37→23:07)
[2022-05-17] MEDS: Levothyroxine 25 MCG TABLET PO SCH (05:24)
[2022-05-17] MEDS: *HR* Heparin 5,000 UNIT/ML VIAL SQ SCH ×3 (05:24→20:58)
[2022-05-17] MEDS: hydrALAZINE 25 MG TABLET PO SCH ×3 (09:34→20:57)
[2022-05-17] MEDS: Aspirin Enteric Coated 81 MG Tablet PO SCH (09:34)
[2022-05-17] MEDS: Calcium Acetate 667 MG CAPSULE PO SCH ×3 (09:34→15:52)
[2022-05-17] MEDS: carvediloL 25 MG TABLET PO SCH ×2 (09:35→15:52)
[2022-05-17] MEDS: Topiramate 25 MG TABLET PO SCH ×2 (09:35→20:57)
[2022-05-17] MEDS: NIFEdipine XL (24 HR) 60 MG TAB.ER.24 PO SCH (09:35)
[2022-05-17] MEDS: Dexamethasone Sodium Phos/PF 10 MG/ML VIAL IVP SCH ×2 (09:38→15:45)
[2022-05-17] MEDS: *HR* LORazepam 0.5 MG TABLET PO PRN (09:47)
[2022-05-17 10:04] LABS: Hemoglobin 7.4 g/dL (11.5-15.4)
[2022-05-17 10:05] LABS: Hematocrit 23.3 % (35.3-44.9); Immature Granulocytes % 0.6 % (0-4); Immature Platelets 5.9 % (1.1-6.1); Lymphocytes # 0.4 K/mcL (0.6-4.6); Lymphocytes % 9.9 %; Mean Corpuscular HGB Conc 31.8 g/dL (31.6-35.5); Mean Corpuscular Hemoglobin 31.5 pg (28.0-33.3); Mean Corpuscular Volume 99.1 fL (83.0-100.0); Mean Platelet Volume 11.6 fL (9.4-12.4); Monocytes # 0.3 K/mcL (0.0-1.3); Monocytes % 8.2 %; Neutrophils # 2.9 K/mcL (1.6-8.9); Red Blood Count 2.35 M/mcL (3.82-4.97); Red Cell Distribution Width 16.6 % (11.5-14.5); Segmented Neutrophils % 81.3 %; White Blood Count 3.6 K/mcL (4.3-11.1)
[2022-05-17 10:07] LABS: Platelet Count 85 K/mcL (140-400)
[2022-05-17 10:28] LABS: Potassium 5.5 mEq/L (3.5-5.1)
[2022-05-17] MEDS: Artificial Tears SOLN 15 ML BOTTLE BOTH EYES SCH (20:57)
[2022-05-18] MEDS: Benzonatate 100 MG CAPSULE PO PRN ×2 (02:03→20:53)
[2022-05-18] MEDS: *HR* LORazepam 0.5 MG TABLET PO PRN ×3 (02:03→20:53)
[2022-05-18] MEDS: Ipratropium 1 PUFF INHALER IH SCH ×6 (03:33→22:51)
[2022-05-18] MEDS: Levothyroxine 25 MCG TABLET PO SCH (04:55)
[2022-05-18] MEDS: *HR* Heparin 5,000 UNIT/ML VIAL SQ SCH ×3 (04:55→20:56)
[2022-05-18] MEDS: *HR* OxyCODONE Immed Rel 5 MG TABLET PO PRN ×2 (06:24→20:53)
[2022-05-18] MEDS ORDERED: 0.9 % Sodium Chloride 250 ML IVC PRN (07:51)
[2022-05-18] MEDS: carvediloL 25 MG TABLET PO SCH ×2 (09:29→16:40)
[2022-05-18] MEDS: Dexamethasone Sodium Phos/PF 10 MG/ML VIAL IVP SCH (09:29)
[2022-05-18] MEDS: Calcium Acetate 667 MG CAPSULE PO SCH ×3 (09:29→16:40)
[2022-05-18] MEDS: hydrALAZINE 25 MG TABLET PO SCH ×2 (09:29→20:53)
[2022-05-18] MEDS: Gabapentin 100 MG CAPSULE PO SCH (09:29)
[2022-05-18] MEDS: Aspirin Enteric Coated 81 MG Tablet PO SCH (09:29)
[2022-05-18] MEDS: NIFEdipine XL (24 HR) 60 MG TAB.ER.24 PO SCH (09:29)
[2022-05-18] MEDS: Topiramate 25 MG TABLET PO SCH ×2 (09:30→20:53)
[2022-05-18] MEDS: amLODIPine 5 MG TABLET PO SCH (14:26)
[2022-05-18 16:38] LABS: Hemoglobin 7.1 g/dL (11.5-15.4); Mean Corpuscular Volume 101.3 fL (83.0-100.0)
[2022-05-18 16:40] LABS: Immature Platelets 4.5 % (1.1-6.1); Mean Corpuscular HGB Conc 30.9 g/dL (31.6-35.5); Mean Corpuscular Hemoglobin 31.3 pg (28.0-33.3); Mean Platelet Volume 10.8 fL (9.4-12.4); Red Blood Count 2.27 M/mcL (3.82-4.97); Red Cell Distribution Width 16.9 % (11.5-14.5); White Blood Count 3.2 K/mcL (4.3-11.1)
[2022-05-18 17:19] LABS: Albumin 3.3 g/dL (3.5-5.7); Albumin/Globulin Ratio 1.1 (1.1-2.2); Bilirubin,Total 0.4 mg/dL (0.3-1.0); Calcium 8.1 mg/dL (8.6-10.3); Globulin 2.9 g/dL (2.4-3.5); Potassium 4.1 mEq/L (3.5-5.1); Total Protein 6.2 g/dL (6.4-8.9)
[2022-05-18] MEDS: Artificial Tears SOLN 15 ML BOTTLE BOTH EYES SCH (20:54)
[2022-05-18] MEDS ORDERED: hydrALAZINE 25 MG TABLET PO SCH (21:00)
[2022-05-19] MEDS: Ipratropium 1 PUFF INHALER IH SCH ×6 (03:41→23:40)
[2022-05-19] MEDS: *HR* Heparin 5,000 UNIT/ML VIAL SQ SCH ×3 (06:22→20:03)
[2022-05-19] MEDS: Levothyroxine 25 MCG TABLET PO SCH (06:23)
[2022-05-19] MEDS: *HR* OxyCODONE Immed Rel 5 MG TABLET PO PRN (08:38)
[2022-05-19] MEDS: hydrALAZINE 25 MG TABLET PO SCH ×2 (08:38→20:02)
[2022-05-19] MEDS: Aspirin Enteric Coated 81 MG Tablet PO SCH (08:38)
[2022-05-19] MEDS: carvediloL 25 MG TABLET PO SCH ×2 (08:38→16:18)
[2022-05-19] MEDS: Calcium Acetate 667 MG CAPSULE PO SCH ×3 (08:38→16:18)
[2022-05-19] MEDS: Topiramate 25 MG TABLET PO SCH ×2 (08:39→20:02)
[2022-05-19] MEDS: amLODIPine 5 MG TABLET PO SCH ×2 (08:39→11:12)
[2022-05-19] MEDS: *HR* LORazepam 0.5 MG TABLET PO PRN (08:39)
[2022-05-19] MEDS: Ondansetron 4 MG/2 ML VIAL IVP PRN (08:39)
[2022-05-19] MEDS: Dexamethasone Sodium Phos/PF 10 MG/ML VIAL IVP SCH (08:39)
[2022-05-19 10:58] LABS: ABG Base Excess 4 mEq/L (-2 to 3); ABG HCO3 29 mEq/L (21-27); ABG Oxygen Saturation 98 % (95-98); ABG PCO2 44 mmHg (35-45); ABG PH 7.42 pH Units (7.32-7.45); ABG PO2 102 mmHg (85-104); ABG TCO2 30 mEq/L (20-26)
[2022-05-19] MEDS ORDERED: Naloxone 0.4 MG/ML INJ IVP PRN (10:59)
[2022-05-19] MEDS ORDERED: D5% in Water 1,000 ML IVC PRN (13:40)
[2022-05-19] MEDS ORDERED: *HR* Dextrose 50 % in Water (Syg) 50 ML SYRINGE IVP PRN (13:40)
[2022-05-19] MEDS ORDERED: Dextrose Gel 15 GM/37.5 ML TUBE PO PRN ×2 (13:40)
[2022-05-19] MEDS: Insulin LISPRO 300 UNITS/3 ML VIAL SUBQ SCH (16:33)
[2022-05-19] MEDS: Artificial Tears SOLN 15 ML BOTTLE BOTH EYES SCH (20:02)
[2022-05-19] MEDS ORDERED: Insulin LISPRO 300 UNITS/3 ML VIAL SUBQ SCH (21:00)
[2022-05-20] MEDS: Benzonatate 100 MG CAPSULE PO PRN (01:02)
[2022-05-20] MEDS: Ipratropium 1 PUFF INHALER IH SCH ×4 (04:14→15:57)
[2022-05-20] MEDS: Levothyroxine 25 MCG TABLET PO SCH (05:56)
[2022-05-20] MEDS: *HR* Heparin 5,000 UNIT/ML VIAL SQ SCH ×2 (05:56→13:20)
[2022-05-20] MEDS ORDERED: 0.9 % Sodium Chloride 250 ML IVC PRN (07:21)
[2022-05-20 07:24] VITALS: PULSE 71
[2022-05-20] MEDS: Dexamethasone Sodium Phos/PF 10 MG/ML VIAL IVP SCH (07:42)
[2022-05-20] MEDS: Insulin LISPRO 300 UNITS/3 ML VIAL SUBQ SCH ×3 (07:43→16:28)
[2022-05-20] MEDS: Calcium Acetate 667 MG CAPSULE PO SCH ×4 (07:52→16:28)
[2022-05-20] MEDS: hydrALAZINE 25 MG TABLET PO SCH (07:52)
[2022-05-20] MEDS: Aspirin Enteric Coated 81 MG Tablet PO SCH (07:52)
[2022-05-20] MEDS: carvediloL 25 MG TABLET PO SCH ×2 (07:52→16:28)
[2022-05-20] MEDS: amLODIPine 5 MG TABLET PO SCH (07:53)
[2022-05-20] MEDS: Topiramate 25 MG TABLET PO SCH (07:53)
[2022-05-20] MEDS ORDERED: *HR* Heparin 10,000 UNIT/10 ML VIAL IV PRN (09:24)
[2022-05-20 09:47] VITALS: O2SAT 96
[2022-05-20] MEDS: Ondansetron 4 MG/2 ML VIAL IVP PRN (10:05)
[2022-05-20 11:53] LABS: Estimated Average Glucose 163 mg/dl; Hemoglobin A1C 7.3 %
[2022-05-20 12:09] LABS: Albumin 3.7 g/dL (3.5-5.7); Albumin/Globulin Ratio 1.2 (1.1-2.2); Bilirubin,Total 0.5 mg/dL (0.3-1.0); Calcium 8.3 mg/dL (8.6-10.3); Potassium 4.3 mEq/L (3.5-5.1); Total Protein 6.7 g/dL (6.4-8.9)
[2022-05-20 12:22] LABS: Hepatitis B Surface Antibody < 3.10 mIU/mL
[2022-05-20 12:33] LABS: Hepatitis B Surface Antigen Nonreactive (Nonreactive)
[2022-05-20 13:48] VITALS: BP 223/89; TEMP 98.2
== END 2022-05-20 17:09 | disposition home or self-care (01) | DRG 137 ==
LOC: EMEROOARM 23:12 → 2NENU 23:12 → SUATTDRO 05-16 01:28 → 2NENU 05-16 02:50 → SUATTDRO 05-19 14:19
PROVIDERS: ADMIT Internal Medicine; ATTEND Internal Medicine

== ENCOUNTER 2022-05-29 18:44 | Observation (INO) ==
[2022-05-29] MEDS ORDERED: Albuterol 2.5 MG/3 ML NEBULIZER IH ONE (20:35)
[2022-05-29 20:48] LABS: Influenza A PCR Negative (Negative); Influenza B PCR Negative (Negative); Resp. Syncytial Virus PCR Negative (Negative)
[2022-05-29 21:10] LABS: Basophils % 0.2 %; Eosinophils % 0.4 %; Hematocrit 22.5 % (35.3-44.9); Immature Granulocytes % 0.6 % (0-4); Lymphocytes # 0.7 K/mcL (0.6-4.6); Lymphocytes % 14.2 %; Mean Corpuscular HGB Conc 31.1 g/dL (31.6-35.5); Mean Corpuscular Hemoglobin 31.5 pg (28.0-33.3); Mean Corpuscular Volume 101.4 fL (83.0-100.0); Mean Platelet Volume 10.6 fL (9.4-12.4); Monocytes # 0.4 K/mcL (0.0-1.3); Monocytes % 7.5 %; Neutrophils # 3.6 K/mcL (1.6-8.9); Nucleated Red Blood Cells 1.3 /100 WBC (0); Platelet Count 101 K/mcL (140-400); Red Blood Count 2.22 M/mcL (3.82-4.97); Red Cell Distribution Width 16.3 % (11.5-14.5); Segmented Neutrophils % 77.1 %; White Blood Count 4.7 K/mcL (4.3-11.1)
[2022-05-29 21:17] LABS: SARS-CoV-2 by PCR (In House) Positive (Negative)
[2022-05-29 21:33] LABS: Calcium 8.7 mg/dL (8.6-10.3); Magnesium 1.9 mg/dL (1.6-2.6); Potassium 4.4 mEq/L (3.5-5.1)
[2022-05-29 21:34] LABS: Troponin I 0.03 ng/mL (< 0.04)
[2022-05-29] MEDS ORDERED: Ondansetron ODT 4 MG TAB.RAPDIS SL ONE (21:58)
[2022-05-29] MEDS ORDERED: Ondansetron 4 MG/2 ML VIAL IVP PRN (23:35)
[2022-05-29] MEDS ORDERED: Naloxone 0.4 MG/ML INJ IVP PRN (23:35)
[2022-05-30] MEDS ORDERED: *HR* LORazepam 2 MG/ML VIAL IVP ONE ×2 (00:28→23:08)
[2022-05-30] MEDS ORDERED: D5% in Water 1,000 ML IVC PRN (00:35)
[2022-05-30] MEDS ORDERED: Dextrose Gel 15 GM/37.5 ML TUBE PO PRN ×2 (00:35)
[2022-05-30] MEDS ORDERED: *HR* Dextrose 50 % in Water (Syg) 50 ML SYRINGE IVP PRN (00:35)
[2022-05-30] MEDS ORDERED: Furosemide 40 MG/4 ML VIAL IVP ONE (00:45)
[2022-05-30] MEDS ORDERED: levoFLOXacin 750 MG/150 ML 750 MG/150 ML BAG IVPB SCH (01:00)
[2022-05-30] MEDS: Insulin LISPRO 300 UNITS/3 ML VIAL SUBQ SCH ×5 (01:34→23:54)
[2022-05-30] MEDS: Benzonatate 100 MG CAPSULE PO PRN ×3 (01:35→17:48)
[2022-05-30 02:17] LABS: Hemoglobin 7.1 g/dL (11.5-15.4)
[2022-05-30 02:19] LABS: Basophils % 0.6 %; Eosinophils % 0.6 %; Immature Platelets 2.7 % (1.1-6.1); Lymphocytes # 0.6 K/mcL (0.6-4.6); Lymphocytes % 12.5 %; Mean Corpuscular HGB Conc 30.9 g/dL (31.6-35.5); Mean Corpuscular Hemoglobin 31.4 pg (28.0-33.3); Mean Corpuscular Volume 101.8 fL (83.0-100.0); Mean Platelet Volume 10.1 fL (9.4-12.4); Monocytes # 0.3 K/mcL (0.0-1.3); Monocytes % 7.1 %; Neutrophils # 3.8 K/mcL (1.6-8.9); Nucleated Red Blood Cells 0.6 /100 WBC (0); Platelet Count 108 K/mcL (140-400); Red Blood Count 2.26 M/mcL (3.82-4.97); Red Cell Distribution Width 16.6 % (11.5-14.5); Segmented Neutrophils % 78.2 %; White Blood Count 4.8 K/mcL (4.3-11.1)
[2022-05-30 02:24] LABS: INR 1.2; Prothrombin Time 13.9 Seconds (9.4-12.1)
[2022-05-30 02:39] LABS: Albumin 3.6 g/dL (3.5-5.7); Magnesium 1.9 mg/dL (1.6-2.6); Potassium 4.2 mEq/L (3.5-5.1)
[2022-05-30 03:25] LABS: Albumin/Globulin Ratio 1.2 (1.1-2.2); Bilirubin,Direct 0.3 mg/dL (0.0-0.2); Bilirubin,Indirect 0.5 mg/dL (0.0-1.0); Bilirubin,Total 0.8 mg/dL (0.3-1.0); Globulin 2.9 g/dL (2.4-3.5); Total Protein 6.5 g/dL (6.4-8.9)
[2022-05-30] MEDS: Levothyroxine 25 MCG TABLET PO SCH (06:30)
[2022-05-30] MEDS: hydrOXYzine pamoate 25 MG CAPSULE PO PRN ×3 (08:04→22:09)
[2022-05-30] MEDS: carvediloL 25 MG TABLET PO SCH ×2 (08:04→17:47)
[2022-05-30] MEDS: Topiramate 25 MG TABLET PO SCH ×2 (08:04→22:09)
[2022-05-30] MEDS: Vitamin B Complex/Vit C/Vit E 1 EACH TABLET PO SCH (08:04)
[2022-05-30] MEDS ORDERED: Sennosides/Docusate Sodium TABLET PO PRN (08:21)
[2022-05-30] MEDS ORDERED: *HR* Heparin 10,000 UNIT/10 ML VIAL IV PRN ×2 (09:57)
[2022-05-30] MEDS ORDERED: 0.9 % Sodium Chloride 250 ML IVC PRN (09:57)
[2022-05-30] MEDS ORDERED: 0.9 % Sodium Chloride 2,000 ML PRIME SCH (10:00)
[2022-05-30] MEDS: amLODIPine 5 MG TABLET PO SCH (11:45)
[2022-05-30] MEDS: Aspirin Enteric Coated 81 MG Tablet PO SCH (11:45)
[2022-05-30] MEDS ORDERED: ALPRAZolam 0.5 MG TABLET PO ONE (12:33)
[2022-05-30] MEDS ORDERED: Calcium Acetate 667 MG CAPSULE PO PRN (14:38)
[2022-05-30] MEDS: Calcium Acetate 667 MG CAPSULE PO SCH (17:48)
[2022-05-30] MEDS: Acetaminophen 325 MG TABLET PO PRN (22:09)
[2022-05-31] MEDS ORDERED: Artificial Tears SOLN 15 ML BOTTLE BOTH EYES PRN (02:15)
[2022-05-31] MEDS: Levothyroxine 25 MCG TABLET PO SCH (06:29)
[2022-05-31] MEDS: Topiramate 25 MG TABLET PO SCH ×2 (07:43→22:13)
[2022-05-31] MEDS: Vitamin B Complex/Vit C/Vit E 1 EACH TABLET PO SCH (07:43)
[2022-05-31] MEDS: carvediloL 25 MG TABLET PO SCH ×2 (07:43→16:29)
[2022-05-31] MEDS: Aspirin Enteric Coated 81 MG Tablet PO SCH (07:43)
[2022-05-31] MEDS: Calcium Acetate 667 MG CAPSULE PO SCH ×3 (07:43→16:28)
[2022-05-31] MEDS: amLODIPine 5 MG TABLET PO SCH (07:44)
[2022-05-31] MEDS: Insulin LISPRO 300 UNITS/3 ML VIAL SUBQ SCH ×4 (07:47→22:14)
[2022-05-31] MEDS: hydrOXYzine pamoate 25 MG CAPSULE PO PRN ×3 (08:02→22:36)
[2022-05-31 09:58] LABS: Basophils % 0.3 %; Eosinophils % 0.5 %; Hematocrit 20.4 % (35.3-44.9)
[2022-05-31 10:00] LABS: Hemoglobin 6.3 g/dL (11.5-15.4); Immature Granulocytes % 0.8 % (0-4); Immature Platelets 3.7 % (1.1-6.1); Lymphocytes # 0.6 K/mcL (0.6-4.6); Lymphocytes % 15.7 %; Mean Corpuscular HGB Conc 30.9 g/dL (31.6-35.5); Mean Corpuscular Volume 103.6 fL (83.0-100.0); Mean Platelet Volume 10.4 fL (9.4-12.4); Monocytes # 0.4 K/mcL (0.0-1.3); Monocytes % 8.9 %; Red Blood Count 1.97 M/mcL (3.82-4.97); Red Cell Distribution Width 17.5 % (11.5-14.5); Segmented Neutrophils % 73.8 %
[2022-05-31 10:01] LABS: Platelet Count 80 K/mcL (140-400)
[2022-05-31 10:19] LABS: Calcium 8.5 mg/dL (8.6-10.3); Magnesium 1.8 mg/dL (1.6-2.6); Phosphorous 3.8 mg/dL (2.7-4.5); Potassium 3.9 mEq/L (3.5-5.1)
[2022-05-31] MEDS ORDERED: 0.9 % Sodium Chloride 250 ML IVC SCH (15:30)
[2022-05-31] MEDS: ALPRAZolam 0.25 MG TABLET PO PRN (16:29)
[2022-05-31 16:59] LABS: Hematocrit 20.7 % (35.3-44.9); Hemoglobin 6.2 g/dL (11.5-15.4)
[2022-06-01] MEDS ORDERED: levoFLOXacin 500 MG/100 ML 500 MG/100 ML BAG IVPB SCH (02:00)
[2022-06-01] MEDS: Acetaminophen 325 MG TABLET PO PRN (05:39)
[2022-06-01] MEDS: hydrOXYzine pamoate 25 MG CAPSULE PO PRN ×3 (05:39→22:06)
[2022-06-01 05:45] LABS: ABG Base Excess -2 mEq/L (-2 to 3); ABG HCO3 21 mEq/L (21-27); ABG Oxygen Saturation 96 % (95-98); ABG PCO2 26 mmHg (35-45); ABG PH 7.51 pH Units (7.32-7.45); ABG PO2 70 mmHg (85-104); ABG TCO2 21 mEq/L (20-26)
[2022-06-01] MEDS: Levothyroxine 25 MCG TABLET PO SCH (05:47)
[2022-06-01] MEDS: ALPRAZolam 0.25 MG TABLET PO PRN ×2 (08:21→22:06)
[2022-06-01] MEDS: Vitamin B Complex/Vit C/Vit E 1 EACH TABLET PO SCH (08:21)
[2022-06-01] MEDS: Calcium Acetate 667 MG CAPSULE PO SCH ×3 (08:21→22:05)
[2022-06-01] MEDS: amLODIPine 5 MG TABLET PO SCH (08:21)
[2022-06-01] MEDS: Aspirin Enteric Coated 81 MG Tablet PO SCH (08:22)
[2022-06-01] MEDS: Topiramate 25 MG TABLET PO SCH ×2 (08:22→22:06)
[2022-06-01] MEDS: carvediloL 25 MG TABLET PO SCH ×2 (08:22→22:05)
[2022-06-01] MEDS: Insulin LISPRO 300 UNITS/3 ML VIAL SUBQ SCH ×4 (08:24→22:07)
[2022-06-01 08:53] LABS: Basophils % 0.3 %; Hematocrit 25.9 % (35.3-44.9); Immature Granulocytes % 3.1 % (0-4); Lymphocytes # 0.3 K/mcL (0.6-4.6); Lymphocytes % 7.6 %; Mean Corpuscular HGB Conc 30.9 g/dL (31.6-35.5); Mean Corpuscular Volume 103.6 fL (83.0-100.0); Mean Platelet Volume 11.1 fL (9.4-12.4); Monocytes # 0.1 K/mcL (0.0-1.3); Monocytes % 2.9 %; Neutrophils # 3.3 K/mcL (1.6-8.9); Nucleated Red Blood Cells 3.1 /100 WBC (0); Segmented Neutrophils % 86.1 %; White Blood Count 3.8 K/mcL (4.3-11.1)
[2022-06-01 08:54] LABS: Platelet Count 86 K/mcL (140-400)
[2022-06-01] MEDS ORDERED: *HR* Heparin 10,000 UNIT/10 ML VIAL IV PRN (08:57)
[2022-06-01] MEDS ORDERED: 0.9 % Sodium Chloride 250 ML IVC PRN (08:57)
[2022-06-01 09:24] LABS: Calcium 8.6 mg/dL (8.6-10.3); Magnesium 1.8 mg/dL (1.6-2.6); Phosphorous 4.7 mg/dL (2.7-4.5)
[2022-06-01] MEDS: *HR* OxyCODONE/APAP 5/325 TABLET PO PRN ×3 (09:40→22:06)
[2022-06-02] MEDS: Levothyroxine 25 MCG TABLET PO SCH (05:32)
[2022-06-02 07:34] VITALS: O2SAT 92
[2022-06-02 07:35] VITALS: BP 171/95; PULSE 79; TEMP 98
[2022-06-02] MEDS: Insulin LISPRO 300 UNITS/3 ML VIAL SUBQ SCH ×2 (07:35→11:51)
[2022-06-02] MEDS: Vitamin B Complex/Vit C/Vit E 1 EACH TABLET PO SCH (07:36)
[2022-06-02] MEDS: Aspirin Enteric Coated 81 MG Tablet PO SCH (07:36)
[2022-06-02] MEDS: Calcium Acetate 667 MG CAPSULE PO SCH ×2 (07:36→11:53)
[2022-06-02] MEDS: carvediloL 25 MG TABLET PO SCH (07:36)
[2022-06-02] MEDS: amLODIPine 5 MG TABLET PO SCH (07:36)
[2022-06-02] MEDS: Topiramate 25 MG TABLET PO SCH (07:38)
[2022-06-02] MEDS: *HR* OxyCODONE/APAP 5/325 TABLET PO PRN (07:43)
[2022-06-02] MEDS: hydrOXYzine pamoate 25 MG CAPSULE PO PRN (07:43)
== END 2022-06-02 13:30 | disposition home or self-care (01) ==
LOC: 3NENU 18:44 → EMEROOARM 18:44 → SUATTDRO 22:29 → 3NENU 23:29
PROVIDERS: ADMIT Internal Medicine; ATTEND Internal Medicine

== ENCOUNTER 2022-06-08 04:18 | Inpatient (IN) ==
[2022-06-08 05:55] LABS: Basophils % 0.2 %
[2022-06-08 05:57] LABS: Eosinophils % 0.4 %; Hematocrit 27.4 % (35.3-44.9); Hemoglobin 8.6 g/dL (11.5-15.4); Immature Granulocytes % 0.4 % (0-4); Immature Platelets 4.6 % (1.1-6.1); Lymphocytes # 0.3 K/mcL (0.6-4.6); Lymphocytes % 7.4 %; Mean Corpuscular HGB Conc 31.4 g/dL (31.6-35.5); Mean Corpuscular Hemoglobin 31.7 pg (28.0-33.3); Mean Corpuscular Volume 101.1 fL (83.0-100.0); Mean Platelet Volume 11.9 fL (9.4-12.4); Monocytes # 0.4 K/mcL (0.0-1.3); Monocytes % 9.6 %; Neutrophils # 3.8 K/mcL (1.6-8.9); Red Blood Count 2.71 M/mcL (3.82-4.97); Red Cell Distribution Width 19.7 % (11.5-14.5); White Blood Count 4.6 K/mcL (4.3-11.1)
[2022-06-08 05:58] LABS: Platelet Count 63 K/mcL (140-400)
[2022-06-08 06:06] LABS: Albumin 3.9 g/dL (3.5-5.7); Albumin/Globulin Ratio 1.3 (1.1-2.2); Bilirubin,Direct 0.4 mg/dL (0.0-0.2); Bilirubin,Indirect 0.5 mg/dL (0.0-1.0); Bilirubin,Total 0.9 mg/dL (0.3-1.0); Calcium 9.3 mg/dL (8.6-10.3); Globulin 2.9 g/dL (2.4-3.5); Potassium 6.8 mEq/L (3.5-5.1); Total Protein 6.8 g/dL (6.4-8.9); Troponin I 0.04 ng/mL (< 0.04)
[2022-06-08] MEDS ORDERED: Ondansetron 4 MG/2 ML VIAL IVP ONE (06:41)
[2022-06-08] MEDS: Calcium Gluconate 1gm/50mL 1 GM/50 ML BAG IVPB SCH ×2 (06:59→07:57)
[2022-06-08] MEDS ORDERED: D5% in Water 1,000 ML IVC PRN (09:05)
[2022-06-08] MEDS ORDERED: Naloxone 0.4 MG/ML INJ IVP PRN (09:05)
[2022-06-08] MEDS ORDERED: *HR* Dextrose 50 % in Water (Syg) 50 ML SYRINGE IVP PRN (09:05)
[2022-06-08] MEDS ORDERED: Dextrose Gel 15 GM/37.5 ML TUBE PO PRN ×2 (09:05)
[2022-06-08] MEDS ORDERED: Ondansetron 4 MG/2 ML VIAL IVP PRN (09:05)
[2022-06-08] MEDS: Insulin LISPRO 300 UNITS/3 ML VIAL SUBQ SCH ×3 (11:59→22:33)
[2022-06-08] MEDS ORDERED: 0.9 % Sodium Chloride 250 ML IVC PRN (13:07)
[2022-06-08] MEDS ORDERED: *HR* Heparin 10,000 UNIT/10 ML VIAL IV PRN ×2 (13:07)
[2022-06-08] MEDS ORDERED: 0.9 % Sodium Chloride 2,000 ML PRIME SCH (13:15)
[2022-06-08] MEDS ORDERED: *HR* Promethazine 25 MG/ML VIAL IM ONE ×2 (13:33→15:15)
[2022-06-08] MEDS: *HR* Labetalol 20 MG/4 ML SYRINGE IVP PRN (15:11)
[2022-06-08] MEDS ORDERED: hydrALAZINE 10 MG TABLET PO PRN (18:52)
[2022-06-09] MEDS: Insulin LISPRO 300 UNITS/3 ML VIAL SUBQ SCH ×4 (08:28→21:57)
[2022-06-09] MEDS ORDERED: 0.9 % Sodium Chloride 250 ML IVC PRN (08:35)
[2022-06-09] MEDS ORDERED: *HR* Heparin 10,000 UNIT/10 ML VIAL IV PRN (08:35)
[2022-06-09] MEDS ORDERED: Albuterol 2.5 MG/3 ML NEBULIZER IH PRN (08:42)
[2022-06-09] MEDS: *HR* Labetalol 20 MG/4 ML SYRINGE IVP PRN (08:47)
[2022-06-09] MEDS ORDERED: Levothyroxine 25 MCG TABLET PO SCH (09:00)
[2022-06-09 10:10] LABS: Eosinophils % 0.6 %; Immature Granulocytes % 0.9 % (0-4); Monocytes % 15.6 %
[2022-06-09 10:12] LABS: Hematocrit 25.1 % (35.3-44.9); Hemoglobin 7.9 g/dL (11.5-15.4); Immature Platelets 3.9 % (1.1-6.1); Lymphocytes # 0.4 K/mcL (0.6-4.6); Lymphocytes % 12.1 %; Mean Corpuscular HGB Conc 31.5 g/dL (31.6-35.5); Mean Corpuscular Hemoglobin 32.1 pg (28.0-33.3); Mean Platelet Volume 11.4 fL (9.4-12.4); Monocytes # 0.6 K/mcL (0.0-1.3); Neutrophils # 2.5 K/mcL (1.6-8.9); Red Blood Count 2.46 M/mcL (3.82-4.97); Red Cell Distribution Width 19.4 % (11.5-14.5); Segmented Neutrophils % 70.8 %; White Blood Count 3.5 K/mcL (4.3-11.1)
[2022-06-09 10:15] LABS: Platelet Count 70 K/mcL (140-400)
[2022-06-09 10:35] LABS: Calcium 8.6 mg/dL (8.6-10.3); Potassium 4.6 mEq/L (3.5-5.1)
[2022-06-09 10:41] LABS: Albumin 3.5 g/dL (3.5-5.7); Albumin/Globulin Ratio 1.3 (1.1-2.2); Bilirubin,Total 0.7 mg/dL (0.3-1.0); Calcium 8.6 mg/dL (8.6-10.3); Globulin 2.6 g/dL (2.4-3.5); Potassium 4.6 mEq/L (3.5-5.1); Total Protein 6.1 g/dL (6.4-8.9)
[2022-06-09] MEDS ORDERED: Cetaphil Lotion 473 ML BOTTLE TP SCH (11:15)
[2022-06-09 11:16] LABS: Anisocytosis 1+ (Not Present); Platelet Estimate Decreased (Normal)
[2022-06-09] MEDS: Renal Vitamin 1 CAP CAPSULE PO SCH (13:43)
[2022-06-09] MEDS: Calcium Acetate 667 MG CAPSULE PO SCH ×2 (13:43→18:16)
[2022-06-09] MEDS: amLODIPine 5 MG TABLET PO SCH (13:44)
[2022-06-09] MEDS: Aspirin Enteric Coated 81 MG Tablet PO SCH (13:44)
[2022-06-09] MEDS: carvediloL 25 MG TABLET PO SCH ×2 (13:44→18:16)
[2022-06-09] MEDS: clonazePAM 1 MG TABLET PO PRN ×2 (13:44→22:02)
[2022-06-09] MEDS: Topiramate 25 MG TABLET PO SCH ×2 (13:44→22:02)
[2022-06-09] MEDS: Ammonium Lactate 30 APPL/225 GM BOTTLE TP SCH ×3 (18:16→22:02)
[2022-06-09] MEDS ORDERED: Acetaminophen IV 1,000 MG/100 ML BAG IVPB ONE (20:25)
[2022-06-09] MEDS: Neosporin OINT 15 GM TUBE TP SCH (22:03)
[2022-06-10 02:56] LABS: Basophils % 0.4 %; Hematocrit 23.9 % (35.3-44.9)
[2022-06-10 02:58] LABS: Eosinophils # 0.1 K/mcL (0.0-0.6); Eosinophils % 1.9 %; Hemoglobin 7.2 g/dL (11.5-15.4); Immature Granulocytes % 0.8 % (0-4); Immature Platelets 4.3 % (1.1-6.1); Lymphocytes # 0.6 K/mcL (0.6-4.6); Lymphocytes % 20.7 %; Mean Corpuscular HGB Conc 30.1 g/dL (31.6-35.5); Mean Corpuscular Hemoglobin 31.7 pg (28.0-33.3); Mean Corpuscular Volume 105.3 fL (83.0-100.0); Mean Platelet Volume 11.6 fL (9.4-12.4); Monocytes # 0.5 K/mcL (0.0-1.3); Monocytes % 18.4 %; Nucleated Red Blood Cells 0.8 /100 WBC (0); Red Blood Count 2.27 M/mcL (3.82-4.97); Red Cell Distribution Width 19.3 % (11.5-14.5); Segmented Neutrophils % 57.8 %; White Blood Count 2.7 K/mcL (4.3-11.1)
[2022-06-10 03:14] LABS: Calcium 8.2 mg/dL (8.6-10.3); Magnesium 1.9 mg/dL (1.6-2.6); Phosphorous 4.4 mg/dL (2.7-4.5); Potassium 4.3 mEq/L (3.5-5.1)
[2022-06-10 03:18] LABS: Neutrophils # 1.6 K/mcL (1.6-8.9); Platelet Count 78 K/mcL (140-400)
[2022-06-10] MEDS ORDERED: Levothyroxine 25 MCG TABLET PO SCH (06:30)
[2022-06-10] MEDS ORDERED: 0.9 % Sodium Chloride 250 ML IVC PRN (08:27)
[2022-06-10] MEDS ORDERED: *HR* Heparin 10,000 UNIT/10 ML VIAL IV PRN (08:27)
[2022-06-10] MEDS: Insulin LISPRO 300 UNITS/3 ML VIAL SUBQ SCH ×3 (09:02→17:00)
[2022-06-10] MEDS: Calcium Acetate 667 MG CAPSULE PO SCH ×3 (09:24→16:59)
[2022-06-10] MEDS: Renal Vitamin 1 CAP CAPSULE PO SCH (09:24)
[2022-06-10] MEDS: *HR* OxyCODONE/APAP 5/325 TABLET PO PRN ×2 (09:25→17:00)
[2022-06-10] MEDS: amLODIPine 5 MG TABLET PO SCH (09:25)
[2022-06-10] MEDS: Aspirin Enteric Coated 81 MG Tablet PO SCH (09:25)
[2022-06-10] MEDS: Topiramate 25 MG TABLET PO SCH (09:25)
[2022-06-10] MEDS: carvediloL 25 MG TABLET PO SCH ×2 (09:25→16:59)
[2022-06-10] MEDS: Neosporin OINT 15 GM TUBE TP SCH (09:26)
[2022-06-10] MEDS: Ammonium Lactate 30 APPL/225 GM BOTTLE TP SCH ×2 (09:26→17:00)
[2022-06-10] MEDS: clonazePAM 1 MG TABLET PO PRN ×2 (09:31→18:35)
[2022-06-10 09:51] VITALS: O2SAT 98
[2022-06-10 14:26] VITALS: BP 157/73; PULSE 82; TEMP 97.7
== END 2022-06-10 19:40 | disposition home health service (06) | DRG 425 ==
LOC: 2ANU 04:18 → EMEROOARM 04:18 → SUATTDRO 11:52 → 2ANU 12:02
PROVIDERS: ADMIT Family Medicine; ATTEND Family Medicine

== ENCOUNTER 2022-06-24 14:30 | Inpatient (IN) ==
[2022-06-24 20:05] LABS: Basophils % 0.4 %; Eosinophils # 0.1 K/mcL (0.0-0.6); Hematocrit 27.8 % (35.3-44.9); Hemoglobin 8.6 g/dL (11.5-15.4); Immature Granulocytes % 0.2 % (0-4); Lymphocytes # 0.7 K/mcL (0.6-4.6); Lymphocytes % 14.5 %; Mean Corpuscular HGB Conc 30.9 g/dL (31.6-35.5); Mean Corpuscular Hemoglobin 31.4 pg (28.0-33.3); Mean Corpuscular Volume 101.5 fL (83.0-100.0); Mean Platelet Volume 10.4 fL (9.4-12.4); Monocytes # 0.4 K/mcL (0.0-1.3); Monocytes % 7.9 %; Neutrophils # 3.8 K/mcL (1.6-8.9); Platelet Count 141 K/mcL (140-400); Red Blood Count 2.74 M/mcL (3.82-4.97); Red Cell Distribution Width 19.5 % (11.5-14.5); White Blood Count 5.1 K/mcL (4.3-11.1)
[2022-06-24 20:12] LABS: Albumin/Globulin Ratio 1.1 (1.1-2.2); Bilirubin,Direct 0.4 mg/dL (0.0-0.2); Bilirubin,Indirect 0.8 mg/dL (0.0-1.0); Bilirubin,Total 1.2 mg/dL (0.3-1.0); Globulin 3.5 g/dL (2.4-3.5); Magnesium 2.1 mg/dL (1.6-2.6); Total Protein 7.5 g/dL (6.4-8.9); Troponin I 0.07 ng/mL (< 0.04)
[2022-06-24] MEDS ORDERED: Ampicillin/Sulbactam 3,000 MG in 0.9 % Sodium Chloride Mini Bag 100 ML IVPB ONE (20:30)
[2022-06-24] MEDS ORDERED: Vancomycin 1,500 MG/265 ML IV.SOLN IVPB ONE (21:00)
[2022-06-24] MEDS ORDERED: Naloxone 0.4 MG/ML INJ IVP PRN (21:43)
[2022-06-24] MEDS: carvediloL 25 MG TABLET PO SCH (23:06)
[2022-06-25] MEDS: Ampicillin/Sulbactam 3,000 MG in 0.9 % Sodium Chloride Mini Bag 100 ML IVPB SCH ×3 (03:23→16:08)
[2022-06-25] MEDS: Levothyroxine 25 MCG TABLET PO SCH (06:28)
[2022-06-25] MEDS ORDERED: *HR* Heparin 10,000 UNIT/10 ML VIAL IV PRN (07:36)
[2022-06-25] MEDS ORDERED: 0.9 % Sodium Chloride 250 ML IVC PRN (07:36)
[2022-06-25] MEDS ORDERED: 0.9 % Sodium Chloride 2,000 ML PRIME SCH (07:45)
[2022-06-25] MEDS: *HR* Heparin 5,000 UNIT/ML VIAL SQ SCH ×2 (09:20→16:41)
[2022-06-25] MEDS: Aspirin Enteric Coated 81 MG Tablet PO SCH (09:59)
[2022-06-25] MEDS: amLODIPine 5 MG TABLET PO SCH ×2 (10:00→13:39)
[2022-06-25] MEDS: carvediloL 25 MG TABLET PO SCH ×2 (10:00→13:39)
[2022-06-25] MEDS: Topiramate 25 MG TABLET PO SCH ×2 (10:00→20:44)
[2022-06-25 11:45] LABS: Basophils % 0.6 %; Eosinophils # 0.1 K/mcL (0.0-0.6); Hematocrit 21.7 % (35.3-44.9); Immature Granulocytes % 0.3 % (0-4); Lymphocytes # 0.3 K/mcL (0.6-4.6); Lymphocytes % 9.1 %; Mean Corpuscular HGB Conc 31.3 g/dL (31.6-35.5); Mean Corpuscular Hemoglobin 31.6 pg (28.0-33.3); Mean Corpuscular Volume 100.9 fL (83.0-100.0); Mean Platelet Volume 10.3 fL (9.4-12.4); Monocytes # 0.3 K/mcL (0.0-1.3); Monocytes % 7.7 %; Neutrophils # 2.8 K/mcL (1.6-8.9); Platelet Count 105 K/mcL (140-400); Red Blood Count 2.15 M/mcL (3.82-4.97); Red Cell Distribution Width 19.2 % (11.5-14.5); Segmented Neutrophils % 80.3 %; White Blood Count 3.5 K/mcL (4.3-11.1)
[2022-06-25 11:46] LABS: Hemoglobin 6.8 g/dL (11.5-15.4)
[2022-06-25 12:01] LABS: Albumin 3.5 g/dL (3.5-5.7); Albumin/Globulin Ratio 1.2 (1.1-2.2); Calcium 8.5 mg/dL (8.6-10.3); Phosphorous 7.6 mg/dL (2.7-4.5); Potassium 4.1 mEq/L (3.5-5.1); Total Protein 6.5 g/dL (6.4-8.9)
[2022-06-25 12:02] LABS: % Iron Saturation 30 % (15-50); Iron 76 mcg/dL (50-170); Transferrin 183 mg/dL (203-362)
[2022-06-25 12:22] LABS: Hepatitis B Surface Antibody < 3.10 mIU/mL
[2022-06-25 12:33] LABS: Hepatitis B Surface Antigen Nonreactive (Nonreactive)
[2022-06-25] MEDS: *HR* OxyCODONE/APAP 5/325 TABLET PO PRN (13:27)
[2022-06-25] MEDS: Calcium Acetate 667 MG CAPSULE PO SCH ×2 (13:27→16:38)
[2022-06-25 13:28] LABS: CTX-M ESBL Gene Not Detected (Not Detect); IMP Carbapenem-Resist Gene Not Detected (Not Detect); NDM Carbapenem-Resist Gene Not Detected (Not Detect); OXA-48-like Carbap-Resist Gene Not Detected (Not Detect); blaKPC Carbapenem-Resist Gene Not Detected (Not Detect)
[2022-06-25 13:29] LABS: A.calcoaceticus-baumannii cplx Not Detected (Not Detect); Bacteroides fragilis by PCR Not Detected (Not Detect); Candida albicans by PCR Not Detected (Not Detect); Candida auris by PCR Not Detected (Not Detect); Candida glabrata by PCR Not Detected (Not Detect); Candida krusei by PCR Not Detected (Not Detect); Candida parapsilosis by PCR Not Detected (Not Detect); Candida tropicalis by PCR Not Detected (Not Detect); Crypto. neoformans/gattii PCR Not Detected (Not Detect); Enterobacter cloacae Cmplx PCR DETECTED (Not Detect); Enterococcus faecalis by PCR Not Detected (Not Detect); Enterococcus faecium by PCR Not Detected (Not Detect); Escherichia coli by PCR Not Detected (Not Detect); Klebs. pneumoniae group by PCR Not Detected (Not Detect); Klebsiella aerogenes by PCR Not Detected (Not Detect); Klebsiella oxytoca by PCR DETECTED (Not Detect); Proteus by PCR Not Detected (Not Detect); Pseudomonas aeruginosa by PCR Not Detected (Not Detect); Salmonella species by PCR Not Detected (Not Detect); Serratia marcescens by PCR Not Detected (Not Detect); Staph epidermidis by PCR Not Detected (Not Detect); Staph lugdunensis by PCR Not Detected (Not Detect); Staphylococcus aureus by PCR Not Detected (Not Detect); Stenotrophomonas maltophilia Not Detected (Not Detect); Streptococcus agalactiae(B)PCR Not Detected (Not Detect); Streptococcus by PCR Not Detected (Not Detect); Streptococcus pneumoniae PCR Not Detected (Not Detect); Streptococcus pyogenes (A) PCR Not Detected (Not Detect); VIM Carbapenem-Resist Gene Not Detected (Not Detect); mcr-1 Colistin-Resist Gene Not Detected (Not Detect)
[2022-06-25] MEDS ORDERED: *HR* LORazepam 2 MG/ML VIAL IVP ONE ×2 (20:26→23:05)
[2022-06-25] MEDS: Artificial Tears SOLN 15 ML BOTTLE BOTH EYES SCH (20:44)
[2022-06-25] MEDS ORDERED: 0.9 % Sodium Chloride 250 ML ONE (21:29)
[2022-06-25] MEDS ORDERED: Ampicillin/Sulbactam 3,000 MG in 0.9 % Sodium Chloride Mini Bag 100 ML IVPB SCH (22:00)
[2022-06-25 22:27] LABS: A.calcoaceticus-baumannii cplx Not Detected (Not Detect); Bacteroides fragilis by PCR Not Detected (Not Detect); Candida albicans by PCR Not Detected (Not Detect); Candida auris by PCR Not Detected (Not Detect); Candida glabrata by PCR Not Detected (Not Detect); Candida krusei by PCR Not Detected (Not Detect); Candida parapsilosis by PCR Not Detected (Not Detect); Candida tropicalis by PCR Not Detected (Not Detect); Crypto. neoformans/gattii PCR Not Detected (Not Detect); Enterobacter cloacae Cmplx PCR Not Detected (Not Detect); Enterobacterales by PCR Not Detected (Not Detect); Enterococcus faecalis by PCR Not Detected (Not Detect); Enterococcus faecium by PCR Not Detected (Not Detect); Escherichia coli by PCR Not Detected (Not Detect); Klebs. pneumoniae group by PCR Not Detected (Not Detect); Klebsiella aerogenes by PCR Not Detected (Not Detect); Klebsiella oxytoca by PCR Not Detected (Not Detect); Proteus by PCR Not Detected (Not Detect); Pseudomonas aeruginosa by PCR Not Detected (Not Detect); Salmonella species by PCR Not Detected (Not Detect); Serratia marcescens by PCR Not Detected (Not Detect); Staph epidermidis by PCR DETECTED (Not Detect); Staph lugdunensis by PCR Not Detected (Not Detect); Staphylococcus aureus by PCR Not Detected (Not Detect); Staphylococcus by PCR Not Detected (Not Detect); Stenotrophomonas maltophilia Not Detected (Not Detect); Streptococcus agalactiae(B)PCR Not Detected (Not Detect); Streptococcus by PCR Not Detected (Not Detect); Streptococcus pneumoniae PCR Not Detected (Not Detect); Streptococcus pyogenes (A) PCR Not Detected (Not Detect); mecA/C Methicillin-Resist Gene DETECTED (Not Detect)
[2022-06-26] MEDS: *HR* OxyCODONE/APAP 5/325 TABLET PO PRN ×3 (00:28→20:55)
[2022-06-26] MEDS: Piperacillin/Tazobactam 3.375 GM in 0.9 % Sodium Chloride Mini Bag 100 ML IVPB SCH ×2 (00:28→10:30)
[2022-06-26] MEDS: DiphenhydraMINE CREAM 28.4 GM TUBE TP PRN ×2 (04:44→20:55)
[2022-06-26] MEDS: Levothyroxine 25 MCG TABLET PO SCH (05:34)
[2022-06-26] MEDS: *HR* Heparin 5,000 UNIT/ML VIAL SQ SCH ×2 (05:47→18:12)
[2022-06-26] MEDS ORDERED: Vancomycin 1,250 MG/262.5 ML IV.SOLN IVPB ONE (09:35)
[2022-06-26] MEDS ORDERED: Ampicillin/Sulbactam 3,000 MG in 0.9 % Sodium Chloride Mini Bag 100 ML IVPB SCH (10:00)
[2022-06-26] MEDS: amLODIPine 5 MG TABLET PO SCH (10:28)
[2022-06-26] MEDS: carvediloL 25 MG TABLET PO SCH ×2 (10:29→17:19)
[2022-06-26] MEDS: Aspirin Enteric Coated 81 MG Tablet PO SCH (10:29)
[2022-06-26] MEDS: Topiramate 25 MG TABLET PO SCH ×2 (10:29→20:55)
[2022-06-26] MEDS: Calcium Acetate 667 MG CAPSULE PO SCH ×3 (10:38→17:19)
[2022-06-26] MEDS: Artificial Tears SOLN 15 ML BOTTLE BOTH EYES SCH ×4 (10:38→20:55)
[2022-06-26] MEDS ORDERED: ALPRAZolam 0.25 MG TABLET PO ONE (22:31)
[2022-06-27] MEDS ORDERED: ALPRAZolam 0.25 MG TABLET PO ONE (04:07)
[2022-06-27] MEDS: *HR* OxyCODONE/APAP 5/325 TABLET PO PRN ×2 (05:07→16:57)
[2022-06-27] MEDS: Levothyroxine 25 MCG TABLET PO SCH (05:08)
[2022-06-27] MEDS: *HR* Heparin 5,000 UNIT/ML VIAL SQ SCH ×2 (05:08→16:58)
[2022-06-27] MEDS ORDERED: 0.9 % Sodium Chloride 250 ML IVC PRN (07:36)
[2022-06-27] MEDS ORDERED: *HR* Heparin 10,000 UNIT/10 ML VIAL IV PRN (07:36)
[2022-06-27] MEDS ORDERED: 0.9 % Sodium Chloride 2,000 ML PRIME SCH (07:45)
[2022-06-27] MEDS: amLODIPine 5 MG TABLET PO SCH (08:41)
[2022-06-27] MEDS: Topiramate 25 MG TABLET PO SCH ×2 (08:42→21:34)
[2022-06-27] MEDS: carvediloL 25 MG TABLET PO SCH ×2 (08:42→16:57)
[2022-06-27] MEDS: Aspirin Enteric Coated 81 MG Tablet PO SCH (08:42)
[2022-06-27] MEDS: Calcium Acetate 667 MG CAPSULE PO SCH ×3 (08:42→16:58)
[2022-06-27] MEDS: Artificial Tears SOLN 15 ML BOTTLE BOTH EYES SCH ×4 (08:43→21:33)
[2022-06-27 10:10] LABS: Hemoglobin 7.9 g/dL (11.5-15.4); Mean Corpuscular HGB Conc 30.4 g/dL (31.6-35.5); Mean Corpuscular Hemoglobin 31.2 pg (28.0-33.3); Mean Corpuscular Volume 102.8 fL (83.0-100.0); Red Blood Count 2.53 M/mcL (3.82-4.97)
[2022-06-27 10:11] LABS: Immature Platelets 2.3 % (1.1-6.1); Mean Platelet Volume 10.5 fL (9.4-12.4); Red Cell Distribution Width 20.1 % (11.5-14.5)
[2022-06-27 10:30] LABS: Albumin 3.4 g/dL (3.5-5.7); Calcium 8.6 mg/dL (8.6-10.3); Phosphorous 7.1 mg/dL (2.7-4.5); Potassium 4.7 mEq/L (3.5-5.1)
[2022-06-27] MEDS ORDERED: Albuterol 2.5 MG/3 ML NEBULIZER IH PRN (11:23)
[2022-06-27] MEDS ORDERED: D5% in Water 1,000 ML IVC PRN (13:10)
[2022-06-27] MEDS ORDERED: Dextrose Gel 15 GM/37.5 ML TUBE PO PRN ×2 (13:10)
[2022-06-27] MEDS ORDERED: *HR* Dextrose 50 % in Water (Syg) 50 ML SYRINGE IVP PRN (13:10)
[2022-06-27] MEDS: Insulin LISPRO 300 UNITS/3 ML VIAL SUBQ SCH ×2 (16:51→21:37)
[2022-06-27] MEDS: hydrOXYzine pamoate 25 MG CAPSULE PO PRN (16:57)
[2022-06-27] MEDS: DiphenhydraMINE CREAM 28.4 GM TUBE TP PRN (21:33)
[2022-06-28] MEDS: *HR* OxyCODONE/APAP 5/325 TABLET PO PRN ×2 (00:41→09:56)
[2022-06-28] MEDS: Melatonin 3 MG TABLET PO PRN (00:41)
[2022-06-28] MEDS: hydrOXYzine pamoate 25 MG CAPSULE PO PRN ×2 (00:41→09:56)
[2022-06-28] MEDS: Levothyroxine 25 MCG TABLET PO SCH (04:54)
[2022-06-28] MEDS: *HR* Heparin 5,000 UNIT/ML VIAL SQ SCH (04:54)
[2022-06-28 05:45] LABS: Hemoglobin 7.6 g/dL (11.5-15.4)
[2022-06-28 05:47] LABS: Hematocrit 25.3 % (35.3-44.9); Immature Platelets 3.9 % (1.1-6.1); Mean Corpuscular Hemoglobin 30.9 pg (28.0-33.3); Mean Corpuscular Volume 102.8 fL (83.0-100.0); Mean Platelet Volume 9.8 fL (9.4-12.4); Red Blood Count 2.46 M/mcL (3.82-4.97); Red Cell Distribution Width 20.1 % (11.5-14.5)
[2022-06-28 06:08] LABS: Albumin 3.4 g/dL (3.5-5.7); Calcium 8.8 mg/dL (8.6-10.3); Phosphorous 5.2 mg/dL (2.7-4.5); Potassium 4.6 mEq/L (3.5-5.1)
[2022-06-28 07:19] LABS: Staphylococcus by PCR DETECTED (Not Detect)
[2022-06-28] MEDS ORDERED: Vancomycin 1 EACH in 0.9 % Sodium Chloride 250 ML IVPB PRN (08:00)
[2022-06-28] MEDS: carvediloL 25 MG TABLET PO SCH ×2 (09:55→18:01)
[2022-06-28] MEDS: Artificial Tears SOLN 15 ML BOTTLE BOTH EYES SCH ×4 (09:56→21:54)
[2022-06-28] MEDS: Aspirin Enteric Coated 81 MG Tablet PO SCH (09:56)
[2022-06-28] MEDS: Vitamin B Complex/Vit C/Vit E 1 EACH TABLET PO SCH (09:56)
[2022-06-28] MEDS: amLODIPine 5 MG TABLET PO SCH (09:56)
[2022-06-28] MEDS: Topiramate 25 MG TABLET PO SCH ×2 (09:56→21:54)
[2022-06-28] MEDS: Insulin LISPRO 300 UNITS/3 ML VIAL SUBQ SCH ×4 (09:57→21:53)
[2022-06-28] MEDS: Calcium Acetate 667 MG CAPSULE PO SCH ×3 (09:57→18:01)
[2022-06-28] MEDS: Ondansetron ODT 4 MG TAB.RAPDIS SL PRN (16:02)
[2022-06-28] MEDS ORDERED: Cefepime HCl 1,000 MG in 0.9 % Sodium Chloride Mini Bag 100 ML IVPB ONE (21:00)
[2022-06-29] MEDS: hydrOXYzine pamoate 25 MG CAPSULE PO PRN ×3 (00:14→17:05)
[2022-06-29] MEDS: *HR* OxyCODONE/APAP 5/325 TABLET PO PRN ×3 (00:14→23:00)
[2022-06-29] MEDS: Ondansetron ODT 4 MG TAB.RAPDIS SL PRN ×2 (00:14→10:21)
[2022-06-29] MEDS: DiphenhydraMINE CREAM 28.4 GM TUBE TP PRN (00:14)
[2022-06-29] MEDS: Levothyroxine 25 MCG TABLET PO SCH (05:36)
[2022-06-29] MEDS ORDERED: 0.9 % Sodium Chloride 250 ML IVC PRN (07:33)
[2022-06-29] MEDS ORDERED: *HR* Heparin 10,000 UNIT/10 ML VIAL IV PRN (07:33)
[2022-06-29] MEDS ORDERED: 0.9 % Sodium Chloride 2,000 ML PRIME SCH (07:45)
[2022-06-29] MEDS: Calcium Acetate 667 MG CAPSULE PO SCH ×3 (07:58→17:05)
[2022-06-29] MEDS: Vitamin B Complex/Vit C/Vit E 1 EACH TABLET PO SCH (07:59)
[2022-06-29] MEDS: Topiramate 25 MG TABLET PO SCH ×2 (07:59→23:13)
[2022-06-29] MEDS: Aspirin Enteric Coated 81 MG Tablet PO SCH (07:59)
[2022-06-29] MEDS: Insulin LISPRO 300 UNITS/3 ML VIAL SUBQ SCH ×4 (08:00→23:36)
[2022-06-29] MEDS: amLODIPine 5 MG TABLET PO SCH (08:00)
[2022-06-29] MEDS: carvediloL 25 MG TABLET PO SCH ×2 (08:00→17:05)
[2022-06-29] MEDS: Artificial Tears SOLN 15 ML BOTTLE BOTH EYES SCH ×4 (08:00→23:36)
[2022-06-29] MEDS ORDERED: *HR* Promethazine 25 MG/ML VIAL IM ONE (11:56)
[2022-06-29] MEDS ORDERED: *HR* Promethazine 25 MG/ML VIAL IM PRN (13:27)
[2022-06-29 13:30] LABS: Albumin 3.5 g/dL (3.5-5.7); Phosphorous 5.8 mg/dL (2.7-4.5); Potassium 4.9 mEq/L (3.5-5.1)
[2022-06-29 13:31] LABS: Basophils % 1.2 %; White Blood Count 1.7 K/mcL (4.3-11.1)
[2022-06-29 13:33] LABS: Eosinophils # 0.1 K/mcL (0.0-0.6); Eosinophils % 4.7 %; Hematocrit 26.4 % (35.3-44.9); Hemoglobin 7.8 g/dL (11.5-15.4); Immature Granulocytes % 0.6 % (0-4); Immature Platelets 4.1 % (1.1-6.1); Lymphocytes # 0.6 K/mcL (0.6-4.6); Lymphocytes % 34.9 %; Mean Corpuscular HGB Conc 29.5 g/dL (31.6-35.5); Mean Corpuscular Hemoglobin 30.4 pg (28.0-33.3); Mean Corpuscular Volume 102.7 fL (83.0-100.0); Monocytes # 0.2 K/mcL (0.0-1.3); Monocytes % 9.9 %; Neutrophils # 0.8 K/mcL (1.6-8.9); Platelet Count 100 K/mcL (140-400); Red Blood Count 2.57 M/mcL (3.82-4.97); Red Cell Distribution Width 19.6 % (11.5-14.5); Segmented Neutrophils % 48.7 %
[2022-06-29 14:06] LABS: Platelet Estimate Slight Decrease (Normal)
[2022-06-29 15:36] LABS: Albumin 3.9 g/dL (3.5-5.7); Albumin/Globulin Ratio 1.2 (1.1-2.2); Bilirubin,Direct 0.2 mg/dL (0.0-0.2); Bilirubin,Indirect 0.6 mg/dL (0.0-1.0); Bilirubin,Total 0.8 mg/dL (0.3-1.0); Globulin 3.2 g/dL (2.4-3.5); Total Protein 7.1 g/dL (6.4-8.9)
[2022-06-29] MEDS ORDERED: Cefepime HCl 2,000 MG in 0.9 % Sodium Chloride Mini Bag 100 ML IVPB SCH (16:00)
[2022-06-29] MEDS: Melatonin 3 MG TABLET PO PRN (23:00)
[2022-06-30] MEDS: Levothyroxine 25 MCG TABLET PO SCH (06:32)
[2022-06-30] MEDS: Insulin LISPRO 300 UNITS/3 ML VIAL SUBQ SCH ×4 (08:56→19:35)
[2022-06-30] MEDS: amLODIPine 5 MG TABLET PO SCH (09:26)
[2022-06-30] MEDS: hydrOXYzine pamoate 25 MG CAPSULE PO PRN ×3 (09:26→23:18)
[2022-06-30] MEDS: Aspirin Enteric Coated 81 MG Tablet PO SCH (09:27)
[2022-06-30] MEDS: Topiramate 25 MG TABLET PO SCH ×2 (09:27→19:35)
[2022-06-30] MEDS: *HR* OxyCODONE/APAP 5/325 TABLET PO PRN ×2 (09:27→17:32)
[2022-06-30] MEDS: Calcium Acetate 667 MG CAPSULE PO SCH ×3 (09:27→16:52)
[2022-06-30] MEDS: carvediloL 25 MG TABLET PO SCH ×2 (09:27→16:52)
[2022-06-30] MEDS: Vitamin B Complex/Vit C/Vit E 1 EACH TABLET PO SCH (09:27)
[2022-06-30] MEDS: Artificial Tears SOLN 15 ML BOTTLE BOTH EYES SCH ×4 (09:27→19:35)
[2022-06-30 10:14] LABS: Basophils % 0.6 %; Hemoglobin 8.3 g/dL (11.5-15.4)
[2022-06-30 10:15] LABS: Eosinophils # 0.1 K/mcL (0.0-0.6); Hematocrit 27.5 % (35.3-44.9); Immature Granulocytes % 0.6 % (0-4); Immature Platelets 4.5 % (1.1-6.1); Lymphocytes # 0.7 K/mcL (0.6-4.6); Mean Corpuscular HGB Conc 30.2 g/dL (31.6-35.5); Mean Corpuscular Hemoglobin 31.2 pg (28.0-33.3); Mean Corpuscular Volume 103.4 fL (83.0-100.0); Mean Platelet Volume 10.9 fL (9.4-12.4); Monocytes # 0.4 K/mcL (0.0-1.3); Monocytes % 11.7 %; Neutrophils # 2.3 K/mcL (1.6-8.9); Red Blood Count 2.66 M/mcL (3.82-4.97); Red Cell Distribution Width 19.4 % (11.5-14.5); Segmented Neutrophils % 66.1 %; White Blood Count 3.4 K/mcL (4.3-11.1)
[2022-06-30 10:16] LABS: Platelet Count 96 K/mcL (140-400)
[2022-06-30 10:34] LABS: Calcium 9.4 mg/dL (8.6-10.3); Potassium 4.4 mEq/L (3.5-5.1)
[2022-06-30] MEDS: hydrALAZINE 25 MG TABLET PO SCH ×2 (16:52→23:18)
[2022-06-30] MEDS: DiphenhydraMINE CREAM 28.4 GM TUBE TP PRN (18:32)
[2022-07-01] MEDS: Melatonin 3 MG TABLET PO PRN (02:00)
[2022-07-01] MEDS: *HR* OxyCODONE/APAP 5/325 TABLET PO PRN ×2 (02:00→09:50)
[2022-07-01] MEDS: Ondansetron ODT 4 MG TAB.RAPDIS SL PRN (05:25)
[2022-07-01] MEDS: Levothyroxine 25 MCG TABLET PO SCH (05:25)
[2022-07-01] MEDS: DiphenhydraMINE CREAM 28.4 GM TUBE TP PRN (05:25)
[2022-07-01 05:56] LABS: Hemoglobin 8.1 g/dL (11.5-15.4); Immature Granulocytes % 0.5 % (0-4); Mean Corpuscular Volume 104.2 fL (83.0-100.0); Monocytes % 11.1 %
[2022-07-01 05:58] LABS: Basophils % 0.5 %; Eosinophils # 0.1 K/mcL (0.0-0.6); Eosinophils % 1.9 %; Hematocrit 27.2 % (35.3-44.9); Immature Platelets 2.9 % (1.1-6.1); Lymphocytes # 0.5 K/mcL (0.6-4.6); Lymphocytes % 12.7 %; Mean Corpuscular HGB Conc 29.8 g/dL (31.6-35.5); Mean Platelet Volume 10.6 fL (9.4-12.4); Monocytes # 0.4 K/mcL (0.0-1.3); Neutrophils # 2.8 K/mcL (1.6-8.9); Platelet Count 103 K/mcL (140-400); Red Blood Count 2.61 M/mcL (3.82-4.97); Red Cell Distribution Width 19.3 % (11.5-14.5); Segmented Neutrophils % 73.3 %; White Blood Count 3.8 K/mcL (4.3-11.1)
[2022-07-01 06:15] LABS: Calcium 9.3 mg/dL (8.6-10.3); Potassium 4.5 mEq/L (3.5-5.1)
[2022-07-01] MEDS ORDERED: 0.9 % Sodium Chloride 250 ML IVC PRN (06:51)
[2022-07-01] MEDS ORDERED: *HR* Heparin 10,000 UNIT/10 ML VIAL IV PRN (06:51)
[2022-07-01] MEDS ORDERED: 0.9 % Sodium Chloride 2,000 ML PRIME SCH (07:00)
[2022-07-01] MEDS: Insulin LISPRO 300 UNITS/3 ML VIAL SUBQ SCH ×2 (07:56→12:04)
[2022-07-01] MEDS: Calcium Acetate 667 MG CAPSULE PO SCH ×2 (08:05→12:07)
[2022-07-01] MEDS: Vitamin B Complex/Vit C/Vit E 1 EACH TABLET PO SCH (08:06)
[2022-07-01] MEDS: Artificial Tears SOLN 15 ML BOTTLE BOTH EYES SCH ×2 (08:06→12:07)
[2022-07-01] MEDS: Aspirin Enteric Coated 81 MG Tablet PO SCH (08:06)
[2022-07-01] MEDS: hydrOXYzine pamoate 25 MG CAPSULE PO PRN ×2 (08:06→14:16)
[2022-07-01] MEDS: amLODIPine 5 MG TABLET PO SCH (08:06)
[2022-07-01] MEDS: carvediloL 25 MG TABLET PO SCH (08:07)
[2022-07-01] MEDS: hydrALAZINE 25 MG TABLET PO SCH (08:07)
[2022-07-01] MEDS: Topiramate 25 MG TABLET PO SCH (08:14)
[2022-07-01] MEDS ORDERED: clonazePAM 0.5 MG TABLET PO ONE (09:35)
[2022-07-01 11:52] VITALS: PULSE 83; O2SAT 97
[2022-07-01 14:00] VITALS: BP 202/89; TEMP 97.9
== END 2022-07-01 15:37 | DRG 199 ==
LOC: 2ANU 14:30 → EMEROOARM 14:30 → SUATTDRO 21:05 → 2ANU 21:30 → SUATTDRO 06-28 19:22
PROVIDERS: ADMIT Internal Medicine; ATTEND Internal Medicine

== ENCOUNTER 2022-07-29 22:38 | Observation (INO) ==
[2022-07-30 00:31] LABS: Influenza A PCR Negative (Negative); Influenza B PCR Negative (Negative); Resp. Syncytial Virus PCR Negative (Negative)
[2022-07-30 00:44] LABS: SARS-CoV-2 by PCR (In House) Positive (Negative)
[2022-07-30 01:29] LABS: Basophils % 0.7 %; Eosinophils # 0.1 K/mcL (0.0-0.6); Eosinophils % 2.4 %; Hematocrit 27.1 % (35.3-44.9); Hemoglobin 8.2 g/dL (11.5-15.4); Immature Granulocytes % 0.3 % (0-4); Lymphocytes # 0.6 K/mcL (0.6-4.6); Lymphocytes % 21.7 %; Mean Corpuscular HGB Conc 30.3 g/dL (31.6-35.5); Mean Corpuscular Hemoglobin 31.1 pg (28.0-33.3); Mean Corpuscular Volume 102.7 fL (83.0-100.0); Mean Platelet Volume 9.6 fL (9.4-12.4); Monocytes # 0.3 K/mcL (0.0-1.3); Monocytes % 9.1 %; Neutrophils # 1.9 K/mcL (1.6-8.9); Red Blood Count 2.64 M/mcL (3.82-4.97); Red Cell Distribution Width 16.6 % (11.5-14.5); Segmented Neutrophils % 65.8 %; White Blood Count 2.9 K/mcL (4.3-11.1)
[2022-07-30 01:30] LABS: Platelet Count 71 K/mcL (140-400)
[2022-07-30 01:49] LABS: Calcium 9.2 mg/dL (8.6-10.3); Potassium 3.6 mEq/L (3.5-5.1)
[2022-07-30 01:50] LABS: Troponin I 0.03 ng/mL (< 0.04)
[2022-07-30] MEDS ORDERED: Ketorolac 30 MG/ML VIAL IM ONE (02:16)
[2022-07-30] MEDS ORDERED: Melatonin 3 MG TABLET PO PRN (03:34)
[2022-07-30] MEDS ORDERED: Naloxone 0.4 MG/ML INJ IVP PRN (03:34)
[2022-07-30] MEDS ORDERED: Ondansetron ODT 4 MG TAB.RAPDIS SL PRN (03:34)
[2022-07-30] MEDS: hydrALAZINE 25 MG TABLET PO SCH ×3 (04:27→20:22)
[2022-07-30] MEDS: carvediloL 25 MG TABLET PO SCH ×2 (04:27→20:21)
[2022-07-30] MEDS ORDERED: *HR* Heparin 5,000 UNIT/ML VIAL SQ SCH (06:00)
[2022-07-30] MEDS: amLODIPine 5 MG TABLET PO SCH (10:40)
[2022-07-30] MEDS: Levothyroxine 25 MCG TABLET PO SCH (10:40)
[2022-07-30] MEDS: Aspirin Enteric Coated 81 MG Tablet PO SCH (10:41)
[2022-07-30] MEDS: Topiramate 25 MG TABLET PO SCH ×2 (10:41→20:22)
[2022-07-30] MEDS: Sennosides 8.6 MG TABLET PO SCH (13:47)
[2022-07-30 15:14] LABS: Albumin 3.8 g/dL (3.5-5.7); Albumin/Globulin Ratio 1.2 (1.1-2.2); Bilirubin,Direct 0.4 mg/dL (0.0-0.2); Bilirubin,Indirect 0.7 mg/dL (0.0-1.0); Bilirubin,Total 1.1 mg/dL (0.3-1.0); Globulin 3.1 g/dL (2.4-3.5); Total Protein 6.9 g/dL (6.4-8.9)
[2022-07-30 15:29] LABS: Albumin 3.8 g/dL (3.5-5.7); Albumin/Globulin Ratio 1.2 (1.1-2.2); Bilirubin,Total 1.1 mg/dL (0.3-1.0); Calcium 9.5 mg/dL (8.6-10.3); Globulin 3.2 g/dL (2.4-3.5); Magnesium 1.9 mg/dL (1.6-2.6)
[2022-07-30] MEDS: Ipratropium 1 PUFF INHALER IH SCH ×3 (16:08→22:24)
[2022-07-31] MEDS: Ipratropium 1 PUFF INHALER IH SCH ×3 (04:14→15:37)
[2022-07-31] MEDS: Levothyroxine 25 MCG TABLET PO SCH (06:22)
[2022-07-31] MEDS: hydrALAZINE 25 MG TABLET PO SCH ×2 (06:22→13:36)
[2022-07-31] MEDS ORDERED: *HR* Labetalol 20 MG/4 ML SYRINGE IVP PRN (07:37)
[2022-07-31] MEDS: Aspirin Enteric Coated 81 MG Tablet PO SCH (08:47)
[2022-07-31] MEDS: Topiramate 25 MG TABLET PO SCH (08:47)
[2022-07-31] MEDS: amLODIPine 5 MG TABLET PO SCH (08:47)
[2022-07-31] MEDS: Sennosides 8.6 MG TABLET PO SCH (08:52)
[2022-07-31] MEDS: carvediloL 25 MG TABLET PO SCH (08:52)
[2022-07-31 09:18] VITALS: TEMP 97.9
[2022-07-31 10:53] VITALS: BP 195/88; PULSE 75; O2SAT 95
[2022-07-31] MEDS ORDERED: Calcium Acetate 667 MG CAPSULE PO SCH (12:00)
[2022-07-31] MEDS ORDERED: Fluconazole 150 MG TABLET PO ONE (15:06)
== END 2022-07-31 17:40 | disposition home or self-care (01) ==
LOC: EMEROOARM 22:38 → 2NENU 22:38 → SUATTDRO 07-30 12:23 → 2NENU 07-30 14:12
PROVIDERS: ADMIT Internal Medicine; ATTEND Internal Medicine

== ENCOUNTER 2022-08-03 12:43 | Inpatient (IN) ==
[2022-08-03] MEDS ORDERED: Ondansetron 4 MG/2 ML VIAL IVP ONE (12:47)
[2022-08-03] MEDS ORDERED: 0.9 % Sodium Chloride 1,000 ML IVC ONE (12:47)
[2022-08-03] MEDS ORDERED: *HR* Promethazine 25 MG/ML VIAL IM ONE (13:05)
[2022-08-03] MEDS ORDERED: Ipratropium/Albuterol Neb 3 ML IH ONE (13:05)
[2022-08-03 13:26] LABS: Basophils % 0.2 %; Hematocrit 30.4 % (35.3-44.9); Hemoglobin 9.4 g/dL (11.5-15.4); Lymphocytes # 0.5 K/mcL (0.6-4.6); Lymphocytes % 11.5 %; Mean Corpuscular HGB Conc 30.9 g/dL (31.6-35.5); Mean Corpuscular Hemoglobin 31.3 pg (28.0-33.3); Mean Corpuscular Volume 101.3 fL (83.0-100.0); Mean Platelet Volume 10.5 fL (9.4-12.4); Monocytes # 0.2 K/mcL (0.0-1.3); Monocytes % 5.4 %; Neutrophils # 3.4 K/mcL (1.6-8.9); Platelet Count 107 K/mcL (140-400); Red Cell Distribution Width 17.2 % (11.5-14.5); Segmented Neutrophils % 81.9 %; White Blood Count 4.1 K/mcL (4.3-11.1)
[2022-08-03] MEDS ORDERED: 0.9 % Sodium Chloride 1,000 ML IV ONE (13:37)
[2022-08-03 14:00] LABS: Magnesium 1.9 mg/dL (1.6-2.6); Phosphorous 6.6 mg/dL (2.7-4.5); Troponin I 0.03 ng/mL (< 0.04)
[2022-08-03 14:06] LABS: Albumin/Globulin Ratio 1.3 (1.1-2.2); Calcium 9.4 mg/dL (8.6-10.3); Potassium 5.6 mEq/L (3.5-5.1)
[2022-08-03] MEDS: Loratadine 10 MG TABLET PO SCH (17:03)
[2022-08-03] MEDS ORDERED: Acetaminophen 325 MG TABLET PO PRN (17:33)
[2022-08-03] MEDS ORDERED: Ondansetron 4 MG/2 ML VIAL IVP PRN (17:33)
[2022-08-03] MEDS ORDERED: Naloxone 0.4 MG/ML INJ IVP PRN (17:33)
[2022-08-03] MEDS ORDERED: D5% in Water 1,000 ML IVC PRN (17:38)
[2022-08-03] MEDS ORDERED: *HR* Dextrose 50 % in Water (Syg) 50 ML SYRINGE IVP PRN (17:38)
[2022-08-03] MEDS ORDERED: Dextrose Gel 15 GM/37.5 ML TUBE PO PRN ×2 (17:38)
[2022-08-03] MEDS: Azithromycin 500 MG in 0.9 % Sodium Chloride 250 ML IVPB SCH (21:36)
[2022-08-03] MEDS: cefTRIAXone 1,000 MG in 0.9 % Sodium Chloride 10 ML IVP SCH (21:37)
[2022-08-03] MEDS: dexAMETHasone 4 MG TABLET PO SCH (21:37)
[2022-08-03] MEDS: Insulin LISPRO 300 UNITS/3 ML VIAL SUBQ SCH (22:10)
[2022-08-04] MEDS: hydrALAZINE 25 MG TABLET PO SCH ×4 (00:01→23:06)
[2022-08-04 05:39] LABS: Hematocrit 29.4 % (35.3-44.9); Mean Corpuscular HGB Conc 30.6 g/dL (31.6-35.5); Mean Corpuscular Hemoglobin 31.4 pg (28.0-33.3); Mean Corpuscular Volume 102.4 fL (83.0-100.0); Monocytes % 0.8 %; Red Blood Count 2.87 M/mcL (3.82-4.97)
[2022-08-04 05:41] LABS: Immature Granulocytes % 0.8 % (0-4); Immature Platelets 3.7 % (1.1-6.1); Lymphocytes # 0.3 K/mcL (0.6-4.6); Lymphocytes % 8.4 %; Mean Platelet Volume 10.8 fL (9.4-12.4); Neutrophils # 3.5 K/mcL (1.6-8.9); Nucleated Red Blood Cells 0.5 /100 WBC (0); Red Cell Distribution Width 17.4 % (11.5-14.5); White Blood Count 3.9 K/mcL (4.3-11.1)
[2022-08-04 05:56] LABS: Platelet Count 95 K/mcL (140-400)
[2022-08-04 05:58] LABS: Albumin 3.7 g/dL (3.5-5.7); Albumin/Globulin Ratio 1.2 (1.1-2.2); Bilirubin,Total 0.8 mg/dL (0.3-1.0); Calcium 9.3 mg/dL (8.6-10.3); Magnesium 1.9 mg/dL (1.6-2.6); Phosphorous 7.5 mg/dL (2.7-4.5); Total Protein 6.7 g/dL (6.4-8.9)
[2022-08-04] MEDS: dexAMETHasone 4 MG TABLET PO SCH (09:45)
[2022-08-04] MEDS: Loratadine 10 MG TABLET PO SCH (09:45)
[2022-08-04] MEDS: carvediloL 25 MG TABLET PO SCH ×2 (09:54→17:43)
[2022-08-04] MEDS ORDERED: 0.9 % Sodium Chloride 250 ML IVC PRN (12:56)
[2022-08-04] MEDS ORDERED: *HR* Heparin 10,000 UNIT/10 ML VIAL IV PRN (12:56)
[2022-08-04] MEDS ORDERED: 0.9 % Sodium Chloride 2,000 ML PRIME SCH (13:00)
[2022-08-04] MEDS: Insulin LISPRO 300 UNITS/3 ML VIAL SUBQ SCH ×4 (14:52→20:23)
[2022-08-04 15:30] LABS: Hepatitis B Surface Antibody < 3.10 mIU/mL
[2022-08-04 15:41] LABS: Hepatitis B Surface Antigen Nonreactive (Nonreactive)
[2022-08-04] MEDS: *HR* HYDROcodone/Acet 5/325 mg TABLET PO PRN ×2 (16:14→23:05)
[2022-08-04] MEDS: amLODIPine 5 MG TABLET PO SCH (17:42)
[2022-08-04] MEDS: Vitamin B Complex/Vit C/Vit E 1 EACH TABLET PO SCH (17:42)
[2022-08-04] MEDS: Levothyroxine 25 MCG TABLET PO SCH (17:42)
[2022-08-04] MEDS: Aspirin Enteric Coated 81 MG Tablet PO SCH (17:42)
[2022-08-04] MEDS: cefTRIAXone 1,000 MG in 0.9 % Sodium Chloride 10 ML IVP SCH (17:53)
[2022-08-04] MEDS: Azithromycin 500 MG in 0.9 % Sodium Chloride 250 ML IVPB SCH (17:55)
[2022-08-04] MEDS ORDERED: Nystatin Ointment 15 GM TUBE TP PRN (19:58)
[2022-08-04] MEDS: Topiramate 25 MG TABLET PO SCH (20:39)
[2022-08-04] MEDS: *HR* Heparin 5,000 UNIT/ML VIAL SQ SCH (20:39)
[2022-08-05] MEDS: *HR* Heparin 5,000 UNIT/ML VIAL SQ SCH ×4 (05:09→22:03)
[2022-08-05] MEDS: Levothyroxine 25 MCG TABLET PO SCH (05:09)
[2022-08-05] MEDS ORDERED: *HR* Labetalol 20 MG/4 ML SYRINGE IVP PRN (07:33)
[2022-08-05] MEDS: Vitamin B Complex/Vit C/Vit E 1 EACH TABLET PO SCH (08:04)
[2022-08-05] MEDS: amLODIPine 5 MG TABLET PO SCH (08:04)
[2022-08-05] MEDS: Aspirin Enteric Coated 81 MG Tablet PO SCH (08:04)
[2022-08-05] MEDS: hydrALAZINE 25 MG TABLET PO SCH ×4 (08:04→22:08)
[2022-08-05] MEDS: Insulin LISPRO 300 UNITS/3 ML VIAL SUBQ SCH ×4 (08:04→22:02)
[2022-08-05] MEDS: carvediloL 25 MG TABLET PO SCH ×2 (08:04→15:59)
[2022-08-05] MEDS: Loratadine 10 MG TABLET PO SCH (08:04)
[2022-08-05] MEDS: dexAMETHasone 4 MG TABLET PO SCH (08:04)
[2022-08-05] MEDS: Topiramate 25 MG TABLET PO SCH ×2 (08:05→22:08)
[2022-08-05] MEDS ORDERED: *HR* Heparin 10,000 UNIT/10 ML VIAL IV PRN (08:40)
[2022-08-05] MEDS ORDERED: 0.9 % Sodium Chloride 250 ML IVC PRN (08:40)
[2022-08-05 09:05] LABS: Influenza A PCR Negative (Negative); Influenza B PCR Negative (Negative); Resp. Syncytial Virus PCR Negative (Negative)
[2022-08-05 09:06] LABS: SARS-CoV-2 by PCR (In House) Negative (Negative)
[2022-08-05 16:50] LABS: Basophils % 0.3 %; Hematocrit 28.4 % (35.3-44.9); Hemoglobin 8.5 g/dL (11.5-15.4); Immature Granulocytes % 1.6 % (0-4); Lymphocytes # 0.3 K/mcL (0.6-4.6); Lymphocytes % 7.1 %; Mean Corpuscular HGB Conc 29.9 g/dL (31.6-35.5); Mean Corpuscular Volume 103.6 fL (83.0-100.0); Mean Platelet Volume 10.7 fL (9.4-12.4); Monocytes # 0.2 K/mcL (0.0-1.3); Monocytes % 4.5 %; Neutrophils # 3.3 K/mcL (1.6-8.9); Platelet Count 107 K/mcL (140-400); Red Blood Count 2.74 M/mcL (3.82-4.97); Red Cell Distribution Width 17.2 % (11.5-14.5); Segmented Neutrophils % 86.5 %; White Blood Count 3.8 K/mcL (4.3-11.1)
[2022-08-05 17:03] LABS: Albumin 3.8 g/dL (3.5-5.7); Albumin/Globulin Ratio 1.3 (1.1-2.2); Bilirubin,Total 0.6 mg/dL (0.3-1.0); Calcium 8.7 mg/dL (8.6-10.3); Globulin 2.9 g/dL (2.4-3.5); Potassium 4.7 mEq/L (3.5-5.1); Total Protein 6.7 g/dL (6.4-8.9)
[2022-08-05] MEDS: Azithromycin 500 MG in 0.9 % Sodium Chloride 250 ML IVPB SCH (17:24)
[2022-08-05] MEDS: cefTRIAXone 1,000 MG in 0.9 % Sodium Chloride 10 ML IVP SCH (17:25)
[2022-08-05 17:53] LABS: Estimated Average Glucose 120 mg/dl; Hemoglobin A1C 5.8 %
[2022-08-05] MEDS: *HR* HYDROcodone/Acet 5/325 mg TABLET PO PRN (22:15)
[2022-08-06] MEDS: *HR* Heparin 5,000 UNIT/ML VIAL SQ SCH ×2 (05:00→12:58)
[2022-08-06] MEDS: Levothyroxine 25 MCG TABLET PO SCH (05:01)
[2022-08-06] MEDS: Insulin LISPRO 300 UNITS/3 ML VIAL SUBQ SCH ×2 (07:40→11:58)
[2022-08-06] MEDS: hydrALAZINE 25 MG TABLET PO SCH (07:41)
[2022-08-06] MEDS: Aspirin Enteric Coated 81 MG Tablet PO SCH (07:41)
[2022-08-06] MEDS: dexAMETHasone 4 MG TABLET PO SCH (07:41)
[2022-08-06] MEDS: Topiramate 25 MG TABLET PO SCH (07:41)
[2022-08-06] MEDS: Vitamin B Complex/Vit C/Vit E 1 EACH TABLET PO SCH (07:41)
[2022-08-06] MEDS: Loratadine 10 MG TABLET PO SCH (07:41)
[2022-08-06] MEDS: carvediloL 25 MG TABLET PO SCH (07:41)
[2022-08-06] MEDS: amLODIPine 5 MG TABLET PO SCH (07:41)
[2022-08-06 08:43] LABS: Calcium 8.8 mg/dL (8.6-10.3); Magnesium 1.9 mg/dL (1.6-2.6); Phosphorous 4.5 mg/dL (2.7-4.5); Potassium 4.1 mEq/L (3.5-5.1)
[2022-08-06 09:11] VITALS: O2SAT 98
[2022-08-06] MEDS: *HR* HYDROcodone/Acet 5/325 mg TABLET PO PRN (09:29)
[2022-08-06 11:14] VITALS: BP 173/82; PULSE 80; TEMP 97.2
== END 2022-08-06 15:07 | disposition home or self-care (01) | DRG 199 ==
LOC: 2NENU 12:43 → EMEROOARM 12:43 → 2NENU 20:32
PROVIDERS: ADMIT General Practice; ATTEND General Practice

== ENCOUNTER 2022-08-11 12:56 | Observation (INO) ==
[2022-08-11 14:20] LABS: Albumin 3.8 g/dL (3.5-5.7); Albumin/Globulin Ratio 1.5 (1.1-2.2); Bilirubin,Direct 0.3 mg/dL (0.0-0.2); Bilirubin,Indirect 0.6 mg/dL (0.0-1.0); Bilirubin,Total 0.9 mg/dL (0.3-1.0); Calcium 8.9 mg/dL (8.6-10.3); Globulin 2.6 g/dL (2.4-3.5); Potassium 6.1 mEq/L (3.5-5.1); Total Protein 6.4 g/dL (6.4-8.9)
[2022-08-11 14:58] LABS: Basophils % 0.2 %; Hematocrit 29.5 % (35.3-44.9); Immature Granulocytes % 0.4 % (0-4); Monocytes % 7.9 %; Red Cell Distribution Width 15.5 % (11.5-14.5)
[2022-08-11 15:00] LABS: Eosinophils # 0.1 K/mcL (0.0-0.6); Eosinophils % 1.9 %; Hemoglobin 9.4 g/dL (11.5-15.4); Immature Platelets 3.2 % (1.1-6.1); Lymphocytes # 0.6 K/mcL (0.6-4.6); Lymphocytes % 11.4 %; Mean Corpuscular HGB Conc 31.9 g/dL (31.6-35.5); Mean Corpuscular Hemoglobin 31.8 pg (28.0-33.3); Mean Corpuscular Volume 99.7 fL (83.0-100.0); Mean Platelet Volume 10.3 fL (9.4-12.4); Monocytes # 0.4 K/mcL (0.0-1.3); Neutrophils # 4.1 K/mcL (1.6-8.9); Platelet Count 60 K/mcL (140-400); Red Blood Count 2.96 M/mcL (3.82-4.97); Segmented Neutrophils % 78.2 %; White Blood Count 5.3 K/mcL (4.3-11.1)
[2022-08-11] MEDS ORDERED: 0.9 % Sodium Chloride 250 ML IVC PRN (15:21)
[2022-08-11] MEDS ORDERED: 0.9 % Sodium Chloride 2,000 ML PRIME SCH (15:30)
[2022-08-11] MEDS ORDERED: Acetaminophen 325 MG TABLET PO PRN (15:35)
[2022-08-11] MEDS ORDERED: Melatonin 3 MG TABLET PO PRN (15:35)
[2022-08-11] MEDS ORDERED: Dextrose Gel 15 GM/37.5 ML TUBE PO PRN ×2 (15:36)
[2022-08-11] MEDS ORDERED: Albuterol 2.5 MG/3 ML NEBULIZER IH PRN (15:36)
[2022-08-11] MEDS ORDERED: *HR* Dextrose 50 % in Water (Syg) 50 ML SYRINGE IVP PRN (15:36)
[2022-08-11] MEDS ORDERED: D5% in Water 1,000 ML IVC PRN (15:36)
[2022-08-11] MEDS: amLODIPine 5 MG TABLET PO SCH (16:58)
[2022-08-11] MEDS: Calcium Acetate 667 MG CAPSULE PO SCH (16:58)
[2022-08-11] MEDS: hydrALAZINE 25 MG TABLET PO SCH ×2 (16:58→23:24)
[2022-08-11] MEDS: Topiramate 25 MG TABLET PO SCH (20:37)
[2022-08-11] MEDS: carvediloL 25 MG TABLET PO SCH (20:38)
[2022-08-11] MEDS ORDERED: *HR* Labetalol 20 MG/4 ML SYRINGE IVP ONE (21:35)
[2022-08-11] MEDS ORDERED: *HR* Heparin 10,000 UNIT/10 ML VIAL IV PRN (22:30)
[2022-08-12 02:49] LABS: Basophils % 0.3 %; Immature Granulocytes % 0.3 % (0-4); Red Blood Count 2.64 M/mcL (3.82-4.97); Red Cell Distribution Width 15.4 % (11.5-14.5)
[2022-08-12 02:51] LABS: Eosinophils # 0.1 K/mcL (0.0-0.6); Eosinophils % 1.3 %; Hematocrit 26.3 % (35.3-44.9); Hemoglobin 8.3 g/dL (11.5-15.4); Immature Platelets 3.6 % (1.1-6.1); Lymphocytes # 0.5 K/mcL (0.6-4.6); Lymphocytes % 12.7 %; Mean Corpuscular HGB Conc 31.6 g/dL (31.6-35.5); Mean Corpuscular Hemoglobin 31.4 pg (28.0-33.3); Mean Corpuscular Volume 99.6 fL (83.0-100.0); Mean Platelet Volume 10.7 fL (9.4-12.4); Monocytes # 0.4 K/mcL (0.0-1.3); Monocytes % 9.5 %; Neutrophils # 2.9 K/mcL (1.6-8.9); Segmented Neutrophils % 75.9 %; White Blood Count 3.8 K/mcL (4.3-11.1)
[2022-08-12 03:02] LABS: Platelet Count 53 K/mcL (140-400)
[2022-08-12 03:12] LABS: Calcium 8.9 mg/dL (8.6-10.3); Potassium 4.8 mEq/L (3.5-5.1)
[2022-08-12 03:35] LABS: Platelet Estimate Decreased (Normal)
[2022-08-12] MEDS: Levothyroxine 25 MCG TABLET PO SCH (06:56)
[2022-08-12] MEDS ORDERED: 0.9 % Sodium Chloride 250 ML IVC PRN (07:30)
[2022-08-12] MEDS: amLODIPine 5 MG TABLET PO SCH (11:22)
[2022-08-12] MEDS: Topiramate 25 MG TABLET PO SCH ×2 (11:22→20:41)
[2022-08-12] MEDS: Ondansetron 4 MG/2 ML VIAL IVP PRN ×2 (11:23→22:41)
[2022-08-12] MEDS: hydrALAZINE 25 MG TABLET PO SCH ×3 (11:23→22:41)
[2022-08-12] MEDS: carvediloL 25 MG TABLET PO SCH ×2 (15:44→20:41)
[2022-08-12] MEDS: Calcium Acetate 667 MG CAPSULE PO SCH ×2 (15:44)
[2022-08-12] MEDS: Aspirin Enteric Coated 81 MG Tablet PO SCH (15:45)
[2022-08-12] MEDS ORDERED: hydrOXYzine pamoate 25 MG CAPSULE PO PRN (16:11)
[2022-08-12] MEDS: *HR* OxyCODONE/APAP 5/325 TABLET PO PRN (17:12)
[2022-08-12] MEDS ORDERED: *HR* Metoprolol 5 MG/5 ML VIAL IVP ONE (19:56)
[2022-08-13] MEDS: *HR* OxyCODONE/APAP 5/325 TABLET PO PRN ×2 (00:33→11:52)
[2022-08-13] MEDS ORDERED: Saline Nasal Spray 44 ML BOTTLE NS PRN (02:43)
[2022-08-13] MEDS ORDERED: hydrALAZINE 25 MG TABLET PO SCH (08:02)
[2022-08-13] MEDS: Calcium Acetate 667 MG CAPSULE PO SCH ×2 (11:24)
[2022-08-13] MEDS: Levothyroxine 25 MCG TABLET PO SCH (11:25)
[2022-08-13] MEDS: amLODIPine 5 MG TABLET PO SCH (11:25)
[2022-08-13] MEDS: Topiramate 25 MG TABLET PO SCH (11:25)
[2022-08-13] MEDS: carvediloL 25 MG TABLET PO SCH (11:25)
[2022-08-13] MEDS: Aspirin Enteric Coated 81 MG Tablet PO SCH (11:25)
[2022-08-13 11:33] VITALS: BP 155/81; PULSE 75; TEMP 98.5; O2SAT 96
[2022-08-13] MEDS: hydrALAZINE 25 MG TABLET PO SCH (11:33)
== END 2022-08-13 12:45 | disposition home or self-care (01) ==
LOC: EMEROOARM 12:56 → 2ANU 12:56
PROVIDERS: ADMIT Internal Medicine; ATTEND Internal Medicine

== ENCOUNTER 2022-08-20 21:03 | Inpatient (IN) ==
[2022-08-20] MEDS ORDERED: Iopamidol - 370 500 ML MLS IVP ONE (22:08)
[2022-08-20 22:26] LABS: Basophils % 0.3 %; Eosinophils % 1.8 %; Immature Granulocytes % 0.3 % (0-4)
[2022-08-20 22:28] LABS: Eosinophils # 0.1 K/mcL (0.0-0.6); Hematocrit 24.5 % (35.3-44.9); Hemoglobin 7.7 g/dL (11.5-15.4); Immature Platelets 2.5 % (1.1-6.1); Lymphocytes # 0.5 K/mcL (0.6-4.6); Lymphocytes % 14.5 %; Mean Corpuscular HGB Conc 31.4 g/dL (31.6-35.5); Mean Corpuscular Hemoglobin 31.6 pg (28.0-33.3); Mean Corpuscular Volume 100.4 fL (83.0-100.0); Mean Platelet Volume 10.2 fL (9.4-12.4); Monocytes # 0.2 K/mcL (0.0-1.3); Monocytes % 7.1 %; Neutrophils # 2.6 K/mcL (1.6-8.9); Platelet Count 76 K/mcL (140-400); Red Blood Count 2.44 M/mcL (3.82-4.97); Red Cell Distribution Width 15.4 % (11.5-14.5); White Blood Count 3.4 K/mcL (4.3-11.1)
[2022-08-20 22:42] LABS: Albumin 3.8 g/dL (3.5-5.7); Albumin/Globulin Ratio 1.4 (1.1-2.2); Bilirubin,Direct 0.3 mg/dL (0.0-0.2); Bilirubin,Indirect 0.6 mg/dL (0.0-1.0); Bilirubin,Total 0.9 mg/dL (0.3-1.0); Globulin 2.8 g/dL (2.4-3.5); Potassium 4.8 mEq/L (3.5-5.1); Total Protein 6.6 g/dL (6.4-8.9)
[2022-08-20] MEDS ORDERED: Ondansetron 4 MG/2 ML VIAL IVP ONE (22:48)
[2022-08-20] MEDS ORDERED: hydrALAZINE 25 MG TABLET PO ONE (23:04)
[2022-08-21] MEDS ORDERED: carvediloL 25 MG TABLET PO ONE (00:16)
[2022-08-21] MEDS ORDERED: amLODIPine 5 MG TABLET PO ONE (00:45)
[2022-08-21] MEDS ORDERED: *HR* Dextrose 50 % in Water (Syg) 50 ML SYRINGE IVP PRN (02:03)
[2022-08-21] MEDS ORDERED: Dextrose Gel 15 GM/37.5 ML TUBE PO PRN ×2 (02:03)
[2022-08-21] MEDS ORDERED: D5% in Water 1,000 ML IVC PRN (02:03)
[2022-08-21] MEDS ORDERED: Acetaminophen 325 MG TABLET PO PRN (02:05)
[2022-08-21] MEDS ORDERED: Naloxone 0.4 MG/ML INJ IVP PRN (02:05)
[2022-08-21 02:21] LABS: Influenza A PCR Negative (Negative); Influenza B PCR Negative (Negative); Resp. Syncytial Virus PCR Negative (Negative)
[2022-08-21 02:26] LABS: SARS-CoV-2 by PCR (In House) Negative (Negative)
[2022-08-21] MEDS ORDERED: Prochlorperazine 10 MG/2 ML VIAL IVP ONE (03:16)
[2022-08-21] MEDS ORDERED: *HR* HYDROcodone/Acet 5/325 mg TABLET PO ONE (03:20)
[2022-08-21 03:42] LABS: Hematocrit 24.1 % (35.3-44.9); Hemoglobin 7.5 g/dL (11.5-15.4); Immature Platelets 1.8 % (1.1-6.1); Mean Corpuscular HGB Conc 31.1 g/dL (31.6-35.5); Mean Corpuscular Hemoglobin 31.5 pg (28.0-33.3); Mean Corpuscular Volume 101.3 fL (83.0-100.0); Mean Platelet Volume 9.5 fL (9.4-12.4); Red Blood Count 2.38 M/mcL (3.82-4.97); Red Cell Distribution Width 15.5 % (11.5-14.5); White Blood Count 3.7 K/mcL (4.3-11.1)
[2022-08-21] MEDS ORDERED: Calcium Acetate 667 MG CAPSULE PO PRN (03:45)
[2022-08-21 03:52] LABS: INR 1.2; Prothrombin Time 12.9 Seconds (9.4-12.1)
[2022-08-21 03:54] LABS: Activated Partial Thrombo Time 28.5 Seconds (26.0-36.0)
[2022-08-21 04:07] LABS: Calcium 9.1 mg/dL (8.6-10.3); Chol/HDL Ratio 5.1 (0-4.9); Magnesium 1.9 mg/dL (1.6-2.6); Phosphorous 7.2 mg/dL (2.7-4.5); Potassium 5.1 mEq/L (3.5-5.1)
[2022-08-21 04:19] LABS: Thyroid Stimulating Hormone 5.108 mcIU/mL (0.340-5.600)
[2022-08-21] MEDS: Levothyroxine 25 MCG TABLET PO SCH (06:13)
[2022-08-21] MEDS: Insulin LISPRO 300 UNITS/3 ML VIAL SUBQ SCH ×4 (08:38→21:28)
[2022-08-21] MEDS: Topiramate 25 MG TABLET PO SCH ×2 (08:48→21:26)
[2022-08-21] MEDS: amLODIPine 5 MG TABLET PO SCH (08:49)
[2022-08-21] MEDS: Aspirin Enteric Coated 81 MG Tablet PO SCH (08:49)
[2022-08-21] MEDS: Calcium Acetate 667 MG CAPSULE PO SCH ×3 (08:49→18:03)
[2022-08-21] MEDS: Lactobacillus 1 EACH CAP.SPRINK PO SCH ×2 (08:49→21:26)
[2022-08-21] MEDS: cefTRIAXone 1,000 MG in 0.9 % Sodium Chloride 10 ML IVP SCH (08:49)
[2022-08-21] MEDS: carvediloL 25 MG TABLET PO SCH ×2 (08:49→17:18)
[2022-08-21 10:28] LABS: Estimated Average Glucose 131 mg/dl; Hemoglobin A1C 6.2 %
[2022-08-21] MEDS: hydrOXYzine pamoate 25 MG CAPSULE PO PRN ×2 (13:37→21:27)
[2022-08-21] MEDS: *HR* HYDROcodone/Acet 5/325 mg TABLET PO PRN ×2 (13:37→21:27)
[2022-08-21] MEDS ORDERED: *HR* LORazepam 2 MG/ML VIAL IVP ONE (21:38)
[2022-08-22] MEDS: Levothyroxine 25 MCG TABLET PO SCH (05:09)
[2022-08-22] MEDS ORDERED: Ipratropium/Albuterol Neb 3 ML IH ONE (05:48)
[2022-08-22] MEDS: hydrOXYzine pamoate 25 MG CAPSULE PO PRN ×3 (06:52→21:03)
[2022-08-22] MEDS: Insulin LISPRO 300 UNITS/3 ML VIAL SUBQ SCH ×4 (07:48→20:41)
[2022-08-22] MEDS ORDERED: 0.9 % Sodium Chloride 250 ML IVC PRN (07:52)
[2022-08-22] MEDS ORDERED: *HR* Heparin 10,000 UNIT/10 ML VIAL IV PRN (07:52)
[2022-08-22] MEDS ORDERED: 0.9 % Sodium Chloride 2,000 ML PRIME SCH (08:00)
[2022-08-22] MEDS: carvediloL 25 MG TABLET PO SCH ×3 (08:39→18:38)
[2022-08-22] MEDS: Calcium Acetate 667 MG CAPSULE PO SCH ×4 (08:39→18:38)
[2022-08-22] MEDS: cefTRIAXone 1,000 MG in 0.9 % Sodium Chloride 10 ML IVP SCH (13:50)
[2022-08-22] MEDS: Lactobacillus 1 EACH CAP.SPRINK PO SCH ×2 (13:51→20:40)
[2022-08-22] MEDS: Aspirin Enteric Coated 81 MG Tablet PO SCH (13:51)
[2022-08-22] MEDS: Topiramate 25 MG TABLET PO SCH ×2 (13:51→20:40)
[2022-08-22] MEDS: *HR* HYDROcodone/Acet 5/325 mg TABLET PO PRN (13:51)
[2022-08-22] MEDS: amLODIPine 5 MG TABLET PO SCH (13:51)
[2022-08-22] MEDS: hydrALAZINE 25 MG TABLET PO PRN (13:51)
[2022-08-22] MEDS ORDERED: DICYCLOMINE HCL 20 MG PO PRN (15:05)
[2022-08-23] MEDS: hydrALAZINE 25 MG TABLET PO PRN (00:28)
[2022-08-23] MEDS ORDERED: *HR* LORazepam 2 MG/ML VIAL IVP ONE ×2 (01:37→06:00)
[2022-08-23] MEDS: Levothyroxine 25 MCG TABLET PO SCH (06:10)
[2022-08-23] MEDS: Ondansetron 4 MG/2 ML VIAL IVP PRN (08:54)
[2022-08-23] MEDS: cefTRIAXone 1,000 MG in 0.9 % Sodium Chloride 10 ML IVP SCH (08:56)
[2022-08-23] MEDS: Topiramate 25 MG TABLET PO SCH ×2 (09:24→21:22)
[2022-08-23] MEDS: Insulin LISPRO 300 UNITS/3 ML VIAL SUBQ SCH ×4 (09:24→20:22)
[2022-08-23] MEDS: Multivit/Ca/Min/Fe/FA 1 TAB TABLET PO SCH (09:24)
[2022-08-23] MEDS: Aspirin Enteric Coated 81 MG Tablet PO SCH (09:24)
[2022-08-23] MEDS: Calcium Acetate 667 MG CAPSULE PO SCH ×3 (09:24→16:09)
[2022-08-23] MEDS: amLODIPine 5 MG TABLET PO SCH (09:24)
[2022-08-23] MEDS: Lactobacillus 1 EACH CAP.SPRINK PO SCH ×2 (09:24→20:22)
[2022-08-23] MEDS: carvediloL 25 MG TABLET PO SCH ×2 (09:24→16:09)
[2022-08-23] MEDS ORDERED: Prochlorperazine 10 MG/2 ML VIAL IM PRN (11:53)
[2022-08-23] MEDS ORDERED: Nicotine 21 MG PATCH.TD24 TD PRN (13:03)
[2022-08-23] MEDS: *HR* HYDROcodone/Acet 5/325 mg TABLET PO PRN ×2 (14:58→22:45)
[2022-08-23] MEDS: hydrOXYzine pamoate 25 MG CAPSULE PO PRN (22:53)
[2022-08-24] MEDS: Levothyroxine 25 MCG TABLET PO SCH (06:45)
[2022-08-24] MEDS ORDERED: 0.9 % Sodium Chloride 250 ML IVC PRN (07:36)
[2022-08-24] MEDS ORDERED: *HR* Heparin 10,000 UNIT/10 ML VIAL IV PRN (07:36)
[2022-08-24] MEDS: Aspirin Enteric Coated 81 MG Tablet PO SCH (07:40)
[2022-08-24] MEDS: Lactobacillus 1 EACH CAP.SPRINK PO SCH ×2 (07:40→21:25)
[2022-08-24] MEDS: amLODIPine 5 MG TABLET PO SCH (07:40)
[2022-08-24] MEDS: Multivit/Ca/Min/Fe/FA 1 TAB TABLET PO SCH (07:40)
[2022-08-24] MEDS: carvediloL 25 MG TABLET PO SCH ×2 (07:40→16:35)
[2022-08-24] MEDS: Topiramate 25 MG TABLET PO SCH ×2 (07:41→21:25)
[2022-08-24] MEDS: cefTRIAXone 1,000 MG in 0.9 % Sodium Chloride 10 ML IVP SCH (07:41)
[2022-08-24] MEDS: hydrOXYzine pamoate 25 MG CAPSULE PO PRN ×3 (07:41→21:25)
[2022-08-24] MEDS: Calcium Acetate 667 MG CAPSULE PO SCH ×3 (07:41→16:35)
[2022-08-24] MEDS: Insulin LISPRO 300 UNITS/3 ML VIAL SUBQ SCH ×3 (07:42→16:51)
[2022-08-24] MEDS: Albuterol 2.5 MG/3 ML NEBULIZER IH PRN ×2 (07:44→21:13)
[2022-08-24] MEDS: *HR* HYDROcodone/Acet 5/325 mg TABLET PO PRN ×3 (08:19→23:09)
[2022-08-24] MEDS: hydrALAZINE 25 MG TABLET PO PRN (08:19)
[2022-08-24] MEDS: hydrALAZINE 25 MG TABLET PO SCH (16:35)
[2022-08-24] MEDS ORDERED: traZODone 50 MG TABLET PO ONE (22:38)
[2022-08-24] MEDS ORDERED: Melatonin 3 MG TABLET PO PRN (22:48)
[2022-08-25] MEDS: Insulin LISPRO 300 UNITS/3 ML VIAL SUBQ SCH ×4 (01:01→16:55)
[2022-08-25] MEDS: hydrALAZINE 25 MG TABLET PO SCH ×3 (01:33→16:55)
[2022-08-25] MEDS: hydrOXYzine pamoate 25 MG CAPSULE PO PRN ×2 (04:52→14:43)
[2022-08-25] MEDS: Levothyroxine 25 MCG TABLET PO SCH (04:52)
[2022-08-25 04:58] VITALS: TEMP 98.1
[2022-08-25 06:47] VITALS: BP 138/77; PULSE 77
[2022-08-25] MEDS: amLODIPine 5 MG TABLET PO SCH (08:17)
[2022-08-25] MEDS: carvediloL 25 MG TABLET PO SCH ×2 (08:17→16:55)
[2022-08-25] MEDS: cefTRIAXone 1,000 MG in 0.9 % Sodium Chloride 10 ML IVP SCH (08:17)
[2022-08-25] MEDS: Aspirin Enteric Coated 81 MG Tablet PO SCH (08:17)
[2022-08-25] MEDS: *HR* HYDROcodone/Acet 5/325 mg TABLET PO PRN ×2 (08:17→14:29)
[2022-08-25] MEDS: Calcium Acetate 667 MG CAPSULE PO SCH ×3 (08:17→16:55)
[2022-08-25] MEDS: Topiramate 25 MG TABLET PO SCH (08:17)
[2022-08-25] MEDS: Multivit/Ca/Min/Fe/FA 1 TAB TABLET PO SCH (08:17)
[2022-08-25] MEDS: Lactobacillus 1 EACH CAP.SPRINK PO SCH (08:17)
[2022-08-25] MEDS ORDERED: Nicotine 21 MG PATCH.TD24 TD SCH (09:00)
[2022-08-25] MEDS: Ondansetron 4 MG/2 ML VIAL IVP PRN (14:30)
[2022-08-25] MEDS ORDERED: Ondansetron ODT 4 MG TAB.RAPDIS SL ONE (14:34)
[2022-08-25] MEDS: Albuterol 2.5 MG/3 ML NEBULIZER IH PRN (15:39)
[2022-08-25 15:43] VITALS: O2SAT 98
== END 2022-08-25 20:30 | disposition home health service (06) | DRG 720 ==
LOC: EMEROOARM 21:03 → 2ANU 21:03 → SUATTDRO 08-21 00:58 → 2ANU 08-21 02:30
PROVIDERS: ADMIT Internal Medicine; ATTEND Internal Medicine

== ENCOUNTER 2022-08-30 12:51 | Inpatient (IN) ==
[2022-08-30 22:35] LABS: Hematocrit 26.2 % (35.3-44.9); Immature Granulocytes % 0.5 % (0-4)
[2022-08-30 22:37] LABS: Basophils % 0.3 %; Eosinophils # 0.1 K/mcL (0.0-0.6); Eosinophils % 1.4 %; Hemoglobin 8.1 g/dL (11.5-15.4); Lymphocytes # 0.7 K/mcL (0.6-4.6); Lymphocytes % 9.2 %; Mean Corpuscular HGB Conc 30.9 g/dL (31.6-35.5); Mean Corpuscular Volume 100.4 fL (83.0-100.0); Mean Platelet Volume 9.7 fL (9.4-12.4); Monocytes % 12.8 %; Red Blood Count 2.61 M/mcL (3.82-4.97); Red Cell Distribution Width 15.6 % (11.5-14.5); Segmented Neutrophils % 75.8 %; White Blood Count 7.7 K/mcL (4.3-11.1)
[2022-08-30 22:55] LABS: Neutrophils # 5.8 K/mcL (1.6-8.9); Platelet Count 89 K/mcL (140-400)
[2022-08-30 23:28] LABS: Albumin 3.6 g/dL (3.5-5.7); Albumin/Globulin Ratio 1.4 (1.1-2.2); Bilirubin,Total 0.6 mg/dL (0.3-1.0); Calcium 8.6 mg/dL (8.6-10.3); Globulin 2.6 g/dL (2.4-3.5); Magnesium 2.1 mg/dL (1.6-2.6); Phosphorous 7.7 mg/dL (2.7-4.5); Potassium 5.8 mEq/L (3.5-5.1); Total Protein 6.2 g/dL (6.4-8.9)
[2022-08-31] MEDS ORDERED: Furosemide 40 MG/4 ML VIAL IVP ONE
[2022-08-31] MEDS ORDERED: Naloxone 0.4 MG/ML INJ IVP PRN (01:08)
[2022-08-31] MEDS ORDERED: SODIUM ZIRCONIUM CYCLOSILICATE 5 GM POWD.PACK PO ONE (01:11)
[2022-08-31] MEDS ORDERED: *HR* Dextrose 50 % in Water (Vial) 50 ML VIAL IVP ONE (01:11)
[2022-08-31] MEDS ORDERED: Insulin Human Regular 10 UNIT in 0.9 % Sodium Chloride 10 ML IV ONE (01:11)
[2022-08-31] MEDS ORDERED: Albuterol 2.5 MG/3 ML NEBULIZER IH PRN (01:45)
[2022-08-31] MEDS: hydrALAZINE 25 MG TABLET PO SCH ×4 (02:56→23:51)
[2022-08-31] MEDS: Melatonin 3 MG TABLET PO PRN ×2 (02:56→23:32)
[2022-08-31] MEDS: Levothyroxine 25 MCG TABLET PO SCH ×2 (07:29→07:32)
[2022-08-31] MEDS ORDERED: *HR* Heparin 10,000 UNIT/10 ML VIAL IV PRN (09:06)
[2022-08-31] MEDS ORDERED: 0.9 % Sodium Chloride 250 ML IVC PRN (09:06)
[2022-08-31] MEDS ORDERED: 0.9 % Sodium Chloride 2,000 ML PRIME SCH (09:15)
[2022-08-31] MEDS: Calcium Gluconate 1gm/50mL 1 GM/50 ML BAG IVPB SCH (09:57)
[2022-08-31] MEDS: carvediloL 25 MG TABLET PO SCH ×2 (09:57→18:05)
[2022-08-31 10:17] LABS: Hematocrit 24.6 % (35.3-44.9); Hemoglobin 7.7 g/dL (11.5-15.4); Immature Platelets 1.8 % (1.1-6.1); Mean Corpuscular HGB Conc 31.3 g/dL (31.6-35.5); Mean Corpuscular Hemoglobin 31.3 pg (28.0-33.3); Mean Platelet Volume 9.7 fL (9.4-12.4); Red Blood Count 2.46 M/mcL (3.82-4.97); Red Cell Distribution Width 15.6 % (11.5-14.5); White Blood Count 7.2 K/mcL (4.3-11.1)
[2022-08-31 10:42] LABS: Calcium 8.5 mg/dL (8.6-10.3); Phosphorous 7.8 mg/dL (2.7-4.5); Troponin I 0.04 ng/mL (< 0.04)
[2022-08-31] MEDS ORDERED: Diphenoxylate/Atropine 1 TAB TABLET PO PRN (10:43)
[2022-08-31] MEDS: *HR* OxyCODONE/APAP 5/325 TABLET PO PRN ×2 (11:32→23:27)
[2022-08-31] MEDS: amLODIPine 5 MG TABLET PO SCH (11:32)
[2022-08-31] MEDS: Topiramate 25 MG TABLET PO SCH ×2 (11:32→19:52)
[2022-08-31] MEDS ORDERED: Calcium Acetate 667 MG CAPSULE PO PRN (17:32)
[2022-08-31 18:29] LABS: Hepatitis B Surface Antibody < 3.10 mIU/mL
[2022-08-31 18:39] LABS: Hepatitis B Surface Antigen Nonreactive (Nonreactive)
[2022-08-31] MEDS ORDERED: Chloraseptic Spray 177 ML BOTTLE MM PRN (20:37)
[2022-09-01] MEDS: Levothyroxine 25 MCG TABLET PO SCH (05:53)
[2022-09-01] MEDS: Aspirin Enteric Coated 81 MG Tablet PO SCH (07:42)
[2022-09-01] MEDS: amLODIPine 5 MG TABLET PO SCH (07:42)
[2022-09-01] MEDS: *HR* OxyCODONE/APAP 5/325 TABLET PO PRN ×2 (07:42→14:07)
[2022-09-01] MEDS: Calcium Acetate 667 MG CAPSULE PO SCH ×3 (07:42→17:55)
[2022-09-01] MEDS: carvediloL 25 MG TABLET PO SCH ×2 (07:42→17:56)
[2022-09-01] MEDS: Topiramate 25 MG TABLET PO SCH ×2 (07:42→20:38)
[2022-09-01] MEDS: Vitamin B Complex/Vit C/Vit E 1 EACH TABLET PO SCH (07:43)
[2022-09-01] MEDS: hydrALAZINE 25 MG TABLET PO SCH ×2 (07:43→17:55)
[2022-09-01 10:27] LABS: RBC,Peritoneal Fluid 31000 RBC/mcL
[2022-09-01 10:45] LABS: Total Protein,Peritoneal Fluid 3.2 g/dL
[2022-09-01 13:29] LABS: Basophils,Peritoneal Fluid 0 %
[2022-09-01 13:32] LABS: Appearance of Peritoneal Fl HAZY (Clear)
[2022-09-01] MEDS: cefTRIAXone 1,000 MG in 0.9 % Sodium Chloride Mini Bag 100 ML IVPB SCH (17:56)
[2022-09-01] MEDS: Melatonin 3 MG TABLET PO SCH (20:38)
[2022-09-01] MEDS: Ondansetron ODT 4 MG TAB.RAPDIS SL PRN (23:22)
[2022-09-02] MEDS ORDERED: *HR* LORazepam 2 MG/ML VIAL IVP ONE (01:01)
[2022-09-02] MEDS: hydrALAZINE 25 MG TABLET PO SCH ×4 (01:32→23:36)
[2022-09-02] MEDS: *HR* OxyCODONE/APAP 5/325 TABLET PO PRN ×3 (01:32→17:50)
[2022-09-02] MEDS: Calcium Acetate 667 MG CAPSULE PO SCH ×3 (07:35→17:34)
[2022-09-02] MEDS: Vitamin B Complex/Vit C/Vit E 1 EACH TABLET PO SCH ×2 (07:35→12:00)
[2022-09-02] MEDS: amLODIPine 5 MG TABLET PO SCH ×2 (07:35→12:00)
[2022-09-02] MEDS: cefTRIAXone 1,000 MG in 0.9 % Sodium Chloride Mini Bag 100 ML IVPB SCH (07:35)
[2022-09-02] MEDS: Topiramate 25 MG TABLET PO SCH ×3 (07:36→20:10)
[2022-09-02] MEDS: carvediloL 25 MG TABLET PO SCH ×3 (07:36→17:34)
[2022-09-02] MEDS: Levothyroxine 25 MCG TABLET PO SCH ×2 (07:36→10:26)
[2022-09-02] MEDS: Aspirin Enteric Coated 81 MG Tablet PO SCH ×2 (07:36→12:00)
[2022-09-02] MEDS ORDERED: 0.9 % Sodium Chloride 250 ML IVC PRN (08:26)
[2022-09-02] MEDS ORDERED: *HR* Heparin 10,000 UNIT/10 ML VIAL IV PRN ×2 (08:26)
[2022-09-02 12:13] LABS: Basophils % 0.5 %; Eosinophils # 0.1 K/mcL (0.0-0.6); Eosinophils % 2.7 %; Hematocrit 24.6 % (35.3-44.9); Hemoglobin 7.5 g/dL (11.5-15.4); Immature Granulocytes % 0.8 % (0-4); Lymphocytes # 0.6 K/mcL (0.6-4.6); Lymphocytes % 16.6 %; Mean Corpuscular HGB Conc 30.5 g/dL (31.6-35.5); Mean Corpuscular Hemoglobin 30.6 pg (28.0-33.3); Mean Corpuscular Volume 100.4 fL (83.0-100.0); Mean Platelet Volume 9.8 fL (9.4-12.4); Monocytes # 0.5 K/mcL (0.0-1.3); Monocytes % 12.8 %; Neutrophils # 2.4 K/mcL (1.6-8.9); Platelet Count 104 K/mcL (140-400); Red Blood Count 2.45 M/mcL (3.82-4.97); Segmented Neutrophils % 66.6 %; White Blood Count 3.7 K/mcL (4.3-11.1)
[2022-09-02 12:31] LABS: Calcium 8.6 mg/dL (8.6-10.3); Magnesium 1.9 mg/dL (1.6-2.6); Phosphorous 3.9 mg/dL (2.7-4.5); Potassium 3.9 mEq/L (3.5-5.1)
[2022-09-02] MEDS: *HR* LORazepam 0.5 MG TABLET PO PRN (20:09)
[2022-09-02] MEDS: Melatonin 3 MG TABLET PO SCH (20:09)
[2022-09-02] MEDS: Ondansetron ODT 4 MG TAB.RAPDIS SL PRN (20:10)
[2022-09-03 02:59] LABS: Mean Corpuscular HGB Conc 29.9 g/dL (31.6-35.5); Mean Corpuscular Hemoglobin 30.7 pg (28.0-33.3)
[2022-09-03 03:01] LABS: Basophils % 0.3 %; Eosinophils # 0.1 K/mcL (0.0-0.6); Eosinophils % 2.6 %; Hematocrit 23.4 % (35.3-44.9); Immature Granulocytes % 1.3 % (0-4); Immature Platelets 2.8 % (1.1-6.1); Lymphocytes # 0.6 K/mcL (0.6-4.6); Lymphocytes % 20.8 %; Mean Corpuscular Volume 102.6 fL (83.0-100.0); Mean Platelet Volume 9.6 fL (9.4-12.4); Monocytes # 0.5 K/mcL (0.0-1.3); Monocytes % 14.9 %; Neutrophils # 1.8 K/mcL (1.6-8.9); Red Blood Count 2.28 M/mcL (3.82-4.97); Segmented Neutrophils % 60.1 %
[2022-09-03 03:11] LABS: Platelet Count 96 K/mcL (140-400)
[2022-09-03 03:21] LABS: Calcium 8.7 mg/dL (8.6-10.3); Magnesium 1.8 mg/dL (1.6-2.6); Phosphorous 4.2 mg/dL (2.7-4.5)
[2022-09-03 03:26] LABS: Fluid Source for Albumin PERITONEAL FL
[2022-09-03] MEDS: *HR* OxyCODONE/APAP 5/325 TABLET PO PRN ×3 (08:33→21:48)
[2022-09-03] MEDS: Ondansetron ODT 4 MG TAB.RAPDIS SL PRN (08:33)
[2022-09-03] MEDS: Calcium Acetate 667 MG CAPSULE PO SCH ×3 (12:41→17:39)
[2022-09-03] MEDS: cefTRIAXone 1,000 MG in 0.9 % Sodium Chloride Mini Bag 100 ML IVPB SCH (12:51)
[2022-09-03] MEDS: Topiramate 25 MG TABLET PO SCH ×2 (12:52→21:48)
[2022-09-03] MEDS: carvediloL 25 MG TABLET PO SCH ×2 (12:52→17:39)
[2022-09-03] MEDS: hydrALAZINE 25 MG TABLET PO SCH ×3 (12:52→23:55)
[2022-09-03] MEDS: Vitamin B Complex/Vit C/Vit E 1 EACH TABLET PO SCH (12:52)
[2022-09-03] MEDS: Aspirin Enteric Coated 81 MG Tablet PO SCH (12:52)
[2022-09-03] MEDS: amLODIPine 5 MG TABLET PO SCH (12:52)
[2022-09-03] MEDS: *HR* LORazepam 0.5 MG TABLET PO PRN (12:53)
[2022-09-03] MEDS: Levothyroxine 25 MCG TABLET PO SCH (13:03)
[2022-09-03] MEDS: Melatonin 3 MG TABLET PO SCH (21:47)
[2022-09-04] MEDS ORDERED: hydrOXYzine pamoate 25 MG CAPSULE PO ONE (01:05)
[2022-09-04] MEDS ORDERED: Benzocaine 20% 12 APPL GEL..GRAM. TP PRN (01:05)
[2022-09-04] MEDS: *HR* LORazepam 0.5 MG TABLET PO PRN (04:37)
[2022-09-04 05:00] LABS: Basophils % 0.3 %; Mean Corpuscular Hemoglobin 30.3 pg (28.0-33.3)
[2022-09-04 05:02] LABS: Eosinophils # 0.1 K/mcL (0.0-0.6); Eosinophils % 2.3 %; Hematocrit 19.4 % (35.3-44.9); Immature Platelets 2.2 % (1.1-6.1); Lymphocytes # 0.6 K/mcL (0.6-4.6); Lymphocytes % 19.5 %; Mean Corpuscular HGB Conc 29.4 g/dL (31.6-35.5); Mean Corpuscular Volume 103.2 fL (83.0-100.0); Mean Platelet Volume 9.5 fL (9.4-12.4); Monocytes # 0.4 K/mcL (0.0-1.3); Monocytes % 12.7 %; Red Blood Count 1.88 M/mcL (3.82-4.97); Red Cell Distribution Width 15.1 % (11.5-14.5); Segmented Neutrophils % 64.2 %; White Blood Count 3.1 K/mcL (4.3-11.1)
[2022-09-04] MEDS: Levothyroxine 25 MCG TABLET PO SCH (05:02)
[2022-09-04 05:05] LABS: Platelet Count 86 K/mcL (140-400)
[2022-09-04 05:09] LABS: Hemoglobin 5.7 g/dL (11.5-15.4)
[2022-09-04] MEDS ORDERED: 0.9 % Sodium Chloride 250 ML ONE ×2 (07:49→11:41)
[2022-09-04] MEDS: carvediloL 25 MG TABLET PO SCH ×2 (08:00→17:13)
[2022-09-04] MEDS: Calcium Acetate 667 MG CAPSULE PO SCH ×3 (08:00→17:13)
[2022-09-04] MEDS: Topiramate 25 MG TABLET PO SCH ×2 (08:00→21:45)
[2022-09-04] MEDS: Vitamin B Complex/Vit C/Vit E 1 EACH TABLET PO SCH (08:00)
[2022-09-04] MEDS: Aspirin Enteric Coated 81 MG Tablet PO SCH (08:00)
[2022-09-04] MEDS: *HR* OxyCODONE/APAP 5/325 TABLET PO PRN ×2 (08:01→21:45)
[2022-09-04] MEDS: hydrALAZINE 25 MG TABLET PO SCH ×2 (08:01→17:13)
[2022-09-04] MEDS: amLODIPine 5 MG TABLET PO SCH (08:01)
[2022-09-04] MEDS: cefTRIAXone 1,000 MG in 0.9 % Sodium Chloride Mini Bag 100 ML IVPB SCH (10:24)
[2022-09-04 15:53] LABS: Hemoglobin 8.9 g/dL (11.5-15.4)
[2022-09-04] MEDS: Ondansetron ODT 4 MG TAB.RAPDIS SL PRN (18:28)
[2022-09-04] MEDS ORDERED: Prochlorperazine 10 MG/2 ML VIAL IVP ONE (21:35)
[2022-09-04] MEDS: Melatonin 3 MG TABLET PO SCH (21:45)
[2022-09-05] MEDS: hydrALAZINE 25 MG TABLET PO SCH ×3 (01:31→15:21)
[2022-09-05] MEDS ORDERED: 0.9 % Sodium Chloride 250 ML IVC PRN (07:20)
[2022-09-05] MEDS ORDERED: 0.9 % Sodium Chloride 2,000 ML PRIME SCH (07:30)
[2022-09-05] MEDS: Levothyroxine 25 MCG TABLET PO SCH (07:42)
[2022-09-05 08:57] VITALS: PULSE 76; O2SAT 94
[2022-09-05] MEDS: Topiramate 25 MG TABLET PO SCH (09:00)
[2022-09-05] MEDS: Aspirin Enteric Coated 81 MG Tablet PO SCH (09:00)
[2022-09-05] MEDS: Vitamin B Complex/Vit C/Vit E 1 EACH TABLET PO SCH (09:00)
[2022-09-05] MEDS: Calcium Acetate 667 MG CAPSULE PO SCH ×3 (09:00→15:43)
[2022-09-05 11:25] LABS: Mean Corpuscular Volume 97.5 fL (83.0-100.0)
[2022-09-05 11:27] LABS: Basophils % 0.4 %; Eosinophils # 0.1 K/mcL (0.0-0.6); Eosinophils % 1.3 %; Hemoglobin 8.3 g/dL (11.5-15.4); Immature Granulocytes % 1.1 % (0-4); Immature Platelets 3.1 % (1.1-6.1); Lymphocytes # 0.7 K/mcL (0.6-4.6); Lymphocytes % 14.6 %; Mean Corpuscular HGB Conc 30.7 g/dL (31.6-35.5); Mean Platelet Volume 10.1 fL (9.4-12.4); Monocytes # 0.6 K/mcL (0.0-1.3); Monocytes % 13.3 %; Neutrophils # 3.1 K/mcL (1.6-8.9); Red Blood Count 2.77 M/mcL (3.82-4.97); Red Cell Distribution Width 18.8 % (11.5-14.5); Segmented Neutrophils % 69.3 %; White Blood Count 4.5 K/mcL (4.3-11.1)
[2022-09-05 11:37] LABS: Platelet Count 84 K/mcL (140-400)
[2022-09-05 11:40] LABS: Magnesium 1.8 mg/dL (1.6-2.6); Potassium 4.7 mEq/L (3.5-5.1)
[2022-09-05] MEDS ORDERED: *HR* Heparin 10,000 UNIT/10 ML VIAL IV PRN (12:07)
[2022-09-05] MEDS: carvediloL 25 MG TABLET PO SCH ×2 (13:28→15:20)
[2022-09-05 14:39] VITALS: TEMP 98.1
[2022-09-05] MEDS: *HR* OxyCODONE/APAP 5/325 TABLET PO PRN (15:21)
[2022-09-05] MEDS: cefTRIAXone 1,000 MG in 0.9 % Sodium Chloride Mini Bag 100 ML IVPB SCH (15:42)
[2022-09-05] MEDS: amLODIPine 5 MG TABLET PO SCH (15:43)
[2022-09-05 15:58] VITALS: BP 141/76
== END 2022-09-05 19:45 | disposition home or self-care (01) | DRG 425 ==
LOC: 2ANU 12:51 → EMEROOARM 12:51 → SUATTDRO 08-31 01:26 → OBSVTOIN 08-31 01:26 → 2ANU 08-31 01:52
PROVIDERS: ADMIT Internal Medicine; ATTEND Pharmacist

== ENCOUNTER 2022-09-08 15:10 | Observation (INO) ==
[2022-09-08] MEDS ORDERED: Acetaminophen 325 MG TABLET PO PRN (19:32)
[2022-09-08] MEDS ORDERED: Naloxone 0.4 MG/ML INJ IVP PRN (19:32)
[2022-09-08] MEDS ORDERED: D5% in Water 1,000 ML IVC PRN (19:36)
[2022-09-08] MEDS ORDERED: *HR* Dextrose 50 % in Water (Syg) 50 ML SYRINGE IVP PRN (19:36)
[2022-09-08] MEDS ORDERED: Dextrose Gel 15 GM/37.5 ML TUBE PO PRN ×2 (19:36)
[2022-09-08] MEDS ORDERED: *HR* OxyCODONE/APAP 5/325 TABLET PO PRN (19:37)
[2022-09-08] MEDS: Insulin LISPRO 300 UNITS/3 ML VIAL SUBQ SCH (21:47)
[2022-09-08] MEDS: carvediloL 25 MG TABLET PO SCH (21:47)
[2022-09-09] MEDS: Ondansetron ODT 4 MG TAB.RAPDIS SL PRN (01:27)
[2022-09-09] MEDS: Levothyroxine 25 MCG TABLET PO SCH (06:33)
[2022-09-09] MEDS ORDERED: 0.9 % Sodium Chloride 250 ML IVC PRN (06:38)
[2022-09-09] MEDS ORDERED: 0.9 % Sodium Chloride 2,000 ML PRIME SCH (06:45)
[2022-09-09] MEDS: Insulin LISPRO 300 UNITS/3 ML VIAL SUBQ SCH ×4 (07:54→23:06)
[2022-09-09] MEDS ORDERED: *HR* Heparin 10,000 UNIT/10 ML VIAL IV PRN (08:10)
[2022-09-09] MEDS: Aspirin Enteric Coated 81 MG Tablet PO SCH (10:10)
[2022-09-09] MEDS: carvediloL 25 MG TABLET PO SCH ×2 (10:10→16:22)
[2022-09-09] MEDS: amLODIPine 5 MG TABLET PO SCH (10:10)
[2022-09-09] MEDS: Darbepoetin 100 MCG/0.5 ML SYRINGE SQ SCH ×2 (11:39→12:43)
[2022-09-09] MEDS ORDERED: Calcium Acetate 667 MG CAPSULE PO PRN (12:15)
[2022-09-09 14:31] LABS: Eosinophils % 0.4 %; Lymphocytes % 4.6 %
[2022-09-09 14:33] LABS: Basophils % 0.2 %; Hematocrit 28.3 % (35.3-44.9); Hemoglobin 8.9 g/dL (11.5-15.4); Immature Granulocytes % 0.3 % (0-4); Immature Platelets 2.4 % (1.1-6.1); Lymphocytes # 0.5 K/mcL (0.6-4.6); Mean Corpuscular HGB Conc 31.4 g/dL (31.6-35.5); Mean Corpuscular Hemoglobin 29.9 pg (28.0-33.3); Mean Platelet Volume 9.7 fL (9.4-12.4); Monocytes # 0.6 K/mcL (0.0-1.3); Monocytes % 5.8 %; Neutrophils # 9.4 K/mcL (1.6-8.9); Red Blood Count 2.98 M/mcL (3.82-4.97); Red Cell Distribution Width 16.8 % (11.5-14.5); Segmented Neutrophils % 88.7 %; White Blood Count 10.6 K/mcL (4.3-11.1)
[2022-09-09 14:36] LABS: Platelet Count 94 K/mcL (140-400)
[2022-09-09] MEDS ORDERED: *HR* Labetalol 20 MG/4 ML SYRINGE IVP PRN (14:42)
[2022-09-09 14:54] LABS: Calcium 8.7 mg/dL (8.6-10.3); Potassium 3.7 mEq/L (3.5-5.1)
[2022-09-09] MEDS: Calcium Acetate 667 MG CAPSULE PO SCH ×2 (15:11→16:22)
[2022-09-09] MEDS: *HR* OxyCODONE/APAP 5/325 TABLET PO PRN ×2 (16:22→23:02)
[2022-09-09] MEDS: hydrALAZINE 25 MG TABLET PO SCH ×2 (16:23→22:59)
[2022-09-09] MEDS ORDERED: Calcium Acetate 667 MG CAPSULE PO SCH (17:00)
[2022-09-09] MEDS: Amoxicillin/Clavulanate 500 MG TABLET PO SCH (22:59)
[2022-09-09] MEDS: Topiramate 25 MG TABLET PO SCH (22:59)
[2022-09-10] MEDS: Ipratropium/Albuterol Neb 3 ML IH PRN (00:15)
[2022-09-10] MEDS: Ondansetron ODT 4 MG TAB.RAPDIS SL PRN (00:41)
[2022-09-10] MEDS: Levothyroxine 25 MCG TABLET PO SCH (06:46)
[2022-09-10] MEDS: Calcium Acetate 667 MG CAPSULE PO SCH ×3 (09:08→16:53)
[2022-09-10] MEDS: Insulin LISPRO 300 UNITS/3 ML VIAL SUBQ SCH ×4 (09:08→21:45)
[2022-09-10] MEDS: *HR* OxyCODONE/APAP 5/325 TABLET PO PRN ×2 (11:25→23:25)
[2022-09-10] MEDS: polyethylene glycoL 3350 17 GM POWD.PACK PO SCH (11:26)
[2022-09-10] MEDS: carvediloL 25 MG TABLET PO SCH ×2 (11:26→16:53)
[2022-09-10] MEDS: hydrALAZINE 25 MG TABLET PO SCH ×3 (11:33→23:41)
[2022-09-10] MEDS: Vitamin B Complex/Vit C/Vit E 1 EACH TABLET PO SCH (11:34)
[2022-09-10] MEDS: Aspirin Enteric Coated 81 MG Tablet PO SCH (11:34)
[2022-09-10] MEDS: amLODIPine 5 MG TABLET PO SCH (11:34)
[2022-09-10] MEDS: Amoxicillin/Clavulanate 500 MG TABLET PO SCH ×2 (11:34→21:46)
[2022-09-10] MEDS: Topiramate 25 MG TABLET PO SCH ×2 (11:34→21:46)
[2022-09-10] MEDS: Melatonin 3 MG TABLET PO PRN (23:25)
[2022-09-11] MEDS: Levothyroxine 25 MCG TABLET PO SCH (05:25)
[2022-09-11] MEDS: *HR* OxyCODONE/APAP 5/325 TABLET PO PRN ×2 (05:26→12:00)
[2022-09-11] MEDS ORDERED: polyethylene glycoL 3350 17 GM POWD.PACK PO SCH (09:00)
[2022-09-11] MEDS: Insulin LISPRO 300 UNITS/3 ML VIAL SUBQ SCH ×4 (10:33→21:58)
[2022-09-11] MEDS: amLODIPine 5 MG TABLET PO SCH (10:34)
[2022-09-11] MEDS: Topiramate 25 MG TABLET PO SCH ×2 (10:34→21:58)
[2022-09-11] MEDS: Amoxicillin/Clavulanate 500 MG TABLET PO SCH ×2 (10:34→21:58)
[2022-09-11] MEDS: Vitamin B Complex/Vit C/Vit E 1 EACH TABLET PO SCH (10:34)
[2022-09-11] MEDS: Calcium Acetate 667 MG CAPSULE PO SCH ×3 (10:34→16:18)
[2022-09-11] MEDS: polyethylene glycoL 3350 17 GM POWD.PACK PO SCH (10:34)
[2022-09-11] MEDS: Aspirin Enteric Coated 81 MG Tablet PO SCH (10:34)
[2022-09-11] MEDS: carvediloL 25 MG TABLET PO SCH ×2 (10:37→16:19)
[2022-09-11] MEDS: hydrALAZINE 25 MG TABLET PO SCH ×2 (10:37→16:18)
[2022-09-11] MEDS: Ipratropium/Albuterol Neb 3 ML IH PRN ×2 (18:07→22:49)
[2022-09-11] MEDS: Sennosides/Docusate Sodium TABLET PO SCH (21:59)
[2022-09-12] MEDS: hydrALAZINE 25 MG TABLET PO SCH ×3 (00:24→16:52)
[2022-09-12] MEDS: Ondansetron ODT 4 MG TAB.RAPDIS SL PRN (01:30)
[2022-09-12] MEDS ORDERED: Saline Nasal Spray 44 ML BOTTLE NS PRN (03:37)
[2022-09-12] MEDS: Levothyroxine 25 MCG TABLET PO SCH (05:24)
[2022-09-12] MEDS: Insulin LISPRO 300 UNITS/3 ML VIAL SUBQ SCH ×5 (07:26→21:55)
[2022-09-12] MEDS ORDERED: 0.9 % Sodium Chloride 250 ML IVC PRN (09:17)
[2022-09-12] MEDS ORDERED: *HR* Heparin 10,000 UNIT/10 ML VIAL IV PRN ×2 (09:17)
[2022-09-12] MEDS: Amoxicillin/Clavulanate 500 MG TABLET PO SCH ×2 (10:44→21:42)
[2022-09-12] MEDS: Topiramate 25 MG TABLET PO SCH ×2 (10:44→21:43)
[2022-09-12] MEDS: Aspirin Enteric Coated 81 MG Tablet PO SCH (10:44)
[2022-09-12] MEDS: carvediloL 25 MG TABLET PO SCH ×2 (10:44→18:48)
[2022-09-12] MEDS: Vitamin B Complex/Vit C/Vit E 1 EACH TABLET PO SCH (10:44)
[2022-09-12] MEDS: amLODIPine 5 MG TABLET PO SCH (10:45)
[2022-09-12] MEDS: *HR* OxyCODONE/APAP 5/325 TABLET PO PRN ×2 (10:45→21:43)
[2022-09-12] MEDS: Calcium Acetate 667 MG CAPSULE PO SCH ×3 (10:46→18:48)
[2022-09-12] MEDS: polyethylene glycoL 3350 17 GM POWD.PACK PO SCH (10:46)
[2022-09-12] MEDS: Sennosides/Docusate Sodium TABLET PO SCH ×2 (10:48→21:55)
[2022-09-12 11:24] LABS: Hematocrit 27.3 % (35.3-44.9); Hemoglobin 8.4 g/dL (11.5-15.4); Mean Corpuscular HGB Conc 30.8 g/dL (31.6-35.5); Mean Corpuscular Hemoglobin 29.4 pg (28.0-33.3); Mean Corpuscular Volume 95.5 fL (83.0-100.0); Mean Platelet Volume 9.9 fL (9.4-12.4); Platelet Count 103 K/mcL (140-400); Red Blood Count 2.86 M/mcL (3.82-4.97); Red Cell Distribution Width 17.1 % (11.5-14.5); White Blood Count 6.2 K/mcL (4.3-11.1)
[2022-09-12 11:42] LABS: Calcium 8.6 mg/dL (8.6-10.3); Potassium 4.6 mEq/L (3.5-5.1)
[2022-09-12 20:14] VITALS: BP 127/71; PULSE 80; TEMP 99.3; O2SAT 91
[2022-09-12] MEDS ORDERED: Sennosides/Docusate Sodium TABLET PO ONE (21:29)
[2022-09-12] MEDS ORDERED: Melatonin 3 MG TABLET PO ONE (21:29)
[2022-09-12] MEDS ORDERED: Topiramate 25 MG TABLET PO ONE (21:29)
[2022-09-12] MEDS ORDERED: Amoxicillin/Clavulanate 500 MG TABLET PO ONE (21:29)
[2022-09-12] MEDS ORDERED: *HR* OxyCODONE/APAP 5/325 TABLET PO ONE (21:29)
[2022-09-12] MEDS: Melatonin 3 MG TABLET PO PRN (21:43)
== END 2022-09-12 23:59 | disposition other institution (70) ==
LOC: 2ANU → SUATTDRO 18:56
PROVIDERS: ADMIT Internal Medicine; ATTEND Internal Medicine